=== PATIENT | male | born 1940 | race Caucasian/White ===

== ENCOUNTER → 2018-02-23 09:23 | Outpatient (CLI) | payer MEDICARE, SELFPAY ==
[2018-01-19 11:18] VITALS: BMI 25.8
--- NOTE | 2018-02-23 09:33 | STE_ITS ---
Reason For Study: ATRIAL FIBRILLATION Stress Results Protocol: Dobutamine Stress Echo Maximum Predicted HR: 142 bpm Target HR: 121 bpm % Maximum Predicted HR: 89 % DurationHeart Rate Stage (mm:ss) (bpm) BP Dose Comment BASELINE 76 144/74 ATRIAL FIBRILLATION DSE- 10 MCG 3:05 86 161/8510.00 DSE- 20 MCG 3:28 126 171/[id number] VENTRICULAR COUPLETS RECOVERY 82 139/81 DENIES COMPLAINT Stress Duration: 6:33 mm:ss Maximum Stress HR: 126 bpm Baseline Echocardiogram Findings The estimated ejection fraction is 65 %. Stress Echo Wall motion Data Resting WM Intermediate WM Stress WM Resting Wall Motion Wall Motion Stress No regional wall motion Posterior-Basal: Mildly abnormalities noted. hypokinetic. Mid-Posterior: Mildly hypokinetic. EKG Data Atrial fibrillation with controlled ventricular response. The patient was titrated from 10 mcg to a maximum of 20 mcg of dobutamine during the stress. The maximum heart rate attained was 126 beats per minute. This was 88% of maximum predicted heart rate. The stress ECG displays diffuse abnormal ST segments. No clinical angina was noted. Doppler Measurements & Calculations TR max mariaa: 381.7 cm/sec TR max P.3 mmHg Interpretation Summary The estimated ejection fraction is 65 %. Posterior-Basal: Mildly hypokinetic Mid-Posterior: Mildly hypokinetic Abnormal, adequate, dobutamine echocardiogram. Positive for ischemia by EKG and echocardiographic criteria. Patient appeared to develop subtle inferior and posterior wall hypokinesis at peak infusion. Patient frequent PVCs and ventricular couplets during infusion. Patient appeared to develop diffuse inferior and lateral ST segment depression. No anginal symptoms noted. Appropriate blood pressure response to dobutamine. Final LVEF of 60%. Ordering Physician: Javed Arvizu Referring Physician: Javed Arvizu Performed By: Missy Garcia, MYKEL, RVT
== END ==
PROVIDERS: Family Provider Family Medicine; PCP Family Medicine; Referring Provider Internal Medicine Cardiovascular Disease; Visit Provider Internal Medicine Cardiovascular Disease
DX: I48.91 Unspecified atrial fibrillation (principal); F03.90 Unspecified dementia, unspecified severity, without behavioral disturbance, psychotic disturbance, mood disturbance, and anxiety; R93.1 Abnormal findings on diagnostic imaging of heart and coronary circulation; I49.3 Ventricular premature depolarization; I48.92 Unspecified atrial flutter; I99.8 Other disorder of circulatory system; R00.8 Other abnormalities of heart beat; R94.31 Abnormal electrocardiogram [ECG] [EKG]
CPT/HCPCS: 93017; 93350; J7040; A4216

== ENCOUNTER → 2018-03-02 10:33 | Outpatient (CLI) | payer MEDICARE, SELFPAY ==
[2018-03-02 09:29] VITALS: BMI 25.8
[2018-03-02 11:43] LABS: Hemoglobin 15.5 g/dl (13.0-16.5); Mean Corpuscular Hgb 29.4 pg (27.0-32.0); Mean Corpuscular Volume 89.2 fL (80-94); Mean Platelet Vol. 11.9 fl (6.2-12.0); Platelet Count 215 K/mm3 (150-450); RBC Distribution Width CV 14.9 % (11.6-14.6); Red Blood Count 5.27 M/mm3 (4.6-6.2); Scan Indicated on CBC? Y/N NO; White Blood Count 11.1 K/mm3 (4.4-11.0)
[2018-03-02 12:05] LABS: AST(SGOT) 19 U/L (15-37); Alanine Aminotransfer ALT/SGPT 22 U/L (16-61); Albumin, Serum 3.8 g/dL (3.2-5.0); Alkaline Phosphatase 55 U/L (45-117); Anion Gap 8 (5-15); BUN 12 mg/dL (7-18); BUN/Creat Ratio 11.7 RATIO (10-20); Chloride 105 mmol/L (98-107); Cholesterol 120 mg/dL (200); Creatinine, Serum 1.03 mg/dL (0.70-1.30); EST Glomerular Filtration Rate 74 mL/min (>60); Est Glom Filt Rate - Afr Amer 90 mL/min (>60); Globulin 3.6 g/dL (2.2-4.2); Glucose 110 mg/dL (74-106); High Density Lipoprotein 38 mg/dL; Potassium 4.2 mmol/L (3.5-5.1); Protein, Total 7.4 g/dL (6.4-8.2); Sodium Level 141 mmol/L (136-145); Triglycerides 64 mg/dL; Very Low Density Lipoprotein 13 mg/dL (5-40)
[2018-03-02 12:16] LABS: International Normalized Ratio 1.6; Prothrombin Time (Protime)PT. 19.3 SECONDS (11.7-14.9)
== END ==
PROVIDERS: Family Provider Family Medicine; PCP Family Medicine; Referring Provider Internal Medicine Cardiovascular Disease; Visit Provider Internal Medicine Cardiovascular Disease
DX: E78.5 Hyperlipidemia, unspecified (principal); R94.39 Abnormal result of other cardiovascular function study; R06.09 Other forms of dyspnea; I48.91 Unspecified atrial fibrillation; I35.1 Nonrheumatic aortic (valve) insufficiency; I36.1 Nonrheumatic tricuspid (valve) insufficiency; I34.0 Nonrheumatic mitral (valve) insufficiency; Z86.73 Personal history of transient ischemic attack (TIA), and cerebral infarction without residual deficits
CPT/HCPCS: 36415; 80048; 80061; 80076; 85027; 85610; 85730

== ENCOUNTER 2018-03-10 08:08 | Day surgery (SDC) | payer MEDICARE, SELFPAY ==
[2018-01-19 11:18] VITALS: BMI 25.8
[2018-03-02 09:29] VITALS: BMI 25.8
--- NOTE | 2018-03-02 10:06 | RAD_ITS ---
STUDY: X-RAY CHEST REASON FOR EXAM: Male, 77 years old. Preoperative assessment TECHNIQUE: PA and lateral COMPARISON: None. FINDINGS: The lungs are clear and expanded. There is no demonstrated pleural abnormality. Normal size heart. Normal mediastinum and paco. Normal visualized pulmonary arteries. Normal visualized aortic arch and descending thoracic aorta. Normal visualized thoracic spine. Normal visualized ribs, clavicles, and shoulders. There is no demonstrated abnormality of the visualized soft tissue structures of the upper abdomen. RAD/Chest PA and Lateral IMPRESSION: Normal x-ray examination of the chest. Electronically Signed: García Sheehan MD at 3:41 EST , Service support ,
[2018-03-09 09:00] VITALS: BMI 25.2
[2018-03-10 08:21] LABS: Prothrombin Time Fingerstick 14.2 SEC (11.9-14.4)
[2018-03-10 10:01] LABS: Blood Gas Specimen Type VEN; VBG BASE EXCESS -1 mmol/L (-1.0-3.5); VBG Bicarbonate 25 mmol/L (22-26); VBG Oxygen Content 26 mmol/L (23-33); VBG PO2 34 mmHg (25-40); VBG SO2 63 % (50-70); VBG pCO2 43.4 mmHg (41-51); VBG pH 7.36 (7.32-7.42)
[2018-03-10 10:01] LABS: Blood Gas Specimen Type VEN; VBG BASE EXCESS 0 mmol/L (-1.0-3.5); VBG Bicarbonate 25 mmol/L (22-26); VBG Oxygen Content 26 mmol/L (23-33); VBG PO2 35 mmHg (25-40); VBG SO2 65 % (50-70); VBG pCO2 43.2 mmHg (41-51); VBG pH 7.37 (7.32-7.42)
[2018-03-10 10:01] LABS: Base Excess -4 mmol/L (-2 to +2); Bicarbonate 21.1 mmol/L (22-26); Blood Gas Specimen Type ART; PO2 93 mmHG (75-100); SO2 97 % (95-99); Total Carbon Dioxide 22 mmol/L; pCO2 34.9 mmHg (35-45); pH 7.39 (7.35-7.45)
--- NOTE | 2018-03-10 10:07 | CL.D_ITS ---
Patient Name: ISIDRO COOPER Study Date: 03/10/2018 Performing: Javed Arvizu MD Ht: 70.07 inches 178 cm : 1940 Wt: 176.37 lbs 80 kg Age: 77 Gender: male BSA: 1.98 PROCEDURE(S) PERFORMED NY22-NTC/LHC/COR/LV DC11-AO ROOT ANGIO WITH HEART CATH CLINICAL PROFILE AND INDICATIONS Indications: Suspected CAD, Valvular Disease, Cardiac Arrythmia Heart Failure: NYHA Class: 1, Newly Diagnosed: No, Heart Failure Type: Diastolic Stress/Imaging Stress Echocardiogram: Yes Result: Positive Low RiskStress Echocardiogram: Positiv e Low Risk Angina Classification Anginal Classification w/in 2 Weeks: No symptoms CAD Presentations: Other: Dyspnea on exertion. Comorbidities/Risk Factors: Hypertension Dyslipidemia CONCLUSIONS Normal LV size, wall motion,and systolic function LVEF: by LV gram 55-60 % Non obstructive coronary arteries Aortic Valve Stenosis- Mild The patient has pulmonary hypertension which is mild. Right heart pressures - mildly elevated RECOMMENDATIONS D/c plavix, start hyzaar 50/12.5, start amio 200mg daily, DCCV in 4 weeks. DESCRIPTION OF PROCEDURE The patient arrived to the procedure lab. The risks and benefits of the procedure as well as a full d escription of our services here and current unavailability of surgical backup were fully explained to the patient and/or their significant other prior to the catheterization. The Timeout was completed, verifying the correct patient and procedure. The patient's procedural site was prepped and draped in the usual fashion. Local anesthetic was given subcutaneously to right groin region with Lidocaine 2%. Using a modified Seldinger technique, arterial access was obtained via the right femoral artery, a 4 Fr sheath was inserted Venous access was obtained via the right femoral vein, a 7Fr sheath was insert ed. A 7Fr thermal dilution catheter was inserted and right heart pressures were recorded, it was then advanced to PA position for cardiac outputs. O2 saturations were then obtained. Thermal dilution car diac outputs were then recorded. The Thermal dilution catheter was then removed. Left Ventriculography was performed in LOPEZ projection using a 4 Fr. Pigtail catheter. LV to AO pullback pr essures were then recorded. Left Coronary Artery selective angiography was performed in multiple view s using a 4 Fr. JL5 catheter. Right Coronary Artery selective angiography was then performed in multi ple views using a 4 Fr. 3DRC catheter.The arterial sheath was pulled and manual compression applied u ntil hemostasis is achieved. CORONARY ANGIOGRAPHY DOMINANCE: Right Dominant LEFT HEART ASSESSMENT Left Ventricular Ejection Fraction: by LV Gram 55-60 % Normal LV wall motion Normal Left Ventricular systolic function RIGHT HEART ASSESSMENT Thermal CO: 3.19 Thermal CI: 1.61 PW: /31 22 PA: 47/20 32 RV: 42/-1 5 RA: /6 4 PVR: 251 SVR: 2884 Right Heart pressures - elevated Pulmonary Hypertension Mild LEFT MAIN: Moderate calcification LEFT ANTERIOR DECENDING ARTERY: Moderate calcification, Mild luminal irregularities less than 30% CIRCUMFLEX ARTERY: Moderate calcification, Mild luminal irregularities less than 30% RIGHT CORONARY ARTERY: Moderate calcification MID RCA: Moderate luminal irregularities up to 50% RT PDA: Proximal - Mild luminal irregularities less than 30% VALVE FINDINGS: Aortic Valve Stenosis - mild AORTIC ROOT: mild aortic insufficiency COMPLICATIONS No Complications PROCEDURE MEDICATIONS SUMMARY OF HEMODYNAMIC DATA Time AIR REST ECG 08:35:50 RA /6 (4) SV 09:37:33 RV 42/-1, 5 09:37:59 PA 47/20 (32) PA 09:38:56 PW /31 (22) PV 09:40:24 LV 172/-6, 11 09:45:26 LV 181/-4, 16 09:45:32 LV 182/-2, 10 09:45:56 PW /43 (30) 09:45:56 LV 176/-2, 10 09:46:02 PW /37 (26) 09:46:02 LV 181/-1, 12 09:46:14 RV 45/16, 22 09:46:14 LV 185/0, 13 09:46:20 RV 47/2, 6 09:46:20 LV 177/-3, 6 09:46:29 RV 46/0, 5 09:46:29 LV 183/-5, 14 09:48:25 LVp 182/-3, 10 09:48:28 AOp 184/75 (119) 09:48:33 AO 152/88 (119) SA 09:49:05 Type SV CO (l/m) CI (l/m/ HR Time AIR REST Thermal 31.60 3.19 1.61 101 08:35:50 Label % O2 Pres/Loc Time AIR REST AO 97 PV 09:53:10 Signed By Javed Arvizu MD On 03/10/2018 10:06:58 AM Javed Arvizu MD
--- OUTSIDE RECORDS SUMMARY | 2018-05-12 02:50 | XMS RPT_ITS ---
:1940 Author Organization OHIP Care Team Providers Name Role Phone Javed Mills Attending Unavailable Javed Mills Referring Unavailable SLICK, JOHANNY Primary Care Unavailable Javed Mills Attending Unavailable Javed Mills Referring Unavailable SHEETS, JOHANNY Primary Care Unavailable Javed Mills Attending Unavailable Javed Mills Referring Unavailable SLICK, JOHANNY Primary Care Unavailable Dahlia Haines Attending Unavailable SHEETS, JOHANNY Referring Unavailable Javed Mills Attending Unavailable Javed Mills Referring Unavailable SHEETS, JOHANNY Primary Care Unavailable Javed Mills Attending Unavailable Javed Mills Referring Unavailable Javed Mills Attending Unavailable SHEETS, JOHANNY Referring Unavailable AMY PUENTE MD Attending Unavailable SHEETS, JOHANNY Ragland Primary Care Unavailable JOSEPH HSIEH Admitting Unavailable RYAN LOERA Attending Unavailable BROOKS RAYA Consulting Unavailable SHEETS, JOHANNY C Attending Unavailable SHEETS, JOHANNY C Referring Unavailable JAVED MILLS J Referring Unavailable JAVED MILLS J Referring Unavailable PROBLEMS PROBLEMS DATE TYPE CONDITION / CODE ATTENDING STATUS SOURCE 03/02/2018 Unknown E78.5 - MillsJaved Active [place] Hyperlipidemia, Community unspecified / Hospital E78.5(ICD-10) Repository 03/02/2018 Unknown R94.39 - Abnormal Javed Mills Active [place] result of other [facility] cardiovascular Hospital function study / Repository R94.39(ICD-10) 03/02/2018 Unknown R06.09 - Other forms Javed Mills Active [place] of dyspnea / Community R06.09(ICD-10) Hospital Repository 03/02/2018 Unknown I48.91 - Unspecified [place]ol[place]to Javed Active [place] atrial fibrillation Community / I48.91(ICD-10) Hospital Repository 03/02/2018 Unknown I35.1 - Nonrheumatic MillsJaved Active [place] aortic (valve) Community insufficiency / Hospital I35.1(ICD-10) Repository 03/02/2018 Unknown I36.1 - Nonrheumatic Nolberto Javed Active [place] tricuspid (valve) Community insufficiency / Hospital I36.1(ICD-10) Repository 03/02/2018 Unknown I34.0 - Nonrheumatic Javed Mills Active [place] mitral (valve) Community insufficiency / Hospital I34.0(ICD-10) Repository 03/02/2018 Unknown Z86.73 - Personal Javed Mills Active [place] history of transient Community ischemic attack Hospital (TIA), and cerebral Repository infarction without residual deficits / Z86.73(ICD-10) 02/25/2018 Active Nonrheumatic aortic NA Active [place] (valve) [facility] Other insufficiency / [place] I35.1(ICD-10) Repository 02/24/2018 Active Localized edema / NA Active [place] R60.0(ICD-10) Clinic Other [place] Repository 02/10/2018 Unknown R60.0 - Localized Javed Mills Active [place] edema / Community R60.0(ICD-10) Hospital Repository 01/08/2018 Active Other fatigue / NA Active [place] R53.83(ICD-10) [facility] Other [place] Repository 08/29/2017 Active Unknown / RYAN LOERA Active [facility] UNK(Unknown) [facility] Other [place] Repository PROCEDURES PROCEDURES No Procedure Records FoundRESULTS RESULTS BLOOD GASES BY CPS Collected: 03/10/2018 Status: F Source: [place] 9:52 AM [facility] REPOSITORY TYPE CODE TESTS RESULT OUT OF RANGE REFERENCE UNITS LAB L9000.9990 Normal BLD GAS ART TYPE LAB L9001.1110 7.35-7.45 Normal pH - 7.39 I-STAT LAB L9001.1210 35-45 mmHg Low pCO2 - 34.9 ISTAT LAB L9001.1310 75-100 mmHG Normal PO2 93 I-STAT LAB L9001.2300 22-26 mmol/L Low HCO3 21.1 ISTAT LAB L9001.2400 -2 to +2 mmol/L Low BE ISTAT -4 LAB L9001.2415 mmol/L Normal TOTAL CO2 22 ISTAT LAB L9001.2425 95-99 % Normal SO2 ISTAT 97 Performed By: #### L9000.0800 #### [facility] Point of Care [address] [place] [address] VENOUS BLOOD GAS Collected: 03/10/2018 Status: F Source: ALIYAH 9:47 AM [facility] REPOSITORY TYPE CODE TESTS RESULT OUT OF RANGE REFERENCE UNITS LAB L9000.9990 Normal BLD GAS OMI TYPE LAB L9002.1110 7.32-7.42 Normal VBGpH - 7.37 I-STAT LAB L9002.1212 41-51 mmHg Normal VBG pCO2 43.2 - ISTA LAB L9002.1310 25-40 mmHg Normal VBG PO2 35 I-STAT LAB L9002.2300 22-26 mmol/L Normal VBG HCO3 25 ISTAT LAB L9002.2400 -1.0-3.5 mmol/L Normal VBG BE 0 ISTAT LAB L9002.2410 50-70 % Normal VBG SO2 65 ISTAT LAB L9002.2415 23-33 mmol/L Normal VBG O2 CT 26 ISTAT Performed By: #### L9000.0810 #### [facility] Point of Care [address] [place] [address] VENOUS BLOOD GAS Collected: 03/10/2018 Status: F Source: ALIYAH 9:44 AM [facility] REPOSITORY TYPE CODE TESTS RESULT OUT OF RANGE REFERENCE UNITS LAB L9000.9990 Normal BLD GAS OMI TYPE LAB L9002.1110 7.32-7.42 Normal VBGpH - 7.36 I-STAT LAB L9002.1212 41-51 mmHg Normal VBG pCO2 43.4 - ISTA LAB L9002.1310 25-40 mmHg Normal VBG PO2 34 I-STAT LAB L9002.2300 22-26 mmol/L Normal VBG HCO3 25 ISTAT LAB L9002.2400 -1.0-3.5 mmol/L Normal VBG BE -1 ISTAT LAB L9002.2410 50-70 % Normal VBG SO2 63 ISTAT LAB L9002.2415 23-33 mmol/L Normal VBG O2 CT 26 ISTAT Performed By: #### L9000.0810 #### [facility] Point of Care [address] [place] [address] PROTIME W/INR Collected: 03/10/2018 Status: F Source: [place]IY[place] FINGER[place]ICK 8:17 AM [facility] REPOSITORY TYPE CODE TESTS RESULT OUT OF RANGE REFERENCE UNITS LAB L9200.1001 11.9-14.4 SEC Normal PROTIME ISTAT 14.2 Result Comment: Reference Range 11.9 - 14.4 LAB L9200.2000 Normal INR ISTAT 1.20 Result Comment: Critical Value > 3.5 Performed By: #### L9200.0000 #### [facility] Point of Care [address] [place], [place] [address] CBC-COMPLETE BLOOD CNT Collected: 03/02/2018 Status: F Source: [place] NO DIFF 10:40 AM [facility] REPOSITORY TYPE CODE TESTS RESULT OUT OF RANGE REFERENCE UNITS LAB L100.1000 4.4-11.0 K/mm3 High WBC 11.1 LAB L100.1200 4.6-6.2 M/mm3 Normal RBC 5.27 LAB L100.1300 13.0-16.5 g/dl Normal HGB 15.5 LAB L100.1400 40-54 % Normal HCT 47.0 LAB L100.1500 80-94 fL Normal MCV 89.2 LAB L100.1600 27.0-32.0 pg Normal MCH 29.4 LAB L100.1700 32-36 g/gl Normal MCHC 33.0 LAB L100.1810 11.6-14.6 % High RDW CV 14.9 LAB L100.1820 35.1-43.9 fl High RDW SD 49.0 LAB L100.1900 150-450 K/mm3 Normal PLT 215 LAB L100.2000 6.2-12.0 fl Normal MPV 11.9 Performed By: #### L100.0500 #### [facility] [address] [place], [place], [address] BASIC METABOLIC Collected: 03/02/2018 Status: F Source: [place] PROFILE (BMP) 10:40 AM [facility] REPOSITORY TYPE CODE TESTS RESULT OUT OF RANGE REFERENCE UNITS LAB L501.0100 74-106 mg/dL High GLU 110 Result Comment: Fasting Glucose result from 100 to 125 mg/dL suggests IMPAIRED HOMEOSTASIS per A.D.A. criteria. Please note revised GLUCOSE reference range effective 2017. LAB L501.1000 7-18 mg/dL Normal BUN 12 LAB L501.1100 0.70-1.30 mg/dL Normal CREAT,SERUM 1.03 Result Comment: The validity of the calculated GFR AND GFRAA in patients over 70 years has not been determined. Clinical correlation is essential. LAB L501.1110 >60 mL/min Normal EST GFR 74 Result Comment: Non- GFR Calc LAB L501.1115 >60 mL/min Normal EST GFR - AA 90 Result Comment: GFR Calc LAB L501.1300 10-20 RATIO Normal BUN/CRE 11.7 LAB L501.2200 8.5-10.1 mg/dL CA Normal 9.0 LAB L501.5300 136-145 mmol/L NA Normal 141 LAB L501.5600 3.5-5.1 mmol/L K Normal 4.2 LAB L501.5900 98-107 mmol/L CL Normal 105 LAB L501.6100 21.0-32.0 mmol/L Normal CO2 28.0 LAB L501.6200 5-15 Normal GAP 8 Performed By: #### L500.2500, L500.3400, L500.4100 #### [facility] [address] [place], [place], [id number] LIVER PROFILE Collected: 03/02/2018 Status: F Source: [place] 10:40 AM [facility] REPOSITORY TYPE CODE TESTS RESULT OUT OF RANGE REFERENCE UNITS LAB L501.1500 6.4-8.2 g/dL Normal T PROT 7.4 LAB L501.1800 3.2-5.0 g/dL Normal ALB 3.8 LAB L501.1950 2.2-4.2 g/dL Normal GLOB 3.6 LAB L501.4100 15-37 U/L Normal AST 19 LAB L501.4305 45-117 U/L Normal ALK P 55 LAB L501.4405 16-61 U/L Normal ALT 22 LAB L501.4600 0.20-1.00 mg/dL Normal T BILI 0.80 LAB L501.4700 0.00-0.30 mg/dL Normal D BILI 0.30 Performed By: #### L500.2500, L500.3400, L500.4100 #### [facility] [address] [place], [place], [id number] LIPID PROFILE Collected: 03/02/2018 Status: F Source: [place] 10:40 AM [facility] REPOSITORY TYPE CODE TESTS RESULT OUT OF RANGE REFERENCE UNITS LAB L501.4900 200 mg/dL Normal CHOL 120 Result Comment: <200 mg/dL Desirable 200-240 mg/dL Borderline >240 mg/dL High Risk LAB L501.5000 mg/dL Normal TRIG 64 Result Comment: The drugs N-Acetylcysteine and Metamizole may falsely depress this assay. Serum Triglycerides Reference Interval Normal <150 mg/dL Borderline high 150 - 199 mg/dL High 200 - 499 mg/dL Very High > or = 500 mg/dL LAB L501.6400 mg/dL Low HDL 38 Result Comment: The drugs N-Acetylcysteine and Metamizole may falsely depress this assay. Reference Range HDL <40 mg/dL Low HDL Cholesterol HDL >or= 60 mg/dL High HDL Cholesterol LAB L501.6500 0-130 mg/dL Normal LDL 69 LAB L501.6600 5-40 mg/dL Normal VLDL 13 Performed By: #### L500.2500, L500.3400, L500.4100 #### [facility] [address] [place], [address] PROTHROMBIN TIME W/INR Collected: 03/02/2018 Status: F Source: [place] 10:40 AM [facility] REPOSITORY TYPE CODE TESTS RESULT OUT OF RANGE REFERENCE UNITS LAB L300.4150 11.7-14.9 SECONDS High PROTIME 19.3 LAB L300.4200 Normal INR 1.6 Performed By: #### L300.3900, L300.4310 #### [facility] [address] [place], [address] PARTIAL THROMBOPLAST Collected: 03/02/2018 Status: F Source: [place] TIME 10:40 AM [facility] REPOSITORY TYPE CODE TESTS RESULT OUT OF RANGE REFERENCE UNITS LAB L300.4310 24.1-36.2 Seconds Normal PTT 32.0 Performed By: #### L300.3900, L300.4310 #### [facility] [address] [place], [address] CARDIOLOGY VISIT Observed: 03/02/2018 Status: F Source: [place] REPORT 10:09 AM [facility] REPOSITORY [facility] [address] [place] [address] OFFICE VISIT Date of Service: 03/02/18 MR#: [id number] Acct: [id number] Name: ISIDRO MURPHY Rep #: [id number] : 1940 Provider: Dahlia Haines Age/Sex: 77/M Location: [facility] [place] Status: Signed HPI [facility] Chief Complaint: Atrial fibrillation Details: ISIDRO MURPHY, is a 77 M who presents to the office today for presents here today for an updated history and physical for an upcoming heart catheterization. Patient recently established with us. He has a history of persistent atrial fibrillation, hypertension, pulmonary hypertension and hyperlipidemia. Patient underwent a stress echocardiogram which was abnormal, diagnostic heart catheterization was recommended. Pt sts that he is doing okay. However and dtr state that he is very fatigued. He does not have any chest pain/heaviness. He does not have any SOB, orthopnea. His exercise tolerance is limited and he sits most of the day. He does occasionally have positional dizziness. He does not have any near syncope/syncope. He does not have any edema. 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 Accompanied by: Is patient in pain?: No Allergies No Known Allergies Allergy (Verified 03/02/18 09:30) Medications albuterol sulfate HFA 90 mcg/actuation aerosol inhaler 2 puff INHALATION Q4H PRN g 01/18/18 [History Confirmed 03/02/18] diltiazem CD 360 mg capsule,extended release 24 hr 360 mg PO DAILY 01/18/18 [History Confirmed 03/02/18] donepezil 5 mg tablet 5 mg PO QHS tab 01/18/18 [History Confirmed 03/02/18] fenofibrate micronized 130 mg capsule 130 mg PO DAILY 01/18/18 [History Confirmed 03/02/18] nitroglycerin 0.4 mg/hr transdermal 24 hour patch 1 patch TRANSDERMAL DAILY 01/18/18 [History Confirmed 03/02/18] rivaroxaban 20 mg tablet 20 mg PO DAILY 01/18/18 [History Confirmed 03/02/18] rosuvastatin 20 mg tablet 20 mg PO DAILY 01/18/18 [History Confirmed 03/02/18] sitagliptin 50 mg-metformin 500 mg tablet 1 tab PO BID 01/18/18 [History Confirmed 03/02/18] metoprolol succinate ER 100 mg tablet,extended release 24 hr 200 mg PO DAILY tab 01/19/18 [History Confirmed 03/02/18] aspirin 81 mg tablet,delayed release 81 mg PO .COMPLEX #30 tab 02/24/18 [Rx Confirmed 03/02/18] clopidogrel 75 mg tablet 75 mg PO .COMPLEX #30 tab 02/24/18 [Rx Confirmed 03/02/18] Ejection fraction %: 55 to 59 PFSH Medical History Dyspnea on exertion (Acute) Abnormal stress echo (Acute) Secondary pulmonary hypertension (Chronic) Nonrheumatic aortic valve regurgitation (Chronic) Nonrheumatic tricuspid valve regurgitation (Chronic) Nonrheumatic mitral valve regurgitation (Chronic) History of TIA (transient ischemic attack) (Chronic) Leg edema (Chronic) Atrial fibrillation (Chronic) Fatigue (Acute) Diabetes mellitus, type II (Chronic) Hyperlipidemia (Chronic) Hypertension (Chronic) Atypical chest pain (Resolved) Family History Mother CAD (coronary artery disease) CVA (cerebral vascular accident) Congestive heart failure Father Hypertension Sister Cancer Brother Hypertension Diabetes Cancer Liver cancer CAD (coronary artery disease), Onset Age: 70 Brother Esophageal cancer Social History Smoking Status: Former smoker quit date: 09/22/89 pack-years: 30 alcohol intake: current alcohol intake frequency: a few times a week Alcohol type: beer caffeine: Yes Type: coffee Number of servings: 1 ROS Const Const: Positive for weakness, other ( states pt is very tired, sleeps all the time. Pt states he feels ok.) and fatigue; negative for body ache, fever(s), headache(s), chills, frequent falls, night sweats, daytime sleepiness, difficulty sleeping, weight gain, weight loss, increased appetite, poor appetite, anorexia or excessive sweating Eyes Eyes: Negative for blind spots, loss of peripheral vision, transient loss of vision, blurry vision, change in vision, double vision, floaters, tunnel vision or other ENT ENT: Negative for headache(s) or balance problems Cardio Chest Pain: No Palpitations: No Edema: Bilateral (mild pitting to mid shins) Muscle aches with walking: None Resp Respiratory: Negative for SOB with activity, SOB at rest, SOB orthopnea\SOB lying down, Cough, Coughing up blood/hemoptysis, chest congestion, pain on inspiration, snoring, stridor, wheezing, crackles, paroxysmal nocturnal dyspnea or other GI GI: Negative nausea, vomiting, heartburn, constipation, belching, bloating, cramping, vomiting blood/hematemesis, bright, red blood in stools, black,tarry stools, loose stools, Difficulty Swallowing or other : Negative for hematuria, frequent nighttime urination/ nocturia, erectile dysfunction or abnormal vaginal bleeding Musc Musc: Negative for balance problems, muscle aches/ myalgia, muscle weakness or joint pain Skin Skin: Negative redness, non-healing lesions, rash, unusual bruising, skin ulcer, wounds, jaundice or other Neuro Neuro: Positive for weakness; negative for headache(s), frequent falls, blurry vision or double vision Irvin Hematologic/Lymphatic: Negative for easy bleeding, easy bruising, enlarged lymph nodes or other Endo Endo: Positive for fatigue; negative for excessive sweating Psych Psych: Negative for anxiety, depression, thoughts of harming anyone, thoughts of harming yourself, visual hallucinations, panic attacks or audible hallucinations Allergy Allergy/Immunology: Negative for rash Cardiology Exam Const Appearance: cooperative, healthy appearing and no acute distress Nutritional Appearance: well nourished Orientation: alert, oriented x3 and oriented to person Head Head: normal to inspection, atraumatic and normocephalic Nose: external nose normal Face and Sinus: face symmetric Mouth: oral mucosae normal Eyes General: appearance normal, both eyes and all related structures Eyelids: eyelids normal Conjunctivae: conjunctivae normal Pupils: PERRL and normal by confrontation EOM: EOM intact bilaterally Neck Neck: normal visual inspection and full ROM Carotids: normal carotid upstroke Chest Chest inspection: normal inspection of the chest Auscultation: Bilateral: Clear to Auscultation Cardio Palpation: normal PMI Rate: regular rate Rhythm: irregularly irregular Heart sounds: S2 normal and S1 normal; negative rub or gallop Murmur: Grade 2/6, holosystolic and soft GI GI: normal to inspection, no hepatosplenomegaly and bowel sounds present Neuro General: alert, oriented x3, awake, CN's II-XI intact bilaterally and moves all extremities Skin Skin: no rashes or lesions noted Extremities Pulses: Normal: Right Femoral Pulse, Left Femoral Pulse, Right Dorsalis Pedis Pulse, Left Dorsalis Pedis Pulse, Right Posterior Tibial Pulse, Left Posterior Tibial Pulse, Right Radial Pulse, Left Radial Pulse Lower Extremity Edema: +1: Bilateral Psych Psychological: normal affect Assessment AND Plan 1. Abnormal stress echo R94.39 Plan Patient did have an abnormal stress test, he will undergo a left and right heart catheterization for further evaluation. Patient will follow up accordingly after. 2. Secondary pulmonary hypertension RVSP 51 mmhg, EF 55% per echo 07/21 2013 done @ [facility] Plan This will be rechecked with his upcoming heart catheterization. 3. Persistent atrial fibrillation I48.1 Plan Rate is controlled he will continue with current rate limiting medication in addition to his anticoagulant. 4. Essential hypertension I10 Plan Blood pressure is well controlled on current medications, we do not recommend any changes at this time. 5. Pure hypercholesterolemia E78.00; E78.0 Plan Patient will have his lipids rechecked today. For now he will continue with his current medications. Plan Detail Additional Comments Instructions for heart catheterization were given to , patient and daughter. Thank you for allowing us to participate in patient's plan of care, if you have any questions please do not hesitate to call. This note was generated using a voice recognition system and there may be incorrect words, spelling or punctuation errors that were not noted when reviewing the office note prior to saving. Follow Up 03/02/18 (keep as is) Coding Level of Care Code Off vis,est,level 3 Diagnoses Abnormal stress echo R94.39 Secondary pulmonary hypertension Persistent atrial fibrillation I48.1 Atrial fibrillation type: persistent Essential hypertension I10 Hypertension type: essential hypertension Pure hypercholesterolemia E78.00; E78.0 Hyperlipidemia type: pure hypercholesterolemia Coding Level of Care Code Off vis,est,level 3 Diagnoses Abnormal stress echo R94.39 Secondary pulmonary hypertension Persistent atrial fibrillation I48.1 Atrial fibrillation type: persistent Essential hypertension I10 Hypertension type: essential hypertension Pure hypercholesterolemia E78.00; E78.0 Hyperlipidemia type: pure hypercholesterolemia Supplemental Info Supplemental Information Dobutamine stress echocardiogram in 2019 demonstrated: The estimated ejection fraction is 65 %. Posterior-Basal: Mildly hypokinetic Mid-Posterior: Mildly hypokinetic Abnormal, adequate, dobutamine echocardiogram. Positive for ischemia by EKG and echocardiographic criteria. Patient appeared to develop subtle inferior and posterior wall hypokinesis at peak infusion. Patient frequent PVCs and ventricular couplets during infusion. Patient appeared to develop diffuse inferior and lateral ST segment depression. No anginal symptoms noted. Appropriate blood pressure response to dobutamine. Final LVEF of 60%. Diagnostics Stress Echocardiogram 02/23/18 03/02/18 1009 <Electronically signed by Dahlia ANDINO> Date [facility] Signature: Date (if applicable) CC: Johanny Sow DO CHEST PA AND LATERAL Observed: 03/02/2018 Status: F Source: [place] 10:06 AM [facility] REPOSITORY [facility] Imaging Services [address] [place] [address] [place] [address] Chest PA and Lateral MR#: [id number] Acct: [id number] Name: ISIDRO MURPHY Rep #: [id number] : 1940 M 77 From: García Sheehan PCP: Johanny Sow DO Status: PRE SDC Study: Chest PA and Lateral Date of Exam: 03/02/18 Exam# [id number] Ordering Dr: Javed Mills MD STUDY: X-RAY CHEST REASON FOR EXAM: Male, 77 years old. Preoperative assessment TECHNIQUE: PA and lateral COMPARISON: None. FINDINGS: The lungs are clear and expanded. There is no demonstrated pleural abnormality. Normal size heart. Normal mediastinum and paco. Normal visualized pulmonary arteries. Normal visualized aortic arch and descending thoracic aorta. Normal visualized thoracic spine. Normal visualized ribs, clavicles, and shoulders. There is no demonstrated abnormality of the visualized soft tissue structures of the upper abdomen. RAD/Chest PA and Lateral IMPRESSION: Normal x-ray examination of the chest. Electronically Signed: García Sheehan MD at 3:41 EST , Service support , CC: Javde Mills MD; Johanny Sow DO [employer] Combination: Signed STRESS TEST ECHO W/O Observed: 02/24/2018 Status: F Source: [place] CONTRAST 2:50 PM [facility] REPOSITORY [facility] Cardiovascular Services [address] [address] Stress Test Echo w/o Contrast MR#: [id number] Acct: [id number] Name: ISIDRO MURPHY Rep #: [id number] : 1940 77 From: Javed Mills MD Primary Care: Johanny Kruger DO Status: REG CLI Ordering Dr: Javed Mills MD Sex: M C Reason For Study: ATRIAL FIBRILLATION Stress Results Protocol: Dobutamine Stress Echo Maximum Predicted HR: 142 bpm Target HR: 121 bpm % Maximum Predicted HR: 89 % DurationHeart Rate Stage (mm:ss) (bpm) BP Dose Comment BASELINE 76 144/74 ATRIAL FIBRILLATION DSE- 10 MCG 3:05 86 161/8510.00 DSE- 20 MCG 3:28 126 171/8920.00RARE VENTRICULAR COUPLETS RECOVERY 82 139/81 DENIES COMPLAINT Stress Duration: 6:33 mm:ss Maximum Stress HR: 126 bpm Baseline Echocardiogram Findings The estimated ejection fraction is 65 %. Stress Echo Wall motion Data Resting WM Intermediate WM Stress WM Resting Wall Motion Wall Motion Stress No regional wall motion Posterior-Basal: Mildly abnormalities noted. hypokinetic. Mid-Posterior: Mildly hypokinetic. EKG Data Atrial fibrillation with controlled ventricular response. The patient was titrated from 10 mcg to a maximum of 20 mcg of dobutamine during the stress. The maximum heart rate attained was 126 beats per minute. This was 88% of maximum predicted heart rate. The stress ECG displays diffuse abnormal ST segments. No clinical angina was noted. Doppler Measurements AND Calculations TR max mariaa: 381.7 cm/sec TR max P.3 mmHg Interpretation Summary The estimated ejection fraction is 65 %. Posterior-Basal: Mildly hypokinetic Mid-Posterior: Mildly hypokinetic Abnormal, adequate, dobutamine echocardiogram. Positive for ischemia by EKG and echocardiographic criteria. Patient appeared to develop subtle inferior and posterior wall hypokinesis at peak infusion. Patient frequent PVCs and ventricular couplets during infusion. Patient appeared to develop diffuse inferior and lateral ST segment depression. No anginal symptoms noted. Appropriate blood pressure response to dobutamine. Final LVEF of 60%. Ordering Physician: Javed Mills Referring Physician: Javed Mills Performed By: Missy Garcia, ELIDACS, RVT 02/24/18 1450 Date Javed Mills MD CC: Javed Mills MD; Johanny Kruger DO Date Dictated: 02/23/18 0951 Date Transcribed: 02/24/181449 [employer] Combination: Signed OBSOLETE Observed: 02/24/2018 Status: COMPLETED Source: [place] 11:15 AM [facility] REPOSITORY Procedure ([facility]) ISIDRO MURPHY ([id number]) 1940 M Date Time Provider Department 02/24/18 11:15 AM [facility] During your visit today, we recorded the following information about you: Referring Provider: JAVED MILLS [[id number]] Allergies As of Date: 02/24/2018 (No Known Allergies) Date Reviewed: 01/08/2018 Reviewed by: Johanny Kruger - Fully Assessed Reason for Visit: Procedure [88] Visit Diagnosis:Localized edema [R60.0] Prescriptions as of 02/24/2018 Sig: NITROGLYCERIN 0.4 MG/HR TRANS* Apply 1 Patch as directed onc* FENOFIBRATE MICRONIZED 130 MG* Take 1 capsule by mouth once * ATORVASTATIN 20 MG TABLET Take 1 tablet by mouth once d* METOPROLOL SUCCINATE ER 100 M* Take 2 tablets by mouth once * BLOOD SUGAR DIAGNOSTIC STRIPS Use to check sugars once peter* DILTIAZEM ER 360 MG TABLET,EX* Take 1 tablet by mouth once d* SITAGLIPTIN 50 MG-METFORMIN 5* Take 1 tablet by mouth twice * DONEPEZIL 5 MG TABLET Take 1 tablet by mouth daily * XARELTO 20 MG TABLET TAKE 1 TABLET DAILY WITH DINN* Problem List As Of Date 02/24/2018 Noted Resolved Rhinitis [J31.0] INVALID FOR* CRVO (central retinal vein occlusion) [H34.8192]INVALID FOR* More... Type 2 diabetes mellitus without complication, *INVALID FOR* More... Mixed hyperlipidemia [E78.2] INVALID FOR* More... More... More... Chest pain at rest [R07.9] INVALID FOR*07/20/2013 More... History of TIA (transient ischemic attack) [Z86*INVALID FOR* More... Abnormal echocardiogram [R93.1] INVALID FOR* More... Pulmonary hypertension (HCC) [I27.20] INVALID FOR* Diabetic eye exam (HCC) [Z01.00, E11.9] INVALID FOR* More... Valvular heart disease [I38] INVALID FOR* More... Alcohol abuse [F10.10] INVALID FOR* Corns and callus [L84] INVALID FOR* Well adult exam [Z00.00] INVALID FOR*10/05/2017 More... Chronic atrial fibrillation (HCC) [I48.2] INVALID FOR* More... COLD (chronic obstructive lung disease) (HCC) [*INVALID FOR* Colon cancer screening [Z12.11] INVALID FOR* Essential hypertension with goal blood pressure*INVALID FOR* More... Benign prostatic hyperplasia without lower urin*INVALID FOR* Disorder of prostate [N42.9] INVALID FOR* Memory loss [R41.3] INVALID FOR* Onychomycosis [B35.1] INVALID FOR* Atypical chest pain [R07.89] INVALID FOR* More... Fatigue [R53.83] INVALID FOR* Encounter Status:Closed by JANINE MIMI on 02/24/18 CARDIOLOGY VISIT Observed: 01/19/2018 Status: F Source: ALIYAH REPORT 11:39 AM [facility] REPOSITORY [facility] [address] [place] [address] OFFICE VISIT Date of Service: 01/19/18 MR#: [id number] Acct: [id number] Name: ISIDRO MURPHY Rep #: [id number] : 1940 Provider: Javed Mills MD Age/Sex: 77/M [place] [facility] Status: Signed HPI HPI Chief Complaint: Atrial fibrillation Details: ISIDRO MURPHY, is a 77 M who presents to the office today for consultation of what appears to be permanent atrial fibrillation. Patient was diagnosed with atrial fibrillation about 10-15 years ago, and has never undergone a DC cardioversion. He also has diabetes, systemic hypertension, and unknown cholesterol. He is a former smoker who quit around 20 years ago and prior to the that was half a pack per day for about 40 years. He has never had pulmonary function test. According to his family he has had TIAs in the past, and has been on anticoagulation therapy since his initial diagnosis of atrial fibrillation many years ago. He has no known coronary disease, and his last stress was several years ago. He has never had a catheterization. This past summer while push mowing his grass, the patient had substernal chest pressure and significant hypertension and shortness of breath. He sought medical attention at [facility] and was then transferred to [facility] and seen by personnel arbitrator. I do not have those records, but apparently he was felt to have asthma related symptoms and sent home. His most recent echocardiogram was 07/22/13 at the [facility] which demonstrated normal LV size with an EF around 60%, normal RV size, moderate left atrial enlargement, mild right atrial enlargement, 2+ tricuspid regurgitation and an RVSP of approximately 51 mmHg and 1+ aortic insufficiency. Since his episode in the summer he has had no exertional chest pain but has had some dyspnea on exertion and lower extremity edema. I get the sense that the patient has some mild dementia and is currently on Aricept. In our office today's blood pressure is 124/60, pulse is 80 and irregular. He has no carotid bruits, has clear lungs bilaterally, his cardiac exam is irregularly irregular with 2/6 holosystolic murmur best heard at the lower right sternal border. He has trace edema. His EKG dated 08/29/17 shows atrial fibrillation with controlled ventricular response, no previous myocardial infarction noted. Lipids are pending. Intake Vital Signs01/19/18 Blood Pressure 150/60 H 01/19/18 Blood Pressure Location Lt brachial 01/19/18 Blood Pressure Position Standing 01/19/18 Respiratory Rate 20 H Intake Visit Reasons: A FIB, NEEDS CARD (SELF) Demolition Engineer Required: No Accompanied by: Is patient in pain?: No Allergies No Known Allergies Allergy (Verified 01/19/18 11:19) Medications albuterol sulfate HFA 90 mcg/actuation aerosol inhaler 2 puff INHALATION Q4H PRN g 01/18/18 [History Confirmed 01/19/18] diltiazem CD 360 mg capsule,extended release 24 hr 360 mg PO DAILY 01/18/18 [History Confirmed 01/19/18] donepezil 5 mg tablet 5 mg PO QHS tab 01/18/18 [History Confirmed 01/19/18] fenofibrate micronized 130 mg capsule 130 mg PO DAILY 01/18/18 [History Confirmed 01/19/18] nitroglycerin 0.4 mg/hr transdermal 24 hour patch 1 patch TRANSDERMAL DAILY 01/18/18 [History Confirmed 01/19/18] rivaroxaban 20 mg tablet 20 mg PO DAILY 01/18/18 [History Confirmed 01/19/18] rosuvastatin 20 mg tablet 20 mg PO DAILY 01/18/18 [History Confirmed 01/19/18] sitagliptin 50 mg-metformin 500 mg tablet 1 tab PO BID 01/18/18 [History Confirmed 01/19/18] metoprolol succinate ER 100 mg tablet,extended release 24 hr 200 mg PO DAILY tab 01/19/18 [History Confirmed 01/19/18] [facility] Medical History Secondary pulmonary hypertension (Chronic) Nonrheumatic aortic valve regurgitation (Chronic) Nonrheumatic tricuspid valve regurgitation (Chronic) Nonrheumatic mitral valve regurgitation (Chronic) History of TIA (transient ischemic attack) (Chronic) Leg edema (Chronic) Atrial fibrillation (Chronic) Fatigue (Acute) Diabetes mellitus, type II (Chronic) Hyperlipidemia (Chronic) Hypertension (Chronic) Atypical chest pain (Resolved) Family History Mother CAD (coronary artery disease) CVA (cerebral vascular accident) Congestive heart failure Father Hypertension Sister Cancer Brother Hypertension Diabetes Cancer Liver cancer CAD (coronary artery disease), Onset Age: 70 Brother Esophageal cancer Social History Smoking Status: Former smoker quit date: 09/22/89 pack-years: 30 ROS Const Const: Positive for weakness, other ( states pt is very tired, sleeps all the time. Pt states he feels ok.) and fatigue; negative for body ache, fever(s), headache(s), chills, frequent falls, night sweats, daytime sleepiness, difficulty sleeping, weight gain, weight loss, increased appetite, poor appetite, anorexia or excessive sweating Eyes Eyes: Negative for blind spots, loss of peripheral vision, transient loss of vision, blurry vision, change in vision, double vision, floaters, tunnel vision or other ENT ENT: Negative for dizziness, hearing loss, tinnitus, Nosebleed/epistaxis, balance problems, post nasal drip, lip swelling, tongue swelling, bleeding gums, hoarseness, neck pain, dry mouth, other or headache(s) Cardio Chest Pain: No Palpitations: No Edema: Bilateral (mild pitting to mid shins) Muscle aches with walking: None Resp Respiratory: Negative for SOB with activity, SOB at rest, SOB orthopnea\SOB lying down, Cough, Coughing up blood/hemoptysis, chest congestion, pain on inspiration, snoring, stridor, wheezing, crackles, paroxysmal nocturnal dyspnea or other GI GI: Negative nausea, vomiting, heartburn, constipation, belching, bloating, cramping, vomiting blood/hematemesis, bright, red blood in stools, black,tarry stools, loose stools, Difficulty Swallowing or other : Negative for hematuria, frequent nighttime urination/ nocturia, erectile dysfunction or abnormal vaginal bleeding Musc Musc: Negative for balance problems, muscle aches/ myalgia, muscle weakness or joint pain Skin Skin: Negative redness, non-healing lesions, rash, unusual bruising, skin ulcer, wounds, jaundice or other Neuro Neuro: Positive for weakness; negative for blurry vision, double vision, dizziness, lightheadedness, near syncope, syncope, orthostatic symptoms, confusion, memory loss, restless legs, vertigo, seizures, lack of coordination, other, headache(s) or frequent falls Irvin Hematologic/Lymphatic: Negative for easy bleeding, easy bruising, enlarged lymph nodes or other Endo Endo: Positive for fatigue; negative for excessive sweating, cold intolerance, heat intolerance, flushing, increased thirst/drinking, increased hunger, hair loss, hair growth or other Psych Psych: Negative for anxiety, depression, thoughts of harming anyone, thoughts of harming yourself, visual hallucinations, panic attacks or audible hallucinations Allergy Allergy/Immunology: Negative for lip swelling, Negative for tongue swelling, Negative for rash, Negative for throat swelling, Negative for hives Cardiology Exam Const Appearance: cooperative, healthy appearing and no acute distress Nutritional Appearance: well nourished Orientation: alert, oriented x3 and oriented to person Head Head: normal to inspection, atraumatic and normocephalic Nose: external nose normal Face and Sinus: face symmetric Mouth: oral mucosae normal Eyes General: appearance normal, both eyes and all related structures Eyelids: eyelids normal Conjunctivae: conjunctivae normal Pupils: PERRL and normal by confrontation EOM: EOM intact bilaterally Neck Neck: normal visual inspection and full ROM Carotids: normal carotid upstroke Chest Chest inspection: normal inspection of the chest Auscultation: Bilateral: Clear to Auscultation Cardio Palpation: normal PMI Rate: regular rate Rhythm: irregular rhythm Heart sounds: S2 normal Murmur: Grade 2/6 and holosystolic GI GI: normal to inspection, no hepatosplenomegaly and bowel sounds present Neuro General: alert, oriented x3, awake, CN's II-XI intact bilaterally and moves all extremities Skin Skin: no rashes or lesions noted Extremities Pulses: Normal: Right Femoral Pulse, Left Femoral Pulse, Right Dorsalis Pedis Pulse, Left Dorsalis Pedis Pulse, Right Posterior Tibial Pulse, Left Posterior Tibial Pulse, Right Radial Pulse, Left Radial Pulse Lower Extremity Edema: None: Bilateral Psych Psychological: normal affect Assessment AND Plan 1. Atrial fibrillation I48.91 Plan 1. Atrial fibrillation: The patient's heart rate is well controlled and he is been on anticoagulation for approximately 15 years. He has never undergone a DC cardioversion, and would not recommend to do so at this time. Would recommend the patient continue his diltiazem, metoprolol and Xarelto. As part of his coronary risk stratification would recommend a dobutamine echocardiogram, 2D echo with Doppler to document his LV function, and pulmonary pressures, as well as a fasting lipid profile. Believe the most important component is to continue the patient anticoagulation at this time. We may need to make some adjustments to his antihypertensives depending upon the outcome of his stress test. Orders Orders: 2. Hyperlipidemia E78.5 Plan 2. Hyperlipidemia: We will repeat his lipid profile. He is currently on gemfibrozil. His LDL should be less than 70 given his diabetes. Orders Orders: 3. Secondary pulmonary hypertension RVSP 51 mmhg, EF 55% per echo 07/21 2013 done @ [facility] Plan 3. Pulmonary hypertension: Recommend obtaining a repeat echocardiogram to document his pulmonary pressures, as well as evaluate with pulmonary function test given his long smoking history and dyspnea on exertion. 4. Return office in 6 months. This note was generated using a voice recognition system and there may be incorrect words, spelling or punctuation that were not noted when reviewing the office note prior to saving. Plan Detail Other Orders Orders: Other Medications New: Follow Up +6M (Nolberto) Coding Level of Care Code Off vis,new,level 4 Diagnoses Atrial fibrillation I48.91 Hyperlipidemia E78.5 Secondary pulmonary hypertension Coding Level of Care Code Off vis,new,level 4 Diagnoses Atrial fibrillation I48.91 Hyperlipidemia E78.5 Secondary pulmonary hypertension 01/19/18 1139 <Electronically signed by Javed Mills MD> Date Javed Mills MD Cosigner Signature: Date (if applicable) CC: Joahnny Kruger DO HEMOGRAM Collected: 01/08/2018 Status: F Source: [facility] 12:25 PM HEALTH SYSTEM REPOSITORY TYPE CODE TESTS RESULT OUT OF REFERENCE UNITS RANGE LAB LWBC(LOINC) 4.8-10.8 thou/cmm WBC 8.5 LAB LRBC(LOINC) 4.60-6.20 mil/cmm RBC 4.88 LAB LHGB(LOINC) 14.0-18.0 g/dL Hgb 14.1 LAB LHCT(LOINC) 42.0-52.0 % Hct 43.9 LAB LMCV(LOINC) 80.0-94.0 fl MCV 90.0 LAB LMCH(LOINC) 27.0-31.0 pg MCH 28.9 LAB LMCHC(LOINC 32.0-36.0 % ) MCHC 32.1 LAB LRDW(LOINC) 11.5-15.9 % RDW 14.9 LAB LPLT(LOINC) 150-400 thou/cmm Platelet 212 LAB LMPV(LOINC) 7.1-10.5 fl High MPV 10.9 Performed By: #### LCBC #### [facility] [address] [address] TSH Collected: 01/08/2018 Status: F Source: [facility] 12:25 PM HEALTH SYSTEM REPOSITORY TYPE CODE TESTS RESULT OUT OF RANGE REFERENCE UNITS LAB LTSH(LOINC) 0.34-4.82 uIU/mL TSH 2.57 Performed By: #### LTSH #### [facility] [address] [address] COMPREHENSIVE PANEL Collected: 01/08/2018 Status: F Source: [facility] 12:25 PM [facility] REPOSITORY TYPE CODE TESTS RESULT OUT OF REFERENCE UNITS RANGE LAB MEDICAL BILLING CLERK(LOINC) 136-145 mEq/L Sodium Blood 137 LAB LK(LOINC) 3.5-5.1 mEq/L Potassium Blood 4.4 LAB LCL(LOINC) 98-107 mEq/L Chloride Blood 104 LAB LCO2(LOINC 21-32 mEq/L ) CO2 Blood 30 LAB LGLU(LOINC 70-99 mg/dL ) Glucose High Blood 137 LAB LBUN(LOINC 7-25 mg/dL ) BUN Blood 13 LAB LCREA(LOIN 0.67-1.17 mg/dL C) Creatinine Blood 0.94 LAB LCA(LOINC) 8.5-10.1 mg/dL Calcium Blood 9.3 LAB LALB(LOINC 3.4-5.0 g/dL ) Albumin Blood 3.7 LAB LTP(LOINC) 6.4-8.2 g/dL Total Protein 7.4 LAB LAST(LOINC 15-37 U/L ) AST-SGOT Blood 18 LAB LALT(LOINC 14-63 U/L ) ALT-SGPT Blood 20 LAB LALKP(LOIN 46-116 U/L C) Alk Phosphatase 53 LAB LBILT(LOIN 0.2-1.0 mg/dL C) Total Bilirubin 0.6 LAB LANGP(LOIN 8-20 C) Anion Gap 8 LAB LBNCR(LOIN 10-20 C) BUN/Creatinine 14 Ratio Performed By: #### LP14 #### [facility] [address] [place], [place] [address] MDRD EGFR Collected: 01/08/2018 Status: F Source: [facility] 12:25 PM HEALTH SYSTEM REPOSITORY TYPE CODE TESTS RESULT OUT OF RANGE REFERENCE UNITS LAB LGFRF(LOINC >60mL/min/1.73m ) 2 eGFR >60 Result Comment: If the patient is , multiply the result by 1.210. Performed By: #### LGFR #### [facility] [address] [place], [place] [address] PROGRESS Observed: 01/08/2018 Status: COMPLETED Source: [place] 12:02 PM [facility] REPOSITORY HNO ID: [id number] Author: Johanny Kruger Service: (none) Author Type: Physician Type: Progress Notes Filed: 01/17/2018 7:14 PM Note Text: Subjective The history is provided by the patient and the spouse. Pt is here with his with the concern of elevated BP. He has been checking it at home, and it has been running 180s/100s, and pulse has been in the 40s. Pt takes metoprolol succinate 100 mg per day and diltiazem 370 mg per day. Has been tired, staying in bed all day. He feels better today. Pt was on crestor for hyperlipidemia. He will be transitioning to lipitor due to insurance formulary. Review of Systems Constitutional: Positive for malaise/fatigue. Negative for chills, diaphoresis, fever and weight loss. HENT: Negative for ear pain and hearing loss. Eyes: Negative for blurred vision and double vision. Respiratory: Negative for cough and shortness of breath. Cardiovascular: Negative for chest pain, palpitations and leg swelling. Gastrointestinal: Negative for constipation, diarrhea and heartburn. Genitourinary: Negative for dysuria and frequency. Musculoskeletal: Negative for back pain, falls, joint pain and myalgias. Skin: Negative for itching and rash. Neurological: Negative for dizziness, weakness and headaches. Endo/Heme/Allergies: Does not bruise/bleed easily. Psychiatric/Behavioral: Negative for depression and substance abuse. The patient does not have insomnia. Objective BP 124/52 (BP Site: Right Arm, BP Position: Sitting, BP Cuff Size: Large Adult) Temp 36.4 ?C (97.6 ?F) (Oral) Resp 18 Ht 177.8 cm (5' 10) Wt 81.1 kg (178 lb 12.8 oz) BMI 25.66 kg/m? Physical Exam Constitutional: He is oriented to person, place, and time and well-developed, well-nourished, and in no distress. HENT: Mouth/Throat: Normal dentition. Eyes: Pupils are equal, round, and reactive to light. Conjunctivae, EOM and lids are normal. Neck: Normal range of motion and phonation normal. Neck supple. Carotid bruit is not present. No edema present. No thyroid mass and no thyromegaly present. Cardiovascular: Normal rate, regular rhythm, normal heart sounds and intact distal pulses. Exam reveals no gallop and no friction rub. No murmur heard. Pulmonary/Chest: Effort normal and breath sounds normal. He has no wheezes. He has no rales. Abdominal: Soft. Normal appearance and bowel sounds are normal. He exhibits no distension and no mass. There is no tenderness. Musculoskeletal: Normal range of motion. He exhibits no edema or tenderness. Lymphadenopathy: He has no cervical adenopathy. Neurological: He is alert and oriented to person, place, and time. He has normal motor skills. No cranial nerve deficit. Gait normal. Coordination normal. Skin: Skin is warm and dry. No rash noted. No cyanosis or erythema. Nails show no clubbing. Psychiatric: Mood, affect and judgment normal. ASSESSMENT/PLAN: 1. Fatigue, unspecified type - ICD9: 780.79, ICD10: R53.83 - TSH BLD - CBC - COMP METABOLIC PANEL 2.HTN Blood pressure controlled today. Pt to bring BP monitor here to calibrate. DO MARLENY Ballard Observed: 01/08/2018 Status: COMPLETED Source: [place] 11:40 AM [facility] REPOSITORY Office Visit ([place]) ISIDRO MURPHY ([id number]) 1940 M Date Time Provider Department 01/08/18 11:40 AM JOHANNY KRUGER During your visit today, we recorded the following information about you: Temperature Pulse Respiration Blood pressure 97.6 degrees 80/minute 18/minute 124/52 Weight Height 81.1 kg 1.778 m Isabel Rowe LPN 01/08/2018 11:56 AM Signed Patient states she has been checking BP and has been elevated(with wrist cuff). Todays BP 120/52 HR 68 CHANEL Barlow DO 01/17/2018 7:14 PM Signed Subjective The history is provided by the patient and the spouse. Pt is here with his with the concern of elevated BP. He has been checking it at home, and it has been running 180s/100s, and pulse has been in the 40s. Pt takes metoprolol succinate 100 mg per day and diltiazem 370 mg per day. Has been tired, staying in bed all day. He feels better today. Pt was on crestor for hyperlipidemia. He will be transitioning to lipitor due to insurance formulary. Review of Systems Constitutional: Positive for malaise/fatigue. Negative for chills, diaphoresis, fever and weight loss. HENT: Negative for ear pain and hearing loss. Eyes: Negative for blurred vision and double vision. Respiratory: Negative for cough and shortness of breath. Cardiovascular: Negative for chest pain, palpitations and leg swelling. Gastrointestinal: Negative for constipation, diarrhea and heartburn. Genitourinary: Negative for dysuria and frequency. Musculoskeletal: Negative for back pain, falls, joint pain and myalgias. Skin: Negative for itching and rash. Neurological: Negative for dizziness, weakness and headaches. Endo/Heme/Allergies: Does not bruise/bleed easily. Psychiatric/Behavioral: Negative for depression and substance abuse. The patient does not have insomnia. Objective BP 124/52 (BP Site: Right Arm, BP Position: Sitting, BP Cuff Size: Large Adult) Temp 36.4 ?C (97.6 ?F) (Oral) Resp 18 Ht 177.8 cm (5' 10) Wt 81.1 kg (178 lb 12.8 oz) BMI 25.66 kg/m? Physical Exam Constitutional: He is oriented to person, place, and time and well-developed, well-nourished, and in no distress. HENT: Mouth/Throat: Normal dentition. Eyes: Pupils are equal, round, and reactive to light. Conjunctivae, EOM and lids are normal. Neck: Normal range of motion and phonation normal. Neck supple. Carotid bruit is not present. No edema present. No thyroid mass and no thyromegaly present. Cardiovascular: Normal rate, regular rhythm, normal heart sounds and intact distal pulses. Exam reveals no gallop and no friction rub. No murmur heard. Pulmonary/Chest: Effort normal and breath sounds normal. He has no wheezes. He has no rales. Abdominal: Soft. Normal appearance and bowel sounds are normal. He exhibits no distension and no mass. There is no tenderness. Musculoskeletal: Normal range of motion. He exhibits no edema or tenderness. Lymphadenopathy: He has no cervical adenopathy. Neurological: He is alert and oriented to person, place, and time. He has normal motor skills. No cranial nerve deficit. Gait normal. Coordination normal. Skin: Skin is warm and dry. No rash noted. No cyanosis or erythema. Nails show no clubbing. Psychiatric: Mood, affect and judgment normal. ASSESSMENT/PLAN: 1. Fatigue, unspecified type - ICD9: 780.79, ICD10: R53.83 - TSH BLD - CBC - COMP METABOLIC PANEL 2.HTN Blood pressure controlled today. Pt to bring BP monitor here to calibrate. Johanny Kruger DO Referring Provider: SELF [200] Allergies As of Date: 01/08/2018 (No Known Allergies) Date Reviewed: 01/08/2018 Reviewed by: Johanny Kruger - Fully Assessed Reason for Visit: Follow Up [171] Cmt: BP Primary Visit Diagnosis:Fatigue, unspecified type [R53.83] Other Visit Diagnosis:Essential hypertension with goal blood pressure less than 130/85 [I10] Order(s):TSH BLD [SQTS] Order #: [id number] FUTURE CBC [SQCBC] Order #: [id number] FUTURE COMP METABOLIC PANEL [SQCMP] Order #: [id number] FUTURE Prescriptions as of 01/08/2018 Sig: NITROGLYCERIN 0.4 MG/HR TRANS* Apply 1 Patch as directed onc* FENOFIBRATE MICRONIZED 130 MG* Take 1 capsule by mouth once * ATORVASTATIN 20 MG TABLET Take 1 tablet by mouth once d* METOPROLOL SUCCINATE ER 100 M* Take 2 tablets by mouth once * BLOOD SUGAR DIAGNOSTIC STRIPS Use to check sugars once peter* DILTIAZEM ER 360 MG TABLET,EX* Take 1 tablet by mouth once d* SITAGLIPTIN 50 MG-METFORMIN 5* Take 1 tablet by mouth twice * DONEPEZIL 5 MG TABLET Take 1 tablet by mouth daily * XARELTO 20 MG TABLET TAKE 1 TABLET DAILY WITH DINN* Problem List As Of Date 01/08/2018 Noted Resolved Rhinitis [J31.0] INVALID FOR* CRVO (central retinal vein occlusion) [H34.8192]INVALID FOR* More... Type 2 diabetes mellitus without complication, *INVALID FOR* More... Mixed hyperlipidemia [E78.2] INVALID FOR* More... More... More... Chest pain at rest [R07.9] INVALID FOR*07/20/2013 More... History of TIA (transient ischemic attack) [Z86*INVALID FOR* More... Abnormal echocardiogram [R93.1] INVALID FOR* More... Pulmonary hypertension (HCC) [I27.20] INVALID FOR* Diabetic eye exam (HCC) [Z01.00, E11.9] INVALID FOR* More... Valvular heart disease [I38] INVALID FOR* More... Alcohol abuse [F10.10] INVALID FOR* Corns and callus [L84] INVALID FOR* Well adult exam [Z00.00] INVALID FOR*10/05/2017 More... Chronic atrial fibrillation (HCC) [I48.2] INVALID FOR* More... COLD (chronic obstructive lung disease) (HCC) [*INVALID FOR* Colon cancer screening [Z12.11] INVALID FOR* Essential hypertension with goal blood pressure*INVALID FOR* More... Benign prostatic hyperplasia without lower urin*INVALID FOR* Disorder of prostate [N42.9] INVALID FOR* Memory loss [R41.3] INVALID FOR* Onychomycosis [B35.1] INVALID FOR* Atypical chest pain [R07.89] INVALID FOR* More... Fatigue [R53.83] INVALID FOR* Visit Notes: >> Isabel (Insecticide Expert) [place] ThuJan 08, 2018 11:53 AM Status: Signed Patient states she has been checking BP and has been elevated(with wrist cuff). Todays BP 120/52 HR 68 Isabeljanette Rowe LPN Medications Discontinued During This Encounter rosuvastatin (CRESTOR) 20 mg tablet 90 t* 1 12/30/2017 01/08/2018 Class: [facility] Route: ORAL Sig: Take 1 tablet by mouth once daily. Disc: Reason for discontinue is not on file. albuterol HFA (PROVENTIL HFA) 90 mcg* 1 In* 0 08/30/2017 01/08/2018 Route: INHALATION Sig: Inhale 2 Puffs as instructed every 4 hours as needed for Wheezing/Shortness of Breath. Patient not taking: Reported on 10/05/2017 Disc: Reason for discontinue is not on file. Disposition: Return if symptoms worsen or fail to improve. Follow-up and Disposition History Recorded Encounter Status:Closed by JOHANNY KRUGER DO on 01/17/18 OBSOLETE Observed: 01/02/2018 Status: COMPLETED Source: [place] 12:00 AM [facility] REPOSITORY Refill (AGFAMPLE) ISIDRO MURPHY ([id number]) 1940 M Date Time Provider Department 01/02/18 JOHANNY KRUGER During your visit today, we recorded the following information about you: Micah Denny CMA 01/04/2018 11:24 AM Signed Last seen 11/12/17. Pharmacy electronically requests the following refill(s) Pending Prescriptions Disp Refills NITROGLYCERIN 0.4 MG/HR TRANSDERMAL 24 HOUR PATCH 90 Patch 1 Sig: Apply 1 Patch as directed once daily. NOELLE: No FENOFIBRATE MICRONIZED 130 MG CAPSULE 90 capsule 1 Sig: Take 1 capsule by mouth once daily. NOELLE: No Micah Denny CMA Allergies As of Date: 01/02/2018 (No Known Allergies) Date Reviewed: 11/12/2017 Reviewed by: Johanny Kruger - Fully Assessed Reason for Visit: Refill Request [94] Visit Diagnosis:Mixed hyperlipidemia [E78.2] Order(s):nitroglycerin (NITRODERM, MINITRAN) 0.4 mg/hrApply 1 Patch as directed once daily.Disp: 90 PatchRfl: 1 Fenofibrate Micronized 130 mg capsuleTake 1 capsule by mouth once daily.Disp: 90 capsuleRfl: 1 Prescriptions as of 01/02/2018 Sig: NITROGLYCERIN 0.4 MG/HR TRANS* Apply 1 Patch as directed onc* FENOFIBRATE MICRONIZED 130 MG* Take 1 capsule by mouth once * ATORVASTATIN 20 MG TABLET Take 1 tablet by mouth once d* ROSUVASTATIN 20 MG TABLET Take 1 tablet by mouth once d* METOPROLOL SUCCINATE ER 100 M* Take 2 tablets by mouth once * BLOOD SUGAR DIAGNOSTIC STRIPS Use to check sugars once peter* DILTIAZEM ER 360 MG TABLET,EX* Take 1 tablet by mouth once d* SITAGLIPTIN 50 MG-METFORMIN 5* Take 1 tablet by mouth twice * DONEPEZIL 5 MG TABLET Take 1 tablet by mouth daily * ALBUTEROL SULFATE HFA 90 MCG/* Inhale 2 Puffs as instructed * Patient not taking: Reported on 10/05/2017 XARELTO 20 MG TABLET TAKE 1 TABLET DAILY WITH DINN* Problem List As Of Date 01/02/2018 Noted Resolved Rhinitis [J31.0] INVALID FOR* Priority: B CRVO (central retinal vein occlusion) [H34.8192]INVALID FOR* Priority: A More... Type 2 diabetes mellitus without complication, *INVALID FOR* Priority: B More... Mixed hyperlipidemia [E78.2] INVALID FOR* Priority: A More... More... More... Chest pain at rest [R07.9] INVALID FOR*07/20/2013 More... History of TIA (transient ischemic attack) [Z86*INVALID FOR* Priority: C More... Abnormal echocardiogram [R93.1] INVALID FOR* Priority: A More... Pulmonary hypertension (HCC) [I27.20] INVALID FOR* Priority: A Diabetic eye exam (HCC) [Z01.00, E11.9] INVALID FOR* Priority: A More... Valvular heart disease [I38] INVALID FOR* Priority: A More... Alcohol abuse [F10.10] INVALID FOR* Priority: B Corns and callus [L84] INVALID FOR* Priority: C Well adult exam [Z00.00] INVALID FOR*10/05/2017 Priority: E More... Chronic atrial fibrillation (HCC) [I48.2] INVALID FOR* Priority: B More... COLD (chronic obstructive lung disease) (HCC) [*INVALID FOR* Priority: A Colon cancer screening [Z12.11] INVALID FOR* Essential hypertension with goal blood pressure*INVALID FOR* Priority: M More... Benign prostatic hyperplasia without lower urin*INVALID FOR* Priority: C Disorder of prostate [N42.9] INVALID FOR* Memory loss [R41.3] INVALID FOR* Onychomycosis [B35.1] INVALID FOR* Atypical chest pain [R07.89] INVALID FOR* Priority: A More... Prescriptions ordered this encounter Disp Refills Start End NITROGLYCERIN 0.4 MG/HR TRANSDERMAL * 90 P* 1 01/04/2018 Route: TRANSDERM. Sig: Apply 1 Patch as directed once daily. FENOFIBRATE MICRONIZED 130 MG CAPSULE 90 c* 1 01/04/2018 Route: ORAL Sig: Take 1 capsule by mouth once daily. Medications Discontinued During This Encounter nitroglycerin (NITRODERM, MINITRAN) * 90 P* 1 04/24/2017 01/04/2018 Route: TRANSDERMAL Sig: Apply 1 Patch as directed once daily. Disc: Reason for discontinue is not on file. Fenofibrate Micronized 130 mg capsule 90 c* 1 06/01/2017 01/04/2018 Class: [facility] Route: ORAL Sig: Take 1 capsule by mouth once daily. Disc: Reason for discontinue is not on file. Encounter Status:Closed by JOHANNY KRUGER DO on 01/04/18 OBSOLETE Observed: 12/30/2017 Status: COMPLETED Source: [place] 12:00 AM [facility] REPOSITORY Refill (AGFAMPLE) ALLISONISIDRO ([id number]) 1940 M Date Time Provider Department 12/30/17 JOHANNY KRUGER During your visit today, we recorded the following information about you: Julia Clifton LPN 12/30/2017 11:46 AM Signed Patient phones requesting refills as follows: [facility] Pt. Needs Rx. Sent to Mail Order for Insurance Benefit. Thanks. Pending Prescriptions Disp Refills ROSUVASTATIN 20 MG TABLET 90 tablet 1 Sig: Take 1 tablet by mouth once daily. NOELLE: No Please review and advise. Julia Clifton LPN Allergies As of Date: 12/30/2017 (No Known Allergies) Date Reviewed: 11/12/2017 Reviewed by: Johanny Kruger - Fully Assessed Reason for Visit: Refill Request [94] Visit Diagnosis:Mixed hyperlipidemia [E78.2] Order(s):rosuvastatin (CRESTOR) 20 mg tabletTake 1 tablet by mouth once daily.Disp: 90 tabletRfl: 1 Prescriptions as of 12/30/2017 Sig: ROSUVASTATIN 20 MG TABLET Take 1 tablet by mouth once d* METOPROLOL SUCCINATE ER 100 M* Take 2 tablets by mouth once * BLOOD SUGAR DIAGNOSTIC STRIPS Use to check sugars once peter* DILTIAZEM ER 360 MG TABLET,EX* Take 1 tablet by mouth once d* SITAGLIPTIN 50 MG-METFORMIN 5* Take 1 tablet by mouth twice * DONEPEZIL 5 MG TABLET Take 1 tablet by mouth daily * ALBUTEROL SULFATE HFA 90 MCG/* Inhale 2 Puffs as instructed * Patient not taking: Reported on 10/05/2017 XARELTO 20 MG TABLET TAKE 1 TABLET DAILY WITH DINN* FENOFIBRATE MICRONIZED 130 MG* Take 1 capsule by mouth once * NITROGLYCERIN 0.4 MG/HR TRANS* Apply 1 Patch as directed onc* Problem List As Of Date 12/30/2017 Noted Resolved Rhinitis [J31.0] INVALID FOR* Priority: B CRVO (central retinal vein occlusion) [H34.8192]INVALID FOR* Priority: A More... Type 2 diabetes mellitus without complication, *INVALID FOR* Priority: B More... Mixed hyperlipidemia [E78.2] INVALID FOR* Priority: A More... More... More... Chest pain at rest [R07.9] INVALID FOR*07/20/2013 More... History of TIA (transient ischemic attack) [Z86*INVALID FOR* Priority: C More... Abnormal echocardiogram [R93.1] INVALID FOR* Priority: A More... Pulmonary hypertension (HCC) [I27.20] INVALID FOR* Priority: A Diabetic eye exam (HCC) [Z01.00, E11.9] INVALID FOR* Priority: A More... Valvular heart disease [I38] INVALID FOR* Priority: A More... Alcohol abuse [F10.10] INVALID FOR* Priority: B Corns and callus [L84] INVALID FOR* Priority: C Well adult exam [Z00.00] INVALID FOR*10/05/2017 Priority: E More... Chronic atrial fibrillation (HCC) [I48.2] INVALID FOR* Priority: B More... COLD (chronic obstructive lung disease) (HCC) [*INVALID FOR* Priority: A Colon cancer screening [Z12.11] INVALID FOR* Essential hypertension with goal blood pressure*INVALID FOR* Priority: M More... Benign prostatic hyperplasia without lower urin*INVALID FOR* Priority: C Disorder of prostate [N42.9] INVALID FOR* Memory loss [R41.3] INVALID FOR* Onychomycosis [B35.1] INVALID FOR* Atypical chest pain [R07.89] INVALID FOR* Priority: A More... Prescriptions ordered this encounter Disp Refills Start End ROSUVASTATIN 20 MG TABLET 90 t* 1 12/30/2017 Class: [facility] Route: ORAL Sig: Take 1 tablet by mouth once daily. Medications Discontinued During This Encounter rosuvastatin (CRESTOR) 20 mg tablet 90 t* 1 12/23/2017 12/30/2017 Route: ORAL Sig: Take 1 tablet by mouth once daily. Disc: Reason for discontinue is not on file. Encounter Status:Closed by NANCY BRISENO CNP on 12/30/17 OBSOLETE Observed: 12/23/2017 Status: COMPLETED Source: [place] 12:00 AM [facility] REPOSITORY Refill (AGFAMPLE) ISIDRO MURPHY ([id number]) 1940 M Date Time Provider Department 12/23/17 JOHANNY KRUGER During your visit today, we recorded the following information about you: Angela Loving CMA 12/23/2017 2:03 PM Signed Pharmacy electronically requests the following refill(s) Pending Prescriptions Disp Refills ROSUVASTATIN 20 MG TABLET 90 tablet 1 Sig: Take 1 tablet by mouth once daily. NOELLE: No Angela Loving CMA Allergies As of Date: 12/23/2017 (No Known Allergies) Date Reviewed: 11/12/2017 Reviewed by: Johanny Kruger - Fully Assessed Reason for Visit: Refill Request [94] Visit Diagnosis:Mixed hyperlipidemia [E78.2] Order(s):rosuvastatin (CRESTOR) 20 mg tabletTake 1 tablet by mouth once daily.Disp: 90 tabletRfl: 1 Prescriptions as of 12/23/2017 Sig: ROSUVASTATIN 20 MG TABLET Take 1 tablet by mouth once d* METOPROLOL SUCCINATE ER 100 M* Take 2 tablets by mouth once * BLOOD SUGAR DIAGNOSTIC STRIPS Use to check sugars once peter* DILTIAZEM ER 360 MG TABLET,EX* Take 1 tablet by mouth once d* SITAGLIPTIN 50 MG-METFORMIN 5* Take 1 tablet by mouth twice * DONEPEZIL 5 MG TABLET Take 1 tablet by mouth daily * ALBUTEROL SULFATE HFA 90 MCG/* Inhale 2 Puffs as instructed * Patient not taking: Reported on 10/05/2017 XARELTO 20 MG TABLET TAKE 1 TABLET DAILY WITH DINN* FENOFIBRATE MICRONIZED 130 MG* Take 1 capsule by mouth once * NITROGLYCERIN 0.4 MG/HR TRANS* Apply 1 Patch as directed onc* Problem List As Of Date 12/23/2017 Noted Resolved Rhinitis [J31.0] INVALID FOR* Priority: B CRVO (central retinal vein occlusion) [H34.8192]INVALID FOR* Priority: A More... Type 2 diabetes mellitus without complication, *INVALID FOR* Priority: B More... Mixed hyperlipidemia [E78.2] INVALID FOR* Priority: A More... More... More... Chest pain at rest [R07.9] INVALID FOR*07/20/2013 More... History of TIA (transient ischemic attack) [Z86*INVALID FOR* Priority: C More... Abnormal echocardiogram [R93.1] INVALID FOR* Priority: A More... Pulmonary hypertension (HCC) [I27.20] INVALID FOR* Priority: A Diabetic eye exam (HCC) [Z01.00, E11.9] INVALID FOR* Priority: A More... Valvular heart disease [I38] INVALID FOR* Priority: A More... Alcohol abuse [F10.10] INVALID FOR* Priority: B Corns and callus [L84] INVALID FOR* Priority: C Well adult exam [Z00.00] INVALID FOR*10/05/2017 Priority: E More... Chronic atrial fibrillation (HCC) [I48.2] INVALID FOR* Priority: B More... COLD (chronic obstructive lung disease) (HCC) [*INVALID FOR* Priority: A Colon cancer screening [Z12.11] INVALID FOR* Essential hypertension with goal blood pressure*INVALID FOR* Priority: M More... Benign prostatic hyperplasia without lower urin*INVALID FOR* Priority: C Disorder of prostate [N42.9] INVALID FOR* Memory loss [R41.3] INVALID FOR* Onychomycosis [B35.1] INVALID FOR* Atypical chest pain [R07.89] INVALID FOR* Priority: A More... Prescriptions ordered this encounter Disp Refills Start End ROSUVASTATIN 20 MG TABLET 90 t* 1 12/23/2017 Route: ORAL Sig: Take 1 tablet by mouth once daily. Medications Discontinued During This Encounter rosuvastatin (CRESTOR) 20 mg tablet 90 t* 0 07/31/2017 12/23/2017 Sig: TAKE 1 TABLET DAILY Disc: Reason for discontinue is not on file. Encounter Status:Closed by JOHANNY KRUGER DO on 12/23/17 OBSOLETE Observed: 11/20/2017 Status: COMPLETED Source: [place] 12:00 AM [facility] REPOSITORY Refill (AGFAMPLE) ISIDRO MURPHY ([id number]) 1940 M Date Time Provider Department 11/20/17 JOHANNY KRUGER During your visit today, we recorded the following information about you: Micah Denny CMA 11/20/2017 8:03 AM Signed Pharmacy electronically requests the following refill(s) Pending Prescriptions Disp Refills METOPROLOL SUCCINATE ER 100 MG TABLET,EXTENDED RELEASE 24 HR 180 tablet 1 Sig: Take 2 tablets by mouth once daily. NOELLE: No Micah Denny CMA Allergies As of Date: 11/20/2017 (No Known Allergies) Date Reviewed: 11/12/2017 Reviewed by: Johanny Kruger - Fully Assessed Reason for Visit: Refill Request [94] Order(s):metoprolol succinate ER (TOPROL XL) 100 mg Kg95Padt 2 tablets by mouth once daily.Disp: 180 tabletRfl: 1 Prescriptions as of 11/20/2017 Sig: METOPROLOL SUCCINATE ER 100 M* Take 2 tablets by mouth once * BLOOD SUGAR DIAGNOSTIC STRIPS Use to check sugars once peter* DILTIAZEM ER 360 MG TABLET,EX* Take 1 tablet by mouth once d* SITAGLIPTIN 50 MG-METFORMIN 5* Take 1 tablet by mouth twice * DONEPEZIL 5 MG TABLET Take 1 tablet by mouth daily * ALBUTEROL SULFATE HFA 90 MCG/* Inhale 2 Puffs as instructed * Patient not taking: Reported on 10/05/2017 XARELTO 20 MG TABLET TAKE 1 TABLET DAILY WITH DINN* ROSUVASTATIN 20 MG TABLET TAKE 1 TABLET DAILY FENOFIBRATE MICRONIZED 130 MG* Take 1 capsule by mouth once * NITROGLYCERIN 0.4 MG/HR TRANS* Apply 1 Patch as directed onc* Problem List As Of Date 11/20/2017 Noted Resolved Rhinitis [J31.0] INVALID FOR* Priority: B CRVO (central retinal vein occlusion) [H34.8192]INVALID FOR* Priority: A More... Type 2 diabetes mellitus without complication, *INVALID FOR* Priority: B More... Mixed hyperlipidemia [E78.2] INVALID FOR* Priority: A More... More... More... Chest pain at rest [R07.9] INVALID FOR*07/20/2013 More... History of TIA (transient ischemic attack) [Z86*INVALID FOR* Priority: C More... Abnormal echocardiogram [R93.1] INVALID FOR* Priority: A More... Pulmonary hypertension (HCC) [I27.20] INVALID FOR* Priority: A Diabetic eye exam (HCC) [Z01.00, E11.9] INVALID FOR* Priority: A More... Valvular heart disease [I38] INVALID FOR* Priority: A More... Alcohol abuse [F10.10] INVALID FOR* Priority: B Corns and callus [L84] INVALID FOR* Priority: C Well adult exam [Z00.00] INVALID FOR*10/05/2017 Priority: E More... Chronic atrial fibrillation (HCC) [I48.2] INVALID FOR* Priority: B More... COLD (chronic obstructive lung disease) (HCC) [*INVALID FOR* Priority: A Colon cancer screening [Z12.11] INVALID FOR* Essential hypertension with goal blood pressure*INVALID FOR* Priority: M More... Benign prostatic hyperplasia without lower urin*INVALID FOR* Priority: C Disorder of prostate [N42.9] INVALID FOR* Memory loss [R41.3] INVALID FOR* Onychomycosis [B35.1] INVALID FOR* Atypical chest pain [R07.89] INVALID FOR* Priority: A More... Prescriptions ordered this encounter Disp Refills Start End METOPROLOL SUCCINATE ER 100 MG TABLE* 180 * 1 11/20/2017 Route: ORAL Sig: Take 2 tablets by mouth once daily. Medications Discontinued During This Encounter metoprolol succinate ER (TOPROL XL) * 135 * 0 10/20/2017 11/20/2017 Class: Med Update Route: ORAL Sig: Take 2 tablets by mouth once daily. Disc: Reason for discontinue is not on file. Encounter Status:Closed by JOHANNY KRUGER DO on 11/20/17 OBSOLETE Observed: 11/18/2017 Status: COMPLETED Source: [place] 12:00 AM [facility] REPOSITORY Refill (AGFAMPLE) ISIDRO MURPHY ([id number]) 1940 M Date Time Provider Department 11/18/17 JOHANNY KRUGER AGFADENEEN During your visit today, we recorded the following information about you: Angela Loving CMA 11/18/2017 9:53 AM Signed Pt called stating he uses a true [employer] brand glucose meter and needs the strips. Set up refill. Pharmacy electronically requests the following refill(s) Pending Prescriptions Disp Refills BLOOD SUGAR DIAGNOSTIC STRIPS 25 Strip 11 Sig: Use to check sugars once daily. Dx e11.9 Angela Loving CMA Allergies As of Date: 11/18/2017 (No Known Allergies) Date Reviewed: 11/12/2017 Reviewed by: Johanny Kruger - Fully Assessed Reason for Visit: Refill Request [94] Order(s):blood sugar diagnostic (FREESTYLE TEST) test stripUse to check sugars once daily. Dx e11.9Disp: 25 StripRfl: 11 Prescriptions as of 11/18/2017 Sig: BLOOD SUGAR DIAGNOSTIC STRIPS Use to check sugars once peter* DILTIAZEM ER 360 MG TABLET,EX* Take 1 tablet by mouth once d* SITAGLIPTIN 50 MG-METFORMIN 5* Take 1 tablet by mouth twice * METOPROLOL SUCCINATE ER 100 M* Take 2 tablets by mouth once * DONEPEZIL 5 MG TABLET Take 1 tablet by mouth daily * ALBUTEROL SULFATE HFA 90 MCG/* Inhale 2 Puffs as instructed * Patient not taking: Reported on 10/05/2017 XARELTO 20 MG TABLET TAKE 1 TABLET DAILY WITH DINN* ROSUVASTATIN 20 MG TABLET TAKE 1 TABLET DAILY FENOFIBRATE MICRONIZED 130 MG* Take 1 capsule by mouth once * NITROGLYCERIN 0.4 MG/HR TRANS* Apply 1 Patch as directed onc* Problem List As Of Date 11/18/2017 Noted Resolved Rhinitis [J31.0] INVALID FOR* Priority: B CRVO (central retinal vein occlusion) [H34.8192]INVALID FOR* Priority: A More... Type 2 diabetes mellitus without complication, *INVALID FOR* Priority: B More... Mixed hyperlipidemia [E78.2] INVALID FOR* Priority: A More... More... More... Chest pain at rest [R07.9] INVALID FOR*07/20/2013 More... History of TIA (transient ischemic attack) [Z86*INVALID FOR* Priority: C More... Abnormal echocardiogram [R93.1] INVALID FOR* Priority: A More... Pulmonary hypertension (HCC) [I27.20] INVALID FOR* Priority: A Diabetic eye exam (HCC) [Z01.00, E11.9] INVALID FOR* Priority: A More... Valvular heart disease [I38] INVALID FOR* Priority: A More... Alcohol abuse [F10.10] INVALID FOR* Priority: B Corns and callus [L84] INVALID FOR* Priority: C Well adult exam [Z00.00] INVALID FOR*10/05/2017 Priority: E More... Chronic atrial fibrillation (HCC) [I48.2] INVALID FOR* Priority: B More... COLD (chronic obstructive lung disease) (HCC) [*INVALID FOR* Priority: A Colon cancer screening [Z12.11] INVALID FOR* Essential hypertension with goal blood pressure*INVALID FOR* Priority: M More... Benign prostatic hyperplasia without lower urin*INVALID FOR* Priority: C Disorder of prostate [N42.9] INVALID FOR* Memory loss [R41.3] INVALID FOR* Onychomycosis [B35.1] INVALID FOR* Atypical chest pain [R07.89] INVALID FOR* Priority: A More... Prescriptions ordered this encounter Disp Refills Start End BLOOD SUGAR DIAGNOSTIC STRIPS 25 S* 11 11/18/2017 Cmt: Fill with true metrix strips for use with his true metrix meter Sig: Use to check sugars once daily. Dx e11.9 Encounter Status:Closed by JOHANNY KRUGER DO on 11/18/17 PATIENT LETTER Observed: 11/12/2017 Status: F Source: [facility] 3:46 PM [facility] REPOSITORY November 12, 2017 ISIDRO MURPHY [address] [id number] THIS LETTER IS TO LET YOU KNOW THAT YOU MISSED AN APPOINTMENT WITH DR PUENTE ON 2017. PLEASE CALL THE OFFICE AT [phone] IF YOU WOULD LIKE TO RESCHEDULE. THANK YOU, AMY PUENTE MD PROGRESS Observed: 11/12/2017 Status: COMPLETED Source: [place] 9:[address] [facility] REPOSITORY HNO ID: [id number] Author: Johanny Kruger Service: (none) Author Type: Physician Type: Progress Notes Filed: 11/14/2017 11:11 PM Note Text: Subjective The history is provided by the patient. Pt is here to discuss BP. He was not sure he took his meds at the last visit, so was told to come back so it could be retaken. Pt was only taking janumet once a day, and his believes that is why his sugars were running high. HIs dosage was increased, but he has gone back to the original dosage. Review of Systems Constitutional: Negative for chills, diaphoresis, fever, malaise/fatigue and weight loss. HENT: Negative for ear pain and hearing loss. Eyes: Negative for blurred vision and double vision. Respiratory: Negative for cough and shortness of breath. Cardiovascular: Negative for chest pain, palpitations and leg swelling. Gastrointestinal: Negative for constipation, diarrhea and heartburn. Genitourinary: Negative for dysuria and frequency. Musculoskeletal: Negative for back pain, falls, joint pain and myalgias. Skin: Negative for itching and rash. Neurological: Negative for dizziness, weakness and headaches. Endo/Heme/Allergies: Does not bruise/bleed easily. Psychiatric/Behavioral: Negative for depression and substance abuse. The patient does not have insomnia. Objective BP 142/86 Pulse 66 Temp 36.4 ?C (97.6 ?F) (Oral) Resp 16 Ht 177.8 cm (5' 10) Wt 80.9 kg (178 lb 6.4 oz) BMI 25.60 kg/m? Second 132/60 Physical Exam Constitutional: He is oriented to person, place, and time and well-developed, well-nourished, and in no distress. HENT: Mouth/Throat: Normal dentition. Eyes: Pupils are equal, round, and reactive to light. Conjunctivae, EOM and lids are normal. Neck: Normal range of motion and phonation normal. Neck supple. Carotid bruit is not present. No edema present. No thyroid mass and no thyromegaly present. Cardiovascular: Normal rate, regular rhythm, normal heart sounds and intact distal pulses. Exam reveals no gallop and no friction rub. No murmur heard. Pulmonary/Chest: Effort normal and breath sounds normal. He has no wheezes. He has no rales. Abdominal: Soft. Normal appearance and bowel sounds are normal. He exhibits no distension and no mass. There is no tenderness. Musculoskeletal: Normal range of motion. He exhibits no edema or tenderness. Lymphadenopathy: He has no cervical adenopathy. Neurological: He is alert and oriented to person, place, and time. He has normal motor skills. No cranial nerve deficit. Gait normal. Coordination normal. Skin: Skin is warm and dry. No rash noted. No cyanosis or erythema. Nails show no clubbing. Psychiatric: Mood, affect and judgment normal. ASSESSMENT/PLAN: 1. Essential hypertension with goal blood pressure less than 130/85 - ICD9: 401.9, ICD10: I10 (primary diagnosis) Continue current meds 2. Type 2 diabetes mellitus without complication, without long-term current use of insulin (HCC) - ICD9: 250.00, ICD10: E11.9 SITAGLIPTIN 50 MG-METFORMIN 500 MG TABLET 3. Needs flu shot - ICD9: V04.81, ICD10: Z23 - INFLUENZA SEASONAL HIGH DOSE AGE 65+ - ADMINISTER INFLUENZA MEDICARE Kimberly Sheets, DO CNOV Observed: 11/12/2017 Status: COMPLETED Source: [place] 9:20 AM [facility] REPOSITORY Office Visit (AGFALE) ISIDRO MURPHY ([id number]) 1940 M Date Time Provider Department 11/12/17 9:20 AM JOHANNY KRUGER During your visit today, we recorded the following information about you: Temperature Pulse Respiration Blood pressure 97.6 degrees 66/minute 16/minute 132/60 Weight Height 80.9 kg 1.778 m Micah Denny CMA 11/12/2017 9:37 AM Addendum Patient here for f/u BP check. Patient states doing great today. Patient is taking Janumet 50/500 BID. LORE Guerrero DO 11/14/2017 11:11 PM Signed Subjective The history is provided by the patient. Pt is here to discuss BP. He was not sure he took his meds at the last visit, so was told to come back so it could be retaken. Pt was only taking janumet once a day, and his believes that is why his sugars were running high. HIs dosage was increased, but he has gone back to the original dosage. Review of Systems Constitutional: Negative for chills, diaphoresis, fever, malaise/fatigue and weight loss. HENT: Negative for ear pain and hearing loss. Eyes: Negative for blurred vision and double vision. Respiratory: Negative for cough and shortness of breath. Cardiovascular: Negative for chest pain, palpitations and leg swelling. Gastrointestinal: Negative for constipation, diarrhea and heartburn. Genitourinary: Negative for dysuria and frequency. Musculoskeletal: Negative for back pain, falls, joint pain and myalgias. Skin: Negative for itching and rash. Neurological: Negative for dizziness, weakness and headaches. Endo/Heme/Allergies: Does not bruise/bleed easily. Psychiatric/Behavioral: Negative for depression and substance abuse. The patient does not have insomnia. Objective BP 142/86 Pulse 66 Temp 36.4 ?C (97.6 ?F) (Oral) Resp 16 Ht 177.8 cm (5' 10) Wt 80.9 kg (178 lb 6.4 oz) BMI 25.60 kg/m? Second 132/60 Physical Exam Constitutional: He is oriented to person, place, and time and well-developed, well-nourished, and in no distress. HENT: Mouth/Throat: Normal dentition. Eyes: Pupils are equal, round, and reactive to light. Conjunctivae, EOM and lids are normal. Neck: Normal range of motion and phonation normal. Neck supple. Carotid bruit is not present. No edema present. No thyroid mass and no thyromegaly present. Cardiovascular: Normal rate, regular rhythm, normal heart sounds and intact distal pulses. Exam reveals no gallop and no friction rub. No murmur heard. Pulmonary/Chest: Effort normal and breath sounds normal. He has no wheezes. He has no rales. Abdominal: Soft. Normal appearance and bowel sounds are normal. He exhibits no distension and no mass. There is no tenderness. Musculoskeletal: Normal range of motion. He exhibits no edema or tenderness. Lymphadenopathy: He has no cervical adenopathy. Neurological: He is alert and oriented to person, place, and time. He has normal motor skills. No cranial nerve deficit. Gait normal. Coordination normal. Skin: Skin is warm and dry. No rash noted. No cyanosis or erythema. Nails show no clubbing. Psychiatric: Mood, affect and judgment normal. ASSESSMENT/PLAN: 1. Essential hypertension with goal blood pressure less than 130/85 - ICD9: 401.9, ICD10: I10 (primary diagnosis) Continue current meds 2. Type 2 diabetes mellitus without complication, without long-term current use of insulin (HCC) - ICD9: 250.00, ICD10: E11.9 SITAGLIPTIN 50 MG-METFORMIN 500 MG TABLET 3. Needs flu shot - ICD9: V04.81, ICD10: Z23 - INFLUENZA SEASONAL HIGH DOSE AGE 65+ - ADMINISTER INFLUENZA MEDICARE DO Micah Ballard [facility] 11/12/2017 10:48 AM Signed Influenza Vaccine Documentation: ? Patient is identified by name and date of : Yes ? Patient is older than 6 months of age: Yes ? Patient denies a severe allergy to any vaccine component or to a previous dose of influenza vaccine: Yes FOR EGG ALLERGY CONCERNS, REFER TO PROVIDER. ? Patient is ? No (ACIP recommends that women who will be during the influenza season should be vaccinated. Vaccinations can occur in any trimester) ? Denies allergy to gelatin, formaldehyde, thimerosol :Yes ? Patient is afebrile and not moderately or severely ill: Yes ? Does the patient have a history of Guillain ?[place] Syndrome (a severe paralytic illness): No ? Denies bone marrow transplant prior 6 months or solid organ transplant prior 3 months: Yes ? Denies a history of fainting after a prior injection or medical procedure? Yes If patient has fainted in the past, the CDC recommends sitting or lying down for 15 minutes after the vaccination. ? VIS sheet provided: Yes ? See Immunization Form in EpicCare for details of immunizations administered today. If patient reports dizziness, vision changes or ringing in the ears post vaccination ? please have patient sit or lie down for 15 minutes. Patient tolerated the vaccine well. LORE Guerrero CMA 11/12/2017 10:46 AM Addendum Isidro Murphy [id number] You received your seasonal flu vaccine on November 12, 2017 at Johanny Kruger DO's office. Below is the information needed for your records: Immunization History - Influenza Seasonal - High Dose - Age 65+ (Given) - Date: 11/12/2017 - Lot #: [id number] - Dose: 0.5 mL - Site: Right arm - Counter Dish Carrier: [employer] P[employer]ur - Given By: MICAH DENNY - Expiration Date: 05/17/2018 The Vaccine Information Sheet was provided to you. If you want to learn more, please visit the Center for Disease Control website at: www.cdc.gov/flu/season/current.htm Referring Provider: SELF [[id number]] Allergies As of Date: 11/12/2017 (No Known Allergies) Date Reviewed: 11/12/2017 Reviewed by: Johanny Kruger - Fully Assessed Reason for Visit: Hypertension [168] Primary Visit Diagnosis:Essential hypertension with goal blood pressure less than 130/85 [I10] Other Visit Diagnoses:Type 2 diabetes mellitus without complication, without long-term current use of insulin (HCC) [E11.9] Needs flu shot [Z23] Order(s):sitaGLIPtin-metFORMIN (JANUMET) 50-500 mg per tabletTake 1 tablet by mouth twice daily with meals.Disp: 180 tabletRfl: 1 INFLUENZA SEASONAL HIGH DOSE AGE 65+ [[id number]] Order #: [id number] ADMINISTER INFLUENZA MEDICARE [[id number]] Order #: [id number] Prescriptions as of 11/12/2017 Sig: METOPROLOL SUCCINATE ER 100 M* Take 2 tablets by mouth once * DONEPEZIL 5 MG TABLET Take 1 tablet by mouth daily * X DILTIAZEM ER 360 MG TABLET,EX* Take 1 tablet by mouth once d* XARELTO 20 MG TABLET TAKE 1 TABLET DAILY WITH DINN* ROSUVASTATIN 20 MG TABLET TAKE 1 TABLET DAILY FENOFIBRATE MICRONIZED 130 MG* Take 1 capsule by mouth once * NITROGLYCERIN 0.4 MG/HR TRANS* Apply 1 Patch as directed onc* SITAGLIPTIN 50 MG-METFORMIN 5* Take 1 tablet by mouth twice * ALBUTEROL SULFATE HFA 90 MCG/* Inhale 2 Puffs as instructed * Patient not taking: Reported on 10/05/2017 Problem List As Of Date 11/12/2017 Noted Resolved Rhinitis [J31.0] INVALID FOR* Priority: B CRVO (central retinal vein occlusion) [H34.8192]INVALID FOR* Priority: A More... Type 2 diabetes mellitus without complication, *INVALID FOR* Priority: B More... Mixed hyperlipidemia [E78.2] INVALID FOR* Priority: A More... More... More... Chest pain at rest [R07.9] INVALID FOR*07/20/2013 More... History of TIA (transient ischemic attack) [Z86*INVALID FOR* Priority: C More... Abnormal echocardiogram [R93.1] INVALID FOR* Priority: A More... Pulmonary hypertension (HCC) [I27.20] INVALID FOR* Priority: A Diabetic eye exam (HCC) [Z01.00, E11.9] INVALID FOR* Priority: A More... Valvular heart disease [I38] INVALID FOR* Priority: A More... Alcohol abuse [F10.10] INVALID FOR* Priority: B Corns and callus [L84] INVALID FOR* Priority: C Well adult exam [Z00.00] INVALID FOR*10/05/2017 Priority: E More... Chronic atrial fibrillation (HCC) [I48.2] INVALID FOR* Priority: B More... COLD (chronic obstructive lung disease) (HCC) [*INVALID FOR* Priority: A Colon cancer screening [Z12.11] INVALID FOR* Essential hypertension with goal blood pressure*INVALID FOR* Priority: M More... Benign prostatic hyperplasia without lower urin*INVALID FOR* Priority: C Disorder of prostate [N42.9] INVALID FOR* Memory loss [R41.3] INVALID FOR* Onychomycosis [B35.1] INVALID FOR* Atypical chest pain [R07.89] INVALID FOR* Priority: A More... Other instructions from your clinician: Isidro Murphy 1940 [id number] You received your seasonal flu vaccine on November 12, 2017 at Johanny Kruger DO's office. Below is the information needed for your records: Immunization History - Influenza Seasonal - High Dose - Age 65+ (Given) - Date: 11/12/2017 - Lot #: [id number] - Dose: 0.5 mL - Site: Right arm - Counter Dish Carrier: Jorge Caban - Given By: MICAH DENNY - Expiration Date: 05/17/2018 The Vaccine Information Sheet was provided to you. If you want to learn more, please visit the Center for Disease Control website at: www.cdc.gov/flu/season/current.htm Visit Notes: >> Micah Denny [facility] Nov 12, 2017 9:26 AM Status: Addendum Patient here for f/u BP check. Patient states doing great today. Patient is taking Janumet 50/500 BID. Micah Denny CMA >> Micah (Lore) Eduin [facility] Nov 12, 2017 10:43 AM Status: Signed Influenza Vaccine Documentation: ? Patient is identified by name and date of : Yes ? Patient is older than 6 months of age: Yes ? Patient denies a severe allergy to any vaccine component or to a previous dose of influenza vaccine: Yes FOR EGG ALLERGY CONCERNS, REFER TO PROVIDER. ? Patient is ? No (ACIP recommends that women who will be during the influenza season should be vaccinated. Vaccinations can occur in any trimester) ? Denies allergy to gelatin, formaldehyde, thimerosol :Yes ? Patient is afebrile and not moderately or severely ill: Yes ? Does the patient have a history of Guillain ?[place] Syndrome (a severe paralytic illness): No ? Denies bone marrow transplant prior 6 months or solid organ transplant prior 3 months: Yes ? Denies a history of fainting after a prior injection or medical procedure? Yes If patient has fainted in the past, the CDC recommends sitting or lying down for 15 minutes after the vaccination. ? VIS sheet provided: Yes ? See Immunization Form in EpicCare for details of immunizations administered today. If patient reports dizziness, vision changes or ringing in the ears post vaccination ? please have patient sit or lie down for 15 minutes. Patient tolerated the vaccine well. Micah Denny CMA Prescriptions ordered this encounter Disp Refills Start End SITAGLIPTIN 50 MG-METFORMIN 500 MG T* 180 * 1 11/12/2017 Class: Med Update Route: ORAL Sig: Take 1 tablet by mouth twice daily with meals. Medications Discontinued During This Encounter sitaGLIPtin-metFORMIN (JANUMET) 50-1* 90 t* 0 10/05/2017 11/12/2017 Class: [facility] Route: ORAL Sig: Take 1 tablet by mouth twice daily. SAMPLE VOUCHER AVAILABLE AT [facility] Disc: Reason for discontinue is not on file. Disposition: Return in about 6 months (around 05/12/2018) for Hypertension. Follow-up and Disposition History Recorded Encounter Status:Closed by JOHANNY KRUGER DO on 11/14/17 CNNURSE Observed: 10/20/2017 Status: COMPLETED Source: [place] 10:45 AM [facility] REPOSITORY Nurse Visit (OSIEL) ISIDRO MURPHY ([id number]) 1940 M Date Time Provider Department 10/20/17 10:45 AM NURSE LUZ MARINA CARTAGENA During your visit today, we recorded the following information about you: Temperature Pulse Respiration Blood pressure 97.9 degrees 72/minute 16/minute 138/70 Micah Denny CMA 10/20/2017 1:58 PM Signed Patient here for NV BP check. Last BP was 150/68 and patient was unsure if he had taken his BP medication. Patient denies chest pain/SOB/BULLARD/blurred vision. Patient is currently taking Metoprolol 100 mg 1.5 tabs daily along with Diltiazem 360 mg daily. Pt's BP today was 134/70 at first reading and 138/70 at second reading. Please advise. LORE Guerrero DO 10/20/2017 4:20 PM Signed Please have pt continue diltiazem 360 mg daily, increase metoprolol xl 100 mg to 2 po daily and return in 2 weeks for NV BP recheck thanks DO Angela Ballard CMA 10/22/2017 4:18 PM Signed Pt's daughter advised of medication changes. She will stop in the office and schedule pt OV in [address] [facility] Angela Loving [facility] Referring Provider: JOHANNY KRUGER [[id number]] Allergies As of Date: 10/20/2017 (No Known Allergies) Date Reviewed: 10/05/2017 Reviewed by: Johanny Kruger - Fully Assessed Reason for Visit: Hypertension [168] Primary Visit Diagnosis:Hypertension, essential [I10] Order(s):metoprolol succinate ER (TOPROL XL) 100 mg [id number] 2 tablets by mouth once daily.Disp: 135 tabletRfl: 0 Prescriptions as of 10/20/2017 Sig: METOPROLOL SUCCINATE ER 100 M* Take 2 tablets by mouth once * DONEPEZIL 5 MG TABLET Take 1 tablet by mouth daily * SITAGLIPTIN 50 MG-METFORMIN 1* Take 1 tablet by mouth twice * ALBUTEROL SULFATE HFA 90 MCG/* Inhale 2 Puffs as instructed * Patient not taking: Reported on 10/05/2017 DILTIAZEM ER 360 MG TABLET,EX* Take 1 tablet by mouth once d* XARELTO 20 MG TABLET TAKE 1 TABLET DAILY WITH DINN* ROSUVASTATIN 20 MG TABLET TAKE 1 TABLET DAILY FENOFIBRATE MICRONIZED 130 MG* Take 1 capsule by mouth once * NITROGLYCERIN 0.4 MG/HR TRANS* Apply 1 Patch as directed onc* Problem List As Of Date 10/20/2017 Noted Resolved Rhinitis [J31.0] INVALID FOR* Priority: B CRVO (central retinal vein occlusion) [H34.8192]INVALID FOR* Priority: A More... Type 2 diabetes mellitus without complication, *INVALID FOR* Priority: B More... Mixed hyperlipidemia [E78.2] INVALID FOR* Priority: A More... More... More... Chest pain at rest [R07.9] INVALID FOR*07/20/2013 More... History of TIA (transient ischemic attack) [Z86*INVALID FOR* Priority: C More... Abnormal echocardiogram [R93.1] INVALID FOR* Priority: A More... Pulmonary hypertension (HCC) [I27.20] INVALID FOR* Priority: A Diabetic eye exam (HCC) [Z01.00, E11.9] INVALID FOR* Priority: A More... Valvular heart disease [I38] INVALID FOR* Priority: A More... Alcohol abuse [F10.10] INVALID FOR* Priority: B Corns and callus [L84] INVALID FOR* Priority: C Well adult exam [Z00.00] INVALID FOR*10/05/2017 Priority: E More... Chronic atrial fibrillation (HCC) [I48.2] INVALID FOR* Priority: B More... COLD (chronic obstructive lung disease) (HCC) [*INVALID FOR* Priority: A Colon cancer screening [Z12.11] INVALID FOR* Essential hypertension with goal blood pressure*INVALID FOR* Priority: M More... Benign prostatic hyperplasia without lower urin*INVALID FOR* Priority: C Disorder of prostate [N42.9] INVALID FOR* Memory loss [R41.3] INVALID FOR* Onychomycosis [B35.1] INVALID FOR* Atypical chest pain [R07.89] INVALID FOR* Priority: A More... Visit Notes: >> Micah Weinstein Oct 20, 2017 1:53 PM Status: Signed Patient here for NV BP check. Last BP was 150/68 and patient was unsure if he had taken his BP medication. Patient denies chest pain/SOB/BULLARD/blurred vision. Patient is currently taking Metoprolol 100 mg 1.5 tabs daily along with Diltiazem 360 mg daily. Pt's BP today was 134/70 at first reading and 138/70 at second reading. Please advise. Micah Denny CMA >> Johanny Weinstein Oct 20, 2017 4:19 PM Status: Signed Please have pt continue diltiazem 360 mg daily, increase metoprolol xl 100 mg to 2 po daily and return in 2 weeks for NV BP recheck thanks Johanny Kruger, DO >> Angela ([employer]) Inder Diamond Oct 22, 2017 3:35 PM Status: Signed Pt's daughter advised of medication changes. She will stop in the office and schedule pt OV in [facility] [employer] Prescriptions ordered this encounter Disp Refills Start End METOPROLOL SUCCINATE ER 100 MG TABLE* 135 * 0 10/20/2017 11/19/2017 Class: Med Update Route: ORAL Sig: Take 2 tablets by mouth once daily. Medications Discontinued During This Encounter metoprolol succinate ER (TOPROL XL) * 135 * 0 08/30/2017 10/20/2017 Route: ORAL Sig: Take 1.5 tablets by mouth once daily. Disc: Reason for discontinue is not on file. Level of Service: EST PATIENT VISIT LEVEL 1 [[id number]] LOS history recorded Follow-up and Disposition History Recorded Encounter Status:Closed by ANGELA LOVING on 10/22/17 PROGRESS Observed: 10/05/2017 Status: COMPLETED Source: [place] 8:44 AM [facility] REPOSITORY [facility] ID: [id number] Author: Johanny Kruger Service: (none) Author Type: Physician Type: Progress Notes Filed: 10/10/2017 10:11 AM Note Text: Subjective The history is provided by the patient and a relative. Hypertension This is a chronic problem. The current episode started more than 1 year ago. The problem is unchanged. The problem is uncontrolled. Pertinent negatives include no blurred vision, chest pain, headaches, malaise/fatigue, palpitations or shortness of breath. There are no associated agents to hypertension. Risk factors for coronary artery disease include stress, male gender and sedentary lifestyle. The current treatment provides moderate improvement. Compliance problems include exercise. Diabetes Pertinent negatives for hypoglycemia include no dizziness or headaches. Pertinent negatives for diabetes include no blurred vision, no chest pain, no weakness and no weight loss. Pt is here with his daughter for f/u for memory loss, hypertension, and after hospitalization at [facility] for chest pain. He was seen by personnel arbitrator, Dr. Raya, and has an appt for f/u in November. He would prefer to see a personnel arbitrator that he could get into sooner to discuss his cardiac risk. Dr. Raya had recommended a stress test, but the patient does not want to get it, and is not sure he would agree to have any procedures as a result of this test. He is a former pt of Dr. Holm, personnel arbitrator, who has moved out of the area. Pt is not sure if he took his antihypertensive today, as his sets up his medications. He and his daughter have noticed an improvement in his behavior since he started aricept. He is not following a strict diabetic diet. He is not checking his blood sugars regularly. Review of Systems Constitutional: Negative for chills, diaphoresis, fever, malaise/fatigue and weight loss. HENT: Negative for ear pain and hearing loss. Eyes: Negative for blurred vision and double vision. Respiratory: Negative for cough and shortness of breath. Cardiovascular: Negative for chest pain, palpitations and leg swelling. Gastrointestinal: Negative for constipation, diarrhea and heartburn. Genitourinary: Negative for dysuria and frequency. Musculoskeletal: Negative for back pain, falls, joint pain and myalgias. Skin: Negative for itching and rash. Neurological: Negative for dizziness, weakness and headaches. Memory has improved since starting aricept Endo/Heme/Allergies: Does not bruise/bleed easily. Psychiatric/Behavioral: Negative for depression and substance abuse. The patient does not have insomnia. Objective BP 170/62 Pulse 72 Temp 36.5 ?C (97.7 ?F) (Oral) Resp 16 Ht 177.8 cm (5' 10) Wt 83.1 kg (183 lb 3.2 oz) BMI 26.29 kg/m? Second 150/68 Physical Exam Constitutional: He is oriented to person, place, and time and well-developed, well-nourished, and in no distress. HENT: Head: Normocephalic and atraumatic. Mouth/Throat: Normal dentition. Eyes: Pupils are equal, round, and reactive to light. Conjunctivae, EOM and lids are normal. Neck: Normal range of motion and phonation normal. Neck supple. Carotid bruit is not present. No edema present. No thyroid mass and no thyromegaly present. Cardiovascular: Normal rate, regular rhythm, normal heart sounds and intact distal pulses. Exam reveals no gallop and no friction rub. No murmur heard. Pulmonary/Chest: Effort normal and breath sounds normal. He has no wheezes. He has no rales. Abdominal: Soft. Normal appearance and bowel sounds are normal. He exhibits no distension and no mass. There is no tenderness. Musculoskeletal: Normal range of motion. He exhibits no edema or tenderness. Lymphadenopathy: He has no cervical adenopathy. Neurological: He is alert and oriented to person, place, and time. He has normal motor skills. No cranial nerve deficit. Gait normal. Coordination normal. Skin: Skin is warm and dry. No rash noted. No cyanosis or erythema. Nails show no clubbing. Psychiatric: Mood, affect and judgment normal. ASSESSMENT/PLAN: 1. Type 2 diabetes mellitus without complication, without long-term current use of insulin ([facility]) - ICD9: 250.00, ICD10: E11.9 (primary diagnosis) - HGBA1C 7.7 today increase dosage of janumet - SITAGLIPTIN 50 MG-METFORMIN 1,000 MG TABLET 2. Memory loss - ICD9: 780.93, ICD10: R41.3 Improved on aricept - continue - DONEPEZIL 5 MG TABLET 3. Essential hypertension with goal blood pressure less than 130/85 - ICD9: 401.9, ICD10: I10 Pt may not have taken antihypertensives today Advised to return for NV Bp recheck after taking meds daily for 2 weeks 4. Atypical chest pain - ICD9: 786.59, ICD10: R07.89 - CONSULT TO CARDIOLOGY DO MARLENY Ballard Observed: 10/05/2017 Status: COMPLETED Source: [place] 8:20 AM [facility] REPOSITORY Office Visit (OSIEL) ISIDRO MURPHY ([id number]) 1940 M Date Time Provider Department 10/05/17 8:20 AM JOHANNY KRUGER During your visit today, we recorded the following information about you: Temperature Pulse Respiration Blood pressure 97.7 degrees 72/minute 16/minute 150/68 Weight Height 83.1 kg 1.[address] [facility] 10/05/2017 8:34 AM Addendum Patient here for 6 month f/u HTN/DM. Last A1c was 6.7 on 04/02/17, micro 05/21/17, eye 11/18/16, foot 05/13/17. Patient states doing ok today. Patient had no BP medication this am. Micah Lrshabbirmigue [employer] Johanny Kruger, DO 10/10/2017 10:11 AM Signed Subjective The history is provided by the patient and a relative. Hypertension This is a chronic problem. The current episode started more than 1 year ago. The problem is unchanged. The problem is uncontrolled. Pertinent negatives include no blurred vision, chest pain, headaches, malaise/fatigue, palpitations or shortness of breath. There are no associated agents to hypertension. Risk factors for coronary artery disease include stress, male gender and sedentary lifestyle. The current treatment provides moderate improvement. Compliance problems include exercise. Diabetes Pertinent negatives for hypoglycemia include no dizziness or headaches. Pertinent negatives for diabetes include no blurred vision, no chest pain, no weakness and no weight loss. Pt is here with his daughter for f/u for memory loss, hypertension, and after hospitalization at [facility] for chest pain. He was seen by personnel arbitrator, Dr. Raya, and has an appt for f/u in November. He would prefer to see a personnel arbitrator that he could get into sooner to discuss his cardiac risk. Dr. Raya had recommended a stress test, but the patient does not want to get it, and is not sure he would agree to have any procedures as a result of this test. He is a former pt of Dr. Holm, personnel arbitrator, who has moved out of the area. Pt is not sure if he took his antihypertensive today, as his sets up his medications. He and his daughter have noticed an improvement in his behavior since he started aricept. He is not following a strict diabetic diet. He is not checking his blood sugars regularly. Review of Systems Constitutional: Negative for chills, diaphoresis, fever, malaise/fatigue and weight loss. HENT: Negative for ear pain and hearing loss. Eyes: Negative for blurred vision and double vision. Respiratory: Negative for cough and shortness of breath. Cardiovascular: Negative for chest pain, palpitations and leg swelling. Gastrointestinal: Negative for constipation, diarrhea and heartburn. Genitourinary: Negative for dysuria and frequency. Musculoskeletal: Negative for back pain, falls, joint pain and myalgias. Skin: Negative for itching and rash. Neurological: Negative for dizziness, weakness and headaches. Memory has improved since starting aricept Endo/Heme/Allergies: Does not bruise/bleed easily. Psychiatric/Behavioral: Negative for depression and substance abuse. The patient does not have insomnia. Objective BP 170/62 Pulse 72 Temp 36.5 ?C (97.7 ?F) (Oral) Resp 16 Ht 177.8 cm (5' 10) Wt 83.1 kg (183 lb 3.2 oz) BMI 26.29 kg/m? Second 150/68 Physical Exam Constitutional: He is oriented to person, place, and time and well-developed, well-nourished, and in no distress. HENT: Head: Normocephalic and atraumatic. Mouth/Throat: Normal dentition. Eyes: Pupils are equal, round, and reactive to light. Conjunctivae, EOM and lids are normal. Neck: Normal range of motion and phonation normal. Neck supple. Carotid bruit is not present. No edema present. No thyroid mass and no thyromegaly present. Cardiovascular: Normal rate, regular rhythm, normal heart sounds and intact distal pulses. Exam reveals no gallop and no friction rub. No murmur heard. Pulmonary/Chest: Effort normal and breath sounds normal. He has no wheezes. He has no rales. Abdominal: Soft. Normal appearance and bowel sounds are normal. He exhibits no distension and no mass. There is no tenderness. Musculoskeletal: Normal range of motion. He exhibits no edema or tenderness. Lymphadenopathy: He has no cervical adenopathy. Neurological: He is alert and oriented to person, place, and time. He has normal motor skills. No cranial nerve deficit. Gait normal. Coordination normal. Skin: Skin is warm and dry. No rash noted. No cyanosis or erythema. Nails show no clubbing. Psychiatric: Mood, affect and judgment normal. ASSESSMENT/PLAN: 1. Type 2 diabetes mellitus without complication, without long-term current use of insulin ([facility]) - ICD9: 250.00, ICD10: E11.9 (primary diagnosis) - HGBA1C 7.7 today increase dosage of janumet - SITAGLIPTIN 50 MG-METFORMIN 1,000 MG TABLET 2. Memory loss - ICD9: 780.93, ICD10: R41.3 Improved on aricept - continue - DONEPEZIL 5 MG TABLET 3. Essential hypertension with goal blood pressure less than 130/85 - ICD9: 401.9, ICD10: I10 Pt may not have taken antihypertensives today Advised to return for NV Bp recheck after taking meds daily for 2 weeks 4. Atypical chest pain - ICD9: 786.59, ICD10: R07.89 - CONSULT TO CARDIOLOGY Johanny Kruger DO Referring Provider: JOHANNY KRUGER [[id number]] Allergies As of Date: 10/05/2017 (No Known Allergies) Date Reviewed: 10/05/2017 Reviewed by: Johanny Kruger - Fully Assessed Reason for Visit: Diabetes [34] Primary Visit Diagnosis:Type 2 diabetes mellitus without complication, without long-term current use of insulin (HCC) [E11.9] Other Visit Diagnoses:Memory loss [R41.3] Essential hypertension with goal blood pressure less than 130/85 [I10] Atypical chest pain [R07.89] Order(s):HGBA1C B/O [[id number]] Order #: [id number] donepezil (ARICEPT) 5 mg tabletTake 1 tablet by mouth daily at bedtime.Disp: 90 tabletRfl: 1 CONSULT TO CARDIOLOGY [9004] Order #: [id number]: 1 sitaGLIPtin-metFORMIN (JANUMET) 50-1,000 mg per tabletTake 1 tablet by mouth twice daily. [facility]: 90 tabletRfl: 0 Prescriptions as of 10/05/2017 Sig: DONEPEZIL 5 MG TABLET Take 1 tablet by mouth daily * METOPROLOL SUCCINATE ER 100 M* Take 1.5 tablets by mouth onc* DILTIAZEM ER 360 MG TABLET,EX* Take 1 tablet by mouth once d* XARELTO 20 MG TABLET TAKE 1 TABLET DAILY WITH DINN* ROSUVASTATIN 20 MG TABLET TAKE 1 TABLET DAILY FENOFIBRATE MICRONIZED 130 MG* Take 1 capsule by mouth once * NITROGLYCERIN 0.4 MG/HR TRANS* Apply 1 Patch as directed onc* SITAGLIPTIN 50 MG-METFORMIN 1* Take 1 tablet by mouth twice * ALBUTEROL SULFATE HFA 90 MCG/* Inhale 2 Puffs as instructed * Patient not taking: Reported on 10/05/2017 Problem List As Of Date 10/05/2017 Noted Resolved Rhinitis [J31.0] INVALID FOR* Priority: B CRVO (central retinal vein occlusion) [H34.8192]INVALID FOR* Priority: A More... Type 2 diabetes mellitus without complication, *INVALID FOR* Priority: B More... Mixed hyperlipidemia [E78.2] INVALID FOR* Priority: A More... More... More... Chest pain at rest [R07.9] INVALID FOR*07/20/2013 More... History of TIA (transient ischemic attack) [Z86*INVALID FOR* Priority: C More... Abnormal echocardiogram [R93.1] INVALID FOR* Priority: A More... Pulmonary hypertension (HCC) [I27.20] INVALID FOR* Priority: A Diabetic eye exam (HCC) [Z01.00, E11.9] INVALID FOR* Priority: A More... Valvular heart disease [I38] INVALID FOR* Priority: A More... Alcohol abuse [F10.10] INVALID FOR* Priority: B Corns and callus [L84] INVALID FOR* Priority: C Well adult exam [Z00.00] INVALID FOR*10/05/2017 Priority: E More... Chronic atrial fibrillation (HCC) [I48.2] INVALID FOR* Priority: B More... COLD (chronic obstructive lung disease) (HCC) [*INVALID FOR* Priority: A Colon cancer screening [Z12.11] INVALID FOR* Essential hypertension with goal blood pressure*INVALID FOR* Priority: M More... Benign prostatic hyperplasia without lower urin*INVALID FOR* Priority: C Disorder of prostate [N42.9] INVALID FOR* Memory loss [R41.3] INVALID FOR* Onychomycosis [B35.1] INVALID FOR* Atypical chest pain [R07.89] INVALID FOR* Priority: A More... Visit Notes: >> Micah Montoya Oct 05, 2017 8:22 AM Status: Addendum Patient here for 6 month f/u HTN/DM. Last A1c was 6.7 on 04/02/17, micro 05/21/17, eye 11/18/16, foot 05/13/17. Patient states doing ok today. Patient had no BP medication this am. Micah Denny CMA Prescriptions ordered this encounter Disp Refills Start End DONEPEZIL 5 MG TABLET 90 t* 1 10/05/2017 Class: [facility] Route: ORAL Sig: Take 1 tablet by mouth daily at bedtime. SITAGLIPTIN 50 MG-METFORMIN 1,000 MG* 90 t* 0 10/05/2017 Class: [facility] Route: ORAL Sig: Take 1 tablet by mouth twice daily. S[facility]AIL[facility] AT [facility] Medications Discontinued During This Encounter sitaGLIPtin-metFORMIN (JANUMET) 50-5* 180 * 1 04/24/2017 10/05/2017 Route: ORAL Sig: Take 1 tablet by mouth twice daily with meals. Disc: Reason for discontinue is not on file. donepezil (ARICEPT) 5 mg tablet 30 t* 3 07/02/2017 10/05/2017 Route: ORAL Sig: Take 1 tablet by mouth daily at bedtime. Disc: Reason for discontinue is not on file. Disposition: Return in about 2 weeks (around 10/19/2017) for [place] BP recheck. Follow-up and Disposition History Recorded Encounter Status:Closed by JOHANNY KRUGER DO on 10/10/17 CNCO Observed: 10/05/2017 Status: COMPLETED Source: [place] 12:[address] [facility] REPOSITORY Letter Text [address] [address] Dept Dept Johanny Kruger DO [facility] -[address] [place] [id number] - - October 05, 2017 Isidro Murphy [address] [place] [id number] Dear Mr. Murphy, You have been referred to Dr Puente to be evaluated and treated for chest pain. Please call [phone] to schedule your appointment. [facility] affiliated providers will have access to your records. We ask that if you are not seeing a [facility] affiliated provider that you notify our office and provide the name of the provider and your appointment date. We will then verify if your insurance requires a prior authorization and will forward your records in a timely manner. Sincerely, Johanny Kruger D.O. (Signed electronically to expedite mailing) PROGRESS Observed: 09/07/2017 Status: COMPLETED Source: [place] 1:[address] [facility] [place] REPOSITORY HNO ID: [id number] Author: Edith BurgosCommercial Accountant-Renee Simon Service: (none) Author Type: Nurse Practitioner Type: Progress Notes Filed: 09/07/2017 2:06 PM Note Text: Transitional Care Management Progress Note The patients TCM visit was performed within the 7 days of discharge. Patient's Date of discharge: 08/30/17 Date of initial coordinator contact after discharge: 08/31/17 Discharge diagnosis: chest pain Medication review completed Yes Angela Loving CMA Provider Documentation: In follow-up of hospitalization, Isidro Murphy is a 76 year old male with the chief complaint of chest pain. I have reviewed the patient?s last hospital course including diagnostic testing performed during this hospitalization, their discharge medications, and my assessment and plan with the patient and any family members present at today?s visit. HPI: Isidro Murphy is a 76 year old male with a PMH of HTN, HPL, DM 2, A-fib. and daughter are present today. Was recently seen in [place] [facility] for intermittent chest pain on 08/29/17. Was admitted to [facility] for observation for a heart score of 4. EKG showed atrial fibrillation (rate controlled) with nonspecific ST changes, troponins were negative, remaining labs were unremarkable. Chest xray was WNL. Cardiology was consulted while in [place]- Dr. Raya. Dr. Shell (attending from [place]) felt the chest pain was related to a bronchospasm from and allergic sinusitis. Cardiology cleared him for an outpatient stress test, which they wanted to have done in [place]. Order was not placed at that time. Discharged on 08/30/17 with scripts for a MDI, prednisone, and Mucinex. He never finished the course of the steroid because it made him crazy per his . Hasn't used the MDI or Mucinex. Feeling good overall. Denies any chest pain now. Reports some swelling in his bilateral lower extremities at the end of the day for the past month or so. Reports that they were told by a nurse at [place] that he would be given a script for HCTZ (which he was on in the past) but no order was ever placed. No discussion of HCTZ in his discharge summary. reports he was push mowing the day before on a hot day and he wasn't drinking much water. Prior personnel arbitrator Dr. Pan. ?Echo 2014 - chronic A. fib with aortic sclerosis and tricuspid regurgitation and mitral valve calcification with mild MR. ?Chest x-ray unchanged from 2013. Component Value Range AND Units Status Performing Lab Cholesterol, Total 115 <200 mg/dL Final [facility] Comment: <200 mg/dL, Desirable ?200-239 mg/dL, Borderline high >239 mg/dL, High Triglyceride 61 <150 mg/dL Final [facility] Comment: <150 mg/dL, Normal ?150-199 mg/dL, Borderline high ?200-499 mg/dL, High >499 mg/dL, Very high HDL Cholesterol 40 >39 mg/dL Final [facility] Comment: ?40-59 mg/dL, Acceptable >59 mg/dL, High: Negative risk factor for coronary heart disease <40 mg/dL, Low: Positive risk factor for coronary heart disease LDL Cholesterol 63 <100 mg/dL Final [facility] Comment: <100 mg/dL, Optimal ?100-129 mg/dL, Near optimal/above optimal ?130-159 mg/dL, Borderline high ?160-189 mg/dL, High >189 mg/dL, Very high Secondary prevention optimal LDL Cholesterol levels are recommended to be < 70 ?mg/dL Non HDL Cholesterol 75 <130 mg/dL Final [facility] Comment: <130 mg/dL, Optimal ?130-159 mg/dL, Near optimal/above optimal ?160-189 mg/dL, Borderline high ?190-219 mg/dL, High >219 mg/dL, Very high Secondary prevention optimal non HDL Cholesterol levels are recommended to be < 100 mg/dL Fasting Time Unknown hrs Final [facility] VLDL Cholesterol 12 <30 mg/dL Final [facility] TC:HDL Ratio 2.88 <5.10 Final [facility] LDL:HDL Ratio 1.58 <2.54 Final [facility] Component Value Range AND Units Status Performing Lab Troponin T <0.010 0.000 - 0.029 ng/mL Final [facility] Component Value Range AND Units Status Performing Lab Sodium 136 136 - 145 mEq/L Final [facility] Potassium 3.9 3.5 - 5.1 mEq/L Final [facility] Chloride 104 98 - 107 mEq/L Final [facility] CO2 25 21 - 32 mEq/L Final [facility] Glucose 136 (H) 70 - 99 mg/dL Final [facility] BUN 10 7 - 25 mg/dL Final [facility] Creatinine 0.93 0.67 - 1.17 mg/dL Final [facility] Calcium 9.0 8.5 - 10.1 mg/dL Final [facility] Albumin 3.9 3.4 - 5.0 g/dL Final [facility] Protein, Total 7.9 6.4 - 8.2 g/dL Final [facility] AST 17 15 - 37 U/L Final [facility] ALT 17 14 - 63 U/L Final [facility] Alkaline Phosphatase 50 46 - 116 U/L Final [facility] Bilirubin, Total 0.7 0.2 - 1.0 mg/dL Final [facility] Anion Gap 11 8 - 20 Final [facility] BUN/CREATININE RATIO 11 10 - 20 Final [facility] Component Value Range AND Units Status Performing Lab WBC 10.3 4.8 - 10.8 thou/cmm Final [facility] RBC 4.93 4.60 - 6.20 mil/cmm Final [facility] HGB 14.3 14.0 - 18.0 g/dL Final [facility] Hematocrit 43.9 42.0 - 52.0 % Final [facility] MCV 89.0 80.0 - 94.0 fl Final [facility] MCH 29.0 27.0 - 31.0 pg Final [facility] MCHC 32.6 32.0 - 36.0 % Final [facility] RDW 15.0 11.5 - 15.9 % Final [facility] Platelet Count 201 150 - 400 thou/cmm Final [facility] MPV 10.9 (H) 7.1 - 10.5 fl Final [facility] Seg Neutrophil 69.8 % Final [facility] Lymphocyte 17.6 % Final [facility] Monocyte 10.9 % Final [facility] Eosinophil 1.5 % Final [facility] Basophil 0.2 % Final [facility] Abs. Neut(Anc) 7.20 (H) 3.00 - 5.67 thou/cmm Final [facility] Abs. Lymph 1.81 1.50 - 3.65 thou/cmm Final [facility] Abs. Waldo 1.12 (H) 0.20 - 1.00 thou/cmm Final [facility] Abs. Eosin 0.15 0.00 - 0.41 thou/cmm Final [facility] Abs. Baso 0.02 0.00 - 0.08 thou/cmm Final [facility] EXAMINATION: ?CHEST RADIOGRAPH (SINGLE VIEW AP OR PA) ? Clinical History: ?Chest pain or SOB, pleurisy or effusion suspected. M: ?XC1_4 Comparison: ?January 12, 2013 ? ? RESULT: ? Lines, tubes, and devices: ?None. ? Lungs and pleura: ?No consolidation. No lung mass. No pleural effusion. ? Cardiomediastinal silhouette: ?Normal cardiomediastinal silhouette. ? Other: ?No other abnormality is identified. ? ? IMPRESSION: ? No acute radiographic abnormality. ? Stable appearance to the chest as compared to January 12, 2013. 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 Disp: 135 tablet Rfl: 0 albuterol HFA (PROVENTIL HFA) 90 mcg/actuation inhaler Inhale 2 Puffs as instructed every 4 hours as needed for Wheezing/Shortness of Breath. Disp: 1 Inhaler Rfl: 0 guaiFENesin (MUCINEX) 600 mg 12 hr tablet Take 1 tablet by mouth twice daily. Disp: 60 tablet Rfl: 0 predniSONE (DELTASONE) 20 mg tablet Take 2 tablets by mouth once daily for 10 days. Disp: 20 tablet Rfl: 0 Diltiazem HCl 360 mg 24 hr tablet Take 1 tablet by mouth once daily. Disp: 90 tablet Rfl: 0 XARELTO 20 mg tablet TAKE 1 TABLET DAILY WITH DINNER Disp: 90 tablet Rfl: 0 rosuvastatin (CRESTOR) 20 mg tablet TAKE 1 TABLET DAILY Disp: 90 tablet Rfl: 0 donepezil (ARICEPT) 5 mg tablet Take 1 tablet by mouth daily at bedtime. Disp: 30 tablet Rfl: 3 Fenofibrate Micronized 130 mg capsule Take 1 capsule by mouth once daily. Disp: 90 capsule Rfl: 1 nitroglycerin (NITRODERM, MINITRAN) 0.4 mg/hr Apply 1 Patch as directed once daily. Disp: 90 Patch Rfl: 1 sitaGLIPtin-metFORMIN (JANUMET) 50-500 mg per tablet Take 1 tablet by mouth twice daily with meals. Disp: 180 tablet Rfl: 1 No current facility-administered medications for this visit. Social History Marital status: Spouse name: Years of education: Number of children: Social History Main Topics Smoking status: Former Smoker Packs/day: 1.00 Years: 30.00 Types: Cigarettes Quit date: 09/22/1989 Smokeless tobacco: Never Used Alcohol use: Yes 18.0 oz/week Cans of Beer (12oz): 12 per week Drug use: No FAMILY HISTORY Problem Relation Age of Onset - Stroke Mother - Cataract Mother - Heart Mother CHF - Hypertension Father - Developmental problem Father 70 - Cancer Sister - Hypertension Brother - Diabetes Brother - Cancer Brother liver - Coronary Artery Disease Brother 70 - Cancer Brother esophageal Review of Systems Constitutional: Negative for chills, diaphoresis, fever, malaise/fatigue and weight loss. HENT: Negative. Eyes: Negative. Respiratory: Positive for wheezing (Occassionally). Negative for cough, hemoptysis, sputum production and shortness of breath. Cardiovascular: Positive for leg swelling (at the end of the day, will subside once he puts his legs up). Negative for chest pain, palpitations, orthopnea, claudication and PND. Gastrointestinal: Negative for abdominal pain, blood in stool, constipation, diarrhea, nausea and vomiting. Genitourinary: Negative. Musculoskeletal: Positive for joint pain (Left shoulder, chronic). Negative for back pain, falls, myalgias and neck pain. Skin: Negative. Neurological: Negative. Negative for dizziness, seizures, weakness and headaches. Endo/Heme/Allergies: Negative. Psychiatric/Behavioral: Negative. Disease/illness education: yes Home health/community services discussion/referrals:no Establishment of referral orders for community resources: no Discussion with other health care providers: no Assessment and support of treatment regimen adherence: yes Appointments coordinated with: no Education for self-management and activities of daily living: yes There were no vitals taken for this visit. Physical Exam Constitutional: He is oriented to person, place, and time and well-developed, well-nourished, and in no distress. Vital signs are normal. He does not have a sickly appearance. HENT: Head: Normocephalic and atraumatic. Right Ear: Tympanic membrane, external ear and ear canal normal. Left Ear: Tympanic membrane, external ear and ear canal normal. Nose: Nose normal. Mouth/Throat: Uvula is midline, oropharynx is clear and moist and mucous membranes are normal. Bilateral canals with brown cerumen. Eyes: Conjunctivae, EOM and lids are normal. Pupils are equal, round, and reactive to light. Right eye exhibits no discharge. Left eye exhibits no discharge. Neck: Trachea normal, normal range of motion and full passive range of motion without pain. Neck supple. Carotid bruit is not present. No thyroid mass and no thyromegaly present. Cardiovascular: Normal rate, normal heart sounds and intact distal pulses. An irregular rhythm present. Exam reveals no gallop. No murmur heard. Pulses: Dorsalis pedis pulses are 2+ on the right side, and 2+ on the left side. Posterior tibial pulses are 2+ on the right side, and 2+ on the left side. Pulmonary/Chest: Effort normal and breath sounds normal. No accessory muscle usage. No respiratory distress. He has no decreased breath sounds. He has no wheezes. He has no rhonchi. Abdominal: Soft. Normal appearance and bowel sounds are normal. There is no tenderness. Musculoskeletal: Normal range of motion. Lymphadenopathy: He has no cervical adenopathy. Neurological: He is alert and oriented to person, place, and time. Gait normal. GCS score is 15. Skin: Skin is warm, dry and intact. No rash noted. Psychiatric: Mood, memory, affect and judgment normal. Nursing note and vitals reviewed. 1. I have reviewed the patient record including associated test results during the last hospitalization Yes 2. I have reviewed Lab test Yes 3. I have reviewed Radiology test Yes 4. I reviewed assessment/plan with the patient/family member Yes ASSESSMENT/PLAN: 1. Chest pain, unspecified type - ICD9: 786.50, ICD10: R07.9 Atypical chest pain, symptoms are not consistent with cardiac ischemia due to nonexertional nature of symptom possible etiology include Costochondritis/chest wall pain, musculoskeletal, Pneumonia and Bronchitis- ruled out. - Resolved - Stress testing- see orders - Follow up 1 months- has an appointment with Dr. Kruger on 09/21/17. - Referral to Cardiology - CONSULT TO CARDIOLOGY- Dr. Raya - EXERCISE STRESS WO IMAGING - ECHO Edith Simon APRN.CNP CNOV Observed: 09/07/2017 Status: COMPLETED Source: [place] 1:00 PM [facility] REPOSITORY Office Visit (AGFAMPLE) KATHLEENISIDRO RIVERA ([id number]) 1940 M Date Time Provider Department 09/07/17 1:00 PM EDITH SIMON (COLON AND RECTAL SURGEON-C) OSIEL During your visit today, we recorded the following information about you: Temperature Pulse Blood pressure Weight 97.4 degrees 67/minute 138/70 80.4 kg Height 1.778 m Edith Simon APRN.CNP 09/07/2017 2:06 PM Signed Transitional Care Management Progress Note The patients TCM visit was performed within the 7 days of discharge. Patient's Date of discharge: 08/30/17 Date of initial coordinator contact after discharge: 08/31/17 Discharge diagnosis: chest pain Medication review completed Yes Angela Loving CMA Provider Documentation: In follow-up of hospitalization, Isidro Murphy is a 76 year old male with the chief complaint of chest pain. I have reviewed the patient?s last hospital course including diagnostic testing performed during this hospitalization, their discharge medications, and my assessment and plan with the patient and any family members present at today?s visit. HPI: Isidro Murphy is a 76 year old male with a PMH of HTN, HPL, DM 2, A-fib. and daughter are present today. Was recently seen in [place] [facility] for intermittent chest pain on 08/29/17. Was admitted to [facility] for observation for a heart score of 4. EKG showed atrial fibrillation (rate controlled) with nonspecific ST changes, troponins were negative, remaining labs were unremarkable. Chest xray was WNL. Cardiology was consulted while in [place]- Dr. Raya. Dr. Shell (attending from [place]) felt the chest pain was related to a bronchospasm from and allergic sinusitis. Cardiology cleared him for an outpatient stress test, which they wanted to have done in [place]. Order was not placed at that time. Discharged on 08/30/17 with scripts for a MDI, prednisone, and Mucinex. He never finished the course of the steroid because it made him crazy per his . Hasn't used the MDI or Mucinex. Feeling good overall. Denies any chest pain now. Reports some swelling in his bilateral lower extremities at the end of the day for the past month or so. Reports that they were told by a nurse at [place] that he would be given a script for HCTZ (which he was on in the past) but no order was ever placed. No discussion of HCTZ in his discharge summary. reports he was push mowing the day before on a hot day and he wasn't drinking much water. Prior personnel arbitrator Dr. Pan. ?Echo 2014 - chronic A. fib with aortic sclerosis and tricuspid regurgitation and mitral valve calcification with mild MR. ?Chest x-ray unchanged from 2013. Component Value Range AND Units Status Performing Lab Cholesterol, Total 115 <200 mg/dL Final [facility] Comment: <200 mg/dL, Desirable ?200-239 mg/dL, Borderline high >239 mg/dL, High Triglyceride 61 <150 mg/dL Final [facility] Comment: <150 mg/dL, Normal ?150-199 mg/dL, Borderline high ?200-499 mg/dL, High >499 mg/dL, Very high HDL Cholesterol 40 >39 mg/dL Final [facility] Comment: ?40-59 mg/dL, Acceptable >59 mg/dL, High: Negative risk factor for coronary heart disease <40 mg/dL, Low: Positive risk factor for coronary heart disease LDL Cholesterol 63 <100 mg/dL Final [facility] Comment: <100 mg/dL, Optimal ?100-129 mg/dL, Near optimal/above optimal ?130-159 mg/dL, Borderline high ?160-189 mg/dL, High >189 mg/dL, Very high Secondary prevention optimal LDL Cholesterol levels are recommended to be < 70 ?mg/dL Non HDL Cholesterol 75 <130 mg/dL Final [facility] Comment: <130 mg/dL, Optimal ?130-159 mg/dL, Near optimal/above optimal ?160-189 mg/dL, Borderline high ?190-219 mg/dL, High >219 mg/dL, Very high Secondary prevention optimal non HDL Cholesterol levels are recommended to be < 100 mg/dL Fasting Time Unknown hrs Final [facility] VLDL Cholesterol 12 <30 mg/dL Final [facility] TC:HDL Ratio 2.88 <5.10 Final [facility] LDL:HDL Ratio 1.58 <2.54 Final [facility] Component Value Range AND Units Status Performing Lab Troponin T <0.010 0.000 - 0.029 ng/mL Final [facility] Component Value Range AND Units Status Performing Lab Sodium 136 136 - 145 mEq/L Final [facility] Potassium 3.9 3.5 - 5.1 mEq/L Final [facility] Chloride 104 98 - 107 mEq/L Final [facility] CO2 25 21 - 32 mEq/L Final [facility] Glucose 136 (H) 70 - 99 mg/dL Final [facility] BUN 10 7 - 25 mg/dL Final [facility] Creatinine 0.93 0.67 - 1.17 mg/dL Final [facility] Calcium 9.0 8.5 - 10.1 mg/dL Final [facility] Albumin 3.9 3.4 - 5.0 g/dL Final [facility] Protein, Total 7.9 6.4 - 8.2 g/dL Final [facility] AST 17 15 - 37 U/L Final [facility] ALT 17 14 - 63 U/L Final [facility] Alkaline Phosphatase 50 46 - 116 U/L Final [facility] Bilirubin, Total 0.7 0.2 - 1.0 mg/dL Final [facility] Anion Gap 11 8 - 20 Final [facility] BUN/CREATININE RATIO 11 10 - 20 Final [facility] Component Value Range AND Units Status Performing Lab WBC 10.3 4.8 - 10.8 thou/cmm Final [facility] RBC 4.93 4.60 - 6.20 mil/cmm Final [facility] HGB 14.3 14.0 - 18.0 g/dL Final [facility] Hematocrit 43.9 42.0 - 52.0 % Final [facility] MCV 89.0 80.0 - 94.0 fl Final [facility] MCH 29.0 27.0 - 31.0 pg Final [facility] MCHC 32.6 32.0 - 36.0 % Final [facility] RDW 15.0 11.5 - 15.9 % Final [facility] Platelet Count 201 150 - 400 thou/cmm Final [facility] MPV 10.9 (H) 7.1 - 10.5 fl Final [facility] Seg Neutrophil 69.8 % Final [facility] Lymphocyte 17.6 % Final [facility] Monocyte 10.9 % Final [facility] Eosinophil 1.5 % Final [facility] Basophil 0.2 % Final [facility] Abs. Neut(Anc) 7.20 (H) 3.00 - 5.67 thou/cmm Final [facility] Abs. Lymph 1.81 1.50 - 3.65 thou/cmm Final [facility] Abs. Waldo 1.12 (H) 0.20 - 1.00 thou/cmm Final [facility] Abs. Eosin 0.15 0.00 - 0.41 thou/cmm Final [facility] Abs. Baso 0.02 0.00 - 0.08 thou/cmm Final [facility] EXAMINATION: ?CHEST RADIOGRAPH (SINGLE VIEW AP OR PA) ? Clinical History: ?Chest pain or SOB, pleurisy or effusion suspected. M: ?XC1_4 Comparison: ?January 12, 2013 ? ? RESULT: ? Lines, tubes, and devices: ?None. ? Lungs and pleura: ?No consolidation. No lung mass. No pleural effusion. ? Cardiomediastinal silhouette: ?Normal cardiomediastinal silhouette. ? Other: ?No other abnormality is identified. ? ? IMPRESSION: ? No acute radiographic abnormality. ? Stable appearance to the chest as compared to January 12, 2013. 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 Disp: 135 tablet Rfl: 0 albuterol HFA (PROVENTIL HFA) 90 mcg/actuation inhaler Inhale 2 Puffs as instructed every 4 hours as needed for Wheezing/Shortness of Breath. Disp: 1 Inhaler Rfl: 0 guaiFENesin (MUCINEX) 600 mg 12 hr tablet Take 1 tablet by mouth twice daily. Disp: 60 tablet Rfl: 0 predniSONE (DELTASONE) 20 mg tablet Take 2 tablets by mouth once daily for 10 days. Disp: 20 tablet Rfl: 0 Diltiazem HCl 360 mg 24 hr tablet Take 1 tablet by mouth once daily. Disp: 90 tablet Rfl: 0 XARELTO 20 mg tablet TAKE 1 TABLET DAILY WITH DINNER Disp: 90 tablet Rfl: 0 rosuvastatin (CRESTOR) 20 mg tablet TAKE 1 TABLET DAILY Disp: 90 tablet Rfl: 0 donepezil (ARICEPT) 5 mg tablet Take 1 tablet by mouth daily at bedtime. Disp: 30 tablet Rfl: 3 Fenofibrate Micronized 130 mg capsule Take 1 capsule by mouth once daily. Disp: 90 capsule Rfl: 1 nitroglycerin (NITRODERM, MINITRAN) 0.4 mg/hr Apply 1 Patch as directed once daily. Disp: 90 Patch Rfl: 1 sitaGLIPtin-metFORMIN (JANUMET) 50-500 mg per tablet Take 1 tablet by mouth twice daily with meals. Disp: 180 tablet Rfl: 1 No current facility-administered medications for this visit. Social History Marital status: Spouse name: Years of education: Number of children: Social History Main Topics Smoking status: Former Smoker Packs/day: 1.00 Years: 30.00 Types: Cigarettes Quit date: 09/22/1989 Smokeless tobacco: Never Used Alcohol use: Yes 18.0 oz/week Cans of Beer (12oz): 12 per week Drug use: No FAMILY HISTORY Problem Relation Age of Onset - Stroke Mother - Cataract Mother - Heart Mother CHF - Hypertension Father - Developmental problem Father 70 - Cancer Sister - Hypertension Brother - Diabetes Brother - Cancer Brother liver - Coronary Artery Disease Brother 70 - Cancer Brother esophageal Review of Systems Constitutional: Negative for chills, diaphoresis, fever, malaise/fatigue and weight loss. HENT: Negative. Eyes: Negative. Respiratory: Positive for wheezing (Occassionally). Negative for cough, hemoptysis, sputum production and shortness of breath. Cardiovascular: Positive for leg swelling (at the end of the day, will subside once he puts his legs up). Negative for chest pain, palpitations, orthopnea, claudication and PND. Gastrointestinal: Negative for abdominal pain, blood in stool, constipation, diarrhea, nausea and vomiting. Genitourinary: Negative. Musculoskeletal: Positive for joint pain (Left shoulder, chronic). Negative for back pain, falls, myalgias and neck pain. Skin: Negative. Neurological: Negative. Negative for dizziness, seizures, weakness and headaches. Endo/Heme/Allergies: Negative. Psychiatric/Behavioral: Negative. Disease/illness education: yes Home health/community services discussion/referrals:no Establishment of referral orders for community resources: no Discussion with other health care providers: no Assessment and support of treatment regimen adherence: yes Appointments coordinated with: no Education for self-management and activities of daily living: yes There were no vitals taken for this visit. Physical Exam Constitutional: He is oriented to person, place, and time and well-developed, well-nourished, and in no distress. Vital signs are normal. He does not have a sickly appearance. HENT: Head: Normocephalic and atraumatic. Right Ear: Tympanic membrane, external ear and ear canal normal. Left Ear: Tympanic membrane, external ear and ear canal normal. Nose: Nose normal. Mouth/Throat: Uvula is midline, oropharynx is clear and moist and mucous membranes are normal. Bilateral canals with brown cerumen. Eyes: Conjunctivae, EOM and lids are normal. Pupils are equal, round, and reactive to light. Right eye exhibits no discharge. Left eye exhibits no discharge. Neck: Trachea normal, normal range of motion and full passive range of motion without pain. Neck supple. Carotid bruit is not present. No thyroid mass and no thyromegaly present. Cardiovascular: Normal rate, normal heart sounds and intact distal pulses. An irregular rhythm present. Exam reveals no gallop. No murmur heard. Pulses: Dorsalis pedis pulses are 2+ on the right side, and 2+ on the left side. Posterior tibial pulses are 2+ on the right side, and 2+ on the left side. Pulmonary/Chest: Effort normal and breath sounds normal. No accessory muscle usage. No respiratory distress. He has no decreased breath sounds. He has no wheezes. He has no rhonchi. Abdominal: Soft. Normal appearance and bowel sounds are normal. There is no tenderness. Musculoskeletal: Normal range of motion. Lymphadenopathy: He has no cervical adenopathy. Neurological: He is alert and oriented to person, place, and time. Gait normal. GCS score is 15. Skin: Skin is warm, dry and intact. No rash noted. Psychiatric: Mood, memory, affect and judgment normal. Nursing note and vitals reviewed. 1. I have reviewed the patient record including associated test results during the last hospitalization Yes 2. I have reviewed Lab test Yes 3. I have reviewed Radiology test Yes 4. I reviewed assessment/plan with the patient/family member Yes ASSESSMENT/PLAN: 1. Chest pain, unspecified type - ICD9: 786.50, ICD10: R07.9 Atypical chest pain, symptoms are not consistent with cardiac ischemia due to nonexertional nature of symptom possible etiology include Costochondritis/chest wall pain, musculoskeletal, Pneumonia and Bronchitis- ruled out. - Resolved - Stress testing- see orders - Follow up 1 months- has an appointment with Dr. Kruger on 09/21/17. - Referral to Cardiology - CONSULT TO CARDIOLOGY- Dr. Raya - EXERCISE STRESS WO IMAGING - ECHO CORBIN Estevez APRN.CNP 09/07/2017 1:[address] Brooks Raya Internal medicine - cardiovascular disease [address] [place] [address] [phone] NONSPECIFIC CHEST PAIN: Our exam has not identified a specific cause for your chest pain. This type of pain, however, is not usually due to serious heart or lung problems. Most often chest pain of this nature is caused by minor injuries, muscle strains, inflammation of the chest wall tissues, or indigestion. Drugs, alcohol, hyperventilation, and emotional upsets can make this kind of pain worse. Most of the time this type of chest pain will be much improved within 2-3 days. Get plenty of rest for the next few days and avoid any activity that brings on the pain. Please do not smoke or drink alcohol until all your symptoms are completely better. Please call your doctor for routine follow- up as advised. You must see your doctor or go to the emergency room right away, however, if you have: - Increased pain, or pain that radiates to the arm, neck, or abdomen. - Shortness of breath, increasing cough, or coughing up blood. - Severe weakness, fainting, fever, or chills. - Severe back or abdominal pain, nausea, or vomiting. Edith Simon APRN.ASSISTANT PROFESSOR [employer]CHNOLOGY 09/08/2017 8:31 AM Signed Addended by: EDITH COOPER on: 09/08/2017 08:31 AM Modules accepted: Orders Referring Provider: SELF [200] Allergies As of Date: 09/07/2017 (No Known Allergies) Date Reviewed: 09/07/2017 Reviewed by: Edith Cerda (Tahmina) Alfred - Fully Assessed Reason for Visit: Transition Of Care [4074] Primary Visit Diagnosis:Chest pain, unspecified type [R07.9] Order(s):CONSULT TO CARDIOLOGY [9004] Order #: [id number]: 1 ECHO [460340] Order #: [id number]: 1 FUTURE PHARMACOLOGIC STRESS W/NUC IMAGING [[id number]] Order #: [id number]: 1 FUTURE Prescriptions as of 09/07/2017 Sig: METOPROLOL SUCCINATE ER 100 M* Take 1.5 tablets by mouth onc* ALBUTEROL SULFATE HFA 90 MCG/* Inhale 2 Puffs as instructed * DILTIAZEM ER 360 MG TABLET,EX* Take 1 tablet by mouth once d* XARELTO 20 MG TABLET TAKE 1 TABLET DAILY WITH DINN* ROSUVASTATIN 20 MG TABLET TAKE 1 TABLET DAILY DONEPEZIL 5 MG TABLET Take 1 tablet by mouth daily * FENOFIBRATE MICRONIZED 130 MG* Take 1 capsule by mouth once * NITROGLYCERIN 0.4 MG/HR TRANS* Apply 1 Patch as directed onc* SITAGLIPTIN 50 MG-METFORMIN 5* Take 1 tablet by mouth twice * Medication notes this encounter GUAIFENESIN ER 600 MG TABLET, EXTENDED RELEASE 12 HR >> Angela Loving CMA 09/07/2017 1:10 PM >> ANGLEA LOVING ThuSep 07, 2017 1:10 PM Not taking PREDNISONE 20 MG TABLET >> Angela Loving CMA 09/07/2017 1:10 PM >> ANGELA LOVING ThuSep 07, 2017 1:10 PM Not taking Problem List As Of Date 09/07/2017 Noted Resolved Rhinitis [J31.0] INVALID FOR* Priority: B CRVO (central retinal vein occlusion) [H34.8192]INVALID FOR* Priority: A More... Type 2 diabetes mellitus without complication, *INVALID FOR* Priority: B More... Mixed hyperlipidemia [E78.2] INVALID FOR* Priority: A More... More... More... Chest pain at rest [R07.9] INVALID FOR*07/20/2013 More... History of TIA (transient ischemic attack) [Z86*INVALID FOR* Priority: C More... Abnormal echocardiogram [R93.1] INVALID FOR* Priority: A More... Pulmonary hypertension (HCC) [I27.20] INVALID FOR* Priority: A Diabetic eye exam (HCC) [Z01.00, E11.9] INVALID FOR* Priority: A More... Valvular heart disease [I38] INVALID FOR* Priority: A More... Alcohol abuse [F10.10] INVALID FOR* Priority: B Corns and callus [L84] INVALID FOR* Priority: C Well adult exam [Z00.00] INVALID FOR* Priority: E More... Chronic atrial fibrillation (HCC) [I48.2] INVALID FOR* Priority: B More... COLD (chronic obstructive lung disease) (HCC) [*INVALID FOR* Priority: A Colon cancer screening [Z12.11] INVALID FOR* Essential hypertension with goal blood pressure*INVALID FOR* Priority: M More... Benign prostatic hyperplasia without lower urin*INVALID FOR* Priority: C Disorder of prostate [N42.9] INVALID FOR* Memory loss [R41.3] INVALID FOR* Onychomycosis [B35.1] INVALID FOR* Atypical chest pain [R07.89] INVALID FOR* Priority: A More... Other instructions from your clinician: Dr. Brooks Raya Internal medicine - cardiovascular disease [address] [place] [address] , [place] [address] [phone] NONSPECIFIC CHEST PAIN: Our exam has not identified a specific cause for your chest pain. This type of pain, however, is not usually due to serious heart or lung problems. Most often chest pain of this nature is caused by minor injuries, muscle strains, inflammation of the chest wall tissues, or indigestion. Drugs, alcohol, hyperventilation, and emotional upsets can make this kind of pain worse. Most of the time this type of chest pain will be much improved within 2-3 days. Get plenty of rest for the next few days and avoid any activity that brings on the pain. Please do not smoke or drink alcohol until all your symptoms are completely better. Please call your doctor for routine follow-up as advised. You must see your doctor or go to the emergency room right away, however, if you have: - Increased pain, or pain that radiates to the arm, neck, or abdomen. - Shortness of breath, increasing cough, or coughing up blood. - Severe weakness, fainting, fever, or chills. - Severe back or abdominal pain, nausea, or vomiting. Medications Discontinued During This Encounter guaiFENesin (MUCINEX) 600 mg 12 hr t* 60 t* 0 08/30/2017 09/07/2017 Route: ORAL Sig: Take 1 tablet by mouth twice daily. Disc: Discontinued by Patient predniSONE (DELTASONE) 20 mg tablet 20 t* 0 08/30/2017 09/07/2017 Route: ORAL Sig: Take 2 tablets by mouth once daily for 10 days. Disc: Discontinued by Patient Disposition: Return Has an appointment with Dr. Kruger in September. Follow-up and Disposition History Recorded Encounter Status:Closed by EDITH COOPER on 09/07/17 CNCO Observed: 09/07/2017 Status: COMPLETED Source: [place] 12:[address] [facility] REPOSITORY Letter Text [address] [address] Dept Dept Edith Simon APRN.[facility] -[address] [place] [phone] - - September 07, 2017 Isidro Murphy [address] [place] [id number] Dear Mr. Murphy, You have been referred to Dr Raya to be evaluated and treated for chest pain. Please call [phone] to schedule your appointment. [facility] affiliated providers will have access to your records. We ask that if you are not seeing a [facility] affiliated provider that you notify our office and provide the name of the provider and your appointment date. We will then verify if your insurance requires a prior authorization and will forward your records in a timely manner. Sincerely, Edith Simon CNP (Signed electronically to expedite mailing) PROGRESS Observed: 08/31/2017 Status: COMPLETED Source: [place] 1:[address] [facility] REPOSITORY HNO ID: [id number] Author: Julia Prescott) Etienne Service: (none) Author Type: LICENSED NURSE Type: Progress Notes Filed: 08/31/2017 5:11 PM Note Text: TRANSITION CARE MANAGEMENT (TCM) INITIAL CONTACT Provider Action/FYI: TCM Initial Call to [facility] Discharge 08/30/17 Initial contact with patient post discharge, spoke to Skylar Beverly-Daughter. Patient identified by name and . SUMMARY: -Pt discharged from [facility] on 08/30/17. -Follow up appointment on- Will call to schedule. -Medication review done Yes. -Admitted for: Chest Pain CONCERNS: Doing well, no further chest pain, would like to go to [facility] for the Stress Test. Advised to make a follow up appointment here first, will be able to do the referral then. All medications are available to the Pt., he is taking them without complaint. NEW MEDICATIONS: albuterol HFA (PROVENTIL HFA) 90 mcg/actuation inhaler Inhale 2 Puffs as instructed every 4 hours as needed for Wheezing/Shortness of Breath. Normal, Disp-1 Inhaler, R-0, Long-term ? guaiFENesin (MUCINEX) 600 mg 12 hr tablet Take 1 tablet by mouth twice daily. Normal, Disp-60 tablet, R-0 ? predniSONE (DELTASONE) 20 mg tablet Take 2 tablets by mouth once daily for 10 days. Normal, Disp-20 tablet, R-0 MEDS HELD/DISCONTINUED: Medication Dose Change: metoprolol succinate ER (TOPROL XL) 100 mg Tb24 Take 1.5 tablets by mouth once daily. Normal, Disp-135 tablet, R-0, Long-term BRIEF HOSPITAL COURSE: Chest pain with risk factors for sudden Laboratory studies were unremarkable. Examination looks like the chest pain is coming from bronchospasm from an allergic sinusitis. Major Gifts Officer is cleared you for outpatient stress test. Julia Clifton LPN ? CNPTOUTREACH Observed: 08/31/2017 Status: COMPLETED Source: [place] 12:00 AM [facility] REPOSITORY Patient Outreach (AGINTMLW) ISIDRO MURPHY ([id number]) 1940 M Date Time Provider Department 08/31/17 JOHANNY KRUGERINTMLW During your visit today, we recorded the following information about you: Julia Clifton LPN 08/31/2017 5:11 PM Signed TRANSITION CARE MANAGEMENT (TCM) INITIAL CONTACT Provider Action/FYI: TCM Initial Call to [facility] Discharge 08/30/17 Initial contact with patient post discharge, spoke to Skylar Beverly-Daughter. Patient identified by name and . SUMMARY: -Pt discharged from [facility] on 08/30/17. -Follow up appointment on- Will call to schedule. -Medication review done Yes. -Admitted for: Chest Pain CONCERNS: Doing well, no further chest pain, would like to go to [facility] for the Stress Test. Advised to make a follow up appointment here first, will be able to do the referral then. All medications are available to the Pt., he is taking them without complaint. NEW MEDICATIONS: albuterol HFA (PROVENTIL HFA) 90 mcg/actuation inhaler Inhale 2 Puffs as instructed every 4 hours as needed for Wheezing/Shortness of Breath. Normal, Disp-1 Inhaler, R-0, Long-term ? guaiFENesin (MUCINEX) 600 mg 12 hr tablet Take 1 tablet by mouth twice daily. Normal, Disp-60 tablet, R-0 ? predniSONE (DELTASONE) 20 mg tablet Take 2 tablets by mouth once daily for 10 days. Normal, Disp-20 tablet, R-0 MEDS HELD/DISCONTINUED: Medication Dose Change: metoprolol succinate ER (TOPROL XL) 100 mg Tb24 Take 1.5 tablets by mouth once daily. Normal, Disp-135 tablet, R-0, Long-term BRIEF HOSPITAL COURSE: Chest pain with risk factors for sudden Laboratory studies were unremarkable. Examination looks like the chest pain is coming from bronchospasm from an allergic sinusitis. Major Gifts Officer is cleared you for outpatient stress test. Julia Clifton LPN ? Allergies As of Date: 08/31/2017 (No Known Allergies) Date Reviewed: 08/30/2017 Reviewed by: Piter (Rn) EMILIE Sheriff - Fully Assessed Reason for Visit: Transition Of Care [4074] Cmt: TCM Initial Call to [facility] Discharge 08/30/17 -Chest Pain Prescriptions as of 08/31/2017 Sig: METOPROLOL SUCCINATE ER 100 M* Take 1.5 tablets by mouth onc* ALBUTEROL SULFATE HFA 90 MCG/* Inhale 2 Puffs as instructed * GUAIFENESIN ER 600 MG TABLET,* Take 1 tablet by mouth twice * PREDNISONE 20 MG TABLET Take 2 tablets by mouth once * DILTIAZEM ER 360 MG TABLET,EX* Take 1 tablet by mouth once d* XARELTO 20 MG TABLET TAKE 1 TABLET DAILY WITH DINN* ROSUVASTATIN 20 MG TABLET TAKE 1 TABLET DAILY DONEPEZIL 5 MG TABLET Take 1 tablet by mouth daily * FENOFIBRATE MICRONIZED 130 MG* Take 1 capsule by mouth once * NITROGLYCERIN 0.4 MG/HR TRANS* Apply 1 Patch as directed onc* SITAGLIPTIN 50 MG-METFORMIN 5* Take 1 tablet by mouth twice * Problem List As Of Date 08/31/2017 Noted Resolved Rhinitis [J31.0] INVALID FOR* Priority: B CRVO (central retinal vein occlusion) [H34.8192]INVALID FOR* Priority: A More... Type 2 diabetes mellitus without complication, *INVALID FOR* Priority: B More... Mixed hyperlipidemia [E78.2] INVALID FOR* Priority: A More... More... More... Chest pain at rest [R07.9] INVALID FOR*07/20/2013 More... History of TIA (transient ischemic attack) [Z86*INVALID FOR* Priority: C More... Abnormal echocardiogram [R93.1] INVALID FOR* Priority: A More... Pulmonary hypertension (HCC) [I27.20] INVALID FOR* Priority: A Diabetic eye exam (HCC) [Z01.00, E11.9] INVALID FOR* Priority: A More... Valvular heart disease [I38] INVALID FOR* Priority: A More... Alcohol abuse [F10.10] INVALID FOR* Priority: B Corns and callus [L84] INVALID FOR* Priority: C Well adult exam [Z00.00] INVALID FOR* Priority: E More... Chronic atrial fibrillation (HCC) [I48.2] INVALID FOR* Priority: B More... COLD (chronic obstructive lung disease) (HCC) [*INVALID FOR* Priority: A Colon cancer screening [Z12.11] INVALID FOR* Essential hypertension with goal blood pressure*INVALID FOR* Priority: M More... Benign prostatic hyperplasia without lower urin*INVALID FOR* Priority: C Disorder of prostate [N42.9] INVALID FOR* Memory loss [R41.3] INVALID FOR* Onychomycosis [B35.1] INVALID FOR* Atypical chest pain [R07.89] INVALID FOR* Priority: A More... Encounter Status:Closed by JULIA CLIFTON on 08/31/17 CASE MGT INIT Observed: 08/30/2017 Status: COMPLETED Source: [facility] 1:30 PM CLINIC OTHER CAMPUS REPOSITORY HNO ID: [id number] Author: April (Rn) EMILIE Fung Service: Care Management Author Type: Registered Nurse Type: Care Mgt Initial Assessment Filed: 08/30/2017 2:32 PM Note Text: CARE MANAGEMENT: ASSESSMENT AND DISCHARGE PLAN SERVICE DATE: 08/30/2017 SERVICE TIME: 2:27 PM PRIMARY CARE PHYSICIAN: DO cassandra Ballard ADMISSION STATUS: Observation Needs Prior to Discharge: Ready for Discharge;Discharge Prescriptions;Discharge Transportation MEDICAL: Patient/Ship Mate Stated Goals: To have reduction in symptoms To return home to life as it was Health Insurance: [employer] MEDICARE PPO [employer] Medicare Health Issues Impacting Discharge Plan: None Last Admission Date: none Is this Within the Past 30 days? No Advance Directive: Health Literacy: 1. How often do you need to have someone help you when you read instructions, pamphlets, or other written material from your doctor or pharmacy? Always - 5 2. How confident are you filling out medical forms by yourself? Not at all - 5 If Patient scores > 3 on either question, the following interventions were put into place: Skylar stevens fills out the forms FUNCTIONAL AND COGNITIVE/BEHAVIORAL PRIOR TO ADMISSION: Baseline Mental Status: Alert AND Oriented, Person, Place , Time and Situation Functional Status: Independent Does Patient Currently Receive Any Community Services or Home Care? None Equipment Prior to Admission: None Has the Patient Been in a Fdc Facility in the Past 30 days? No SOCIAL: Living Arrangement: Home Lives With: Spouse Financial Resources: Retired Primary Contact: Extended Emergency Contact Information Primary Emergency Contact: OnelSkylar Skinner [address] [address] [place] [phone] Relation: Daughter Supportive: Yes Other Important Patient Contacts: None Caregiver Assessment: Caregiver is ready, willing and able to meet the patient's needs as recommended by the inter-professional team? No Caregiver Needed Patient's transition needs and plan for meeting these needs: no new needs Does the patient have an acute stroke diagnosis, or has the patient had a stroke during this admission? No Medication Adherence: I am convinced of the importance of my prescription medication: Agree completely - 0 I worry that my prescription medication will do more harm than good to me Disagree completely - 0 I feel financially burdened by my [id number] expenses for my prescription medication: Disagree completely - 0 Patient is categorized as low risk < 2 Are you interested in bedside delivery of your medications? No Food Concerns: In the Last Month, Have You had Trouble Getting Food? No trouble getting food During the Last Month, Have You Worried Whether Your Food Would Run Out Before You Had Enough Money to Buy More? No Is the Patient Psychosocially Complex? No ASSESSMENT AND PLAN: Medical Needs: None Psychosocial Needs: None FREEDOM OF CHOICE EXPLAINED: N/A POTENTIAL TRANSITION PLANS Home 76 yr male admitted with chest Pain, Skylar stevens answered most of questions while pt. anxiously got in W/E for D/C. Pt. plans to return home to at D/C. SIGNATURE: April Fung RN,BSN, ACM PATIENT NAME: Isidro Murphy DATE: August 30, 2017 TIME: 2:27 PM PAGER/CONTACT #: [phone] CNDS Observed: 08/30/2017 Status: COMPLETED Source: [place] 12:44 PM CLINIC OTHER CAMPUS REPOSITORY HNO ID: [id number] Author: Ryan Loera MD Service: Hospital Medicine Author Type: Physician Type: Discharge Summaries Filed: 08/30/2017 3:34 PM Note Text: DISCHARGE SUMMARY PATIENT NAME: Isidro Murphy Admission Information Admission Information ADMIT DATE: 08/29/2017 DISCHARGE DATE: 08/30/2017 MY DOCTORS AND MEDICAL TEAM: My Main Hospital Doctor: Ryan Loera MD Primary Care Provider: Johanny Kruger DO My Medical Team Members: Treatment Team: Attending Provider: Ryan Loera MD Consulting: Brooks Raya MY CONDITION AT DISCHARGE: Stable REASON I WAS IN THE HOSPITAL: Chest pain with risk factors for sudden SUMMARY OF WHAT HAPPENED WHILE I WAS IN THE HOSPITAL: Laboratory studies were unremarkable. Examination looks like the chest pain is coming from bronchospasm from an allergic sinusitis. Major Gifts Officer is cleared you for outpatient stress test. OTHER PROBLEMS/DIAGNOSIS: Active Problems: Atypical chest pain Type 2 diabetes mellitus without complication, without long- term current use of insulin (HCC) Chronic atrial fibrillation (HCC) History of TIA (transient ischemic attack) Essential hypertension with goal blood pressure less than 130/85 Resolved Problems: * No resolved hospital problems. * OPERATIONS PERFORMED WHILE IN THE HOSPITAL: None IMPORTANT TEST/PROCEDURES: No procedures performed TEST RESULTS NOT AVAILABLE AT THIS TIME: No pending results Discharge Disposition Discharge Disposition: Home With Self Care Activity When You Leave the Hospital Resume pre-hospital activity Diet Instructions Resume your pre-hospital diet For Pain When You Leave the Hospital Use acetaminophen (Tylenol) as recommended on the bottle Follow Up Appointments Follow-Up Appointment When: In 1 week Patient/Parents to call for appointment?: Yes Johanny Kruger [phone] [address] [facility] [address] PCP Requested Referral Follow-Up Appointment When: In 1 week Brooks Raya [phone] [id number] [facility] [address] PCP Requested Referral Additional Provider to Provider Information: Reason for Admission/Observation: Chest pain ? HOSPITAL DAY ZERO: 08/29/2017 ? Presentation: Patient presents with intermittent episodes of chest pain over the past few days, he has had some episodes of sharp stabbing shooting pain in his mid chest region as well as slightly different type of pain in his left mid axillary line region. ?No cough. ?No fever or chills. ?No shortness of breath. ?He is asymptomatic currently. ?No pleuritic component to this pain. ? ? Disposition: Home ?Hospital course: Patient was admitted because a heart score of 4. He could not get dynamic testing while in the hospital on Thursday. Cardiology consult was obtained with Dr. Raya. Given the patient has symptoms that sound like inspiratory catch with some nasal crusting and the turbinates and uvular edema prolonged expiratory phase wheezing some at home and only EKG changes that are primarily in V1 which would go with bronchospasm the patient's treated with 5 days of prednisone along with Mucinex and MDI. He elected to follow-up as an outpatient for stress testing with Dr. Raya. Family is aware of the 16% risk of adverse cardiac event with heart score 4 and willing to take the risk. His pain is sharp and stabbing last a few seconds has not come on in the hospital and has no associated symptoms other than wheezing at night for the last few days. ? Prior personnel arbitrator Dr. Pan. Echo 2014 - chronic A. fib with aortic sclerosis and tricuspid regurgitation and mitral valve calcification with mild MR. Chest x-ray unchanged from 2013 EXAM: BP 138/75 Pulse 64 Temp 36.2 ?C (97.2 ?F) (Oral) Resp 18 Ht 177.8 cm (5' 10) Wt 82.3 kg (181 lb 8 oz) SpO2 98% BMI 26.04 kg/m? GENERAL: Alert, no distress, cooperative HEENT: He has nasal crusting with uvular edema NECK: No Jugulovenous distention LUNGS: Clear - prolonged expiratory phase and faint wheeze with forced expiration (patient says he's been wheezing at night over the last few days) respiratory distress -No CARDIAC: RRR without murmur, rub, or gallop ABDOMEN: Abdomen soft, non-tender, BS normal, No masses or organomegaly EXTREMITIES:no edema No cords NEURO: Grossly normal cognition, motor function, and cranial nerves. ? Active Hospital Problems as of 08/30/2017 Noted - Resolved A Atypical chest pain 08/29/2017 - Present Overview Sharp pain lasting several seconds not correlated with exertion on the left side of his chest. Started after mowing the lawn the day before. He has sig risk factors for cardiac disease but his described symptoms are atypical and are likely MSK. Troponin nl, EKG unchanged at ED. - cycle trop and EKG - tele overnight - if no changes, discharge tomorrow with outpatient f/u with pcp for outpatient stress test Current Assessment AND Plan Assessment: The sharp fleeting nature of the pain in the parasternal area is consistent with spasm in the bucket handles of the ribs. Being very short duration goes against this being cardiac as does his negative enzymes and EKG change only in V1 which appears to be bronchospasm PLAN: 5 days of prednisone with MDI and Mucinex Outpatient stress test by Dr. Raya. Risk and benefits were discussed both by myself and Dr. Raya. There is a 16% chance of adverse coronary outcome with this course of action B Chronic atrial fibrillation (HCC) 10/10/2014 - Present Overview On Xarelto 2006: usually good coumadin levels, continues to be in afib Current Assessment AND Plan Assessment: Rate control and anticoagulation PLAN: Continue home medications Type 2 diabetes mellitus without complication, without long- term current use of insulin ([facility]) 10/27/2012 - Present Overview On glipizide, metformin Hemoglobin A1C (%) Date Value 06/03/2016 6.3 HGBA1C (%) Date Value 04/02/2017 6.7 Current Assessment AND Plan Hemoglobin A1C (%) Date Value 06/03/2016 6.3 01/16/2016 6.3 06/09/2014 6.9 12/14/2013 6.3 07/20/2013 6.6 HGBA1C (%) Date Value 04/02/2017 6.7 Assessment: Problem is stable with current regimen. PLAN: Continue current regimen C History of TIA (transient ischemic attack) 07/20/2013 - Present Overview Has had multiple ones on the brain imaging. He never had symptoms. Current Assessment AND Plan Assessment: Problem is stable with current regimen. PLAN: Continue current regimen M Essential hypertension with goal blood pressure less than 130/85 08/01/2015 - Present Current Assessment AND Plan Assessment: Problem is stable with current regimen. PLAN: Continue current regimen Resolved Hospital Problems as of 08/30/2017 None FOLLOW-UP APPOINTMENTS ALREADY SCHEDULED WITH A [facility] PROVIDER: Future Appointments Date Time Provider Department Center 10/01/2017 1:00 PM Johanny Kruger [facility] [address] DISCHARGE MEDICATION: Discharge Medication List as of 08/30/2017 12:57 PM START taking these medications albuterol HFA (PROVENTIL HFA) 90 mcg/actuation inhaler Inhale 2 Puffs as instructed every 4 hours as needed for Wheezing/Shortness of Breath. Normal, Disp-1 Inhaler, R-0, Long-term guaiFENesin (MUCINEX) 600 mg 12 hr tablet Take 1 tablet by mouth twice daily. Normal, Disp-60 tablet, R-0 predniSONE (DELTASONE) 20 mg tablet Take 2 tablets by mouth once daily for 10 days. Normal, Disp-20 tablet, R-0 CONTINUE these medications which have CHANGED metoprolol succinate ER (TOPROL XL) 100 mg Tb24 Take 1.5 tablets by mouth once daily. Normal, Disp-135 tablet, R-0, Long-term CONTINUE these medications which have NOT CHANGED Diltiazem HCl 360 mg 24 hr tablet Take 1 tablet by mouth once daily. Normal, Disp-90 tablet, R-0, Long-term XARELTO 20 mg tablet TAKE 1 TABLET DAILY WITH DINNER Normal, Disp-90 tablet, R-0 rosuvastatin (CRESTOR) 20 mg tablet TAKE 1 TABLET DAILY Normal, Disp-90 tablet, R-0, Long-term Dx: 1. Mixed hyperlipidemia donepezil (ARICEPT) 5 mg tablet Take 1 tablet by mouth daily at bedtime. Normal, Disp-30 tablet, R-3, Long-term Dx: 1. Memory loss Fenofibrate Micronized 130 mg capsule Take 1 capsule by mouth once daily. [employer], Disp-90 capsule, R-1, Long-term Dx: 1. Mixed hyperlipidemia nitroglycerin (NITRODERM, MINITRAN) 0.4 mg/hr Apply 1 Patch as directed once daily. Normal, Disp-90 Patch, R-1, Long-term sitaGLIPtin-metFORMIN (JANUMET) 50-500 mg per tablet Take 1 tablet by mouth twice daily with meals. Normal, Disp-180 tablet, R-1, Long-term TIME OF CARE: Discharge Management: I personally spent greater than 30 minutes involved in the discharge management of this patient. SIGNATURE: Ryan Loera MD PAGER/CONTACT #: DATE: August 30, 2017 TIME: 12:44 PM CONSULT Observed: 08/30/2017 Status: COMPLETED Source: [place] 12:15 PM CLINIC OTHER CAMPUS REPOSITORY O ID: [id number] Author: Brooks Raya Service: Cardiovascular Medicine Author Type: Physician Type: Consults Filed: 08/30/2017 12:44 PM Note Text: CONSULT: CARDIOLOGY SERVICE SERVICE DATE: 08/30/2017 SERVICE TIME: 12:15 PM CONSULTING PHYSICIAN: Brooks Raya MD PCP: Johanny Kruger DO ATTENDING: Ryan Loera MD REASON FOR CONSULT: chest pain HISTORY OF PRESENT ILLNESS: Mr. Murphy is a 76 year old male presents with intermittent episodes of chest pain over the past few days, he has had some episodes of sharp stabbing shooting pain in his left upper chest / ribcage chest region He had no cough. No fever or chills. No shortness of breath. He is asymptomatic currently. No pleuritic component to this pain. He had no palpitations or dizziness. No leg pain or swelling reported by him/ PAST MEDICAL HISTORY Diagnosis Date - Atrial fibrillation (HCC) - Bloody nose - Branch retinal vein occlusion of right eye no sight in right eye-vein blocked - Cerumen impaction 09/22/2012 - Diabetes type 2, controlled (HCC) - Epistaxis 09/22/2012 - Headache(784.0) - High cholesterol - Hypertension PAST SURGICAL HISTORY Procedure Laterality Date - 2D ECHO COMPLETE INP 07/2013 EF=55%, dilated LA and RA, 2+ TR, 1+ MR, PI, and AI, mod Pulm HTN, Mild aortic sclerosis. - NONE - REPAIR,DETACH RETINA,CRYO/DIATHERMY 1990 CRYO therapy RIGHT EYE FAMILY HISTORY Problem Relation Age of Onset - Stroke Mother - Cataract Mother - Heart Mother CHF - Hypertension Father - Developmental problem Father 70 - Cancer Sister - Hypertension Brother - Diabetes Brother - Cancer Brother liver - Coronary Artery Disease Brother 70 - Cancer Brother esophageal Social History Substance Use Topics - Smoking status: Former Smoker Packs/day: 1.00 Years: 30.00 Types: Cigarettes Quit date: 09/22/1989 - Smokeless tobacco: Never Used - Alcohol use 18.0 oz/week 12 Cans of Beer (12oz) per week Prior to Admission Medications Prescriptions Last Dose Informant Patient Reported? Taking? Diltiazem HCl 360 mg 24 hr tablet 08/29/2017 at 0900 No Yes Sig: Take 1 tablet by mouth once daily. Fenofibrate Micronized 130 mg capsule 08/29/2017 at 0900 No Yes Sig: Take 1 capsule by mouth once daily. XARELTO 20 mg tablet 08/28/2017 at 1700 No Yes Sig: TAKE 1 TABLET DAILY WITH DINNER donepezil (ARICEPT) 5 mg tablet 08/28/2017 at 2100 No Yes Sig: Take 1 tablet by mouth daily at bedtime. metoprolol succinate ER (TOPROL XL) 100 mg Tb24 08/28/2017 at 0900 No Yes Sig: Take 1.5 tablets by mouth once daily. nitroglycerin (NITRODERM, MINITRAN) 0.4 mg/hr 08/29/2017 at 0900 No Yes Sig: Apply 1 Patch as directed once daily. rosuvastatin (CRESTOR) 20 mg tablet 08/28/2017 at 2100 No Yes Sig: TAKE 1 TABLET DAILY sitaGLIPtin-metFORMIN (JANUMET) 50-500 mg per tablet 08/29/2017 at 0900 No Yes Sig: Take 1 tablet by mouth twice daily with meals. Facility-Administered Medications: None Current hospital medications: sitaGLIPtin-metFORMIN 50-500 mg tab 1 tablet 1 tablet ORAL BID w MEALS rosuvastatin 20 mg tab(s) (CRESTOR) 20 mg ORAL DAILY donepezil 5 mg tab(s) (ARICEPT) 5 mg ORAL AT BEDTIME rivaroxaban 20 mg tab(s) (XARELTO) 20 mg ORAL DAILY wDINNER Fenofibrate Micronized 130 mg cap(s) 130 mg ORAL DAILY nitroglycerin 0.4 mg/hr 1 Patch (NITRODERM, MINITRAN) 1 Patch TRANSDERMAL DAILY nitroglycerin -- REMOVE patch OTHER AT BEDTIME nitroglycerin - verify patch OTHER q 8 H metoprolol succinate ER (TOPROL XL) tab(s) 150 mg 150 mg ORAL DAILY Diltiazem HCl Tb24 360 mg 360 mg ORAL DAILY ALLERGIES No Known Allergies REVIEW OF SYSTEMS: SYSTEMIC: No fever, chills, or change in weight or appetite HEENT: No recent change in vision or hearing. Respiratory: No hemoptysis, cough. Mild exertional SOB is present CARDIOVASCULAR: See HPI. GI: No recent nausea, vomiting or diarrhea. : No recent hematuria or dysuria. SKIN: No recent itching or eruption. PSYCH: No recent active anxiety or depression. HEMATOLOGY/ONCOLOGY: No recent diagnosis of bleeding or cancer. ENDOCRINE: No recent polyuria or heat intolerance. NEURO: No recent TIA, stroke or seizures. 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 REST OF THE REVIEW OF SYSTEMS IS UNREMARKABLE Objective PHYSICAL EXAM: Patient Vitals for the past 24 hrs: BP Temp Temp src Pulse Resp SpO2 Height Weight 08/30/17 1150 138/75 36.2 ?C (97.2 ?F) Oral 64 18 98 % - - 08/30/17 0808 172/72 36.3 ?C (97.3 ?F) Oral 76 18 97 % - - 08/30/17 0600 - - - - - - - 82.3 kg (181 lb 8 oz) 08/30/17 0427 157/67 36.4 ?C (97.6 ?F) Oral 72 18 97 % - - 08/29/17 2332 151/65 36.7 ?C (98.1 ?F) Oral 68 18 97 % - - 08/29/17 1953 152/60 36.4 ?C (97.5 ?F) Oral 75 18 96 % - - 08/29/17 1548 156/65 36.3 ?C (97.3 ?F) Oral 72 18 94 % - - 08/29/17 1543 - - - - - - 177.8 cm (5' 10) 82.3 kg (181 lb 7 oz) Body mass index is 26.04 kg/m?. Intake/Output Summary (Last 24 hours) at 08/30/17 1215 Last data filed at 08/30/17 0808 Gross per 24 hour Intake 360 ml Output 0 ml Net 360 ml He does not recall his correct age. General: Pt is able to communicate. Patient is not in acute respiratory distress. SKIN: No rash or lumps. Eyes. 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 HEENT: Normocephalic, face symmetrical. Normal pinna. Throat is without congestion. NECK: Supple, no JVD, no carotid bruit, no thyromegaly. LUNGS: Clear to auscultation bilaterally. CARDIAC: Irregular rhythm is noted with variable instensity of the S1 and S2, 2/6 LSB systolic murmur. ABDOMEN: Soft, nontender, bowel sounds present. EXTREMITIES: No cyanosis, clubbing, edema. PULSES: Peripheral pulses are decreased but palpable in Dorsalis pedis and Posterior tibial arteries bilaterally. NEURO: Non-focal. Awake, alert and oriented times two. Moves all extremities. MUSCULOSKELETAL: No fracture or dislocation of the bones or joints. Recent Labs 08/30/17 0514 08/29/17 1103 TROPT <0.010 < > -- TROPI -- -- <0.03 WBC -- -- 10.3 RBC -- -- 4.93 HB -- -- 14.3 HCT -- -- 43.9 MCV -- -- 89.0 MCH -- -- 29.0 MCHC -- -- 32.6 PLT -- -- 201 GLUC -- -- 136* BUN -- -- 10 CREAT -- -- 0.93 NA -- -- 136 K -- -- 3.9 CHLOR -- -- 104 CO2 -- -- 25 TPROT -- -- 7.9 ALB -- -- 3.9 CA -- -- 9.0 ALKPHOS -- -- 50 TBILI -- -- 0.7 AST -- -- 17 ALT -- -- 17 < > = values in this interval not displayed. Last Lab Drawn: TSH 2.12 07/20/2013 Triglyceride 61 08/30/2017 HDL Cholesterol 40 08/30/2017 LDL 63 08/30/2017 Cholesterol, Total 115 08/30/2017 Diagnostic tests reviewed Most recent imaging results reviewed. EKG / Telemetry reviewed. Atrial Fibrillation rate is controlled with no ST T changes of significance Exam indication: Chest Pain - The left ventricle is normal in size. There is mild left ventricular hypertrophy. Left ventricular systolic function is normal. EF = 55 ? 5% (visual est.) Baseline left ventricular diastolic function was not evaluated due to AF. - The right ventricle is normal in size. Right ventricular systolic function is normal. - The left atrial cavity is moderately dilated. - The right atrial cavity is mildly dilated. - There is moderate (2+) tricuspid valve regurgitation. - Estimated right ventricular systolic pressure is 51 mmHg consistent with moderate pulmonary hypertension. Estimated right atrial pressure is 5 mmHg. - Moderately thickened anterior mitral valve leaflet with mild MAC. 1+ MR. - Mild aortic sclerosis with 1+ AI. - Trivial-1+ PI.? . Impression/Recommendations Patient Active Hospital Problem List: Atypical chest pain (08/29/2017) Type 2 diabetes mellitus without complication, without long- term current use of insulin (HCC) (10/27/2012) Chronic atrial fibrillation (HCC) (10/10/2014) History of TIA (transient ischemic attack) (07/20/2013) Essential hypertension with goal blood pressure less than 130/85 (08/01/2015) Pt has atypical CP. He has well controlled AF rate with Cardizem and anticoagulation for the prevention of thromboembolic disease. Pt can f/up with me for outpatient evaluation and Lexiscan Nuclear SPECT may be needed along with 2 D Echo D/W Dr Lawrence and pt's daughter. SIGNATURE: Brooks Raya MD [facility] PATIENT NAME: Isidro Murphy DATE: August 30, 2017 TIME: 12:15 PM Cell phone #: [phone] NURSING PROG Observed: 08/30/2017 Status: COMPLETED Source: [place] 9:23 AM CLINIC OTHER CAMPUS REPOSITORY O ID: [id number] Author: Piter (Rn) EMILIE Sheriff Service: Nursing Author Type: Registered Nurse Type: Nursing Progress Note Filed: 08/30/2017 1:08 PM Note Text: Nursing Progress Note Patient Name: Isidro Murphy Patient Location: [id number] Daily Note: 0740-Daughter at bedside, pt is pleasantly confused, a/ox2 Place and person), denies sob, or cp at this time. Call light in reach. 0920-pt ambulating in garza with daughter, steady gait. Pt states NO pain, wants to go home, informed him the doctor will be rounding soon. 1130-pt getting antzy, wants to be discharged. Text sent to Dr. Loera, whom will see pt next. 1230-Dr. Raya into see pt. Dr. Loera aware pt ran out of metoprolol 150mg. WILL need script till he see Dr/Cardio. 1300-discharge instructions in EPIC. Sholae into take iv heplock out. This note was completed by: Piter Sheriff RN TROPONIN T Collected: 08/30/2017 Status: F Source: [place] 5:14 AM CLINIC OTHER CAMPUS REPOSITORY TYPE CODE TESTS RESULT OUT OF REFERENCE UNITS RANGE LAB TROPT 0.000-0.029 ng/mL Troponin T <0.010 Performed By: #### TRACE #### [facility] [address] [facility] [phone] LIPID PANEL, BASIC Collected: 08/30/2017 Status: F Source: [place] 5:14 AM CLINIC OTHER CAMPUS REPOSITORY TYPE CODE TESTS RESULT OUT OF REFERENCE UNITS RANGE LAB CHOL <200 mg/dL Cholesterol 115 Result Comment: <200 mg/dL, Desirable 200-239 mg/dL, Borderline high >239 mg/dL, High LAB TRIGLY <150 mg/dL Triglyceride 61 Result Comment: <150 mg/dL, Normal 150-199 mg/dL, Borderline high 200-499 mg/dL, High >499 mg/dL, Very high LAB HDL >39 mg/dL HDL-Cholesterol 40 Result Comment: 40-59 mg/dL, Acceptable >59 mg/dL, High: Negative risk factor for coronary heart disease <40 mg/dL, Low: Positive risk factor for coronary heart disease LAB LDL <100 mg/dL LDL-Cholesterol 63 Result Comment: <100 mg/dL, Optimal 100-129 mg/dL, Near optimal/above optimal 130-159 mg/dL, Borderline high 160-189 mg/dL, High >189 mg/dL, Very high Secondary prevention optimal LDL Cholesterol levels are recommended to be < 70 mg/dL LAB NONHDL <130 mg/dL Non HDL Cholesterol 75 Result Comment: <130 mg/dL, Optimal 130-159 mg/dL, Near optimal/above optimal 160-189 mg/dL, Borderline high 190-219 mg/dL, High >219 mg/dL, Very high Secondary prevention optimal non HDL Cholesterol levels are recommended to be < 100 mg/dL LAB FT hrs Fasting Time Unknown LAB VLDL <30 mg/dL VLDL Cholesterol 12 LAB TCHDL <5.10 TC:HDL Ratio 2.88 LAB LDLHDL <2.54 LDL:HDL Ratio 1.58 Result Comment: Reference: 1. National Cholesterol Education Program ATP III Guideline At-A-Glance Quick Desk Reference: National Heart, Lung, and Blood [place]. National Institutes of Health. 2001: NIH Publication No. 01-3305. 2. An International Atherosclerosis Society position paper: global recommendations for the management of dyslipidemia: executive summary, Atherosclerosis. 2014: 232(2):410-413. Performed By: #### LIPB #### [facility] [address] [place], [place] [address] CNCO Observed: 08/30/2017 Status: COMPLETED Source: [place] 12:00 AM CLINIC OTHER CAMPUS REPOSITORY Letter Text August 30, 2017 Isidro Murphy [address] [facility] [address] Dear Mr. Murphy, The nurses and staff of [facility] hope this letter finds you feeling well and progressing in your recovery. Our staff would like to thank you for trusting and choosing us for your health care needs. It was an honor for us to provide your nursing care. We know that placing our Patients First and maintaining a culture of continuous improvement each and every day, are essential to the success of our organization. I hope your stay with us has been positive. We want to hear from you. If you have any comments, questions or concerns about your hospital stay, please feel free to contact me, Tierney Newby RN ([phone]) or email me at, [email or web address] Additionally, you will receive a survey in the mail asking you to rate the care you received while in the hospital. Please take the time to complete and send back the survey, as it is essential to our continued success. I personally review all the results and would appreciate your feedback. Thank you in advance for your participation and thank you for choosing the [facility] for your health needs. Sincerely, Nurse Production Assembly Operator: Tierney Newby RN ([phone]) [facility] Unit: [address] [place] NURSING PROG Observed: 08/29/2017 Status: COMPLETED Source: [place] 11:03 PM CLINIC OTHER CAMPUS REPOSITORY HNO ID: [id number] Author: Saritha BurgosRn) EMILIE Lopez Service: Nursing Author Type: Registered Nurse Type: Nursing Progress Note Filed: 08/30/2017 7:43 AM Note Text: Nursing Progress Note Patient Name: Isidro TORRESN: [id number] Patient Location: [id number] Daily Note: 1930 Report received from Piter PHAN. Patient in bed, awake. Family at bedside. Patient A+Ox1-2, per family patient's baseline. A fib on tele, 70s. Bed alarm on. 2014 Patient assessed. Home medications given. Remains A fib on tele. 2200 Patient resting in bed, family at bedside. A fib on tele. Denies CP or SOB. 0000 Patient resting in bed, eyes closed. Family at bedside, a fib on tele. 0200 Patient resting in bed, eyes closed. Family at bedside. Safety maintained. 0400 Patient resting in bed, eyes closed. No changes. Remains A fib on tele. 70s. 0600 Patient resting in bed. A fib on tele. Safety maintained. This note was completed by: Saritha Lopez RN TROPONIN T Collected: 08/29/2017 Status: F Source: [place] 11:03 PM [facility] REPOSITORY TYPE CODE TESTS RESULT OUT OF REFERENCE UNITS RANGE LAB TROPT 0.000-0.029 ng/mL Troponin T <0.010 Performed By: #### TRACE #### [facility] [address] [place] [address] TROPONIN T Collected: 08/29/2017 Status: F Source: [place] 8:[address] [facility] OTHER [place] REPOSITORY TYPE CODE TESTS RESULT OUT OF REFERENCE UNITS RANGE LAB TROPT 0.000-0.029 ng/mL Troponin T <0.010 Performed By: #### TRACE #### [facility] [address] [place] [address] HISTORY PHYSICAL Observed: 08/29/2017 Status: COMPLETED Source: [place] 5:49 PM [facility] REPOSITORY HNO ID: [id number] Author: Nigel Barnes Service: General Internal Medicine Author Type: Physician Type: HANDP Filed: 08/29/2017 6:06 PM Note Text: DEPARTMENT OF HOSPITAL MEDICINE HISTORY AND PHYSICAL EXAM PATIENT NAME: Isidro Murphy SERVICE DATE: 08/29/2017 SERVICE TIME: 5:49 PM Primary Care Physician: Johanny Kruger, DO NIGHT AND WEEKEND COVERAGE: Nights: Please contact pager [phone]. ASSESSMENT AND PLAN Active Hospital Problems Diagnosis - Atypical chest pain Sharp pain lasting several seconds not correlated with exertion on the left side of his chest. Started after mowing the lawn the day before. He has sig risk factors for cardiac disease but his described symptoms are atypical and are likely MSK. Troponin nl, EKG unchanged at ED. - cycle trop and EKG - tele overnight - if no changes, discharge tomorrow with outpatient f/u with pcp for outpatient stress test - Chronic atrial fibrillation (HCC) On Xarelto 2006: usually good coumadin levels, continues to be in afib - Type 2 diabetes mellitus without complication, without long- term current use of insulin (HCC) On glipizide, metformin Hemoglobin A1C (%) Date Value 06/03/2016 6.3 HGBA1C (%) Date Value 04/02/2017 6.7 - History of TIA (transient ischemic attack) Has had multiple ones on the brain imaging. He never had symptoms. - Essential hypertension with goal blood pressure less than 130/85 SUBJECTIVE CHIEF COMPLAINT: Chest pain HPI: This is a 76 year old male w/ hx of chronic afib, HTN, HLD, T2DM, TIA, CRAO, who presents with intermittent sharp shooting chest pain for several days. Started day after he mowed the lawn outside. He noticed sharp left sided chest pain last several seconds that would re-occur. The pain was more severe today and occurred twice so he came to the ED for evaluation. Denies shortness of breath. No chest pain now. Prior smoker 35 py hx, quit over 10 years ago. PAST MEDICAL HISTORY: PAST MEDICAL HISTORY Diagnosis Date - Atrial fibrillation (HCC) - Bloody nose - Branch retinal vein occlusion of right eye no sight in right eye-vein blocked - Cerumen impaction 09/22/2012 - Diabetes type 2, controlled (HCC) - Epistaxis 09/22/2012 - Headache(784.0) - High cholesterol - Hypertension PAST SURGICAL HISTORY: PAST SURGICAL HISTORY Procedure Laterality Date - 2D ECHO COMPLETE INP 07/2013 EF=55%, dilated LA and RA, 2+ TR, 1+ MR, PI, and AI, mod Pulm HTN, Mild aortic sclerosis. - NONE - REPAIR,DETACH RETINA,CRYO/DIATHERMY 1990 CRYO therapy RIGHT EYE FAMILY HISTORY: FAMILY HISTORY Problem Relation Age of Onset - Stroke Mother - Cataract Mother - Heart Mother CHF - Hypertension Father - Developmental problem Father 70 - Cancer Sister - Hypertension Brother - Diabetes Brother - Cancer Brother liver - Coronary Artery Disease Brother 70 - Cancer Brother esophageal SOCIAL HISTORY: Social History Substance Use Topics - Smoking status: Former Smoker Packs/day: 1.00 Years: 30.00 Types: Cigarettes Quit date: 09/22/1989 - Smokeless tobacco: Never Used - Alcohol use 18.0 oz/week 12 Cans of Beer (12oz) per week MEDICATIONS: Reviewed ALLERGIES: ALLERGIES No Known Allergies REVIEW OF SYSTEM: PAIN ASSESSMENT: Negative for pain, history of chronic pain, or current treatment for a chronic pain condition. GENERAL: No weight loss, malaise or fevers HEENT: Negative for frequent or significant headaches, No changes in hearing or vision, no nose bleeds or other nasal problems NECK: Negative for lumps, goiter, pain and significant neck swelling RESPIRATORY: Negative for cough, hemoptysis, wheezing or shortness of breath CARDIOVASCULAR: Negative palpitations. GI: No nausea, vomiting, or diarrhea : No history of dysuria, frequency or incontinence MUSCULOSKELETAL: Negative for joint pain or swelling, back pain or muscle pain SKIN: Negative for lesions, rash, and itching PSYCH: Negative for sleep disturbance, mood disorder and recent psychosocial stressors HEMATOLOGY/LYMPHOLOGY: Negative for prolonged bleeding, bruising easily or swollen nodes ENDOCRINE: Negative for cold or heat intolerance, polyuria, polydipsia and goiter NEURO: No history of headaches, syncope, paralysis, seizures or tremors OBJECTIVE PHYSICAL EXAM: BP 156/65 Pulse 72 Temp (Src) 97.3 (Oral) Resp 18 Ht 5' 10 (1.78m) Wt 181 lb 7 oz (82.3kg) SpO2 94% BMI 26.03 kg/(m2). GENERAL: Alert, no distress, cooperative SKIN: Skin color, texture, turgor normal. No rashes or lesions. HEAD/SINUSES: No significant findings EYES: PERRLA, EOMI EARS: External ears normal NOSE: Nares normal. Septum midline. OROPHARYNX: Oropharynx normal. NECK: No jugulovenous distention, No carotid bruits, BACK: Back symmetric, Normal curvature, ROM normal, No CVAT. LUNGS: Lungs clear to auscultation, Good diaphragmatic excursion CARDIAC: soft S1 and S2; Irregularly irregular rhythm. no rubs, murmurs, or gallops ABDOMEN: Abdomen soft, non-tender, BS normal, No masses or organomegaly EXTREMITIES: Extremities normal, No deformities, edema, clubbing or skin discoloration. Good capillary refill., No ulcers NEURO: Gait normal. Strength and sensation grossly intact, PULSES: 2+ radial, 2+ carotid DATA: Diagnostic tests reviewed for today's visit: Most recent labs and imaging results available in [facility]. VTE Prophylaxis: Patient is already anti-coagulated. Disposition: Home Plan of care discussed with: Patient and Family/Other: , daughter SIGNATURE: Nigel Barnes MD PATIENT NAME: Isidro Murphy DATE: August 29, 2017 TIME: 5:49 PM Pager: [phone] TROPONIN T Collected: 08/29/2017 Status: F Source: [place] 5:19 PM [facility] REPOSITORY TYPE CODE TESTS RESULT OUT OF REFERENCE UNITS RANGE LAB TROPT 0.000-0.029 ng/mL Troponin T <0.010 Performed By: #### TRACE #### [facility] [address] [place] [address] NURSING PROG Observed: 08/29/2017 Status: COMPLETED Source: [place] 4:14 PM [facility] REPOSITORY HNO ID: [id number] Author: Piter (Rn) EMILIE Sheriff Service: Nursing Author Type: Registered Nurse Type: Nursing Progress Note Filed: 08/29/2017 6:56 PM Note Text: Nursing Progress Note Patient Name: Isidro Murphy Patient Location: [facility]-0260/[id number] Daily Note: Pt arrived to in room 260. He is alert to self only, lungs cta, on RA, +bsx4 abd is firm non tender. 1620-Text page to Dr. Hsieh, who was on 2N, she informed me that Dr. Barnes be admitting. 163-Dr. Barnes paged and on 2N, orders to follow. 1720-informed Dr. Barnes, Ratna does not do stress tests on weekends, he will revisit his POC. 1814-home meds taken down to pharmacy cardizem, aricept, fenofirate, crestor, janumet, xarelto and Then metoprolol =(1 bottle- the metoprolol was EMPTY- pt ran out of his medication today) This note was completed by: Piter Sheriff RN ED NOTE Observed: 08/29/2017 Status: COMPLETED Source: [place] 3:[address] [facility] REPOSITORY HNO ID: [id number] Author: Charly BurgosRn) EMILIE Byrd Service: Emergency Medicine Author Type: Registered Nurse Type: ED Notes Filed: 09/09/2017 1:55 AM Note Text: 09/10/17 0153: Chart Audit. ED NOTE Observed: 08/29/2017 Status: COMPLETED Source: [place] 2:[address] [facility] REPOSITORY HNO ID: [id number] Author: Ryan BurgosRn) EMILIE Dotson Service: Emergency Medicine Author Type: Registered Nurse Type: ED Notes Filed: 08/29/2017 2:17 PM Note Text: [facility] ambulance contacted for transport. Requested information given. Responded with ETA of '45 min.' ED NOTE Observed: 08/29/2017 Status: COMPLETED Source: [place] 1:24 PM [facility] REPOSITORY HNO ID: [id number] Author: Ryan BurgosRn) Mauri, EMILIE Service: Emergency Medicine Author Type: Registered Nurse Type: ED Notes Filed: 08/29/2017 2:20 PM Note Text: Aaron from [facility] transfer line called back with bed number assigned at [place]: 260-1. ED NOTE Observed: 08/29/2017 Status: COMPLETED Source: [place] 1:[address] [facility] REPOSITORY HNO ID: [id number] Author: Ryan BurgosRn) Mauri, RN Service: Emergency Medicine Author Type: Registered Nurse Type: ED Notes Filed: 08/29/2017 2:19 PM Note Text: Aaron from [facility] transfer line called back with Dr. Hsieh on the line for Dr. Fox. Dr. Hsieh accepted. ED NOTE Observed: 08/29/2017 Status: COMPLETED Source: [place] 11:51 AM [facility] REPOSITORY HNO ID: [id number] Author: Ryan BurgosRn) Mauri RN Service: Emergency Medicine Author Type: Registered Nurse Type: ED Notes Filed: 08/29/2017 2:21 PM Note Text: Aaron from [facility] transfer line called back and took complete information for patient. Stated that he would now page Hospitalist for [facility]. ED NOTE Observed: 08/29/2017 Status: COMPLETED Source: [place] 11:41 AM [facility] REPOSITORY HNO ID: [id number] Author: Ryan BurgosRn) Mauri RN Service: Emergency Medicine Author Type: Registered Nurse Type: ED Notes Filed: 08/29/2017 2:21 PM Note Text: Initial call to [facility] transfer line. Aaron took basic information and requested he be allowed to call back. CHEST 1 VIEW Observed: 08/29/2017 Status: F Source: [place] 11:15 AM [facility] REPOSITORY Performed at [facility] APPROVED BY: Ronald Alvarez MD EXAMINATION: CHEST RADIOGRAPH (SINGLE VIEW AP OR PA) Clinical History: Chest pain or SOB, pleurisy or effusion suspected. M: [id number]_4 Comparison: January 12, 2013 RESULT: Lines, tubes, and devices: None. Lungs and pleura: No consolidation. No lung mass. No pleural effusion. Cardiomediastinal silhouette: Normal cardiomediastinal silhouette. Other: No other abnormality is identified. IMPRESSION: No acute radiographic abnormality. Stable appearance to the chest as compared to January 12, 2013. ED NOTE Observed: 08/29/2017 Status: COMPLETED Source: [place] 11:04 AM [facility] REPOSITORY HNO ID: [id number] Author: Leslie Shook RN Service: Emergency Medicine Author Type: Registered Nurse Type: ED Notes Filed: 08/29/2017 11:05 AM Note Text: Patient states chest pain for a couple days today was worse then previously pains felt like shooting pains in his chest. Patient states currently no pain. Patient alert and oriented brought in by family - ambulates to room 3 without difficulties. HEMOGRAM/DIFF Collected: 08/29/2017 Status: F Source: [place] [facility] 11:03 AM [facility] REPOSITORY TYPE CODE TESTS RESULT OUT OF REFERENCE UNITS RANGE LAB LWBC(LOINC 4.8-10.8 thou/cmm ) WBC 10.3 LAB LRBC(LOINC 4.60-6.20 mil/cmm ) RBC 4.93 LAB LHGB(LOINC 14.0-18.0 g/dL ) Hgb 14.3 LAB LHCT(LOINC 42.0-52.0 % ) Hct 43.9 LAB LMCV(LOINC 80.0-94.0 fl ) MCV 89.0 LAB LMCH(LOINC 27.0-31.0 pg ) MCH 29.0 LAB LMCHC(LOIN 32.0-36.0 % C) MCHC 32.6 LAB LRDW(LOINC 11.5-15.9 % ) RDW 15.0 LAB LPLT(LOINC 150-400 thou/cmm ) Platelet 201 LAB LMPV(LOINC 7.1-10.5 fl ) MPV High 10.9 LAB LSEGT(LOIN % C) Seg Neutrophil 69.8 LAB LLYMP(LOIN % C) Lymphocyte 17.6 LAB LMNO(LOINC % ) Monocyte 10.9 LAB MICKIE(LOINC % ) Eosinophil 1.5 LAB LBASO(LOIN % C) Basophil 0.2 LAB LSEGN(LOIN 3.00-5.67 thou/cmm C) Abs. High Neut (ANC) 7.20 LAB LLYMN(LOIN 1.50-3.65 thou/cmm C) Abs. Lymph 1.81 LAB LMONN(LOIN 0.20-1.00 thou/cmm C) Abs. High [place] 1.12 LAB LEOSN(LOIN 0.00-0.41 thou/cmm C) Abs. Eosin 0.15 LAB LBASN(LOIN 0.00-0.08 thou/cmm C) Abs. Baso 0.02 Performed By: #### LCBCD #### [place] [id number] TROPONIN I Collected: 08/29/2017 Status: F Source: [facility] 11:03 HEALTH SYSTEM REPOSITORY TYPE CODE TESTS RESULT OUT OF REFERENCE UNITS RANGE LAB LTRP(LOINC) <=0.07 ng/mL Troponin I <0.03 Performed By: #### LTRP #### [facility] [address] [place] [address] COMPREHENSIVE PANEL Collected: 08/29/2017 Status: F Source: [facility] 11:03 AM HEALTH SYSTEM REPOSITORY TYPE CODE TESTS RESULT OUT OF REFERENCE UNITS RANGE LAB MEDICAL BILLING CLERK(LOINC) 136-145 mEq/L Sodium Blood 136 LAB LK(LOINC) 3.5-5.1 mEq/L Potassium Blood 3.9 LAB LCL(LOINC) 98-107 mEq/L Chloride Blood 104 LAB LCO2(LOINC 21-32 mEq/L ) CO2 Blood 25 LAB LGLU(LOINC 70-99 mg/dL ) Glucose High Blood 136 LAB LBUN(LOINC 7-25 mg/dL ) BUN Blood 10 LAB LCREA(LOIN 0.67-1.17 mg/dL C) Creatinine Blood 0.93 LAB LCA(LOINC) 8.5-10.1 mg/dL Calcium Blood 9.0 LAB LALB(LOINC 3.4-5.0 g/dL ) Albumin Blood 3.9 LAB LTP(LOINC) 6.4-8.2 g/dL Total Protein 7.9 LAB LAST(LOINC 15-37 U/L ) AST-SGOT Blood 17 LAB LALT(LOINC 14-63 U/L ) ALT-SGPT Blood 17 LAB LALKP(LOIN 46-116 U/L C) Alk Phosphatase 50 LAB LBILT(LOIN 0.2-1.0 mg/dL C) Total Bilirubin 0.7 LAB LANGP(LOIN 8-20 C) Anion Gap 11 LAB LBNCR(LOIN 10-20 C) BUN/Creatinine 11 Ratio Performed By: #### LP14 #### [facility] [address] [place] [address] MDRD EGFR Collected: 08/29/2017 Status: F Source: [facility] 11:03 HEALTH SYSTEM REPOSITORY TYPE CODE TESTS RESULT OUT OF RANGE REFERENCE UNITS LAB LGFRF(LOINC >60mL/min/1.73m ) 2 eGFR >60 Result Comment: If the patient is , multiply the result by 1.210. Performed By: #### LGFR #### [facility] [address] [place] [address] ED NOTE Observed: 08/29/2017 Status: COMPLETED Source: [place] 11:03 AM [facility] REPOSITORY HNO ID: [id number] Author: Leslie (Rn) EMILIE Shook Service: Emergency Medicine Author Type: Registered Nurse Type: ED Notes Filed: 08/29/2017 11:06 AM Note Text: Dr. Fox at bedside. ED PROV NOTE Observed: 08/29/2017 Status: COMPLETED Source: [place] 11:00 AM [facility] REPOSITORY HNO ID: [id number] Author: Benedict Fox MD Service: Emergency Medicine Author Type: Physician Type: ED Provider Notes Filed: 08/29/2017 11:41 AM Note Text: ED Provider Note Patient Name: Isidro Murphy SERVICE DATE: 08/29/17 History Patient presents with: Chest Pain HPI Patient presents with intermittent episodes of chest pain over the past few days, he has had some episodes of sharp stabbing shooting pain in his mid chest region as well as slightly different type of pain in his left mid axillary line region. No cough. No fever or chills. No shortness of breath. He is asymptomatic currently. No pleuritic component to this pain. 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 - NONE - REPAIR,DETACH RETINA,CRYO/DIATHERMY 1990 CRYO therapy RIGHT EYE FAMILY HISTORY Problem Relation Age of Onset - Stroke Mother - Cataract Mother - Heart Mother CHF - Hypertension Father - Developmental problem Father 70 - Cancer Sister - Hypertension Brother - Diabetes Brother - Cancer Brother liver - Coronary Artery Disease Brother 70 - Cancer Brother esophageal Social History Social History Main Topics - Smoking status: Former Smoker Packs/day: 1.00 Years: 30.00 Types: Cigarettes Quit date: 09/22/1989 - Smokeless tobacco: Never Used - Alcohol use 18.0 oz/week 12 Cans of Beer (12oz) per week - Drug use: No - Sexual activity: Not on file ALLERGIES No Known Allergies Review of Systems Constitutional: Negative for fever. HENT: Negative for congestion and voice change. Eyes: Negative for visual disturbance. Respiratory: Negative for cough, chest tightness and shortness of breath. Cardiovascular: Positive for chest pain. Negative for palpitations and leg swelling. Gastrointestinal: Negative for abdominal pain. Endocrine: Negative for polyuria. Genitourinary: Negative for dysuria and flank pain. Musculoskeletal: Negative for back pain. Skin: Negative for pallor and rash. Neurological: Negative for speech difficulty and light-headedness. Psychiatric/Behavioral: Positive for confusion. Negative for behavioral problems. All other systems reviewed and are negative. Physical Exam There were no vitals taken for this visit. Physical Exam Constitutional: He is oriented to person, place, and time. He appears well-developed and well-nourished. No distress. HENT: Head: Normocephalic and atraumatic. Mouth/Throat: Oropharynx is clear and moist. Eyes: Conjunctivae are normal. Pupils are equal, round, and reactive to light. Neck: No tracheal deviation present. Cardiovascular: Normal rate, regular rhythm and normal heart sounds. Pulmonary/Chest: Effort normal and breath sounds normal. No respiratory distress. Abdominal: Soft. He exhibits no distension. There is no tenderness. Musculoskeletal: Normal range of motion. He exhibits no edema or tenderness. Neurological: He is alert and oriented to person, place, and time. No cranial nerve deficit. Skin: Skin is warm. Capillary refill takes less than 2 seconds. No rash noted. Psychiatric: He has a normal mood and affect. His behavior is normal. Diagnostic Testing ED Labs Ordered and Reviewed - No data to display Procedures ED Course / Clinical Impression Clinical Impressions as of Aug 29 114 Chest pain, unspecified type MDM / Disposition / Plan MDM Patient has an atypical chest pain pattern, however his heart score is 4. He will need inpatient evaluation. His initial evaluation showed a negative troponin and unremarkable first EKG. We will transfer him for further cardiac workup SIGNATURE: Benedict Fox MD EKG Interpretation: Atrial fibrillation, rate 67, nonspecific ST changes. No ST elevation or depression. Benedict Fox MD 08/29/17 1141 OBSOLETE Observed: 07/02/2017 Status: COMPLETED Source: [place] 12:00 AM [facility] REPOSITORY Refill (AGFAMPLE) ISIDRO MURPHY ([id number]) 1940 Date Time Provider Department 07/02/17 JOHANNY KRUGER During your visit today, we recorded the following information about you: Micah Denny CMA 07/02/2017 5:53 PM Signed Patient phones requesting refills as follows: Pending Prescriptions Disp Refills DONEPEZIL 5 MG TABLET 30 tablet 3 Sig: Take 1 tablet by mouth daily at bedtime. NOELLE: No Please review and advise. Micah Denny CMA Allergies As of Date: 07/02/2017 (No Known Allergies) Date Reviewed: 04/02/2017 Reviewed by: Johanny Kruger - Fully Assessed Reason for Visit: Refill Request [94] Visit Diagnosis:Memory loss [R41.3] Order(s):donepezil (ARICEPT) 5 mg tabletTake 1 tablet by mouth daily at bedtime.Disp: 30 tabletRfl: 3 Prescriptions as of 07/02/2017 Sig: DONEPEZIL 5 MG TABLET Take 1 tablet by mouth daily * FENOFIBRATE MICRONIZED 130 MG* Take 1 capsule by mouth once * METOPROLOL SUCCINATE ER 100 M* Take 1.5 tablets by mouth onc* DILTIAZEM ER 360 MG TABLET,EX* TAKE 1 TABLET DAILY ROSUVASTATIN 20 MG TABLET TAKE 1 TABLET DAILY NITROGLYCERIN 0.4 MG/HR TRANS* Apply 1 Patch as directed onc* SITAGLIPTIN 50 MG-METFORMIN 5* Take 1 tablet by mouth twice * RIVAROXABAN 20 MG TABLET Take 1 tablet by mouth daily * HYDROCHLOROTHIAZIDE 25 MG TAB* Take 1 tablet by mouth once d* Problem List As Of Date 07/02/2017 Noted Resolved Rhinitis [J31.0] INVALID FOR* Priority: B CRVO (central retinal vein occlusion) [H34.8192]INVALID FOR* Priority: A More... Type 2 diabetes mellitus without complication, *INVALID FOR* Priority: A More... Mixed hyperlipidemia [E78.2] INVALID FOR* Priority: A More... More... More... Chest pain at rest [R07.9] INVALID FOR*07/20/2013 More... History of TIA (transient ischemic attack) [Z86*INVALID FOR* Priority: A More... Abnormal echocardiogram [R93.1] INVALID FOR* Priority: A More... Pulmonary hypertension (HCC) [I27.20] INVALID FOR* Priority: A Diabetic eye exam (HCC) [Z01.00, E11.9] INVALID FOR* Priority: A More... Valvular heart disease [I38] INVALID FOR* Priority: A More... Alcohol abuse [F10.10] INVALID FOR* Priority: B Corns and callus [L84] INVALID FOR* Priority: C Well adult exam [Z00.00] INVALID FOR* Priority: E More... Chronic atrial fibrillation (HCC) [I48.2] INVALID FOR* Priority: A More... COLD (chronic obstructive lung disease) (HCC) [*INVALID FOR* Priority: A Colon cancer screening [Z12.11] INVALID FOR* Essential hypertension with goal blood pressure*INVALID FOR* Priority: A Benign prostatic hyperplasia without lower urin*INVALID FOR* Priority: C Disorder of prostate [N42.9] INVALID FOR* Memory loss [R41.3] INVALID FOR* Onychomycosis [B35.1] INVALID FOR* Prescriptions ordered this encounter Disp Refills Start End DONEPEZIL 5 MG TABLET 30 t* 3 07/02/2017 Route: ORAL Sig: Take 1 tablet by mouth daily at bedtime. Medications Discontinued During This Encounter donepezil (ARICEPT) 5 mg tablet 30 t* 1 04/02/2017 07/02/2017 Route: ORAL Sig: Take 1 tablet by mouth daily at bedtime. Disc: Reason for discontinue is not on file. Encounter Status:Closed by JOHANNY KRUGER DO on 07/02/17 OBSOLETE Observed: 06/01/2017 Status: COMPLETED Source: [place] 12:00 AM [facility] REPOSITORY Refill (AGFAMPLE) ALLISONISIDRO ([id number]) 1940 M Date Time Provider Department 06/01/17 JOHANNY KRUGER During your visit today, we recorded the following information about you: Micah Denny CMA 06/01/2017 5:38 PM Signed Last seen 04/02/17. Patient phones requesting refills as follows: Pending Prescriptions Disp Refills FENOFIBRATE MICRONIZED 130 MG CAPSULE 90 capsule 1 Sig: Take 1 capsule by mouth once daily. NOELLE: No Please review and advise. Micah Denny CMA Allergies As of Date: 06/01/2017 (No Known Allergies) Date Reviewed: 04/02/2017 Reviewed by: Johanny Kruger - Fully Assessed Reason for Visit: Refill Request [94] Visit Diagnosis:Mixed hyperlipidemia [E78.2] Order(s):Fenofibrate Micronized 130 mg capsuleTake 1 capsule by mouth once daily.Disp: 90 capsuleRfl: 1 Prescriptions as of 06/01/2017 Sig: FENOFIBRATE MICRONIZED 130 MG* Take 1 capsule by mouth once * METOPROLOL SUCCINATE ER 100 M* Take 1.5 tablets by mouth onc* DILTIAZEM ER 360 MG TABLET,EX* TAKE 1 TABLET DAILY ROSUVASTATIN 20 MG TABLET TAKE 1 TABLET DAILY NITROGLYCERIN 0.4 MG/HR TRANS* Apply 1 Patch as directed onc* SITAGLIPTIN 50 MG-METFORMIN 5* Take 1 tablet by mouth twice * DONEPEZIL 5 MG TABLET Take 1 tablet by mouth daily * RIVAROXABAN 20 MG TABLET Take 1 tablet by mouth daily * HYDROCHLOROTHIAZIDE 25 MG TAB* Take 1 tablet by mouth once d* Problem List As Of Date 06/01/2017 Noted Resolved Rhinitis [J31.0] INVALID FOR* Priority: B CRVO (central retinal vein occlusion) [H34.8192]INVALID FOR* Priority: A More... Type 2 diabetes mellitus without complication, *INVALID FOR* Priority: A More... Mixed hyperlipidemia [E78.2] INVALID FOR* Priority: A More... More... More... Chest pain at rest [R07.9] INVALID FOR*07/20/2013 More... History of TIA (transient ischemic attack) [Z86*INVALID FOR* Priority: A More... Abnormal echocardiogram [R93.1] INVALID FOR* Priority: A More... Pulmonary hypertension (HCC) [I27.20] INVALID FOR* Priority: A Diabetic eye exam (HCC) [Z01.00, E11.9] INVALID FOR* Priority: A More... Valvular heart disease [I38] INVALID FOR* Priority: A More... Alcohol abuse [F10.10] INVALID FOR* Priority: B Corns and callus [L84] INVALID FOR* Priority: C Well adult exam [Z00.00] INVALID FOR* Priority: E More... Chronic atrial fibrillation (HCC) [I48.2] INVALID FOR* Priority: A More... COLD (chronic obstructive lung disease) (HCC) [*INVALID FOR* Priority: A Colon cancer screening [Z12.11] INVALID FOR* Essential hypertension with goal blood pressure*INVALID FOR* Priority: A Benign prostatic hyperplasia without lower urin*INVALID FOR* Priority: C Disorder of prostate [N42.9] INVALID FOR* Memory loss [R41.3] INVALID FOR* Onychomycosis [B35.1] INVALID FOR* Prescriptions ordered this encounter Disp Refills Start End FENOFIBRATE MICRONIZED 130 MG CAPSULE 90 c* 1 06/01/2017 Class: [facility] Route: ORAL Sig: Take 1 capsule by mouth once daily. Medications Discontinued During This Encounter Fenofibrate Micronized 130 mg capsule 90 c* 0 04/27/2017 06/01/2017 Sig: TAKE 1 CAPSULE DAILY Disc: Reason for discontinue is not on file. Encounter Status:Closed by JOHANNY KRUGER DO on 06/01/17 OBSOLETE Observed: 05/27/2017 Status: COMPLETED Source: [place] 12:00 AM [facility] REPOSITORY Refill (AGFAMPLE) KATHLEENISIDRO RIVERA ([id number]) 1940 M Date Time Provider Department 05/27/17 JOHANNY KRUGER During your visit today, we recorded the following information about you: Angela Loving CMA 05/27/2017 2:05 PM Signed Has OV 09/21/17 Patient phones requesting refills as follows: Pending Prescriptions Disp Refills METOPROLOL SUCCINATE ER 100 MG TABLET,EXTENDED RELEASE 24 HR 135 tablet 0 NOELLE: No Please review and advise. Angela Loving CMA Allergies As of Date: 05/27/2017 (No Known Allergies) Date Reviewed: 04/02/2017 Reviewed by: Johanny Kruger - Fully Assessed Reason for Visit: Refill Request [94] Order(s):metoprolol succinate ER (TOPROL XL) 100 mg [id number] 1.5 tablets by mouth once daily.Disp: 135 tabletRfl: 0 Prescriptions as of 05/27/2017 Sig: METOPROLOL SUCCINATE ER 100 M* Take 1.5 tablets by mouth onc* DILTIAZEM ER 360 MG TABLET,EX* TAKE 1 TABLET DAILY ROSUVASTATIN 20 MG TABLET TAKE 1 TABLET DAILY FENOFIBRATE MICRONIZED 130 MG* TAKE 1 CAPSULE DAILY NITROGLYCERIN 0.4 MG/HR TRANS* Apply 1 Patch as directed onc* SITAGLIPTIN 50 MG-METFORMIN 5* Take 1 tablet by mouth twice * DONEPEZIL 5 MG TABLET Take 1 tablet by mouth daily * RIVAROXABAN 20 MG TABLET Take 1 tablet by mouth daily * HYDROCHLOROTHIAZIDE 25 MG TAB* Take 1 tablet by mouth once d* Problem List As Of Date 05/27/2017 Noted Resolved Rhinitis [J31.0] INVALID FOR* Priority: B CRVO (central retinal vein occlusion) [H34.8192]INVALID FOR* Priority: A More... Type 2 diabetes mellitus without complication, *INVALID FOR* Priority: A More... Mixed hyperlipidemia [E78.2] INVALID FOR* Priority: A More... More... More... Chest pain at rest [R07.9] INVALID FOR*07/20/2013 More... History of TIA (transient ischemic attack) [Z86*INVALID FOR* Priority: A More... Abnormal echocardiogram [R93.1] INVALID FOR* Priority: A More... Pulmonary hypertension (HCC) [I27.20] INVALID FOR* Priority: A Diabetic eye exam (HCC) [Z01.00, E11.9] INVALID FOR* Priority: A More... Valvular heart disease [I38] INVALID FOR* Priority: A More... Alcohol abuse [F10.10] INVALID FOR* Priority: B Corns and callus [L84] INVALID FOR* Priority: C Well adult exam [Z00.00] INVALID FOR* Priority: E More... Chronic atrial fibrillation (HCC) [I48.2] INVALID FOR* Priority: A More... COLD (chronic obstructive lung disease) (HCC) [*INVALID FOR* Priority: A Colon cancer screening [Z12.11] INVALID FOR* Essential hypertension with goal blood pressure*INVALID FOR* Priority: A Benign prostatic hyperplasia without lower urin*INVALID FOR* Priority: C Disorder of prostate [N42.9] INVALID FOR* Memory loss [R41.3] INVALID FOR* Onychomycosis [B35.1] INVALID FOR* Prescriptions ordered this encounter Disp Refills Start End METOPROLOL SUCCINATE ER 100 MG TABLE* 135 * 0 05/27/2017 Route: ORAL Sig: Take 1.5 tablets by mouth once daily. Medications Discontinued During This Encounter metoprolol succinate ER (TOPROL XL) * 135 * 0 02/02/2017 05/27/2017 Sig: Take 1AND1/2 tablets BY MOUTH ONCE DAILY Disc: Reason for discontinue is not on file. Encounter Status:Closed by JOHANNY KRUGER DO on 05/27/17 MICROALBUMIN,RANDOM Collected: Status: F Source: [place] 05/21/2017 9:36 AM [facility] REPOSITORY TYPE CODE TESTS RESULT OUT OF RANGE REFERENCE UNITS LAB CREAU(LOINC mg/dL ) 290.0 Creatinine,U rine LAB MAR(LOINC) 0.20-2.50 mg/dL 2.00 Microalbumin ,Random LAB MACRE(LOINC 0.10-30.00 mg/g ) MA/Creat 6.90 Ratio Performed By: #### MALBR #### [facility] [address] [place] [id number] HEMOGRAM Collected: 05/21/2017 Status: F Source: [facility] 9:30 AM [facility] TYPE CODE TESTS RESULT OUT OF REFERENCE UNITS RANGE LAB LWBC(LOINC) 4.8-10.8 thou/cmm WBC 10.5 LAB LRBC(LOINC) 4.60-6.20 mil/cmm RBC 5.39 LAB LHGB(LOINC) 14.0-18.0 g/dL Hgb 16.1 LAB LHCT(LOINC) 42.0-52.0 % Hct 48.2 LAB LMCV(LOINC) 80.0-94.0 fl MCV 89.4 LAB LMCH(LOINC) 27.0-31.0 pg MCH 29.9 LAB LMCHC(LOINC 32.0-36.0 % ) MCHC 33.4 LAB LRDW(LOINC) 11.5-15.9 % RDW 15.1 LAB LPLT(LOINC) 150-400 thou/cmm Platelet 204 LAB LMPV(LOINC) 7.1-10.5 fl High MPV 11.3 Performed By: #### LCBC #### [place] [address] COMPREHENSIVE PANEL Collected: 05/21/2017 Status: F Source: [facility] 9:30 AM [facility] REPOSITORY TYPE CODE TESTS RESULT OUT OF REFERENCE UNITS RANGE LAB MEDICAL BILLING CLERK(LOINC) 136-145 mEq/L Sodium Blood 139 LAB LK(LOINC) 3.5-5.1 mEq/L Potassium Blood 4.0 LAB LCL(LOINC) 98-107 mEq/L Chloride Blood 105 LAB LCO2(LOINC 21-32 mEq/L ) CO2 Blood 29 LAB LGLU(LOINC 70-99 mg/dL ) Glucose High Blood 131 LAB LBUN(LOINC 7-25 mg/dL ) BUN Blood 12 LAB LCREA(LOIN 0.67-1.17 mg/dL C) Creatinine Blood 1.08 LAB LCA(LOINC) 8.5-10.1 mg/dL Calcium Blood 8.8 LAB LALB(LOINC 3.4-5.0 g/dL ) Albumin Blood 3.9 LAB LTP(LOINC) 6.4-8.2 g/dL Total Protein 7.1 LAB LAST(LOINC 15-37 U/L ) AST-SGOT Blood 23 LAB LALT(LOINC 14-63 U/L ) ALT-SGPT Blood 24 LAB LALKP(LOIN 46-116 U/L C) Alk Phosphatase 54 LAB LBILT(LOIN 0.2-1.0 mg/dL C) Total Bilirubin 0.7 LAB LANGP(LOIN 8-20 C) Anion Gap 9 LAB LBNCR(LOIN 10-20 C) BUN/Creatinine 11 Ratio Performed By: #### LP14 #### [place] [address] LIPID PROFILE Collected: 05/21/2017 Status: F Source: [facility] 9:30 AM [facility]ALTH SYSTEM REPOSITORY TYPE CODE TESTS RESULT OUT OF REFERENCE UNITS RANGE LAB LCHOL(LOIN 0-199 mg/dL C) Cholesterol Blood 133 LAB LTRIG(LOIN 0-149 mg/dL C) Triglyceride Blood 54 LAB LHDL2(LOIN >40 mg/dL C) HDL Cholesterol 43 LAB LLDL(LOINC 0-150 mg/dL ) LDL 79 LAB LCHHD(LOIN 2.1-7.3 C) CHOL/HDL 3.1 LAB LRISK(LOIN C) Risk Factor 3.1 Result Comment: Cardiac Risk Factor The CHD risk factor is based on the total Chol/HDL ratio. Other factors affect CHD risk such as hypertension, smoking, diabetes, severe obesity and premature CHD. Cardiac Risk Total Chol/HDL ratio Men Women 1/2 avg risk 3.4-4.9 3.3-6.3 Avg risk 5.0-9.5 6.4-7.0 2x avg risk 9.6-23.3 7.1-10.9 3x avg risk >23.4 >11.0 Performed By: #### LLIPD #### [facility] [address] [place] [id number] MDRD EGFR Collected: 05/21/2017 Status: F Source: [facility] 9:30 AM [facility]ALTH SYSTEM REPOSITORY TYPE CODE TESTS RESULT OUT OF RANGE REFERENCE UNITS LAB LGFRF(LOINC >60mL/min/1.73m ) 2 eGFR >60 Result Comment: If the patient is , multiply the result by 1.210. Performed By: #### LGFR #### [facility] [address] [place] [id number] OBSOLETE Observed: 04/24/2017 Status: COMPLETED Source: [place] 12:00 AM [facility] REPOSITORY Refill (AGFAMPLE) ISIDRO MURPHY ([id number]) 1940 M Date Time Provider Department 04/24/17 JOHANNY KRUGER During your visit today, we recorded the following information about you: Micah Denny CMA 04/24/2017 8:25 AM Signed Last seen 04/02/17. Patient phones requesting refills as follows: Pending Prescriptions Disp Refills NITROGLYCERIN 0.4 MG/HR TRANSDERMAL 24 HOUR PATCH 90 Patch 1 Sig: Apply 1 Patch as directed once daily. NOELLE: No SITAGLIPTIN 50 MG-METFORMIN 500 MG TABLET 180 tablet 1 Sig: Take 1 tablet by mouth twice daily with meals. NOELLE: No Please review and advise. Micah Denny CMA Allergies As of Date: 04/24/2017 (No Known Allergies) Date Reviewed: 04/02/2017 Reviewed by: Johanny Kruger - Fully Assessed Reason for Visit: Refill Request [94] Order(s):nitroglycerin (NITRODERM, MINITRAN) 0.4 mg/hrApply 1 Patch as directed once daily.Disp: 90 PatchRfl: 1 sitaGLIPtin-metFORMIN (JANUMET) 50-500 mg per tabletTake 1 tablet by mouth twice daily with meals.Disp: 180 tabletRfl: 1 Prescriptions as of 04/24/2017 Sig: NITROGLYCERIN 0.4 MG/HR TRANS* Apply 1 Patch as directed onc* SITAGLIPTIN 50 MG-METFORMIN 5* Take 1 tablet by mouth twice * DONEPEZIL 5 MG TABLET Take 1 tablet by mouth daily * METOPROLOL SUCCINATE ER 100 M* Take 1AND1/2 tablets BY MOUTH O* ROSUVASTATIN 20 MG TABLET TAKE 1 TABLET DAILY FENOFIBRATE MICRONIZED 130 MG* TAKE 1 CAPSULE DAILY RIVAROXABAN 20 MG TABLET Take 1 tablet by mouth daily * DILTIAZEM ER 360 MG TABLET,EX* TAKE 1 TABLET DAILY HYDROCHLOROTHIAZIDE 25 MG TAB* Take 1 tablet by mouth once d* Problem List As Of Date 04/24/2017 Noted Resolved Rhinitis [J31.0] INVALID FOR* Priority: B CRVO (central retinal vein occlusion) [H34.8192]INVALID FOR* Priority: A More... Type 2 diabetes mellitus without complication, *INVALID FOR* Priority: A More... Mixed hyperlipidemia [E78.2] INVALID FOR* Priority: A More... More... More... Chest pain at rest [R07.9] INVALID FOR*07/20/2013 More... History of TIA (transient ischemic attack) [Z86*INVALID FOR* Priority: A More... Abnormal echocardiogram [R93.1] INVALID FOR* Priority: A More... Pulmonary hypertension (HCC) [I27.20] INVALID FOR* Priority: A Diabetic eye exam (HCC) [E11.9, Z01.00] INVALID FOR* Priority: A More... Valvular heart disease [I38] INVALID FOR* Priority: A More... Alcohol abuse [F10.10] INVALID FOR* Priority: B Corns and callus [L84] INVALID FOR* Priority: C Well adult exam [Z00.00] INVALID FOR* Priority: E More... Chronic atrial fibrillation (HCC) [I48.2] INVALID FOR* Priority: A More... COLD (chronic obstructive lung disease) (HCC) [*INVALID FOR* Priority: A Colon cancer screening [Z12.11] INVALID FOR* Essential hypertension with goal blood pressure*INVALID FOR* Priority: A Benign prostatic hyperplasia without lower urin*INVALID FOR* Priority: C Disorder of prostate [N42.9] INVALID FOR* Memory loss [R41.3] INVALID FOR* Onychomycosis [B35.1] INVALID FOR* Prescriptions ordered this encounter Disp Refills Start End NITROGLYCERIN 0.4 MG/HR TRANSDERMAL * 90 P* 1 04/24/2017 Route: TRANSDERM. Sig: Apply 1 Patch as directed once daily. SITAGLIPTIN 50 MG-METFORMIN 500 MG T* 180 * 1 04/24/2017 Route: ORAL Sig: Take 1 tablet by mouth twice daily with meals. Medications Discontinued During This Encounter nitroglycerin (NITRODERM, MINITRAN) * 90 P* 3 07/18/2016 04/24/2017 Route: TRANSDERMAL Sig: Apply 1 Patch as directed once daily. Disc: Reason for discontinue is not on file. sitaGLIPtin-metFORMIN (JANUMET) 50-5* 180 * 0 01/01/2017 04/24/2017 Route: ORAL Sig: Take 1 tablet by mouth twice daily with meals. Disc: Reason for discontinue is not on file. Encounter Status:Closed by JOHANNY KRUGER DO on 04/24/17 PROGRESS Observed: 04/02/2017 Status: COMPLETED Source: [place] 1:[address] [facility] [place] REPOSITORY HNO ID: [id number] Author: Johanny Kruger Service: (none) Author Type: Physician Type: Progress Notes Filed: 04/15/2017 8:14 PM Note Text: Patient is a 76 year old male presenting with hypertension. The history is provided by the patient. Hypertension This is a chronic problem. The current episode started more than 1 year ago. The problem is unchanged. The problem is controlled. Pertinent negatives include no blurred vision, chest pain, headaches, malaise/fatigue, palpitations or shortness of breath. There are no associated agents to hypertension. Risk factors for coronary artery disease include male gender. The current treatment provides significant improvement. There are no compliance problems. Pt is here with and daughter. Pt's family is concerned about memory loss. This has been going on for about one year, but it is getting more pronounced. He sleeps a lot and has had some issues with anger and accuses his of things that are imaginary. He has had 3 mini-strokes, and has a-fib. Review of Systems Constitutional: Negative for chills, diaphoresis, fever, malaise/fatigue and weight loss. HENT: Negative for ear pain and hearing loss. Eyes: Negative for blurred vision and double vision. Respiratory: Negative for cough and shortness of breath. Cardiovascular: Negative for chest pain, palpitations and leg swelling. Gastrointestinal: Negative for constipation, diarrhea and heartburn. Genitourinary: Negative for dysuria and frequency. Musculoskeletal: Negative for back pain, falls, joint pain and myalgias. Skin: Negative for itching and rash. Neurological: Negative for dizziness, weakness and headaches. Endo/Heme/Allergies: Does not bruise/bleed easily. Psychiatric/Behavioral: Positive for memory loss. Negative for depression and substance abuse. The patient does not have insomnia. BP 134/80 Pulse 72 Temp 36.6 ?C (97.8 ?F) (Oral) Resp 16 Ht 172.1 cm (5' 7.75) Wt 81.6 kg (179 lb 12.8 oz) BMI 27.54 kg/m2 Physical Exam Constitutional: He is oriented to person, place, and time and well-developed, well-nourished, and in no distress. HENT: Mouth/Throat: Normal dentition. Eyes: Conjunctivae, EOM and lids are normal. Pupils are equal, round, and reactive to light. Neck: Normal range of motion and phonation normal. Neck supple. Carotid bruit is not present. No edema present. No thyroid mass and no thyromegaly present. Cardiovascular: Normal rate, regular rhythm, normal heart sounds and intact distal pulses. Exam reveals no gallop and no friction rub. No murmur heard. Pulmonary/Chest: Effort normal and breath sounds normal. He has no wheezes. He has no rales. Abdominal: Soft. Normal appearance and bowel sounds are normal. He exhibits no distension and no mass. There is no tenderness. Musculoskeletal: Normal range of motion. He exhibits no edema or tenderness. Lymphadenopathy: He has no cervical adenopathy. Neurological: He is alert and oriented to person, place, and time. He has normal motor skills. No cranial nerve deficit. Gait normal. Coordination normal. Skin: Skin is warm and dry. No rash noted. No cyanosis or erythema. Nails show no clubbing. Psychiatric: Mood, affect and judgment normal. Feet:Shoes and socks removed, normal distal pulses, sensitive to 10 gm monofilament, vibratory perception normal and nails notable for Crumbly, Deformed, Hypertrophic or Yellowish - yellow thickened nails of all the toes ASSESSMENT/PLAN: 1. Memory loss - ICD9: 780.93, ICD10: R41.3 (primary diagnosis) Trial of DONEPEZIL 5 MG TABLET 2. Type 2 diabetes mellitus without complication, without long-term current use of insulin (HCC) - ICD9: 250.00, ICD10: E11.9 - CONSULT TO PODIATRY - ALBUMIN RANDOM URINE - HGBA1C B/O 3. Mixed hyperlipidemia - ICD9: 272.2, ICD10: E78.2 - LIPID PANEL BASIC 4. Essential hypertension with goal blood pressure less than 130/85 - ICD9: 401.9, ICD10: I10 - CBC - COMP METABOLIC PANEL 5. Screening for osteoporosis - ICD9: V82.81, ICD10: Z13.820 - DXA-AXIAL SKELETON 6. Needs flu shot - ICD9: V04.81, ICD10: Z23 - INFLUENZA SEASONAL HIGH DOSE AGE 65+ - ADMINISTER INFLUENZA MEDICARE 7. onychomycosis Johanny Kruger DO CNOV Observed: 04/02/2017 Status: COMPLETED Source: [place] 1:00 PM [facility] REPOSITORY Office Visit (OSIEL) ISIDRO MURPHY ([id number]) 1940 M Date Time Provider Department 04/02/17 1:00 PM JOHANNY KRUGER During your visit today, we recorded the following information about you: Temperature Pulse Respiration Blood pressure 97.8 degrees 72/minute 16/minute 134/80 Weight Height 81.6 kg 1.721 m Micah Denny CMA 04/02/2017 1:30 PM Signed Former JAB patient here to establish. Last A1c was 6.3 on 06/03/16, micro 01/16/16, eye exam 11/18/16, foot 01/17/16. LORE Guerrero DO 04/15/2017 8:14 PM Signed Patient is a 76 year old male presenting with hypertension. The history is provided by the patient. Hypertension This is a chronic problem. The current episode started more than 1 year ago. The problem is unchanged. The problem is controlled. Pertinent negatives include no blurred vision, chest pain, headaches, malaise/fatigue, palpitations or shortness of breath. There are no associated agents to hypertension. Risk factors for coronary artery disease include male gender. The current treatment provides significant improvement. There are no compliance problems. Pt is here with and daughter. Pt's family is concerned about memory loss. This has been going on for about one year, but it is getting more pronounced. He sleeps a lot and has had some issues with anger and accuses his of things that are imaginary. He has had 3 mini-strokes, and has a-fib. Review of Systems Constitutional: Negative for chills, diaphoresis, fever, malaise/fatigue and weight loss. HENT: Negative for ear pain and hearing loss. Eyes: Negative for blurred vision and double vision. Respiratory: Negative for cough and shortness of breath. Cardiovascular: Negative for chest pain, palpitations and leg swelling. Gastrointestinal: Negative for constipation, diarrhea and heartburn. Genitourinary: Negative for dysuria and frequency. Musculoskeletal: Negative for back pain, falls, joint pain and myalgias. Skin: Negative for itching and rash. Neurological: Negative for dizziness, weakness and headaches. Endo/Heme/Allergies: Does not bruise/bleed easily. Psychiatric/Behavioral: Positive for memory loss. Negative for depression and substance abuse. The patient does not have insomnia. BP 134/80 Pulse 72 Temp 36.6 ?C (97.8 ?F) (Oral) Resp 16 Ht 172.1 cm (5' 7.75ANDquot;) Wt 81.6 kg (179 lb 12.8 oz) BMI 27.54 kg/m2 Physical Exam Constitutional: He is oriented to person, place, and time and well-developed, well-nourished, and in no distress. HENT: Mouth/Throat: Normal dentition. Eyes: Conjunctivae, EOM and lids are normal. Pupils are equal, round, and reactive to light. Neck: Normal range of motion and phonation normal. Neck supple. Carotid bruit is not present. No edema present. No thyroid mass and no thyromegaly present. Cardiovascular: Normal rate, regular rhythm, normal heart sounds and intact distal pulses. Exam reveals no gallop and no friction rub. No murmur heard. Pulmonary/Chest: Effort normal and breath sounds normal. He has no wheezes. He has no rales. Abdominal: Soft. Normal appearance and bowel sounds are normal. He exhibits no distension and no mass. There is no tenderness. Musculoskeletal: Normal range of motion. He exhibits no edema or tenderness. Lymphadenopathy: He has no cervical adenopathy. Neurological: He is alert and oriented to person, place, and time. He has normal motor skills. No cranial nerve deficit. Gait normal. Coordination normal. Skin: Skin is warm and dry. No rash noted. No cyanosis or erythema. Nails show no clubbing. Psychiatric: Mood, affect and judgment normal. Feet:Shoes and socks removed, normal distal pulses, sensitive to 10 gm monofilament, vibratory perception normal and nails notable for Crumbly, Deformed, Hypertrophic or Yellowish - yellow thickened nails of all the toes ASSESSMENT/PLAN: 1. Memory loss - ICD9: 780.93, ICD10: R41.3 (primary diagnosis) Trial of DONEPEZIL 5 MG TABLET 2. Type 2 diabetes mellitus without complication, without long-term current use of insulin (HCC) - ICD9: 250.00, ICD10: E11.9 - CONSULT TO PODIATRY - ALBUMIN RANDOM URINE - HGBA1C B/O 3. Mixed hyperlipidemia - ICD9: 272.2, ICD10: E78.2 - LIPID PANEL BASIC 4. Essential hypertension with goal blood pressure less than 130/85 - ICD9: 401.9, ICD10: I10 - CBC - COMP METABOLIC PANEL 5. Screening for osteoporosis - ICD9: V82.81, ICD10: Z13.820 - DXA-AXIAL SKELETON 6. Needs flu shot - ICD9: V04.81, ICD10: Z23 - INFLUENZA SEASONAL HIGH DOSE AGE 65+ - ADMINISTER INFLUENZA MEDICARE 7. onychomycosis DO Micah Ballard CMA 04/02/2017 3:44 PM Signed Isidro Murphy 1940 [id number] You received your seasonal flu vaccine on April 02, 2017 at Johanny Kruger DO's office. Below is the information needed for your records: There is no immunization entered for this patient. The Vaccine Information Sheet was provided to you. If you want to learn more, please visit the Center for Disease Control website at: www.cdc.gov/flu/season/current.htm Referring Provider: SELF [200] Allergies As of Date: 04/02/2017 (No Known Allergies) Date Reviewed: 04/02/2017 Reviewed by: Johanny Kruger - Fully Assessed Reason for Visit: Establish Care [42] Primary Visit Diagnosis:Memory loss [R41.3] Other Visit Diagnoses:Type 2 diabetes mellitus without complication, without long-term current use of insulin (HCC) [E11.9] Mixed hyperlipidemia [E78.2] Essential hypertension with goal blood pressure less than 130/85 [I10] Screening for osteoporosis [Z13.820] Needs flu shot [Z23] Onychomycosis [B35.1] Order(s):donepezil (ARICEPT) 5 mg tabletTake 1 tablet by mouth daily at bedtime.Disp: 30 tabletRfl: 1 CONSULT TO PODIATRY [9034] Order #: [id number]: 1 ALBUMIN RANDOM URINE [SQUALBR] Order #: [id number] FUTURE CBC [SQCBC] Order #: [id number] FUTURE COMP METABOLIC PANEL [SQCMP] Order #: [id number] FUTURE LIPID PANEL BASIC [SQLIPB] Order #: [id number] FUTURE DXA-AXIAL SKELETON [3015079] Order #: [id number] FUTURE HGBA1C B/O [87872HTZ] Order #: [id number] INFLUENZA SEASONAL HIGH DOSE AGE 65+ [[id number]] Order #: [id number] ADMINISTER INFLUENZA MEDICARE [[id number]] Order #: [id number] Prescriptions as of 04/02/2017 Sig: METOPROLOL SUCCINATE ER 100 M* Take 1AND1/2 tablets BY MOUTH O* ROSUVASTATIN 20 MG TABLET TAKE 1 TABLET DAILY FENOFIBRATE MICRONIZED 130 MG* TAKE 1 CAPSULE DAILY SITAGLIPTIN 50 MG-METFORMIN 5* Take 1 tablet by mouth twice * RIVAROXABAN 20 MG TABLET Take 1 tablet by mouth daily * NITROGLYCERIN 0.4 MG/HR TRANS* Apply 1 Patch as directed onc* DILTIAZEM ER 360 MG TABLET,EX* TAKE 1 TABLET DAILY HYDROCHLOROTHIAZIDE 25 MG TAB* Take 1 tablet by mouth once d* DONEPEZIL 5 MG TABLET Take 1 tablet by mouth daily * Problem List As Of Date 04/02/2017 Noted Resolved Rhinitis [J31.0] INVALID FOR* Priority: B CRVO (central retinal vein occlusion) [H34.8192]INVALID FOR* Priority: A More... Type 2 diabetes mellitus without complication, *INVALID FOR* Priority: A More... Mixed hyperlipidemia [E78.2] INVALID FOR* Priority: A More... More... More... Chest pain at rest [R07.9] INVALID FOR*07/20/2013 More... History of TIA (transient ischemic attack) [Z86*INVALID FOR* Priority: A More... Abnormal echocardiogram [R93.1] INVALID FOR* Priority: A More... Pulmonary hypertension (HCC) [I27.20] INVALID FOR* Priority: A Diabetic eye exam (HCC) [E11.9, Z01.00] INVALID FOR* Priority: A More... Valvular heart disease [I38] INVALID FOR* Priority: A More... Alcohol abuse [F10.10] INVALID FOR* Priority: B Corns and callus [L84] INVALID FOR* Priority: C Well adult exam [Z00.00] INVALID FOR* Priority: E More... Chronic atrial fibrillation (HCC) [I48.2] INVALID FOR* Priority: A More... COLD (chronic obstructive lung disease) (HCC) [*INVALID FOR* Priority: A Colon cancer screening [Z12.11] INVALID FOR* Essential hypertension with goal blood pressure*INVALID FOR* Priority: A Benign prostatic hyperplasia without lower urin*INVALID FOR* Priority: C Disorder of prostate [N42.9] INVALID FOR* Memory loss [R41.3] INVALID FOR* Other instructions from your clinician: Isidro Murphy 1940 [id number] You received your seasonal flu vaccine on April 02, 2017 at Johanny Kruger DO's office. Below is the information needed for your records: There is no immunization entered for this patient. The Vaccine Information Sheet was provided to you. If you want to learn more, please visit the Center for Disease Control website at: www.cdc.gov/flu/season/current.htm Visit Notes: >> Micah Fields Apr 02, 2017 1:09 PM Status: Signed Former JAB patient here to establish. Last A1c was 6.3 on 06/03/16, micro 01/16/16, eye exam 11/18/16, foot 01/17/16. Micah Denny CMA Prescriptions ordered this encounter Disp Refills Start End DONEPEZIL 5 MG TABLET 30 t* 1 04/02/2017 Route: ORAL Sig: Take 1 tablet by mouth daily at bedtime. Level of Service: NEW PATIENT VISIT LEVEL 3 [90759] Disposition: Return in about 6 months (around 09/30/2017) for DMII, dementia. Follow-up and Disposition History Recorded Encounter Status:Closed by JOHANNY KRUGER DO on 04/15/17 CNCO Observed: 04/02/2017 Status: COMPLETED Source: [place] 12:[address] [facility] REPOSITORY Letter Text [facility], [address] Dept phone: [phone] Dept Johanny Kruger DO April 02, 2017 Isidro Murphy [address] [place] [id number] 1940 Dear Mr. Murphy, You have been referred to: Dr. Garrison to be evaluated and treated for: Type 2 diabetes mellitus without complication, without bad credit collector current use of insulin. This physician can be reached at: [phone]. It is your responsibility to make your own appointment. We then request that you notify our office of the date of your appointment so that we can verify if a referral is required by your insurance carrier and is processed in the appropriate time. If you do not notify us of the date of your appointment, we will not be able to do the referral or be able to have a letter and copy of test results to the physician in time for your visit. We appreciate your assistance. Sincerely, Johanny Kruger D.O. (Signed electronically to expedite mailing) ALLERGIES ALLERGIES DATE TYPE / CODE NAME / CODE REACTION SEVERITY SOURCE 03/02/2018 Drug No Known Unknown [place] [facility] Allergy/416 Allergies/B40508 [facility] 696243(SNOM 0388(RXNORM) Repository ED CT) Drug NO KNOWN [facility] Class/07673 ALLERGIES Other [place] 1003(SNOMED Repository CT) ENCOUNTERS ENCOUNTERS ADMIT/DISCHARGE ACCOUNT NUMBER ADMITTING ENCOUNTER LOCATION SOURCE CLASS 03/10/2018/03/10/19 [id number] Ambulatory [address] ding:CLSP Repository 03/02/2018 [id number] Ambulatory [facility] ding:LAB Repository 03/02/2018/03/02/19 [id number] Ambulatory BMSBuilding: [place] [facility] B[facility] Repository 02/25/2018 [id number] Ambulatory [facility] Other [place] Repository 02/24/2018/02/24/19 [id number] Ambulatory [address] Other [place] Repository 02/23/2018 [id number] Ambulatory [facility] ding:[facility] Repository 02/23/2018 [id number] Ambulatory BMSBuilding: [place] [facility] Repository 02/01/2018 [id number] Ambulatory [facility] ding:[facility] Repository 01/19/2018/01/20/20 [id number] Ambulatory BMSBuilding: [place] [facility] BMS[facility] Repository 01/08/2018 [id number] Ambulatory [facility] Other [place] Repository 01/08/2018/01/09/20 [id number] Ambulatory [address] Other [place] Repository 12/12/2017/12/13/19 [id number] Ambulatory [place] [address] ing:[facility] Repository 08/29/2017/08/31/19 [id number] [place], Ambulatory [address] [facility] Other [place] Repository PAYERS PAYERS ENCOUNTER GUARANTOR PAYER SUBSCRIBER SOURCE 03/10/2018 ISIDRO Ragland Primary Insurance:AETNA ISIDRO Ly [id number] MCRPolicy Number: WUTHRICHDOB: [facility], MEBNZDMHEffective [id number] [address]Bwh: Date:[id number] BOX Repository [id number] ([place]) [phone]: 03/10/2018 Secondary NOT GIVENUNK [place] Insurance:SELF PAY Community INSURANCEPolicy Number: Hospital Effective Repository Date:2018-02-24 03/02/2018 ISIDRO Ragland Primary Insurance:AETNA ISIDRO Ragland [place] [id number] MCRPolicy Number: WUTHRICHDOB: Community KADY CTBURBANK, MEBNZDMHEffective [id number] [id number]: Date:2454-68-21EZ BOX Repository [id number] () [address]UZ: 03/02/2018 Secondary NOT GIVENUNK [place] Insurance:SELF PAY Community INSURANCEPolicy Number: Hospital Effective Repository Date:2018-03-02 03/02/2018 ISIDRO Ragland Primary Insurance:AETNA ISIDRO Ragland Aliyah [id number] MCRPolicy Number: WUTHRICHDOB: Community KADY CTBURBANK, MEBNZDMHEffective [id number] [id number]: Date:9916-70-52GO BOX Repository [id number] () [id number]: 03/02/2018 Secondary NOT GIVENUNK [place] Insurance:SELF PAY Community INSURANCEPolicy Number: Hospital Effective Repository Date:2018-03-02 02/23/2018 ISIDRO Ragland Primary Insurance:AETNA ISIDRO Ragland Aliyah [id number] MCRPolicy Number: WUTHRICHDOB: Community KADY CTBURBANK, MEBNZDMHEffective [id number] [address]Jcm: Date:0085-34-18EC BOX Repository [id number] () [address]CZ: 02/23/2018 Secondary NOT GIVENUNK [place] Insurance:SELF PAY Community INSURANCEPolicy Number: Hospital Effective Repository Date:2018-01-19 02/23/2018 ISIDRO Ragland Primary Insurance:AETNA ISIDRO Ragland Aliyah [id number] MCRPolicy Number: WUTHRICHDOB: Community KADY [employer], MEBNZDMHEffective [id number] [id number]: Date:3193-34-59MI BOX Repository [id number] () [address]PM: 02/23/2018 Secondary NOT GIVENUNK [place] Insurance:SELF PAY Community INSURANCEPolicy Number: Hospital Effective Repository Date:2018-02-23 02/01/2018 ISIDRO Ragland Primary Insurance:AETNA ISIDRO Ragland [place] [id number] MCRPolicy Number: WUTHRICHDOB: Community KADY BRYANURBSOLOMON, BNZDMHEffective [id number] [place] [id number]: Date:2364-54-40TM BOX Repository [id number] () [address]RQ: 02/01/2018 Secondary NOT GIVENUNK [place] Insurance:SELF PAY Community INSURANCEPolicy Number: Hospital Effective Repository Date:2018-01-19 01/19/2018 ISIDRO Ragland Primary Insurance:AETNA ISIDRO Ragland [place] [id number] MCRPolicy Number: WUTHRICHDOB: Community KADY CTBADARSH, JOANZDMHEffective [id number] [place]ille [id number]: Date:7442-64-40VV BOX Repository [id number] () [address]LY: 01/19/2018 Secondary NOT GIVENUNK [place] Insurance:SELF PAY Community INSURANCEPolicy Number: Hospital Effective Repository Date:2018-01-19
== END 2018-03-10 14:30 | disposition home or self-care (01) ==
LOC: CLSP 08:09
PROVIDERS: Family Provider Family Medicine; PCP Family Medicine; Referring Provider Internal Medicine Cardiovascular Disease; Visit Provider Internal Medicine Cardiovascular Disease
DX: I27.20 Pulmonary hypertension, unspecified (principal); I35.0 Nonrheumatic aortic (valve) stenosis; R94.39 Abnormal result of other cardiovascular function study; I48.1 Persistent atrial fibrillation; I10 Essential (primary) hypertension; E78.00 Pure hypercholesterolemia, unspecified; I35.1 Nonrheumatic aortic (valve) insufficiency; I36.1 Nonrheumatic tricuspid (valve) insufficiency; I34.0 Nonrheumatic mitral (valve) insufficiency; E11.9 Type 2 diabetes mellitus without complications; Z86.73 Personal history of transient ischemic attack (TIA), and cerebral infarction without residual deficits; Z79.82 Long term (current) use of aspirin; Z79.84 Long term (current) use of oral hypoglycemic drugs; Z79.899 Other long term (current) drug therapy; Z87.891 Personal history of nicotine dependence
CPT/HCPCS: 36416; 71046; 82803; 85610; 93460; 93567; J7040; Q9967; C1751; C1769; C1894

== ENCOUNTER → 2018-04-01 14:44 | Outpatient (CLI) | payer MEDICARE, SELFPAY ==
[2018-04-01 14:14] VITALS: BMI 25.7
[2018-04-01 15:19] LABS: Anion Gap 7 (5-15); BUN 14 mg/dL (7-18); BUN/Creat Ratio 12.2 RATIO (10-20); Calcium,Total 8.8 mg/dL (8.5-10.1); Chloride 102 mmol/L (98-107); Creatinine, Serum 1.15 mg/dL (0.70-1.30); EST Glomerular Filtration Rate 65 mL/min (>60); Est Glom Filt Rate - Afr Amer 79 mL/min (>60); Glucose 206 mg/dL (74-106); Potassium 3.4 mmol/L (3.5-5.1); Sodium Level 138 mmol/L (136-145)
== END ==
PROVIDERS: Family Provider Family Medicine; PCP Family Medicine; Referring Provider Internal Medicine Cardiovascular Disease; Visit Provider Internal Medicine Cardiovascular Disease
DX: I48.91 Unspecified atrial fibrillation (principal)
CPT/HCPCS: 36415; 80048

== ENCOUNTER → 2018-05-03 14:58 | Outpatient (CLI) | payer MEDICARE, SELFPAY ==
[2018-05-03 14:06] VITALS: BMI 25.5
[2018-05-03 16:04] LABS: Anion Gap 3 (5-15); BUN 20 mg/dL (7-18); BUN/Creat Ratio 17.5 RATIO (10-20); Chloride 101 mmol/L (98-107); Creatinine, Serum 1.14 mg/dL (0.70-1.30); EST Glomerular Filtration Rate 66 mL/min (>60); Est Glom Filt Rate - Afr Amer 80 mL/min (>60); Glucose 154 mg/dL (74-106); Potassium 3.8 mmol/L (3.5-5.1); Sodium Level 137 mmol/L (136-145)
== END ==
PROVIDERS: Family Provider Family Medicine; PCP Family Medicine; Referring Provider Internal Medicine Cardiovascular Disease; Visit Provider Internal Medicine Cardiovascular Disease
DX: I48.91 Unspecified atrial fibrillation (principal)
CPT/HCPCS: 36415; 80048

== ENCOUNTER 2018-05-19 11:27 | Day surgery (SDC) | payer MEDICARE, SELFPAY ==
[2018-03-10 10:54] VITALS: BMI 25.8
[2018-05-03 14:06] VITALS: BMI 25.5
[2018-05-18 09:07] VITALS: BMI 25.5
[2018-05-19 11:54] LABS: Anion Gap 4 (5-15); BUN 14 mg/dL (7-18); Calcium,Total 8.8 mg/dL (8.5-10.1); Chloride 105 mmol/L (98-107); Creatinine, Serum 1.17 mg/dL (0.70-1.30); EST Glomerular Filtration Rate 64 mL/min (>60); Est Glom Filt Rate - Afr Amer 77 mL/min (>60); Estimated Creatinine Clearance 53.73 ml/min; Glucose 100 mg/dL (74-106); Potassium 3.9 mmol/L (3.5-5.1); Sodium Level 138 mmol/L (136-145)
--- NOTE | 2018-05-19 13:44 | PCM.OP.PRO ---
Problem List (1) Atrial fibrillation Status: Chronic Qualifiers: (2) Diabetes mellitus, type II Status: Chronic (3) History of TIA (transient ischemic attack) Status: Chronic (4) History of right and left heart catheterization Status: Chronic Comment: Nonobstructive coronary arteries, mild pulmonary hypertension, mild aortic stenosis, mildly elevated right heart pressures, EF 55-60% per Dr. Arvizu @ [facility] (5) Hyperlipidemia Status: Chronic Qualifiers: (6) Hypertension Status: Chronic Qualifiers: (7) Nonrheumatic aortic valve regurgitation Status: Chronic Comment: Mild (1+) per echo 07/21/2013 done @ [facility] (8) Nonrheumatic mitral valve regurgitation Status: Chronic Comment: mild (1+) per echo 07/21/2013 done @ [facility] (9) Nonrheumatic tricuspid valve regurgitation Status: Chronic Comment: Moderate (2+) per echo 07/21/2013 done @ [facility] (10) Secondary pulmonary hypertension Status: Chronic Comment: RVSP 51 mmhg, EF 55% per echo 07/21 2013 done @ [facility] Procedure Report Date of Procedure: 05/19/18 - Conscious sedation CONSCIOUS SEDATION REPORT BRIEF HISTORY OF PRESENT ILLNESS: The patient is a 77-year-old male who presented to [facility] for an elective outpatient cardioversion due to underlying atrial fibrillation. The patient reports no PO intake since midnight. The patient does not have a history of obstructive sleep apnea, but does report snoring. The patient reports a history of smoking, but denies COPD. The patient denies any recent constitutional symptoms such as fevers, chills, nausea or vomiting. The patient denies previous anesthetic complications. Last known ejection fraction was 50-60%. Patient is on Eliquis at baseline. PHYSICAL EXAMINATION: VITAL SIGNS: Reviewed and were acceptable. GENERAL: The patient is a male, in no apparent distress, speaking in full sentences. HEENT: Normocephalic, atraumatic. Mucous membranes are moist and pink. Good mouth opening noted. Trachea is midline. Good neck mobility. MP II CHEST: S1, S2 irregularly irregular. No murmurs, rubs or gallops were noted. LUNGS: Clear to auscultation bilaterally without appreciable wheezes, rales or rhonchi. ABDOMEN: Soft, nontender, nondistended. Positive bowel sounds. EXTREMITIES: There is no clubbing, cyanosis or edema. ASA Class: II DESCRIPTION OF PROCEDURE: After confirmation of informed consent, the patient's anesthesia plan was reviewed in detail. Propofol was chosen. Risks and benefits were reviewed and the patient agreed to proceed. At 12:08 PM, the patient was given 40 mg of propofol. The patient achieved an appropriate level of sedation and received 1 attempt synchronized cardioversion, at [address] Arvizu at the bedside. This was successful in achieving normal sinus rhythm. The patient was monitored until 12:17 PM, at which time the patient reached their baseline mental status and function. The patient tolerated the procedure well. COMPLICATIONS: None ESTIMATED BLOOD LOSS: None RECOMMENDATIONS: Okay to recover in usual fashion. Code Visit 9xxxx: Other Procedure See Report - 84038 -9 minutes conscious sedation
--- NOTE | 2018-05-19 13:47 | PRO.PCM_ITS ---
Problem List (1) Atrial fibrillation Status: Chronic Qualifiers: (2) Diabetes mellitus, type II Status: Chronic (3) History of TIA (transient ischemic attack) Status: Chronic (4) History of right and left heart catheterization Status: Chronic Comment: Nonobstructive coronary arteries, mild pulmonary hypertension, mild aortic stenosis, mildly elevated right heart pressures, EF 55-60% per Dr. Arvizu @ [facility] (5) Hyperlipidemia Status: Chronic Qualifiers: (6) Hypertension Status: Chronic Qualifiers: (7) Nonrheumatic aortic valve regurgitation Status: Chronic Comment: Mild (1+) per echo 07/21/2013 done @ [facility] (8) Nonrheumatic mitral valve regurgitation Status: Chronic Comment: mild (1+) per echo 07/21/2013 done @ [facility] (9) Nonrheumatic tricuspid valve regurgitation Status: Chronic Comment: Moderate (2+) per echo 07/21/2013 done @ [facility] (10) Secondary pulmonary hypertension Status: Chronic Comment: RVSP 51 mmhg, EF 55% per echo 07/21 2013 done @ [facility] Procedure Report Date of Procedure: 05/19/18 - Conscious sedation CONSCIOUS SEDATION REPORT BRIEF HISTORY OF PRESENT ILLNESS: The patient is a 77-year-old male who presented to [facility] for an elective outpatient cardioversion due to underlying atrial fibrillation. The patient reports no PO intake since midnight. The patient does not have a history of obstructive sleep apnea, but does report snoring. The patient reports a history of smoking, but denies COPD. The patient denies any recent constitutional symptoms such as fevers, chills, nausea or vomiting. The patient denies previous anesthetic complications. Last known ejection fraction was 50- 60%. Patient is on Eliquis at baseline. PHYSICAL EXAMINATION: VITAL SIGNS: Reviewed and were acceptable. GENERAL: The patient is a male, in no apparent distress, speaking in full sentences. HEENT: Normocephalic, atraumatic. Mucous membranes are moist and pink. Good mouth opening noted. Trachea is midline. Good neck mobility. MP II CHEST: S1, S2 irregularly irregular. No murmurs, rubs or gallops were noted. LUNGS: Clear to auscultation bilaterally without appreciable wheezes, rales or rhonchi. ABDOMEN: Soft, nontender, nondistended. Positive bowel sounds. EXTREMITIES: There is no clubbing, cyanosis or edema. ASA Class: II DESCRIPTION OF PROCEDURE: After confirmation of informed consent, the patient's anesthesia plan was reviewed in detail. Propofol was chosen. Risks and benefits were reviewed and the patient agreed to proceed. At 12:08 PM, the patient was given 40 mg of propofol. The patient achieved an appropriate level of sedation and received 1 attempt synchronized cardioversion, at [address] Arvizu at the bedside. This was successful in achieving normal sinus rhythm. The patient was monitored until 12:17 PM, at which time the patient reached their baseline mental status and function. The patient tolerated the procedure well. COMPLICATIONS: None ESTIMATED BLOOD LOSS: None RECOMMENDATIONS: Okay to recover in usual fashion. Code Visit 9xxxx: Other Procedure See Report - 79562 -9 minutes conscious sedation
--- NOTE | 2018-05-19 14:20 | PCM.OP.PRO ---
Problem List (1) Abnormal stress echo Status: Acute (2) Dyspnea on exertion Status: Acute (3) Atrial fibrillation Status: Chronic Qualifiers: (4) Hyperlipidemia Status: Chronic Qualifiers: (5) Hypertension Status: Chronic Qualifiers: (6) Secondary pulmonary hypertension Status: Chronic Comment: RVSP 51 mmhg, EF 55% per echo 07/21 2013 done @ [facility] Procedure Report Date of Procedure: 05/19/18 Patient was brought to the [facility] holding area in the fasting state. The risks/benefits of the cardioversion procedure were thoroughly explained to the patient and informed consent was obtained. The defibrillator pads were placed in the AP position. Patient was found to be in atrial fibrillation with controlled ventricular response. He had been treated with beta-blockers, amiodarone and Cardizem for several weeks without successful chemical cardioversion. With the assistance of Dr. Aj Peterson, the patient was given IV propofol for proximally 40 mg. Once adequate sedation was obtained the patient received a single biphasic synchronized shock of 200 J which converted him from atrial fibrillation to sinus bradycardia. The patient spontaneously awoke, moves all 4 extremities and tolerated procedure well. His sinus rhythm remained durable, and is deferred later pads removed. Conclusions: Successful amiodarone, beta-ty, calcium channel ty and Eliquis assisted DC cardioversion with a single 200 J biphasic synchronized shock. Patient tolerated procedure well and continue on current medical therapy. He will follow-up in 1 week's time for an EKG and blood pressure check. Hopefully with sinus rhythm his dyspnea on exertion and shortness of breath will improve with resynchronization. No complications. Code Visit Inpatient E&M: 97954 Subs Hosp L2
--- NOTE | 2018-05-19 14:23 | PRO.PCM_ITS ---
Problem List (1) Abnormal stress echo Status: Acute (2) Dyspnea on exertion Status: Acute (3) Atrial fibrillation Status: Chronic Qualifiers: (4) Hyperlipidemia Status: Chronic Qualifiers: (5) Hypertension Status: Chronic Qualifiers: (6) Secondary pulmonary hypertension Status: Chronic Comment: RVSP 51 mmhg, EF 55% per echo 07/21 2013 done @ [facility] Procedure Report Date of Procedure: 05/19/18 Patient was brought to the [facility] holding area in the fasting state. The risks/benefits of the cardioversion procedure were thoroughly explained to the patient and informed consent was obtained. The defibrillator pads were placed in the AP position. Patient was found to be in atrial fibrillation with controlled ventricular response. He had been treated with beta-blockers, amiodarone and Cardizem for several weeks without successful chemical cardioversion. With the assistance of Dr. Aj Peterson, the patient was given IV propofol for proximally 40 mg. Once adequate sedation was obtained the patient received a single biphasic synchronized shock of 200 J which converted him from atrial fibrillation to sinus bradycardia. The patient spontaneously awoke, moves all 4 extremities and tolerated procedure well. His sinus rhythm remained durable, and is deferred later pads removed. Conclusions: Successful amiodarone, beta-ty, calcium channel ty and Eliquis assisted DC cardioversion with a single 200 J biphasic synchronized shock. Patient tolerated procedure well and continue on current medical therapy. He will follow-up in 1 week's time for an EKG and blood pressure check. Hopefully with sinus rhythm his dyspnea on exertion and shortness of breath will improve with resynchronization. No complications. Code Visit Inpatient E&M: 44017 Subs Hosp L2
== END 2018-05-19 13:25 | disposition home or self-care (01) ==
PROVIDERS: Family Provider Family Medicine; PCP Family Medicine; Referring Provider Internal Medicine Cardiovascular Disease; Visit Provider Internal Medicine Cardiovascular Disease
DX: I48.2 Chronic atrial fibrillation (principal); I48.1 Persistent atrial fibrillation; E11.9 Type 2 diabetes mellitus without complications; I35.1 Nonrheumatic aortic (valve) insufficiency; I34.0 Nonrheumatic mitral (valve) insufficiency; I36.1 Nonrheumatic tricuspid (valve) insufficiency; I35.0 Nonrheumatic aortic (valve) stenosis; I27.20 Pulmonary hypertension, unspecified; I10 Essential (primary) hypertension; E78.5 Hyperlipidemia, unspecified; Z86.73 Personal history of transient ischemic attack (TIA), and cerebral infarction without residual deficits; Z87.891 Personal history of nicotine dependence; Z79.01 Long term (current) use of anticoagulants; Z79.82 Long term (current) use of aspirin; Z79.899 Other long term (current) drug therapy
CPT/HCPCS: 36415; 80048; 92960; 93005; J7040

== ENCOUNTER 2018-05-21 23:06 | Inpatient (IN) | payer MEDICARE, SELFPAY ==
[2018-05-18 09:07] VITALS: BMI 25.5
[2018-05-21 23:07] VITALS: BP 140/61; PULSE 59; RESP 26; TEMP 37.4; O2SAT 92; BMI 25.8
--- NOTE | 2018-05-21 23:20 | EKG12_ITS ---
Test Reason : Blood Pressure : / mmHG Vent. Rate : 061 BPM Atrial Rate : 061 BPM P-R Int : 170 ms QRS Dur : 082 ms QT Int : 470 ms P-R-T Axes : 055 067 066 degrees QTc Int : 473 ms Poor data quality, interpretation may be adversely affected Normal sinus rhythm Nonspecific ST abnormality Abnormal ECG Confirmed by RINA VILLASEÑOR, DARWIN ([id number]), video editor ARA GONZALEZ ([id number]) on 05/24/2018 11:00:00 AM Referred By: BB Confirmed By:DARWIN FLYNN MD
--- NOTE | 2018-05-21 23:23 | ED.DCSUM_ITS ---
History of Present Illness Chief Complaint: Shortness of Breath Informant: Patient Onset: Yesterday Context: Gradual Onset Timing: Intermittent Quality: sob Location: chest Current Severity: Mild Maximum Severity: Moderate Worsened by: exertion Relieved by: rest Associated Symptoms: malaise/gen weak Narrative: Patient has history of chronic A. fib, he had a cardioversion 3 days ago. Yesterday, he felt weak and dizzy with exertion that started after he was out in the yard picking up some trash and debris. He denies any chest discomfort, syncope, lightheadedness. No leg swelling worse than usual. No palpitations or other sensations in his chest except for shortness of breath. Unknown if he has COPD or not, he is an ex-smoker. No history of congestive heart failure. Was told he had an HI in the past, no history of a stent or cardiac surgery. - Past Medical History (1) Atrial fibrillation Status: Chronic (2) Diabetes mellitus, type II Status: Chronic (3) History of TIA (transient ischemic attack) Status: Chronic (4) History of cardioversion Status: Chronic (5) Hyperlipidemia Status: Chronic (6) Hypertension Status: Chronic (7) Leg edema Status: Chronic (8) Nonrheumatic aortic valve regurgitation Status: Chronic Comment: Mild (1+) per echo 07/21/2013 done @ [facility] (9) Nonrheumatic mitral valve regurgitation Status: Chronic Comment: mild (1+) per echo 07/21/2013 done @ [facility] (10) Nonrheumatic tricuspid valve regurgitation Status: Chronic Comment: Moderate (2+) per echo 07/21/2013 done @ [facility] (11) Secondary pulmonary hypertension Status: Chronic Comment: RVSP 51 mmhg, EF 55% per echo 07/21 2013 done @ [facility] Past Medical History - Allergies and Home Meds Allergies/Adverse Reactions: Allergies No Known Allergies Allergy (Verified 05/21/18 23:11) Primary Care Physician: Johanny Sow DO [Primary Care Provider] - Lives: Spouse/ Significant Other Smoking Status: Former smoker Review of Systems General: Reports: Malaise Eyes: Denies: Visual changes - bilaterally, Diplopia ENT: Denies: Rhinorrhea, Sore throat Cardiovascular: Denies: Chest pain, Palpitations Respiratory: Reports: Dyspnea, Dyspnea on exertion. Denies: Cough, Orthopnea, Paroxysmal nocturnal dyspnea Gastrointestinal: Denies: Abdominal pain, Nausea, Vomiting, Diarrhea, Melena, Hematochezia Genitourinary: Denies: Dysuria, Hematuria, Frequency Musculoskeletal: Reports: Swelling - chronic no worse. Denies: Back pain, Extremity Pain Skin: Denies: Rash, Wounds Neurological: Denies: Headache, Weakness, Numbness Physical Exam Vital Signs/Narrative: Vital Signs Temp Pulse Resp BP Pulse Ox 05/21/18 23:07 99.3 F H 59 L 26 H 140/61 H 92 Inital Vital Signs reviewed: Yes General: Well nourished, Well developed, No Acute Distress Head: Normocephalic, Atraumatic Eyes: Perrl, EOMI ENT: Moist mucous membranes, No rhinorrhea Neck: Supple, Nontender Cardiovascular: Regular rate, Regular rhythm, No murmurs. Negative for: Tachycardia Respiratory: No distress, CTA bilaterally, Chest nontender Abdomen: Soft, Nontender, Nondistended, Normal bowel sounds Back: Nontender, Normal Inspection Extremities: Nontender, Edema - trace BLE, symmetric. Negative for: Calf Tenderness Skin: Normal color, No rash, No Trauma Neurological: Alert, Oriented x3, Cranial nerves II-XII grossly intact, Normal Strength, Normal Sensation Psychological: Normal affect, Normal Mood Diagnostic/Tx/Re-eval Chest X-Ray - ED: 2 View, Read by ED Physician, Right Infiltrate - Rhythm Strip Rhythm Strip: Sinus Rhythm Rate: 60 Ectopy: None - EKG Initial EKG Interpretation: Sinus Rhythm, No Acute Injury Pattern - normal EKG - Medical Decision Making Workup showed acute kidney injury, CBC then returned showing a leukocytosis, then his oxygen levels dropped to 80% on room air he was placed on a 2 L nasal cannula, keeping him at 95-96%, then urine returned showing no acute infection. Chest x-ray still had not been taken. When it was taken, I reviewed the images immediately, showing a new right middle lobe and/or right lower lobe infiltrate, which is probably causing all of these other abnormalities. Therefore, lactic acid was drawn, blood cultures, and Levaquin 750 mg IV was started. He states that he is breathing well and does not need any other treatment as long as he is resting. Gentle IV fluids were given, and he will be admitted for further treatment. Of note, I do not know if this is related to his recent cardioversion; I think it is not related to the procedure, it could be related to being in the hospital recently, but he was not admitted so this is equivalent to community-acquired pneumonia. ED Disposition - Plan for ED Patient: Disposition: Acute Care Hospital [facility] Diagnosis: JESUS (acute kidney injury), CAP (community acquired pneumonia), Sepsis, Hypoxemia Referrals: Johanny Sow DO [Primary Care Provider] -
[2018-05-21 23:56] LABS: Absolute Lymphocyte Count 1.32 X10^3/ul (0.83-4.51); Absolute Neutrophil Count 14.2 X10^3/uL (2.0-7.7); Basophil# 0.03 X10^3/uL; Basophil% 0.2 % (0-1); Eosinophil# 0.04 X10^3/uL; Eosinophils% 0.2 % (0-5); Hematocrit 42.7 % (40-54); Hemoglobin 14.3 g/dl (13.0-16.5); Lymphocyte # 1.32 X10^3/ul (4.0); Lymphocyte % 7.3 % (19-41); Mean Corp Hgb Conc 33.5 g/gl (32-36); Mean Corpuscular Hgb 29.8 pg (27.0-32.0); Mean Platelet Vol. 11.8 fl (6.2-12.0); Monocyte# 2.32 X10^3/uL; Monocyte% 12.9 % (0-10); Neutrophil # 14.15 X10^3/uL (2.7-7.7); Neutrophil % 78.8 % (47-70); Platelet Count 199 K/mm3 (150-450); RBC Distribution Width CV 16.2 % (11.6-14.6); RBC Distribution Width SD 52.4 fl (35.1-43.9)
[2018-05-21 23:59] LABS: Anion Gap 8 (5-15); BUN 52 mg/dL (7-18); BUN/Creat Ratio 21.1 RATIO (10-20); Calcium,Total 8.8 mg/dL (8.5-10.1); Chloride 104 mmol/L (98-107); Creatinine, Serum 2.47 mg/dL (0.70-1.30); EST Glomerular Filtration Rate 27 mL/min (>60); Est Glom Filt Rate - Afr Amer 33 mL/min (>60); Estimated Creatinine Clearance 25.45 ml/min; Glucose 198 mg/dL (74-106); Potassium 4.6 mmol/L (3.5-5.1); Sodium Level 138 mmol/L (136-145)
[2018-05-22] VITALS (24 sets, daily range): BP systolic 101–138; BP diastolic 41–77; PULSE 51–77; RESP 20–30; TEMP 36.6–37.6; O2SAT 86–97; BMI 26.0; BMI 26.1
[2018-05-22 00:09] LABS: Differential Indicated SCAN CRITERIA MET; POSITIVE COUNT NO; POSITIVE DIFFERENTIAL YES; POSITIVE MORPHOLOGY NO
--- NOTE | 2018-05-22 00:20 | RAD_ITS ---
HISTORY: sob rt side chest pain for 1 wkno heart lung disease EXAM: XR Chest 2 Views COMPARISON: 03/02/18 CXR FINDINGS: LINES/DEVICES: None. LUNGS: Patchy airspace disease in the infrahilar lungs bilaterally. No pneumothorax. MEDIASTINUM AND CARDIOVASCULAR STRUCTURES: Cardiac silhouette not enlarged. Central airways and mediastinal contour are unremarkable. BONES AND SOFT TISSUES: Unremarkable. RAD/Chest PA and Lateral IMPRESSION: Patchy infrahilar airspace disease bilaterally suspicious for pneumonia. Edema or other etiology also possible. at 0137 Reported and signed by: Andrew Richey MD Electronically Signed: Andrew Richey, at 1:35 EDT Tel , Service support ,
[2018-05-22] MEDS: 0.9% Normal Saline 1,000 ML 150 ML IV (00:49)
[2018-05-22 00:51] LABS: Bacteria 0 SEEN /hpf (None Seen); Color, Urine Yellow (Yellow); Glucose, Dipstick 250 mg/dl (Normal); Ketone-Dipstick Negative (Negative); Leukocyte Esterase-Dipstick Negative /ul (Negative); Mucous, Urine 0 SEEN /hpf (<or=2+); Nitrite-Dipstick Negative (Negative); Occult Blood-Urine 25 /ul (Negative); Protein-Dipstick 30 mg/dl (Negative); Red Blood Cells-Urine 0 SEEN /hpf (0-5); Specific Gravity, Urine 1.025 (1.002-1.030); Squamous Epithelial Cells - UA 0 SEEN /hpf (0-5); Urine Bilirubin Dipstick Negative (Negative); Urine Clarity Sl. Cloudy (Clear); Urine Urobilinogen Normal (Normal); White Blood Cells 0 SEEN /hpf (0-5)
[2018-05-22 01:00] LABS: Differential Comment SCANNED; Platelet Estimate ADEQUATE (ADEQ)
[2018-05-22 01:29] LABS: BNP,B-Type NATRIURETIC PEPTIDE 346.2 pg/mL (0-100)
[2018-05-22] MEDS: levoFLOXacin IV 750 MG/150 ML BAG 100 MG IV (01:44)
[2018-05-22 01:54] LABS: Lactic Acid 1.6 mmol/L (0.4-2.0)
--- NOTE | 2018-05-22 02:39 | HP.PCM_ITS ---
Problem List (1) Sepsis Status: Acute (2) CAP (community acquired pneumonia) Status: Acute History of Present Illness Date of Admission: 05/22/18 Chief Complaint: malaise The patient is a 77 year old M with a significant history of Afib s/p cardioversion 2 days prior to cardioversion; diabetes mellitus; TIA who presented to the emergency department because of 1 day history of malaise. Associated with his symptoms is chills; generalized weakness and shortness of breath with mild exertion. At emergency department patient was found to be hypoxic with oxygen saturation of 88% while on room air. Patient was noted to have tachypnea with respiratory rate of 28. His laboratory work was remarkable for a white count of 18; creatinine of 2.47 and BUN of 52. His chest x-ray was remarkable for pulmonary infiltrate. Blood cultures were obtained at emergency department. His lactic acid was unremarkable. Patient was diagnosed with sepsis secondary to community-acquired pneumonia and was started on Levaquin. Past Medical History Past Medical History (Chronic Problems): Chronic Problems (Last Reviewed 05/22/18 @ 03:10 by Prem Tavares MD) History of cardioversion (Chronic 05/19/18) History of right and left heart catheterization (Chronic 03/10/18) Nonobstructive coronary arteries, mild pulmonary hypertension, mild aortic stenosis, mildly elevated right heart pressures, EF 55-60% per Dr. Arvizu @ [facility] Secondary pulmonary hypertension (Chronic) RVSP 51 mmhg, EF 55% per echo 07/21 2013 done @ [facility] Nonrheumatic aortic valve regurgitation (Chronic) Mild (1+) per echo 07/21/2013 done @ [facility] Nonrheumatic tricuspid valve regurgitation (Chronic) Moderate (2+) per echo 07/21/2013 done @ [facility] Nonrheumatic mitral valve regurgitation (Chronic) mild (1+) per echo 07/21/2013 done @ [facility] History of TIA (transient ischemic attack) (Chronic) Leg edema (Chronic) Atrial fibrillation (Chronic) Diabetes mellitus, type II (Chronic) Hyperlipidemia (Chronic) Hypertension (Chronic) Medical History: Medical History (Last Reviewed 05/22/18 @ 03:10 by Prem Tavares MD) Dyspnea on exertion (Acute) R06.09 Abnormal stress echo (Acute) R94.39 Secondary pulmonary hypertension (Chronic) RVSP 51 mmhg, EF 55% per echo 07/21 2013 done @ [facility] Nonrheumatic aortic valve regurgitation (Chronic) I35.1 Mild (1+) per echo 07/21/2013 done @ [facility] Nonrheumatic tricuspid valve regurgitation (Chronic) I36.1 Moderate (2+) per echo 07/21/2013 done @ [facility] Nonrheumatic mitral valve regurgitation (Chronic) I34.0 mild (1+) per echo 07/21/2013 done @ [facility] History of TIA (transient ischemic attack) (Chronic) Z86.73 Leg edema (Chronic) R60.0 Atrial fibrillation (Chronic) I48.91 Fatigue (Acute) R53.83 Diabetes mellitus, type II (Chronic) E11.9 Hyperlipidemia (Chronic) E78.5 Hypertension (Chronic) I10 Atypical chest pain (Resolved) R07.89 Dz August 2017, felt to be from bronchospasm, sharp in nature in ribs. Allergies No Known Allergies Allergy (Verified 05/21/18 23:11) Home Medications: Ambulatory Orders Medication Instructions Recorded albuterol sulfate HFA 90 2 puff INHALATION Q4H PRN g 01/18/18 mcg/actuation aerosol inhaler diltiazem CD 360 mg 360 mg PO DAILY 01/18/18 capsule,extended release 24 hr donepezil 5 mg tablet 5 mg PO QHS tab 01/18/18 fenofibrate micronized 130 mg 130 mg PO DAILY 01/18/18 capsule nitroglycerin 0.4 mg/hr 1 patch TRANSDERMAL DAILY 01/18/18 transdermal 24 hour patch rosuvastatin 20 mg tablet 20 mg PO DAILY 01/18/18 sitagliptin 50 mg-metformin 500 mg 1 tab PO BID 01/18/18 tablet metoprolol succinate ER 100 mg 200 mg PO DAILY tab 01/19/18 tablet,extended release 24 hr Aspirin [Low Dose Aspirin EC] 81 mg PO DAILY 03/10/18 amiodarone 200 mg tablet 200 mg PO DAILY #30 tab 03/12/18 losartan 50 mg-hydrochlorothiazide 1 tab PO DAILY #30 tab 03/12/18 12.5 mg tablet potassium chloride ER 20 mEq 20 meq PO DAILY #30 tab 04/05/18 tablet,extended release apixaban 5 mg tablet 5 mg PO BID #60 tab 04/12/18 Surgical History: Surgical History (Last Reviewed 05/22/18 @ 03:10 by Prem Tavares MD) History of cardioversion (Chronic) Onset Date: 05/19/18 Z98.890 History of right and left heart catheterization (Chronic) Onset Date: 03/10/18 Z98.890 Nonobstructive coronary arteries, mild pulmonary hypertension, mild aortic stenosis, mildly elevated right heart pressures, EF 55-60% per Dr. Arvizu @ [facility] Lives: With Family Smoking Status: Former smoker Alcohol: Occasional - *Family History Maternal Family History: Family History (Last Reviewed 05/22/18 @ 03:10 by Prem Tavares MD) Mother CAD (coronary artery disease) CVA (cerebral vascular accident) Congestive heart failure Father Hypertension Sister Cancer Brother Hypertension Diabetes Cancer CAD (coronary artery disease), Onset Age: 70 Brother Esophageal cancer Review of Systems Constitutional: Reports: Chills, Malaise, Weakness. Denies: Weight Change HEENT: Denies: Head Aches, Sinus Congestion, Sinus Drainage Cardiovascular: Denies: Chest Pain, Palpitations Respiratory: Reports: Shortness of breath upon exertion. Denies: Cough, Shortness of breath at rest, Sputum production Gastrointestinal: Denies: Abdominal Pain, Nausea, Vomiting Genitourinary: Denies: Dysuria Musculoskeletal: Denies: Joint Pain, Joint Tenderness Skin: Denies: Rash, Wounds Neurological: Denies: Numbness, Tingling, Focal weakness Psychiatric: Denies: Anxiety, Depression, Homicidal Ideations, Suicidal Ideations Hematologic/ Lymphatic: Denies: Easy Bruising, Easy Bleeding VTE Information - Inpt Only VTE Present on Admission: No VTE Mechan Device Prophylaxis: None VTE Pharm Prophylaxis ordered?: No Reason prophylaxis not ordered:: Treatment Not Indicated - On Eliquis for A. fib, Eliquis continued. Patient Problems: Active and Suspected Problems (Last Reviewed 05/22/18 @ 03:10 by Prem Tavares MD) JESUS (acute kidney injury) (Acute) CAP (community acquired pneumonia) (Acute) Sepsis (Acute) Hypoxemia (Acute) Sepsis (Acute) - Physical Exam General: Alert, Oriented x3, Cooperative HEENT: Atraumatic, PERRLA, EOMI, Normocephalic Neck: Supple, No JVD, Negative Carotid Bruits Lungs: Rales - Right lower lung field, Tachypneic Cardiovascular: Regular rate, No murmurs Abdomen: Bowel Sounds Present, Soft, Non Tender Extremities: No edema, Capillary Refill Less than 3 Seconds Skin: No rashes, No breakdown Musculoskeletal: No Tenderness to Palpation of Joints or Extremities Neurological: Neuro grossly intact Psych/Mental Status: Normal Affect, Appropriate Vital Signs Temp Pulse Resp BP Pulse Ox 99.3 F H 66 28 H 138/63 H 96 05/21/18 23:07 05/22/18 01:50 05/22/18 01:50 05/22/18 01:50 05/22/18 01:50 Oxygen Flow Rate (L/min) 2 Oxygen Delivery Method Nasal Cannula Weight: 81.647 kg Body Mass Index (BMI) 25.8 Laboratory Tests Past 24 Hrs 05/21/18 05/21/18 05/21/18 23:34 23:34 23:34 WBC 18.0 H RBC 4.80 Hgb 14.3 Hct 42.7 MCV 89.0 MCH 29.8 MCHC 33.5 RDW 16.2 H RDW Differential 52.4 H Plt Count 199 MPV 11.8 Immature Gran % (Auto) 0.600 Neut % (Auto) 78.8 H Lymph % (Auto) 7.3 L [place] % (Auto) 12.9 H Eos % (Auto) 0.2 Baso % (Auto) 0.2 Absolute Neuts (auto) 14.2 H Absolute Lymphs (auto) 1.32 Total Counted Not Reportable Differential Comment SCANNED Diff Path Review May foll Platelet Estimate ADEQUATE Sodium 138 Potassium 4.6 Chloride 104 Carbon Dioxide 26.0 Anion Gap 8 BUN 52 H Creatinine 2.47 H Estim Creat Clear Calc 25.45 Est GFR (MDRD) Af Amer 33 L Est GFR (MDRD) Non-Af 27 L BUN/Creatinine Ratio 21.1 H Glucose 198 H Lactic Acid Calcium 8.8 Troponin I 0.017 B-Natriuretic Peptide 346.2 H Urine Color Urine Clarity Urine pH Ur Specific [place] Urine Protein Urine Glucose (UA) Urine Ketones Urine Occult Blood Urine Nitrite Urine Bilirubin Urine Urobilinogen Ur Leukocyte Esterase Urine RBC Urine WBC Ur Squamous Epith Cells Urine Bacteria Urine Mucus 05/22/18 05/22/18 00:40 01:20 WBC RBC Hgb Hct MCV MCH MCHC RDW RDW Differential Plt Count MPV Immature Gran % (Auto) Neut % (Auto) Lymph % (Auto) [place] % (Auto) Eos % (Auto) Baso % (Auto) Absolute Neuts (auto) Absolute Lymphs (auto) Total Counted Differential Comment Diff Path Review Platelet Estimate Sodium Potassium Chloride Carbon Dioxide Anion Gap BUN Creatinine Estim Creat Clear Calc Est GFR (MDRD) Af Amer Est GFR (MDRD) Non-Af BUN/Creatinine Ratio Glucose Lactic Acid 1.6 Calcium Troponin I B-Natriuretic Peptide Urine Color Yellow Urine Clarity Sl. Cloudy Urine pH 5.0 Ur Specific [place] 1.025 Urine Protein 30 H Urine Glucose (UA) 250 H Urine Ketones Negative Urine Occult Blood 25 H Urine Nitrite Negative Urine Bilirubin Negative Urine Urobilinogen Normal Ur Leukocyte Esterase Negative Urine RBC 0 SEEN Urine WBC 0 SEEN Ur Squamous Epith Cells 0 SEEN Urine Bacteria 0 SEEN Urine Mucus 0 SEEN Assessment/Plan All Active Problems (Last Reviewed 05/22/18 @ 03:10 by Prem Tavares MD) JESUS (acute kidney injury) (Acute) CAP (community acquired pneumonia) (Acute) Sepsis (Acute) Hypoxemia (Acute) Sepsis (Acute) Dyspnea on exertion (Acute) Abnormal stress echo (Acute) Fatigue (Acute) Atypical chest pain (Resolved) The patient is a 77 year old M with a significant history of Afib s/p cardioversion 2 days prior to presentation; diabetes mellitus; TIA who presented to the emergency department because of 1 day history of malaise; chills; generalized weakness and shortness of breath with mild exertion and found to be hypoxic ; tachypnea; leukocytosis; elevated BUN and creatinine and with chest x- ray finding of pulmonary infiltrate consistent with sepsis secondary to community-acquired pneumonia. Sepsis second to committee acquired pneumonia Lactic acid: 1.6 RR : 28 Oxygen saturation: Reportedly 88% on room air Blood culture ?2 is pending Chest x-ray: Patchy infrahilar airspace disease bilaterally suspicious for pneumonia. Edema or other etiology also possible. Chest x-ray was independently reviewed. X-ray appeared to me as right lower lung infiltrate. Review of old records show that chest x-ray in February 2018 was unremarkable. Patient denies coughing. Respiratory Gram stain and culture not ordered. Antibiotics: Received Levaquin at the emergency department. Ceftriaxone and azithromycin ordered. IV hydration: Received normal saline at emergency department. Normal saline continued. DuoNeb scheduled. Albuterol as needed Legionella antigen screen and Strep antigen ordered JESUS Presentation her creatinine was 2.47. Review of old records shows baseline creatinine of 1.15. His BUN was 52. Review of old records shows baseline BUN of around 40. His BUN over creatinine is more than 20. Likely prerenal from hypovolemia. Cannot rule out intrinsic renal from toxic effects of sepsis. Gentle IV hydration as above. Hold nephrotoxic's. Losartan and hydrochlorothiazide held. Trend BMP. History of A. fib Sinus rhythm on presentation Patient was recently cardioverted. Amiodarone and Eliquis continued. Cardizem p.o. continued Placed on MedSurg telemetry. Hyperlipidemia Simvastatin continued Diabetes mellitus: On presentation her blood glucose was not within goal Since it is too early in her admission sitagliptin and metformin held. Will place on basal insulin. Accu-Chek QACHS and correction scale insulin ordered. Hypertension On presentation his blood pressure in regard to his age was stable Metoprolol continued Cardizem p.o. continued Losartan and hydrochlorthiazide hold because of AK I As needed labetalol ordered. Trend blood pressure and adjust blood pressure medication Dementia Aricept continued. DVT prophylaxis Not indicated since patient is on Eliquis for A. fib. Eliquis continued. Code Visit Inpatient E&M: 81390 Init Hosp L3
--- NOTE | 2018-05-22 02:42 | NURSING ---
Talked to Dr. Tavares to see if he wanted this pt on MS3 since he had a cardioversion just 3 days ago. He confirmed that he does want him on MS3.
[2018-05-22] MEDS: Ceftriaxone 1 GM/50 ML BAG IV ×2 (04:02→21:40)
[2018-05-22] MEDS: 0.9% Normal Saline 1,000 ML 100 ML IV (04:02)
[2018-05-22] MEDS: Ipratropium/Albuterol Sulfate 3 ML AMPUL.NEB INHALATION ×3 (07:01→19:47)
[2018-05-22 07:06] LABS: Bedside Glucose 171 mg/dL (70-110)
[2018-05-22] MEDS: Insulin Lispro 100 UNIT/ML INSULN.PEN SQ ×4 (07:16→21:42)
[2018-05-22 07:31] LABS: Absolute Lymphocyte Count 1.08 X10^3/ul (0.83-4.51); Absolute Neutrophil Count 12.3 X10^3/uL (2.0-7.7); Anion Gap 8 (5-15); BUN 42 mg/dL (7-18); BUN/Creat Ratio 21.9 RATIO (10-20); Basophil# 0.02 X10^3/uL; Basophil% 0.1 % (0-1); Calcium,Total 8.4 mg/dL (8.5-10.1); Chloride 103 mmol/L (98-107); Creatinine, Serum 1.92 mg/dL (0.70-1.30); EST Glomerular Filtration Rate 36 mL/min (>60); Eosinophil# 0.01 X10^3/uL; Eosinophils% 0.1 % (0-5); Est Glom Filt Rate - Afr Amer 44 mL/min (>60); Estimated Creatinine Clearance 32.74 ml/min; Glucose 204 mg/dL (74-106); Hematocrit 39.7 % (40-54); Hemoglobin 13.2 g/dl (13.0-16.5); Lymphocyte # 1.08 X10^3/ul (4.0); Mean Corp Hgb Conc 33.2 g/gl (32-36); Mean Corpuscular Hgb 29.9 pg (27.0-32.0); Mean Corpuscular Volume 89.8 fL (80-94); Mean Platelet Vol. 11.7 fl (6.2-12.0); Monocyte% 12.3 % (0-10); Neutrophil # 12.34 X10^3/uL (2.7-7.7); Platelet Count 176 K/mm3 (150-450); Potassium 4.4 mmol/L (3.5-5.1); RBC Distribution Width CV 16.1 % (11.6-14.6); RBC Distribution Width SD 52.2 fl (35.1-43.9); Red Blood Count 4.42 M/mm3 (4.6-6.2); Sodium Level 138 mmol/L (136-145); White Blood Count 15.4 K/mm3 (4.4-11.0)
[2018-05-22 07:32] LABS: Differential Indicated SCAN CRITERIA MET; POSITIVE COUNT NO; POSITIVE DIFFERENTIAL YES; POSITIVE MORPHOLOGY NO
[2018-05-22] MEDS: Aspirin E.C. 81 MG Tablet PO (08:04)
[2018-05-22] MEDS: Metoprolol(XL)Succ 200 MG Tablet PO (08:04)
[2018-05-22] MEDS: dilTIAZem CD 180 MG Capsule 360 MG PO (08:05)
[2018-05-22] MEDS: Amiodarone 200 MG Tablet PO (08:06)
[2018-05-22] MEDS: APIXABAN 5 MG TABLET PO ×2 (08:07→21:42)
--- NOTE | 2018-05-22 08:28 | US_ITS ---
STUDY: RENAL ULTRASOUND - COMPLETE REASON FOR EXAM: Male, 77 years old. Acute intracranial failure. TECHNIQUE: Ultrasound evaluation of the kidneys was performed with real-time and static hooper-scale imaging. COMPARISON: None. FINDINGS: RIGHT KIDNEY: Normal location of the right kidney, which is normal in size. The right kidney measures 12.1 x 4.9 x 6.1 cm. There is increased echogenicity of the right kidney. The renal cortex measures 1.3 cm. There is no right renal mass or cyst. There are no right renal calculi. There is no right hydronephrosis. DISTAL RIGHT URETER: There is non-visualization of the distal right ureter. There is no demonstrated right ureterovesical junction calculus. There is a visualized right ureteral jet. LEFT KIDNEY: Normal location of the left kidney, which is normal in size. The left kidney measures 12.6 x 6.2 x 5.7 cm. There is increased echogenicity of the left kidney. The renal cortex measures 1.7 cm. There is no left renal mass or cyst. There are no left renal calculi. There is no left hydronephrosis. DISTAL LEFT URETER: There is non-visualization of the distal left ureter. There is no demonstrated left ureterovesical junction calculus. There is a visualized left ureteral jet. BLADDER: The distended urinary bladder has a volume of 190 ml. There is a normal wall thickness of the distended urinary bladder. There is no demonstrated mass within the urinary bladder. There are no demonstrated bladder calculi. Incidentally noted is right pleural effusion. US/Kidney and Bladder IMPRESSION: 1. Echogenic kidneys consistent with chronic renal medical disease. 2. No evidence of hydronephrosis. 3. Right pleural effusion. Electronically Signed: Josue Peck MD at 15:56 EDT Tel , Service support ,
--- NOTE | 2018-05-22 08:49 | RAD_ITS ---
STUDY: X-RAY CHEST REASON FOR EXAM: Male, 77 years old. Cough TECHNIQUE: Single AP portable view of the chest. COMPARISON: Chest x-ray 05/22/2018, 12:50 AM FINDINGS: There is increased central right upper lobe and right lower lobe hazy airspace opacities. There are pulmonary infiltrates at the left mid and lower lung field as well. Small right pleural effusion. Normal size heart. Normal mediastinum and paco. Normal visualized pulmonary arteries. Normal visualized aortic arch and descending thoracic aorta. Normal visualized thoracic spine. Normal visualized ribs, clavicles, and shoulders. There is no demonstrated abnormality of the visualized soft tissue structures of the upper abdomen. RAD/Chest 1 View (Portable) IMPRESSION: Increased central right upper and right lower lobe hazy airspace opacities and pulmonary infiltrates at the left mid to lower lung field. This may represent aspiration pneumonia in the proper clinical setting and/or worsening pulmonary edema. Small right pleural effusion. Electronically Signed: Tamiko Minaya, at 11:46 EDT Tel , Service support ,
--- NOTE | 2018-05-22 11:13 | PCM.PN.HOSP ---
Patient Problems: Active and Suspected Problems (Last Reviewed 05/22/18 @ 03:10 by Prem Tavares MD) JESUS (acute kidney injury) (Acute) CAP (community acquired pneumonia) (Acute) Sepsis (Acute) Hypoxemia (Acute) Sepsis (Acute) Subjective: Patient was seen and examined. Family at the bedside. Reports history of dementia but progressive weakness and shortness of breath since his cardioversion 3 days ago prior to admission. He denied any chest pain or fever or cough. Currently on 5 L of oxygen. No other acute events overnight. Vitals/I&O's: Vital Signs Temp Pulse Resp BP Pulse Ox 98.3 F 65 24 H 136/53 H 96 05/22/18 09:44 05/22/18 10:28 05/22/18 09:44 05/22/18 09:44 05/22/18 10:28 Oxygen Flow Rate (L/min) 2 Oxygen Delivery Method Nasal Cannula Weight: 82.4 kg Body Mass Index (BMI) 26.0 Intake and Output for Last 24 Hours 05/20/18 05/21/18 05/22/18 23:59 23:59 23:59 Intake Total 569 / 569 Balance 569 / 569 General: Alert, Oriented x3, Cooperative, No apparent distress, - - on 5L oxygen HEENT: Atraumatic, PERRLA, EOMI, Normocephalic Oral: Moist Mucosa Neck: Supple Lungs: Normal air movement, Diminished - especially in right lower lung base Cardiovascular: Regular rate, Regular Rhythm, Normal S1, Normal S2, No murmurs Abdomen: Bowel Sounds Present, Soft, Non Tender, Non-Distended, No Hepato-splenomegaly Extremities: No edema Skin: No rashes, No breakdown Musculoskeletal: No Tenderness to Palpation of Joints or Extremities Lymphatic: No Cervical, Supraclavicular, or Inguinal Adenopathy Neurological: Cranial nerves II-XII grossly intact, Neuro grossly intact Psych/Mental Status: Normal Affect, Appropriate Microbiology Past 72 Hours 05/22/18 00:40 Urine, Random Legionella Antigen - Final 05/22/18 00:40 Urine, Random Streptococcus pneumoniae Antigen (M - Final Laboratory Results 05/21/18 23:34: WBC 18.0 H, RBC 4.80, Hgb 14.3, Hct 42.7, MCV 89.0, MCH 29.8, MCHC 33.5, RDW 16.2 H, RDW Differential 52.4 H, Plt Count 199, MPV 11.8, Immature Gran % (Auto) 0.600, Neut % (Auto) 78.8 H, Lymph % (Auto) 7.3 L, [place] % (Auto) 12.9 H, Eos % (Auto) 0.2, Baso % (Auto) 0.2, Absolute Neuts (auto) 14.2 H, Absolute Lymphs (auto) 1.32, Total Counted Not Reportable, Differential Comment SCANNED, Diff Path Review June foll, Platelet Estimate ADEQUATE 05/21/18 23:34: Sodium 138, Potassium 4.6, Chloride 104, Carbon Dioxide 26.0, Anion Gap 8, BUN 52 H, Creatinine 2.47 H, Estim Creat Clear Calc 25.45, Est GFR (MDRD) Af Amer 33 L, Est GFR (MDRD) Non-Af 27 L, BUN/Creatinine Ratio 21.1 H, Glucose 198 H, Calcium 8.8, Troponin I 0.017 05/21/18 23:34: B-Natriuretic Peptide 346.2 H 05/22/18 00:40: Urine Color Yellow, Urine Clarity Sl. Cloudy, Urine pH 5.0, Ur Specific [place] 1.025, Urine Protein 30 H, Urine Glucose (UA) 250 H, Urine Ketones Negative, Urine Occult Blood 25 H, Urine Nitrite Negative, Urine Bilirubin Negative, Urine Urobilinogen Normal, Ur Leukocyte Esterase Negative, Urine RBC 0 SEEN, Urine WBC 0 SEEN, Ur Squamous Epith Cells 0 SEEN, Urine Bacteria 0 SEEN, Urine Mucus 0 SEEN 05/22/18 01:20: Lactic Acid 1.6 05/22/18 06:08: WBC 15.4 H, RBC 4.42 L, Hgb 13.2, Hct 39.7 L, MCV 89.8, MCH 29.9, MCHC 33.2, RDW 16.1 H, RDW Differential 52.2 H, Plt Count 176, MPV 11.7, Immature Gran % (Auto) 0.500, Neut % (Auto) 80.0 H, Lymph % (Auto) 7.0 L, [place] % (Auto) 12.3 H, Eos % (Auto) 0.1, Baso % (Auto) 0.1, Absolute Neuts (auto) 12.3 H, Absolute Lymphs (auto) 1.08, Total Counted Not Reportable, Differential Comment @, Diff Path Review June foll 05/22/18 06:08: Sodium 138, Potassium 4.4, Chloride 103, Carbon Dioxide 27.0, Anion Gap 8, BUN 42 H, Creatinine 1.92 H, Estim Creat Clear Calc 32.74, Est GFR (MDRD) Af Amer 44 L, Est GFR (MDRD) Non-Af 36 L, BUN/Creatinine Ratio 21.9 H, Glucose 204 H, Calcium 8.4 L 05/22/18 07:00: POC Glucose 171 H Current Medications Acetaminophen (Tylenol) 650 mg PO Q6H PRN PRN PRN Reason: Mild Pain (1-3)/Temp > 100.7 F Albuterol Sulfate (Ventolin Aerosols) 2.5 mg INHALATION Q2H PRN PRN PRN Reason: SHORTNESS OF BREATH Albuterol/Ipratropium (Duoneb) 3 ml INHALATION Q6H.[facility] Last Admin: 05/22/18 07:01 Dose: 3 ml Amiodarone HCl (Cordarone) 200 [facility] Last Admin: 05/22/18 08:06 Dose: 200 mg Apixaban (Eliquis) 5 mg PO BID [facility] Last Admin: 05/22/18 08:07 Dose: 5 mg Aspirin (Ecotrin) 81 mg [facility] Last Admin: 05/22/18 08:04 Dose: 81 mg Atorvastatin Calcium (Lipitor) 40 mg PO DAILY@2200 [facility] Dextrose (D50w Syringe) 0 gm IV X1 PRN; Protocol PRN Reason: Hypoglycemia Diltiazem HCl (Cardizem Cd) 360 mg PO DAILY [facility] Last Admin: 05/22/18 08:05 Dose: 360 mg Donepezil HCl (Aricept) 5 mg PO QHS [facility] Fenofibrate (Tricor) 145 mg PO DAILY [facility] Last Admin: 05/22/18 10:32 Dose: Not Given Glucagon () 1 mg IM .X1 PRN PRN Reason: Hypoglycemia Sodium Chloride () 1,000 mls @ 100 mls/hr IV .Q10H [facility] Stop: 05/22/18 13:22 Last Admin: 05/22/18 04:02 Dose: 100 mls/hr Azithromycin 500 mg/ Dextrose 255 mls @ 250 mls/hr IV Q24@2200 [facility] Stop: 05/23/18 23:02 Last Admin: 05/22/18 04:45 Dose: 250 mls/hr Ceftriaxone Sodium (Rocephin) 1 gm in 50 mls @ 100 mls/hr IV Q24@2200 [facility] Last Admin: 05/22/18 04:02 Dose: 100 mls/hr Insulin Glargine (Lantus (Bkc)) 8 units SC [facility] Last Admin: 05/22/18 08:05 Dose: 8 units Insulin Human Lispro (Humalog Kwikpen (Bkc)) 0 unit SQ ACHS [facility]; Protocol Last Admin: 05/22/18 07:16 Dose: 2 u Labetalol HCl (Trandate) 10 mg IV Q4H PRN PRN PRN Reason: SBP > 160 Metoprolol Succinate (Toprol Xl (Beta Jose)) 200 mg PO DAILY [facility] Last Admin: 05/22/18 08:04 Dose: 200 mg Nitroglycerin (Nitro-Dur) 0.4 mg TRANSDERM. DAILY [facility] Last Admin: 05/22/18 08:06 Dose: 0.4 mg Sodium Chloride () 5 - 15 ml IV UD PRN PRN Reason: SALINE FLUSH Zolpidem Tartrate (Ambien (Generic)) 5 mg PO QHS PRN PRN PRN Reason: INSOMNIA Medical Necessity - Tobacco Use Smoking Status: Former smoker Tobacco Use: Cigarettes Assessment/Plan All Active Problems (Last Reviewed 05/22/18 @ 03:10 by Prem Tavares MD) JESUS (acute kidney injury) (Acute) CAP (community acquired pneumonia) (Acute) Sepsis (Acute) Hypoxemia (Acute) Sepsis (Acute) Dyspnea on exertion (Acute) Abnormal stress echo (Acute) Fatigue (Acute) Atypical chest pain (Resolved) 77-year-old male with past medical history of atrial fibrillation status post cardioversion 2 days prior to admission who comes in with progressive shortness of breath and weakness. He was found to be saturating 88% on room air. 1. Acute hypoxic respiratory failure secondary to community-acquired pneumonia, patient is currently on 5 L of oxygen, Ren repeat CXR, check BNPep Will continue to wean off oxygen for SPO2 more than 94%, continue on breathing treatment 2. Sepsis secondary to community-acquired pneumonia, on IV ceftriaxone and azithromycin Leukocytosis appears to be improving, will continue to follow 3. JESUS on CKD stage III, likely secondary dehydration, patient with a baseline creatinine of 1.17, admitted with creatinine of 2.47 On IV fluids, will monitor strict I's and O's, will get kidney and bladder ultrasound 4. Chronic atrial fibrillation, in NSR, status post recent cardioversion, on amiodarone, apixaban, Cardizem, metoprolol 5. Hypertension, controlled, on Cardizem and metoprolol, continue to monitor vitals 6. Hyperlipidemia, on statin, fenofibrate 7. Type 2 DM, on Lantus, insulin sliding scale, continue Accu-Cheks with correction 8. DVT PPx - on Apixaban Code Visit Inpatient E&M: 32725 Subs Hosp L2
--- NOTE | 2018-05-22 11:17 | PN_ITS ---
Patient Problems: Active and Suspected Problems (Last Reviewed 05/22/18 @ 03:10 by Prem Tavares MD) JESUS (acute kidney injury) (Acute) CAP (community acquired pneumonia) (Acute) Sepsis (Acute) Hypoxemia (Acute) Sepsis (Acute) Subjective: Patient was seen and examined. Family at the bedside. Reports history of dementia but progressive weakness and shortness of breath since his cardioversion 3 days ago prior to admission. He denied any chest pain or fever or cough. Currently on 5 L of oxygen. No other acute events overnight. Vitals/I&O's: Vital Signs Temp Pulse Resp BP Pulse Ox 98.3 F 65 24 H 136/53 H 96 05/22/18 09:44 05/22/18 10:28 05/22/18 09:44 05/22/18 09:44 05/22/18 10:28 Oxygen Flow Rate (L/min) 2 Oxygen Delivery Method Nasal Cannula Weight: 82.4 kg Body Mass Index (BMI) 26.0 Intake and Output for Last 24 Hours 05/20/18 05/21/18 05/22/18 23:59 23:59 23:59 Intake Total 569 / 569 Balance 569 / 569 General: Alert, Oriented x3, Cooperative, No apparent distress, - - on 5L oxygen HEENT: Atraumatic, PERRLA, EOMI, Normocephalic Oral: Moist Mucosa Neck: Supple Lungs: Normal air movement, Diminished - especially in right lower lung base Cardiovascular: Regular rate, Regular Rhythm, Normal S1, Normal S2, No murmurs Abdomen: Bowel Sounds Present, Soft, Non Tender, Non-Distended, No Hepato- splenomegaly Extremities: No edema Skin: No rashes, No breakdown Musculoskeletal: No Tenderness to Palpation of Joints or Extremities Lymphatic: No Cervical, Supraclavicular, or Inguinal Adenopathy Neurological: Cranial nerves II-XII grossly intact, Neuro grossly intact Psych/Mental Status: Normal Affect, Appropriate Microbiology Past 72 Hours 05/22/18 00:40 Urine, Random Legionella Antigen - Final 05/22/18 00:40 Urine, Random Streptococcus pneumoniae Antigen (M - Final Laboratory Results 05/21/18 23:34: WBC 18.0 H, RBC 4.80, Hgb 14.3, Hct 42.7, MCV 89.0, MCH 29.8, MCHC 33.5, RDW 16.2 H, RDW Differential 52.4 H, Plt Count 199, MPV 11.8, Immature Gran % (Auto) 0.600, Neut % (Auto) 78.8 H, Lymph % (Auto) 7.3 L, [place] % (Auto) 12.9 H, Eos % (Auto) 0.2, Baso % (Auto) 0.2, Absolute Neuts (auto) 14.2 H , Absolute Lymphs (auto) 1.32, Total Counted Not Reportable, Differential Comment SCANNED, Diff Path Review June foll, Platelet Estimate ADEQUATE 05/21/18 23:34: Sodium 138, Potassium 4.6, Chloride 104, Carbon Dioxide 26.0, Anion Gap 8, BUN 52 H, Creatinine 2.47 H, Estim Creat Clear Calc 25.45, Est GFR (MDRD) Af Amer 33 L, Est GFR (MDRD) Non-Af 27 L, BUN/Creatinine Ratio 21.1 H, Glucose 198 H, Calcium 8.8, Troponin I 0.017 05/21/18 23:34: B-Natriuretic Peptide 346.2 H 05/22/18 00:40: Urine Color Yellow, Urine Clarity Sl. Cloudy, Urine pH 5.0, Ur Specific [place] 1.025, Urine Protein 30 H, Urine Glucose (UA) 250 H, Urine Ketones Negative, Urine Occult Blood 25 H, Urine Nitrite Negative, Urine Bilirubin Negative, Urine Urobilinogen Normal, Ur Leukocyte Esterase Negative, Urine RBC 0 SEEN, Urine WBC 0 SEEN, Ur Squamous Epith Cells 0 SEEN, Urine Bacteria 0 SEEN, Urine Mucus 0 SEEN 05/22/18 01:20: Lactic Acid 1.6 05/22/18 06:08: WBC 15.4 H, RBC 4.42 L, Hgb 13.2, Hct 39.7 L, MCV 89.8, MCH 29.9, MCHC 33.2, RDW 16.1 H, RDW Differential 52.2 H, Plt Count 176, MPV 11.7, Immature Gran % (Auto) 0.500, Neut % (Auto) 80.0 H, Lymph % (Auto) 7.0 L, [place] % (Auto) 12.3 H, Eos % (Auto) 0.1, Baso % (Auto) 0.1, Absolute Neuts (auto) 12.3 H , Absolute Lymphs (auto) 1.08, Total Counted Not Reportable, Differential Comment @, Diff Path Review June foll 05/22/18 06:08: Sodium 138, Potassium 4.4, Chloride 103, Carbon Dioxide 27.0, Anion Gap 8, BUN 42 H, Creatinine 1.92 H, Estim Creat Clear Calc 32.74, Est GFR (MDRD) Af Amer 44 L, Est GFR (MDRD) Non-Af 36 L, BUN/Creatinine Ratio 21.9 H, Glucose 204 H, Calcium 8.4 L 05/22/18 07:00: POC Glucose 171 H Current Medications Acetaminophen (Tylenol) 650 mg PO Q6H PRN PRN PRN Reason: Mild Pain (1-3)/Temp > 100.7 F Albuterol Sulfate (Ventolin Aerosols) 2.5 mg INHALATION Q2H PRN PRN PRN Reason: SHORTNESS OF BREATH Albuterol/Ipratropium (Duoneb) 3 ml INHALATION Q6H.RT [facility] Last Admin: 05/22/18 07:01 Dose: 3 ml [facility] Admin: 05/22/18 08:06 Dose: 200 mg Apixaban (Eliquis) 5 mg PO BID [facility] Last Admin: 05/22/18 08:07 Dose: 5 mg Aspirin (Ecotrin) [facility] Last Admin: 05/22/18 08:04 Dose: 81 mg Atorvastatin Calcium (Lipitor) 40 mg PO DAILY@2200 [facility] Dextrose (D50w Syringe) 0 gm IV X1 PRN; Protocol PRN Reason: Hypoglycemia Diltiazem HCl (Cardizem Cd) 360 mg PO DAILY [facility] Last Admin: 05/22/18 08:05 Dose: 360 mg Donepezil HCl (Aricept) 5 mg PO QHS [facility] Fenofibrate (Tricor) 145 mg PO DAILY [facility] Last Admin: 05/22/18 10:32 Dose: Not Given Glucagon () 1 mg IM .X1 PRN PRN Reason: Hypoglycemia Sodium Chloride () 1,000 mls @ 100 mls/hr IV .Q10H [facility] Stop: 05/22/18 13:22 Last Admin: 05/22/18 04:02 Dose: 100 mls/hr Azithromycin 500 mg/ Dextrose 255 mls @ 250 mls/hr IV Q24@2200 [facility] Stop: 05/23/18 23:02 Last Admin: 05/22/18 04:45 Dose: 250 mls/hr Ceftriaxone Sodium (Rocephin) 1 gm in 50 mls @ 100 mls/hr IV Q24@2200 [facility] Last Admin: 05/22/18 04:02 Dose: 100 mls/hr Insulin Glargine (Lantus (Bkc)) 8 units SC BREAKFAST [facility] Last Admin: 05/22/18 08:05 Dose: 8 units Insulin Human Lispro (Humalog Kwikpen (Bkc)) 0 unit SQ ACHS [facility]; Protocol Last Admin: 05/22/18 07:16 Dose: 2 u Labetalol HCl (Trandate) 10 mg IV Q4H PRN PRN PRN Reason: SBP > 160 Metoprolol Succinate (Toprol Xl (Beta Jose)) 200 mg PO DAILY [facility] Last Admin: 05/22/18 08:04 Dose: 200 mg Nitroglycerin (Nitro-Dur) 0.4 mg TRANSDERM. DAILY [facility] Last Admin: 05/22/18 08:06 Dose: 0.4 mg Sodium Chloride () 5 - 15 ml IV UD PRN PRN Reason: SALINE FLUSH Zolpidem Tartrate (Ambien (Generic)) 5 mg PO QHS PRN PRN PRN Reason: INSOMNIA Medical Necessity - Tobacco Use Smoking Status: Former smoker Tobacco Use: Cigarettes Assessment/Plan All Active Problems (Last Reviewed 05/22/18 @ 03:10 by Prem Tavares MD) JESUS (acute kidney injury) (Acute) CAP (community acquired pneumonia) (Acute) Sepsis (Acute) Hypoxemia (Acute) Sepsis (Acute) Dyspnea on exertion (Acute) Abnormal stress echo (Acute) Fatigue (Acute) Atypical chest pain (Resolved) 77-year-old male with past medical history of atrial fibrillation status post cardioversion 2 days prior to admission who comes in with progressive shortness of breath and weakness. He was found to be saturating 88% on room air. 1. Acute hypoxic respiratory failure secondary to community-acquired pneumonia, patient is currently on 5 L of oxygen, Ren repeat CXR, check BNPep Will continue to wean off oxygen for SPO2 more than 94%, continue on breathing treatment 2. Sepsis secondary to community-acquired pneumonia, on IV ceftriaxone and azithromycin Leukocytosis appears to be improving, will continue to follow 3. JESUS on CKD stage III, likely secondary dehydration, patient with a baseline creatinine of 1.17, admitted with creatinine of 2.47 On IV fluids, will monitor strict I's and O's, will get kidney and bladder ultrasound 4. Chronic atrial fibrillation, in NSR, status post recent cardioversion, on amiodarone, apixaban, Cardizem, metoprolol 5. Hypertension, controlled, on Cardizem and metoprolol, continue to monitor vitals 6. Hyperlipidemia, on statin, fenofibrate 7. Type 2 DM, on Lantus, insulin sliding scale, continue Accu-Cheks with correction 8. DVT PPx - on Apixaban Code Visit Inpatient E&M: 14031 Subs Hosp L2
[2018-05-22 11:55] LABS: Bedside Glucose 195 mg/dL (70-110)
[2018-05-22 12:12] LABS: BNP,B-Type NATRIURETIC PEPTIDE 439.1 pg/mL (0-100)
[2018-05-22] MEDS: Furosemide 20 MG/2 ML VIAL IV (13:16)
--- NOTE | 2018-05-22 13:46 | CASEMGMT ---
RN CM Assessment Presentation: Sepsis, pneumonia Intro role of CM and purpose of RN CM assessment to patient in room. Pt is awake, alert but hard of hearing. Questions needed to be repeated and CM not sure of reliability of answers. No family in room. Attempted to call to verify answers, no answer. PCP: Dr. Sow Preferred Pharmacy: [facility] Insurance: [facility] Prescription Benefit: yes LNOK: Mel Living Arrangements: Lives with , pt states my helps me with things. Transportation: pt states his drives. DME: undetermined HHC: undetermined DC PLAN: undetermined. PT/OT recommending more therapy @ skilled level of care. ANGELA Byrnes updated. If SNF is needed, will need set up on Thursday and precertification required. Attempted to call to discuss assessment questions-no answer. Consuelo CHESTERN RN ACM
[2018-05-22] MEDS: Glucerna Shake 120 ML LIQUID PO ×2 (16:40→21:41)
[2018-05-22 16:55] LABS: Bedside Glucose 162 mg/dL (70-110)
[2018-05-22] MEDS: 0.9% NaCl Peripheral Flush Adult/Peds IV (21:41)
[2018-05-22] MEDS: Atorvastatin Calcium 40 MG Tablet PO (21:42)
[2018-05-22] MEDS: Donepezil HCl 5 MG Tablet PO (21:42)
[2018-05-22 22:26] LABS: Bedside Glucose 176 mg/dL (70-110)
[2018-05-23] VITALS (14 sets, daily range): BP systolic 106–142; BP diastolic 60–89; PULSE 60–88; RESP 16–22; TEMP 36.8–37.2; O2SAT 92–97
[2018-05-23] MEDS: Ipratropium/Albuterol Sulfate 3 ML AMPUL.NEB INHALATION ×4 (00:59→19:53)
[2018-05-23 06:11] LABS: Anion Gap 7 (5-15); BUN 29 mg/dL (7-18); BUN/Creat Ratio 21.8 RATIO (10-20); Calcium,Total 8.5 mg/dL (8.5-10.1); Chloride 103 mmol/L (98-107); Creatinine, Serum 1.33 mg/dL (0.70-1.30); EST Glomerular Filtration Rate 55 mL/min (>60); Est Glom Filt Rate - Afr Amer 67 mL/min (>60); Estimated Creatinine Clearance 47.26 ml/min; Glucose 105 mg/dL (74-106); Potassium 3.6 mmol/L (3.5-5.1); Sodium Level 138 mmol/L (136-145)
[2018-05-23 06:46] LABS: Bedside Glucose 110 mg/dL (70-110)
[2018-05-23 06:51] LABS: Absolute Lymphocyte Count 1.21 X10^3/ul (0.83-4.51); Absolute Neutrophil Count 13.2 X10^3/uL (2.0-7.7); Basophil# 0.02 X10^3/uL; Basophil% 0.1 % (0-1); Eosinophil# 0.01 X10^3/uL; Eosinophils% 0.1 % (0-5); Hematocrit 37.9 % (40-54); Hemoglobin 12.7 g/dl (13.0-16.5); Lymphocyte # 1.21 X10^3/ul (4.0); Lymphocyte % 7.4 % (19-41); Mean Corp Hgb Conc 33.5 g/gl (32-36); Mean Corpuscular Hgb 29.5 pg (27.0-32.0); Mean Corpuscular Volume 88.1 fL (80-94); Mean Platelet Vol. 11.9 fl (6.2-12.0); Monocyte# 1.86 X10^3/uL; Monocyte% 11.3 % (0-10); Neutrophil # 13.21 X10^3/uL (2.7-7.7); Neutrophil % 80.6 % (47-70); Platelet Count 167 K/mm3 (150-450); RBC Distribution Width CV 15.9 % (11.6-14.6); RBC Distribution Width SD 50.4 fl (35.1-43.9); White Blood Count 16.4 K/mm3 (4.4-11.0)
[2018-05-23 06:54] LABS: Differential Indicated SCAN CRITERIA MET; POSITIVE COUNT NO; POSITIVE DIFFERENTIAL YES; POSITIVE MORPHOLOGY NO
--- NOTE | 2018-05-23 07:33 | PN_ITS ---
Patient Problems: Active and Suspected Problems (Last Reviewed 05/22/18 @ 03:10 by Prem Tavares MD) JESUS (acute kidney injury) (Acute) CAP (community acquired pneumonia) (Acute) Sepsis (Acute) Hypoxemia (Acute) Sepsis (Acute) Subjective: Patient was seen and examined. Appears improved. Denies any fever or chills. No events overnight Objective: Physical exam: General: Alert, Oriented x3, Cooperative, No apparent distress, - - on 3L oxygen HEENT: Atraumatic, PERRLA, EOMI, Normocephalic Oral: Moist Mucosa Neck: Supple Lungs: Normal air movement, Diminished - especially in right lower lung base Cardiovascular: irregular Rhythm, Normal S1, Normal S2, 2/6 holosystolic left sternal border murmur Abdomen: Bowel Sounds Present, Soft, Non Tender, Non-Distended, No Hepato- splenomegaly Extremities: No edema Skin: No rashes, No breakdown Musculoskeletal: No Tenderness to Palpation of Joints or Extremities Lymphatic: No Cervical, Supraclavicular, or Inguinal Adenopathy Neurological: Cranial nerves II-XII grossly intact, Neuro grossly intact Psych/Mental Status: Normal Affect, Appropriate Vitals/I&O's: Vital Signs Temp Pulse Resp BP Pulse Ox 98.9 F 64 16 121/60 H 96 05/23/18 01:57 05/23/18 07:12 05/23/18 07:12 05/23/18 01:57 05/23/18 07:12 Oxygen Flow Rate (L/min) 3 Oxygen Delivery Method Nasal Cannula Weight: 82.4 kg Body Mass Index (BMI) 26.0 Intake and Output for Last 24 Hours 05/21/18 05/22/18 05/23/18 23:59 23:59 23:59 Intake Total 1615 / 1615 Output Total 1425 / 1425 400 / 400 Balance 190 / 190 -400 / -400 Microbiology Past 72 Hours 05/22/18 00:40 Urine, Random Legionella Antigen - Final 05/22/18 00:40 Urine, Random Streptococcus pneumoniae Antigen (M - Final Laboratory Results 05/22/18 06:08: Total Counted Not Reportable, Differential Comment @, Diff Path Review June05/22/18 06:08: B-Natriuretic Peptide 439.1 H 05/22/18 11:46: POC Glucose 195 H 05/22/18 16:41: POC Glucose 162 H 05/22/18 21:40: POC Glucose 176 H 05/23/18 04:40: WBC 16.4 H, RBC 4.30 L, Hgb 12.7 L, Hct 37.9 L, MCV 88.1, MCH 29.5, MCHC 33.5, RDW 15.9 H, RDW Differential 50.4 H, Plt Count 167, MPV 11.9, Immature Gran % (Auto) 0.500, Neut % (Auto) 80.6 H, Lymph % (Auto) 7.4 L, [place] % (Auto) 11.3 H, Eos % (Auto) 0.1, Baso % (Auto) 0.1, Absolute Neuts (auto) 13.2 H , Absolute Lymphs (auto) 1.21, Total Counted Not Reportable, Differential Comment , Diff Path Review June05/23/18 04:40: Sodium 138, Potassium 3.6, Chloride 103, Carbon Dioxide 28.0, Anion Gap 7, BUN 29 H, Creatinine 1.33 H, Estim Creat Clear Calc 47.26, Est GFR (MDRD) Af Amer 67, Est GFR (MDRD) Non-Af 55 L, BUN/Creatinine Ratio 21.8 H, Glucose 105, Calcium 8.5 05/23/18 06:40: POC Glucose 110 Current Medications Acetaminophen (Tylenol) 650 mg PO Q6H PRN PRN PRN Reason: Mild Pain (1-3)/Temp > 100.7 F Albuterol Sulfate (Ventolin Aerosols) 2.5 mg INHALATION Q2H PRN PRN PRN Reason: SHORTNESS OF BREATH Albuterol/Ipratropium (Duoneb) 3 ml INHALATION Q6H.RT [facility] Last Admin: 05/23/18 07:11 Dose: 3 ml [facility]iod[facility] ([facility]) [facility] Last Admin: 05/22/18 08:06 Dose: 200 mg Apixaban (Eliquis) 5 mg PO BID [facility] Last Admin: 05/22/18 21:42 Dose: 5 mg Aspirin (Ecotrin) 81 mg PO DAILYCM [facility] Last Admin: 05/22/18 08:04 Dose: 81 mg Atorvastatin Calcium (Lipitor) 40 mg PO DAILY@2200 [facility] Last Admin: 05/22/18 21:42 Dose: 40 mg Dextrose (D50w Syringe) 0 gm IV X1 PRN; Protocol PRN Reason: Hypoglycemia Diltiazem HCl (Cardizem Cd) 360 mg PO DAILY [facility] Last Admin: 05/22/18 08:05 Dose: 360 mg Donepezil HCl (Aricept) 5 mg PO QHS [facility] Last Admin: 05/22/18 21:42 Dose: 5 mg Fenofibrate (Tricor) 145 mg PO DAILY [facility] Last Admin: 05/22/18 10:32 Dose: Not Given Glucagon () 1 mg IM .X1 PRN PRN Reason: Hypoglycemia Azithromycin 500 mg/ Dextrose 255 mls @ 250 mls/hr IV Q24@2200 [facility] Stop: 05/23/18 23:02 Last Admin: 05/22/18 22:29 Dose: 250 mls/hr Ceftriaxone Sodium (Rocephin) 1 gm in 50 mls @ 100 mls/hr IV Q24@2200 [facility] Last Admin: 05/22/18 21:40 Dose: 100 mls/hr Insulin Glargine (Lantus (Bkc)) 8 units SC BREAKFAST [facility] Last Admin: 05/22/18 08:05 Dose: 8 units Insulin Human Lispro (Humalog Kwikpen (Bkc)) 0 unit SQ ACHS [facility]; Protocol Last Admin: 05/23/18 06:42 Dose: Not Given Labetalol HCl (Trandate) 10 mg IV Q4H PRN PRN PRN Reason: SBP > 160 Metoprolol Succinate (Toprol Xl (Beta Jose)) 200 mg PO DAILY [facility] Last Admin: 05/22/18 08:04 Dose: 200 mg Nitroglycerin (Nitro-Dur) 0.4 mg TRANSDERM. DAILY [facility] Last Admin: 05/22/18 08:06 Dose: 0.4 mg Nutritional Formula (Lactose Free) (Glucerna Shake) 120 ml PO 4X/DAY [facility] Last Admin: 05/22/18 21:41 Dose: 120 ml Sodium Chloride () 5 - 15 ml IV UD PRN PRN Reason: SALINE FLUSH Last Admin: 05/22/18 21:41 Dose: 15 ml Zolpidem Tartrate (Ambien (Generic)) 5 mg PO QHS PRN PRN PRN Reason: INSOMNIA Medical Necessity - Tobacco Use Smoking Status: Former smoker Tobacco Use: Cigarettes Assessment/Plan All Active Problems (Last Reviewed 05/22/18 @ 03:10 by Prem Tavares MD) JESUS (acute kidney injury) (Acute) CAP (community acquired pneumonia) (Acute) Sepsis (Acute) Hypoxemia (Acute) Sepsis (Acute) Dyspnea on exertion (Acute) Abnormal stress echo (Acute) Fatigue (Acute) Atypical chest pain (Resolved) 77-year-old male with past medical history of atrial fibrillation status post cardioversion 2 days prior to admission who comes in with progressive shortness of breath and weakness. He was found to be saturating 88% on room air. 1. Acute hypoxic respiratory failure secondary to community-acquired pneumonia, possible acute diastolic CHF, POA, improving Currently on 3 L of oxygen, admitting chest x-ray showed patchy pneumonia BN pep on admission and subsequently was elevated, patient appears improved after receiving IV Lasix x1 We will continue with Lasix 20 mg p.o. daily, continue to wean off oxygen for SPO2 more than 94%, continue on breathing treatments 2. Sepsis secondary to community-acquired pneumonia, on IV ceftriaxone and azithromycin(day3) 3. JESUS on CKD stage III, likely secondary dehydration, improving, creatinine now 1.33, patient with a baseline creatinine of 1.17, admitted with creatinine of 2.47 Kidney ultrasound shows medical renal disease, continue to trend BMP 4. Chronic atrial fibrillation, in NSR, status post recent cardioversion, on amiodarone, apixaban, Cardizem, metoprolol 5. Hypertension, controlled, on Cardizem and metoprolol, continue to monitor vitals 6. Hyperlipidemia, on statin, fenofibrate 7. Type 2 DM, on Lantus, insulin sliding scale, continue Accu-Cheks with correction 8. DVT PPx - on Apixaban Code Visit Inpatient E&M: 73522 Subs Hosp L2
[2018-05-23] MEDS: Glucerna Shake 120 ML LIQUID PO ×3 (08:26→21:21)
[2018-05-23] MEDS: dilTIAZem CD 180 MG Capsule 360 MG PO (08:26)
[2018-05-23] MEDS: Aspirin E.C. 81 MG Tablet PO (08:26)
[2018-05-23] MEDS: APIXABAN 5 MG TABLET PO ×2 (08:26→21:22)
[2018-05-23] MEDS: Amiodarone 200 MG Tablet PO (08:27)
[2018-05-23] MEDS: Metoprolol(XL)Succ 200 MG Tablet PO (08:27)
[2018-05-23] MEDS: Fenofibrate 145 MG Tablet PO (08:30)
[2018-05-23] MEDS: Insulin Lispro 100 UNIT/ML INSULN.PEN SQ ×3 (11:22→21:22)
[2018-05-23 11:26] LABS: Bedside Glucose 211 mg/dL (70-110)
[2018-05-23] MEDS: Furosemide 20 MG Tablet PO (14:13)
--- NOTE | 2018-05-23 14:41 | NURSING ---
spo2 86% on RA while asleep, discussed w/ primary RN, 1lnc reapplied, cspo2 maintained.
[2018-05-23 17:00] LABS: Bedside Glucose 184 mg/dL (70-110)
--- NOTE | 2018-05-23 19:59 | EKG12_ITS ---
Test Reason : AFIB Blood Pressure : / mmHG Vent. Rate : 076 BPM Atrial Rate : 375 BPM P-R Int : 000 ms QRS Dur : 092 ms QT Int : 440 ms P-R-T Axes : 000 072 059 degrees QTc Int : 495 ms Atrial fibrillation Prolonged QT Abnormal ECG No previous ECGs available Confirmed by RINA VILLASEÑOR, DARWIN ([id number]), slot editor ARA GONZALEZ ([id number]) on 05/24/2018 1:30:56 PM Referred By: Javed Arvizu Confirmed By:DARWIN FLYNN MD
[2018-05-23] MEDS: Atorvastatin Calcium 40 MG Tablet PO (21:22)
[2018-05-23] MEDS: Donepezil HCl 5 MG Tablet PO (21:22)
[2018-05-23] MEDS: 0.9% NaCl Peripheral Flush Adult/Peds IV (21:23)
[2018-05-23] MEDS: Ceftriaxone 1 GM/50 ML BAG IV (21:23)
[2018-05-23 23:00] LABS: Bedside Glucose 164 mg/dL (70-110)
[2018-05-24] VITALS (9 sets, daily range): BP systolic 126–137; BP diastolic 71–78; PULSE 77–102; RESP 16–22; TEMP 36.8–36.9; O2SAT 86–96
[2018-05-24] MEDS: Ipratropium/Albuterol Sulfate 3 ML AMPUL.NEB INHALATION ×2 (00:48→07:15)
[2018-05-24 06:06] LABS: Absolute Lymphocyte Count 1.28 X10^3/ul (0.83-4.51); Absolute Neutrophil Count 8.4 X10^3/uL (2.0-7.7); Basophil# 0.03 X10^3/uL; Basophil% 0.3 % (0-1); Eosinophil# 0.07 X10^3/uL; Eosinophils% 0.6 % (0-5); Hematocrit 39.4 % (40-54); Hemoglobin 13.1 g/dl (13.0-16.5); Lymphocyte # 1.28 X10^3/ul (4.0); Lymphocyte % 11.6 % (19-41); Mean Corp Hgb Conc 33.2 g/gl (32-36); Mean Corpuscular Hgb 29.5 pg (27.0-32.0); Mean Corpuscular Volume 88.7 fL (80-94); Mean Platelet Vol. 11.4 fl (6.2-12.0); Monocyte# 1.24 X10^3/uL; Monocyte% 11.3 % (0-10); Neutrophil # 8.36 X10^3/uL (2.7-7.7); Neutrophil % 75.9 % (47-70); Platelet Count 189 K/mm3 (150-450); RBC Distribution Width CV 15.7 % (11.6-14.6); Red Blood Count 4.44 M/mm3 (4.6-6.2)
[2018-05-24 06:11] LABS: POSITIVE COUNT NO; POSITIVE DIFFERENTIAL NO; POSITIVE MORPHOLOGY NO
[2018-05-24 06:15] LABS: Anion Gap 8 (5-15); BUN 19 mg/dL (7-18); BUN/Creat Ratio 18.6 RATIO (10-20); Calcium,Total 8.5 mg/dL (8.5-10.1); Chloride 105 mmol/L (98-107); Creatinine, Serum 1.02 mg/dL (0.70-1.30); EST Glomerular Filtration Rate 75 mL/min (>60); Est Glom Filt Rate - Afr Amer 91 mL/min (>60); Estimated Creatinine Clearance 61.63 ml/min; Glucose 106 mg/dL (74-106); Potassium 3.2 mmol/L (3.5-5.1); Sodium Level 140 mmol/L (136-145)
[2018-05-24 06:45] LABS: Bedside Glucose 103 mg/dL (70-110)
--- NOTE | 2018-05-24 08:30 | DS.PCM_ITS ---
Discharge Date and Diagnosis - Problem List Patient Problems: Active and Suspected Problems (Last Reviewed 05/22/18 @ 03:10 by Prem Tavares MD) JESUS (acute kidney injury) (Acute) CAP (community acquired pneumonia) (Acute) Sepsis (Acute) Hypoxemia (Acute) Sepsis (Acute) Date of Admission: 05/22/18 Date of Discharge: 05/24/18 - Primary Discharge Diagnosis Active and Suspected Problems (Last Reviewed 05/22/18 @ 03:10 by Prem Tavares MD) JESUS (acute kidney injury) (Acute) CAP (community acquired pneumonia) (Acute) Sepsis (Acute) Hypoxemia (Acute) Sepsis (Acute) - Secondary Discharge Diagnosis Chronic Problems (Last Reviewed 05/22/18 @ 03:10 by Prem Tavares MD) History of cardioversion (Chronic 05/19/18) History of right and left heart catheterization (Chronic 03/10/18) Nonobstructive coronary arteries, mild pulmonary hypertension, mild aortic stenosis, mildly elevated right heart pressures, EF 55-60% per Dr. Arvizu @ [facility] Secondary pulmonary hypertension (Chronic) RVSP 51 mmhg, EF 55% per echo 07/21 2013 done @ [facility] Nonrheumatic aortic valve regurgitation (Chronic) Mild (1+) per echo 07/21/2013 done @ [facility] Nonrheumatic tricuspid valve regurgitation (Chronic) Moderate (2+) per echo 07/21/2013 done @ [facility] Nonrheumatic mitral valve regurgitation (Chronic) mild (1+) per echo 07/21/2013 done @ [facility] History of TIA (transient ischemic attack) (Chronic) Leg edema (Chronic) Atrial fibrillation (Chronic) Diabetes mellitus, type II (Chronic) Hyperlipidemia (Chronic) Hypertension (Chronic) Hospital Course and Treatment Summary of Care Provided: The patient is a 77 year old M who presented to the emergency department with progressive shortness of breath 1. Acute hypoxic respiratory failure secondary to community-acquired pneumonia. Patient was placed on a monitored bed managed with Rocephin and Zithromax as well as supplemental oxygen titrated to keep oxygen saturation greater than 90. Patient condition did improve discharged home on cefdinir for 7 more days. Patient was assessed for home oxygen prior to his discharge; patient did qualify for home oxygen. Patient would need portability since he is mobile both at home as well as in the community 2. Sepsis secondary to community-acquired pneumonia management as discussed above 3. Acute kidney injury attributed to dehydration as well as possible ATN from sepsis patient admitted with creatinine of 2.47 had improved at the time of discharge patient was on losartan and HCTZ discontinued 4. Chronic diastolic congestive heart failure stable 5. Chronic A. fib status post cardioversion 2 days prior to this admission patient went back into A. fib during his hospital stay 6. Hypertension-blood pressure controlled, home medications continued with dose adjustment as needed 7. Diabetes mellitus type II: Controlled/uncontrolled, patient's oral hypoglycemics held. Placed on long acting insulin, Accu-Cheks a.c. and at bedtime and covered with sliding scale insulin 8. Dyslipidemia patient was on both statin therapy as well as fenofibrate fenofibrate was discontinued in view of his impaired kidney function 9. DVT prophylaxis on Eliquis Patient Problems: Active and Suspected Problems (Last Reviewed 05/22/18 @ 03:10 by Prem Tavares MD) JESUS (acute kidney injury) (Acute) CAP (community acquired pneumonia) (Acute) Sepsis (Acute) Hypoxemia (Acute) Sepsis (Acute) Objective: GENERAL: cooperative HEENT: Atraumatic; moist oral mucosa EYES; Anicteric, Normal Conjunctiva NECK; supple, normal thyroid, no distended JVD. RESPIRATORY: Diminished to auscultation bilaterally, GI: soft, non-tender, normoactive bowel sounds, : No Renal angle tenderness; PSYCH; Normal affect - Physical Exam Vital Signs Temp Pulse Resp BP Pulse Ox 98.3 F 94 16 137/78 H 93 05/24/18 02:15 05/24/18 07:15 05/24/18 07:15 05/24/18 02:15 05/24/18 07:15 Oxygen Flow Rate (L/min) 1 Oxygen Delivery Method Nasal Cannula Weight: 82.4 kg Body Mass Index (BMI) 26.0 Intake and Output for Last 24 Hours 05/22/18 05/23/18 05/24/18 23:59 23:59 23:59 Intake Total 1615 / 1615 960 / 960 Output Total 1425 / 1425 1100 / 1100 400 / 400 Balance 190 / 190 -140 / -140 -400 / -400 Microbiology Past 72 Hours 05/22/18 00:40 Legionella Antigen - Final Urine, Random 05/22/18 00:40 Streptococcus pneumoniae Antigen (M - Final Urine, Random Laboratory Tests Past 24 Hrs 05/24/18 05/24/18 05:25 05:25 WBC 11.0 RBC 4.44 L Hgb 13.1 Hct 39.4 L MCV 88.7 MCH 29.5 MCHC 33.2 RDW 15.7 H RDW Differential 51.0 H Plt Count 189 MPV 11.4 Immature Gran % (Auto) 0.300 Neut % (Auto) 75.9 H Lymph % (Auto) 11.6 L [place] % (Auto) 11.3 H Eos % (Auto) 0.6 Baso % (Auto) 0.3 Absolute Neuts (auto) 8.4 H Absolute Lymphs (auto) 1.28 Total Counted Not Reportable Sodium 140 Potassium 3.2 L Chloride 105 Carbon Dioxide 27.0 Anion Gap 8 BUN 19 H Creatinine 1.02 Estim Creat Clear Calc 61.63 Est GFR (MDRD) Af Amer 91 Est GFR (MDRD) Non-Af 75 BUN/Creatinine Ratio 18.6 Glucose 106 Calcium 8.5 POC Glucose 05/24/18 05/23/18 05/23/18 06:41 21:19 16:48 POC Glucose 103 164 H 184 H 05/23/18 11:19 POC Glucose 211 H Discharge Diet: 1800 Calorie Control Diet Discharge Activity: Return to Normal Activity Home Medications: Medications to take at Discharge albuterol sulfate HFA 90 mcg/actuation aerosol inhaler 2 puff INHALATION Q4H PRN g 01/18/18 diltiazem CD 360 mg capsule,extended release 24 hr 360 mg PO DAILY 01/18/18 donepezil 5 mg tablet 5 mg PO QHS tab 01/18/18 nitroglycerin 0.4 mg/hr transdermal 24 hour patch 1 patch TRANSDERMAL DAILY 01/18/18 rosuvastatin 20 mg tablet 20 mg PO DAILY 01/18/18 sitagliptin 50 mg-metformin 500 mg tablet 1 tab PO BID 01/18/18 metoprolol succinate ER 100 mg tablet,extended release 24 hr 200 mg PO DAILY tab 01/19/18 Aspirin [Low Dose Aspirin EC] 81 mg PO DAILY 03/10/18 amiodarone 200 mg tablet 200 mg PO DAILY #30 tab 03/12/18 apixaban 5 mg tablet 5 mg PO BID #60 tab 04/12/18 Cefdinir [Omnicef [equiv]] 300 mg PO Q12H #14 capsule 05/24/18 Following Prescrptions Were Given to Patient: Cefdinir [Omnicef [equiv]] 300 mg PO Q12H #14 capsule Primary Care Physician: Johanny Sow DO [Primary Care Provider] - Please follow up with your Primary Care Physician in: in 5-7 days Disposition: Home Minutes spent on discharge:: 35 Patient Condition:: Stable Medical Necessity - Tobacco Use Smoking Status: Former smoker Tobacco Use: Cigarettes Meaningful Use Info Meaningful Use Diagnoses (Choose all that apply): None applicable Code Visit Inpatient E&M: 91358 Disch Hosp
--- NOTE | 2018-05-24 08:31 | DCINST_ITS ---
- Discharge Diagnoses Current Active Problems: Current Active and Chronic Problems (Last Reviewed 05/22/18 @ 03:10 by Prem Tavares MD) JESUS (acute kidney injury) (Acute) CAP (community acquired pneumonia) (Acute) Sepsis (Acute) Hypoxemia (Acute) Sepsis (Acute) You will use the following diet at home:: Calorie/Carbohydrate Controlled (specify 1200, 1400, etc) - 1800 Discharge Activity: Return to Normal Activity Allergies/Adverse Reactions: Allergies No Known Allergies Allergy (Verified 05/21/18 23:11) Medications to take at Discharge albuterol sulfate HFA 90 mcg/actuation aerosol inhaler 2 puff INHALATION Q4H PRN g 01/18/18 diltiazem CD 360 mg capsule,extended release 24 hr 360 mg PO DAILY 01/18/18 donepezil 5 mg tablet 5 mg PO QHS tab 01/18/18 fenofibrate micronized 130 mg capsule 130 mg PO DAILY 01/18/18 nitroglycerin 0.4 mg/hr transdermal 24 hour patch 1 patch TRANSDERMAL DAILY 01/18/18 rosuvastatin 20 mg tablet 20 mg PO DAILY 01/18/18 sitagliptin 50 mg-metformin 500 mg tablet 1 tab PO BID 01/18/18 metoprolol succinate ER 100 mg tablet,extended release 24 hr 200 mg PO DAILY tab 01/19/18 Aspirin [Low Dose Aspirin EC] 81 mg PO DAILY 03/10/18 amiodarone 200 mg tablet 200 mg PO DAILY #30 tab 03/12/18 losartan 50 mg-hydrochlorothiazide 12.5 mg tablet 1 tab PO DAILY #30 tab 03/12/18 potassium chloride ER 20 mEq tablet,extended release 20 meq PO DAILY #30 tab 04/05/18 apixaban 5 mg tablet 5 mg PO BID #60 tab 04/12/18 Cefdinir [Omnicef [equiv]] 300 mg PO Q12H #14 capsule 05/24/18 The following prescriptions were given: Cefdinir [Omnicef [equiv]] 300 mg PO Q12H #14 capsule Primary Care Physician: Johanny Sow DO [Primary Care Provider] - Please follow up with your Primary Care Physician in: in 5-7 days Test Results: Test results from this visit will be discussed in further detail at your follow- up appointment, if applicable. Proposed Discharge Date: 05/24/18
--- NOTE | 2018-05-24 08:34 | DCINST_ITS ---
- Discharge Diagnoses Current Active Problems: Current Active and Chronic Problems (Last Reviewed 05/22/18 @ 03:10 by Prem Tavares MD) JESUS (acute kidney injury) (Acute) CAP (community acquired pneumonia) (Acute) Sepsis (Acute) Hypoxemia (Acute) Sepsis (Acute) Discharge Activity: Return to Normal Activity Allergies/Adverse Reactions: Allergies No Known Allergies Allergy (Verified 05/21/18 23:11) Medications to take at Discharge albuterol sulfate HFA 90 mcg/actuation aerosol inhaler 2 puff INHALATION Q4H PRN g 01/18/18 diltiazem CD 360 mg capsule,extended release 24 hr 360 mg PO DAILY 01/18/18 donepezil 5 mg tablet 5 mg PO QHS tab 01/18/18 nitroglycerin 0.4 mg/hr transdermal 24 hour patch 1 patch TRANSDERMAL DAILY 01/18/18 rosuvastatin 20 mg tablet 20 mg PO DAILY 01/18/18 sitagliptin 50 mg-metformin 500 mg tablet 1 tab PO BID 01/18/18 metoprolol succinate ER 100 mg tablet,extended release 24 hr 200 mg PO DAILY tab 01/19/18 Aspirin [Low Dose Aspirin EC] 81 mg PO DAILY 03/10/18 amiodarone 200 mg tablet 200 mg PO DAILY #30 tab 03/12/18 apixaban 5 mg tablet 5 mg PO BID #60 tab 04/12/18 Cefdinir [Omnicef [equiv]] 300 mg PO Q12H #14 capsule 05/24/18 The following prescriptions were given: Cefdinir [Omnicef [equiv]] 300 mg PO Q12H #14 capsule Primary Care Physician: Johanny Sow DO [Primary Care Provider] - Please follow up with your Primary Care Physician in: in 5-7 days Test Results: Test results from this visit will be discussed in further detail at your follow- up appointment, if applicable. Proposed Discharge Date: 05/24/18
[2018-05-24] MEDS: Aspirin E.C. 81 MG Tablet PO (10:22)
[2018-05-24] MEDS: dilTIAZem CD 180 MG Capsule 360 MG PO (10:22)
[2018-05-24] MEDS: Fenofibrate 145 MG Tablet PO (10:22)
[2018-05-24] MEDS: Amiodarone 200 MG Tablet PO (10:23)
[2018-05-24] MEDS: Furosemide 20 MG Tablet PO (10:25)
[2018-05-24] MEDS: APIXABAN 5 MG TABLET PO (10:28)
[2018-05-24] MEDS: Glucerna Shake 120 ML LIQUID PO (10:29)
[2018-05-24] MEDS: Metoprolol(XL)Succ 200 MG Tablet PO (11:08)
[2018-05-24] MEDS: Insulin Lispro 100 UNIT/ML INSULN.PEN SQ (11:23)
[2018-05-24 11:30] LABS: Bedside Glucose 254 mg/dL (70-110)
--- NOTE | 2018-05-24 11:30 | CASEMGMT ---
EMILIE LAURENT updated that patient qualifies for home oxygen. EMILIE LAURENT in to speak with patient and family regarding oxygen setup. Patient agreeable to [employer]. EMILIE LAURENT [place] [facility] [place] EMILIE LAURNET arranged for oxyen to be delivered to patient's room prior to discharge.
--- NOTE | 2018-05-24 11:45 | CASEMGMT ---
Patient and family denied need for HHC at discharge.
--- NOTE | 2018-05-25 09:10 | CASEMGMT ---
EMILIE LAURENT Discharge Follow-up Phone Call: DARIANAAlice: William Strata: 3 Call Date: 05/25/18 Discharge Date: 05/24/18 Time of Call: 0910 Duration: 5 min Admitting Diagnosis: Sepsis secondary to CAP RN CM received phone call from Sulema [place] [facility] [place] never called them to setup home concentrator. Sulema called and spoke with daughter who stated that they bought a pulse oximeter and that patient has been doing fine without oxygen and CM stated that if he was above 90 he didn't need it. This RN CM told Sulema at [facility] that this RN CM informed patient and daughter that after a few weeks, if patient was doing better that they could purchase a pulse oximeter and follow up with PCP to see if it was okay to discontinue the home oxygen. RN CM informed Sulema that she would call the family. RN CM called patient's home number and answered. stated that the patient was doing better and felt he didn't need oxygen since his SPO2 was above 90%. RN CM encourage to have [facility] deliver the home oxygen should the patient become SOB and need oxygen and also to prevent the patient needed to return to hospital. agreed to updating [facility] to [place] oxygen. denied further questions or concerns at this time. was aware of follow-up appt with PCP on 05/31/18. RN CM called Sulema at [facility] the was available at home phone number and agreed to delivery of home oxygen. Sulema said she would follow-up with and patient.
[2018-05-25 12:14] LABS: Pathologist Review Reviewed
[2018-05-25 12:21] LABS: Pathologist Review Reviewed
[2018-05-25 12:23] LABS: Pathologist Review Reviewed
== END 2018-05-24 13:25 | disposition home or self-care (01) | DRG 871 ==
LOC: ED 05-22 01:14 → MS3 05-22 02:27
PROVIDERS: Internal Medicine; Admitting Provider Hospitalist; Emergency Provider Emergency Medicine; Family Provider Family Medicine; PCP Family Medicine; Visit Provider Internal Medicine
DX: A41.9 Sepsis, unspecified organism (principal); J18.9 Pneumonia, unspecified organism; J96.01 Acute respiratory failure with hypoxia; N17.9 Acute kidney failure, unspecified; I50.32 Chronic diastolic (congestive) heart failure; I48.1 Persistent atrial fibrillation; E78.5 Hyperlipidemia, unspecified; F03.90 Unspecified dementia, unspecified severity, without behavioral disturbance, psychotic disturbance, mood disturbance, and anxiety; I48.2 Chronic atrial fibrillation; I27.20 Pulmonary hypertension, unspecified; I11.0 Hypertensive heart disease with heart failure; Z87.891 Personal history of nicotine dependence; E11.9 Type 2 diabetes mellitus without complications; Z79.01 Long term (current) use of anticoagulants; Z79.84 Long term (current) use of oral hypoglycemic drugs; E86.0 Dehydration; I08.3 Combined rheumatic disorders of mitral, aortic and tricuspid valves; Z86.73 Personal history of transient ischemic attack (TIA), and cerebral infarction without residual deficits; Z79.899 Other long term (current) drug therapy; Z79.82 Long term (current) use of aspirin
CPT/HCPCS: 36415; 71045; 71046; 76770; 80048; 81001; 82962; 83605; 83880; 84484; 85025; 87040; 87449; 92960; 93005; 94640; 94667; 94668; 94762; 97110; 97162; 97166; 97530; 99284; J7030; J7040; A4216; J1940

== ENCOUNTER 2018-07-16 03:02 | Inpatient (IN) | payer MEDICARE, SELFPAY ==
[2018-05-22 03:25] VITALS: BMI 26.0
[2018-07-16] VITALS (22 sets, daily range): BP systolic 136–177; BP diastolic 47–73; PULSE 48–88; RESP 18–31; TEMP 36.1–36.8; O2SAT 85–97; BMI 27.7; BMI 26.8
--- NOTE | 2018-07-16 03:11 | EKG12_ITS ---
Test Reason : Blood Pressure : / mmHG Vent. Rate : 050 BPM Atrial Rate : 050 BPM P-R Int : 168 ms QRS Dur : 090 ms QT Int : 508 ms P-R-T Axes : 064 079 070 degrees QTc Int : 463 ms Sinus bradycardia Nonspecific ST abnormality Abnormal ECG Confirmed by ERICA VILLASEÑOR, NEFTALI ([id number]), greeting card editor LINDA CURTIS ([id number]) on 07/19/2018 1:31:25 PM Referred By: Confirmed By:NEFTALI MALDONADO MD
--- NOTE | 2018-07-16 03:15 | RAD_ITS ---
STUDY: X-RAY CHEST REASON FOR EXAM: Male, 77 years old. Dyspnea TECHNIQUE: Single AP portable view of the chest. COMPARISON: None. FINDINGS: Increased perihilar interstitial markings are noted may represent mild pulmonary edema. There is no demonstrated pleural abnormality. Normal size heart. Normal mediastinum and paco. Normal visualized pulmonary arteries. Normal visualized aortic arch and descending thoracic aorta. There are diffuse degenerative changes of the visualized thoracic spine. There is degenerative osteoarthritis of the bilateral shoulders. There is no demonstrated abnormality of the visualized soft tissue structures of the upper abdomen. RAD/Chest 1 View (Portable) IMPRESSION: Possible mild pulmonary edema. Electronically Signed: Magda Vallejo, at 4:11 EDT Tel , Service support ,
[2018-07-16 03:28] LABS: Absolute Lymphocyte Count 2.15 X10^3/ul (0.83-4.51); Absolute Neutrophil Count 20.1 X10^3/uL (2.0-7.7); Basophil# 0.05 X10^3/uL; Basophil% 0.2 % (0-1); Eosinophil# 0.15 X10^3/uL; Eosinophils% 0.6 % (0-5); Hematocrit 41.4 % (40-54); Hemoglobin 13.2 g/dl (13.0-16.5); Lymphocyte # 2.15 X10^3/ul (4.0); Lymphocyte % 8.7 % (19-41); Mean Corp Hgb Conc 31.9 g/gl (32-36); Mean Corpuscular Hgb 27.9 pg (27.0-32.0); Mean Corpuscular Volume 87.5 fL (80-94); Mean Platelet Vol. 11.5 fl (6.2-12.0); Monocyte% 8.5 % (0-10); Neutrophil % 81.6 % (47-70); Platelet Count 293 K/mm3 (150-450); RBC Distribution Width SD 50.9 fl (35.1-43.9); Red Blood Count 4.73 M/mm3 (4.6-6.2); White Blood Count 24.7 K/mm3 (4.4-11.0)
[2018-07-16 03:29] LABS: Differential Indicated SCAN CRITERIA MET; POSITIVE COUNT NO; POSITIVE DIFFERENTIAL YES; POSITIVE MORPHOLOGY NO
--- NOTE | 2018-07-16 03:31 | ED.DCSUM_ITS ---
- ER Visit Summary Date of Service: 07/16/18 Chief Complaint: Shortness of breath History of Present Illness: The patient is a 77 M presenting with shortness of breath. He states this started yesterday and progressively worsened. Around midnight he became extremely short of breath. He has had weakness and fatigue throughout the day. He has had intermittent chest pain. Currently denies chest pain. His pulse ox at home was 88% on room air. He does not wear home O2. He had an admission in May for community acquired pneumonia. Physical Examination: Vitals are stable. Patient is afebrile. Alert no acute distress. Pulse ox 91% on Ventimask HEENT exam is unremarkable. Neck is supple. Lungs are diminished and wheezing bilaterally. Heart is regular and bradycardic Abdomen is soft nontender nondistended. Extremities are unremarkable. Skin is warm and dry. No focal neurologic deficit. Remainder of exam is unremarkable. Emergency Department Course and Treatment: Patient was given albuterol, Atrovent aerosols. EKG is sinus bradycardia rate of 50. CBC shows white count 24.7. Chemistries show glucose 196, BUN 33, creatinine 1.41. Troponin negative. Lactic acid 2.1. Urinalysis pending. Blood cultures were sent. Chest xray shows possible mild pulmonary edema. He was given albuterol Atrovent aerosols. He was given Zosyn, Vancomycin IV. Discussed with the hospitalist for admission. Disposition: Admission Impression: Health care acquired pneumonia, severe sepsis This note was generated with 66. com dictation software. It may contain incorrect words, spelling, and punctuation that were not noted in review of the chart prior to signing ED Disposition - Plan for ED Patient: Referrals: Johanny Sow DO [Primary Care Provider] -
[2018-07-16 03:34] LABS: Anion Gap 10 (5-15); BUN 33 mg/dL (7-18); BUN/Creat Ratio 23.4 RATIO (10-20); Chloride 108 mmol/L (98-107); Creatinine, Serum 1.41 mg/dL (0.70-1.30); EST Glomerular Filtration Rate 52 mL/min (>60); Est Glom Filt Rate - Afr Amer 62 mL/min (>60); Estimated Creatinine Clearance 44.58 ml/min; Glucose 196 mg/dL (74-106); Potassium 4.9 mmol/L (3.5-5.1); Sodium Level 140 mmol/L (136-145)
[2018-07-16] MEDS: Ipratropium/Albuterol Sulfate 3 ML AMPUL.NEB INHALATION ×4 (03:41→18:58)
[2018-07-16] MEDS: Albuterol 2.5 MG/3 ML VIAL.NEB. INHALATION ×2 (03:41)
[2018-07-16 03:57] LABS: Differential Comment SCANNED
[2018-07-16 04:00] LABS: Lactic Acid 2.1 mmol/L (0.4-2.0)
--- NOTE | 2018-07-16 04:03 | ED.RN ---
LACTIC ACID 2.[address] WILLIAM
--- NOTE | 2018-07-16 05:34 | PCM.HP.STD ---
Problem List (1) Wheezing Status: Acute (2) Generalized weakness Status: Acute History of Present Illness Date of Admission: 07/16/18 Chief Complaint: Wheezing, and generalized weakness, low pulse ox The patient is a 77 year old M was seen in the emergency room at [facility] after being brought in by squad with complaints of generalized weakness and shortness of breath along with audible wheezing. Patient has a history of dementia and review of systems was unobtainable from the patient, patient's daughter is here during the time of my examination. Patient's daughter denies the patient has had any chills or fever at home, she states that the patient has had a runny nose. Initial evaluation in the emergency room revealed the patient's pulse ox to be 85% on room air, patient's temperature was 97.9. Patient's respiratory rate was 30. Evaluation in the emergency room included a chest x-ray which was read out as showing possible mild pulmonary edema but no acute infiltrate. Patient's lab was obtained and it showed an elevated white blood cell count 24.7, creatinine was elevated at 1.41, BUN was 33, lactic acid was elevated at 2.1. Troponin was normal. Patient's UA was pending at the time of this dictation. Even though the patient's chest x-ray did not show a demonstrable infiltrate, I felt this most likely reason for the patient's elevated white blood cell count was healthcare acquired pneumonia-patient had been hospitalized at [facility] and May 2018 and was felt to have community-acquired pneumonia at that time. Blood cultures obtained at that time were negative and patient was negative for strep and Legionella antigen. Patient was given IV Zosyn in the emergency room along with 1 loading dose of vancomycin, he was given aerosol treatments and placed on supplemental oxygen, he will be admitted to PCU for severe sepsis from healthcare acquired pneumonia. Respiratory panel will be obtained as well as urinalysis. Past Medical History Past Medical History (Chronic Problems): Chronic Problems (Last Reviewed 05/22/18 @ 03:10 by Prem Tavares MD) History of cardioversion (Chronic 05/19/18) History of right and left heart catheterization (Chronic 03/10/18) Nonobstructive coronary arteries, mild pulmonary hypertension, mild aortic stenosis, mildly elevated right heart pressures, EF 55-60% per Dr. Arvizu @ [facility] Secondary pulmonary hypertension (Chronic) RVSP 51 mmhg, EF 55% per echo 07/21 2013 done @ [facility] Nonrheumatic aortic valve regurgitation (Chronic) Mild (1+) per echo 07/21/2013 done @ [facility] Nonrheumatic tricuspid valve regurgitation (Chronic) Moderate (2+) per echo 07/21/2013 done @ [facility] Nonrheumatic mitral valve regurgitation (Chronic) mild (1+) per echo 07/21/2013 done @ [facility] History of TIA (transient ischemic attack) (Chronic) Leg edema (Chronic) Atrial fibrillation (Chronic) Diabetes mellitus, type II (Chronic) Hyperlipidemia (Chronic) Hypertension (Chronic) Medical History: Medical History (Last Reviewed 05/22/18 @ 03:10 by Prem Tavares MD) Dyspnea on exertion (Inactive) R06.09 Abnormal stress echo (Inactive) R94.39 Secondary pulmonary hypertension (Chronic) RVSP 51 mmhg, EF 55% per echo 07/21 2013 done @ [facility] Nonrheumatic aortic valve regurgitation (Chronic) I35.1 Mild (1+) per echo 07/21/2013 done @ [facility] Nonrheumatic tricuspid valve regurgitation (Chronic) I36.1 Moderate (2+) per echo 07/21/2013 done @ [facility] Nonrheumatic mitral valve regurgitation (Chronic) I34.0 mild (1+) per echo 07/21/2013 done @ [facility] History of TIA (transient ischemic attack) (Chronic) Z86.73 Leg edema (Chronic) R60.0 Atrial fibrillation (Chronic) I48.91 Fatigue (Resolved) R53.83 Diabetes mellitus, type II (Chronic) E11.9 Hyperlipidemia (Chronic) E78.5 Hypertension (Chronic) I10 Atypical chest pain (Resolved) R07.89 Dz August 2017, felt to be from bronchospasm, sharp in nature in ribs. Allergies No Known Allergies Allergy (Verified 07/16/18 03:03) Home Medications: Ambulatory Orders Medication Instructions Recorded albuterol sulfate HFA 90 2 puff INHALATION Q4H PRN g 01/18/18 mcg/actuation aerosol inhaler diltiazem CD 360 mg 360 mg PO DAILY 01/18/18 capsule,extended release 24 hr donepezil 5 mg tablet 5 mg PO QHS tab 01/18/18 nitroglycerin 0.4 mg/hr 1 patch TRANSDERMAL DAILY 01/18/18 transdermal 24 hour patch rosuvastatin 20 mg tablet 20 mg PO DAILY 01/18/18 sitagliptin 50 mg-metformin 500 mg 1 tab PO BID 01/18/18 tablet metoprolol succinate ER 100 mg 200 mg PO DAILY tab 01/19/18 tablet,extended release 24 hr amiodarone 200 mg tablet 200 mg PO DAILY #30 tab 03/12/18 apixaban 5 mg tablet 5 mg PO BID #60 tab 04/12/18 Surgical History: Surgical History (Last Reviewed 05/22/18 @ 03:10 by Prem Tavares MD) History of cardioversion (Chronic) Onset Date: 05/19/18 Z98.890 History of right and left heart catheterization (Chronic) Onset Date: 03/10/18 Z98.890 Nonobstructive coronary arteries, mild pulmonary hypertension, mild aortic stenosis, mildly elevated right heart pressures, EF 55-60% per Dr. Arvizu @ [facility] Surgical History: noncontributory Psychiatric History: - - Alzheimer's dementia Lives: With Family Smoking Status: Former smoker Tobacco Use: Non-smoker Alcohol: None Drugs: None - *Family History Maternal Family History: Family History (Last Reviewed 05/22/18 @ 03:10 by Prem Tavares MD) Mother CAD (coronary artery disease) CVA (cerebral vascular accident) Congestive heart failure Father Hypertension Sister Cancer Brother Hypertension Diabetes Cancer CAD (coronary artery disease), Onset Age: 70 Brother Esophageal cancer History Items: No pertinent history Paternal Family History: Family History (Last Reviewed 05/22/18 @ 03:10 by Prem Tavares MD) Mother CAD (coronary artery disease) CVA (cerebral vascular accident) Congestive heart failure Father Hypertension Sister Cancer Brother Hypertension Diabetes Cancer CAD (coronary artery disease), Onset Age: 70 Brother Esophageal cancer History Items: No pertinent history Review of Systems Comment: View of systems could not be obtained from the patient due to dementia, information was obtained from the patient's daughter who was present at the time of my examination VTE Information - Inpt Only VTE Present on Admission: No VTE Mechan Device Prophylaxis: None VTE Pharm Prophylaxis ordered?: No Reason prophylaxis not ordered:: Treatment Not Indicated - Patient on Eliquis Patient Problems: Active and Suspected Problems (Last Updated 07/16/18 @ 05:43 by Horacio Tereletsky, DO) Wheezing (Acute) Generalized weakness (Acute) - Physical Exam General: Alert, Cooperative, Well developed, Well nourished, - - Appeared to be in moderate distress due to wheezing HEENT: Atraumatic, PERRLA, EOMI, Normocephalic Oral: Moist Mucosa Neck: Supple, No JVD, Negative Carotid Bruits, No Nuchal Rigidity, Trachea Midline, Thyroid Normal Size and Texture Lungs: No rhonchi, No rales, Diminished, Wheezes - Scattered wheezes were noted over all lung marie Cardiovascular: Regular rate, Regular Rhythm, Normal S1, Normal S2, No murmurs, No Ectopic Activity, PMI Normal, No rub noted, No Gallop Abdomen: Bowel Sounds Present, Soft, Non Tender, Non-Distended, No hernias noted Extremities: No clubbing, No cyanosis, No edema, Capillary Refill Less than 3 Seconds Skin: No rashes, No breakdown Musculoskeletal: No Tenderness to Palpation of Joints or Extremities Neurological: Cranial nerves II-XII grossly intact, Neuro grossly intact, Sensory exam intact to light touch and pain Psych/Mental Status: - - Patient is alert but he is confused Vital Signs Temp Pulse Resp BP Pulse Ox 97 F L 49 L 24 H 156/47 H 93 07/16/18 04:21 07/16/18 04:21 07/16/18 04:21 07/16/18 04:21 07/16/18 04:21 Oxygen Flow Rate (L/min) 12 Oxygen Delivery Method Venturi Mask Weight: 87.7 kg Body Mass Index (BMI) 27.7 Laboratory Tests Past 24 Hrs 07/16/18 07/16/18 07/16/18 03:10 03:10 03:30 WBC 24.7 H RBC 4.73 Hgb 13.2 Hct 41.4 MCV 87.5 MCH 27.9 MCHC 31.9 L RDW 16.0 H RDW Differential 50.9 H Plt Count 293 MPV 11.5 Immature Gran % (Auto) 0.400 Neut % (Auto) 81.6 H Lymph % (Auto) 8.7 L [place] % (Auto) 8.5 Eos % (Auto) 0.6 Baso % (Auto) 0.2 Absolute Neuts (auto) 20.1 H Absolute Lymphs (auto) 2.15 Total Counted Not Reportable Differential Comment SCANNED Diff Path Review May foll Sodium 140 Potassium 4.9 Chloride 108 H Carbon Dioxide 22.0 Anion Gap 10 BUN 33 H Creatinine 1.41 H Estim Creat Clear Calc 44.58 Est GFR (MDRD) Af Amer 62 Est GFR (MDRD) Non-Af 52 L BUN/Creatinine Ratio 23.4 H Glucose 196 H Lactic Acid 2.1 H Calcium 9.0 Troponin I < 0.015 Assessment/Plan All Active Problems (Last Updated 07/16/18 @ 05:43 by Horacio Jerez DO) JESUS (acute kidney injury) (Resolved) CAP (community acquired pneumonia) (Resolved) Sepsis (Resolved) Hypoxemia (Acute) Sepsis (Resolved) Wheezing (Acute) Generalized weakness (Acute) Fatigue (Resolved) Atypical chest pain (Resolved) #1 severe sepsis-secondary to suspected healthcare acquired pneumonia-patient will be admitted to PCU, IV Zosyn will be continued, patient got a dose of IV vancomycin in the emergency room but I am not planning on continuing the vancomycin only the Zosyn. I feel this is acceptable. Follow-up labs will be obtained, chest x-ray will be repeated tomorrow. I do not feel the patient has congestive heart failure at this time, beta natruretic peptide will be obtained #2 acute hypoxic respiratory failure-patient is stable at this time on a Ventimask, pulse ox will be monitored oxygen will be weaned if possible #3 bronchospasm-unclear what is causing this, I have elected to give the patient 1 dose of IV Lasix, patient will have a respiratory panel obtained to rule out viral pathogens. I will place the patient on Pulmicort aerosols rather than use IV corticosteroids #4 dehydration #5 nonobstructive coronary artery disease by history #6 type 2 diabetes #7 essential hypertension #8 hyperlipidemia #9 paroxysmal atrial fibrillation #10 pulmonary hypertension-moderate #11 Alzheimer's dementia Code Visit Inpatient E&M: 55595 Init Hosp L3
--- NOTE | 2018-07-16 05:39 | HP.PCM_ITS ---
Problem List (1) Wheezing Status: Acute (2) Generalized weakness Status: Acute History of Present Illness Date of Admission: 07/16/18 Chief Complaint: Wheezing, and generalized weakness, low pulse ox The patient is a 77 year old M was seen in the emergency room at [facility] after being brought in by squad with complaints of generalized weakness and shortness of breath along with audible wheezing. Patient has a history of dementia and review of systems was unobtainable from the patient, patient's daughter is here during the time of my examination. Patient's daughter denies the patient has had any chills or fever at home, she states that the patient has had a runny nose. Initial evaluation in the emergency room revealed the patient's pulse ox to be 85% on room air, patient's temperature was 97.9. Patient's respiratory rate was 30. Evaluation in the emergency room included a chest x-ray which was read out as showing possible mild pulmonary edema but no acute infiltrate. Patient's lab was obtained and it showed an elevated white blood cell count 24.7, creatinine was elevated at 1.41, BUN was 33, lactic acid was elevated at 2.1. Troponin was normal. Patient's UA was pending at the time of this dictation. Even though the patient's chest x-ray did not show a demonstrable infiltrate, I felt this most likely reason for the patient's elevated white blood cell count was healthcare acquired pneumonia-patient had been hospitalized at [facility] and May 2018 and was felt to have community-acquired pneumonia at that time. Blood cultures obtained at that time were negative and patient was negative for strep and Legionella antigen. Patient was given IV Zosyn in the emergency room along with 1 loading dose of vancomycin, he was given aerosol treatments and placed on supplemental oxygen, he will be admitted to PCU for severe sepsis from healthcare acquired pneumonia. Respiratory panel will be obtained as well as urinalysis. Past Medical History Past Medical History (Chronic Problems): Chronic Problems (Last Reviewed 05/22/18 @ 03:10 by Prem Tavares MD) History of cardioversion (Chronic 05/19/18) History of right and left heart catheterization (Chronic 03/10/18) Nonobstructive coronary arteries, mild pulmonary hypertension, mild aortic stenosis, mildly elevated right heart pressures, EF 55-60% per Dr. Arvizu @ [facility] Secondary pulmonary hypertension (Chronic) RVSP 51 mmhg, EF 55% per echo 07/21 2013 done @ [facility] Nonrheumatic aortic valve regurgitation (Chronic) Mild (1+) per echo 07/21/2013 done @ [facility] Nonrheumatic tricuspid valve regurgitation (Chronic) Moderate (2+) per echo 07/21/2013 done @ [facility] Nonrheumatic mitral valve regurgitation (Chronic) mild (1+) per echo 07/21/2013 done @ [facility] History of TIA (transient ischemic attack) (Chronic) Leg edema (Chronic) Atrial fibrillation (Chronic) Diabetes mellitus, type II (Chronic) Hyperlipidemia (Chronic) Hypertension (Chronic) Medical History: Medical History (Last Reviewed 05/22/18 @ 03:10 by Prem Tavares MD) Dyspnea on exertion (Inactive) R06.09 Abnormal stress echo (Inactive) R94.39 Secondary pulmonary hypertension (Chronic) RVSP 51 mmhg, EF 55% per echo 07/21 2013 done @ [facility] Nonrheumatic aortic valve regurgitation (Chronic) I35.1 Mild (1+) per echo 07/21/2013 done @ [facility] Nonrheumatic tricuspid valve regurgitation (Chronic) I36.1 Moderate (2+) per echo 07/21/2013 done @ [facility] Nonrheumatic mitral valve regurgitation (Chronic) I34.0 mild (1+) per echo 07/21/2013 done @ [facility] History of TIA (transient ischemic attack) (Chronic) Z86.73 Leg edema (Chronic) R60.0 Atrial fibrillation (Chronic) I48.91 Fatigue (Resolved) R53.83 Diabetes mellitus, type II (Chronic) E11.9 Hyperlipidemia (Chronic) E78.5 Hypertension (Chronic) I10 Atypical chest pain (Resolved) R07.89 Dz August 2017, felt to be from bronchospasm, sharp in nature in ribs. Allergies No Known Allergies Allergy (Verified 07/16/18 03:03) Home Medications: Ambulatory Orders Medication Instructions Recorded albuterol sulfate HFA 90 2 puff INHALATION Q4H PRN g 01/18/18 mcg/actuation aerosol inhaler diltiazem CD 360 mg 360 mg PO DAILY 01/18/18 capsule,extended release 24 hr donepezil 5 mg tablet 5 mg PO QHS tab 01/18/18 nitroglycerin 0.4 mg/hr 1 patch TRANSDERMAL DAILY 01/18/18 transdermal 24 hour patch rosuvastatin 20 mg tablet 20 mg PO DAILY 01/18/18 sitagliptin 50 mg-metformin 500 mg 1 tab PO BID 01/18/18 tablet metoprolol succinate ER 100 mg 200 mg PO DAILY tab 01/19/18 tablet,extended release 24 hr amiodarone 200 mg tablet 200 mg PO DAILY #30 tab 03/12/18 apixaban 5 mg tablet 5 mg PO BID #60 tab 04/12/18 Surgical History: Surgical History (Last Reviewed 05/22/18 @ 03:10 by Prem Tavares MD) History of cardioversion (Chronic) Onset Date: 05/19/18 Z98.890 History of right and left heart catheterization (Chronic) Onset Date: 03/10/18 Z98.890 Nonobstructive coronary arteries, mild pulmonary hypertension, mild aortic stenosis, mildly elevated right heart pressures, EF 55-60% per Dr. Arvizu @ [facility] Surgical History: noncontributory Psychiatric History: - - Alzheimer's dementia Lives: With Family Smoking Status: Former smoker Tobacco Use: Non-smoker Alcohol: None Drugs: None - *Family History Maternal Family History: Family History (Last Reviewed 05/22/18 @ 03:10 by Prem Tavares MD) Mother CAD (coronary artery disease) CVA (cerebral vascular accident) Congestive heart failure Father Hypertension Sister Cancer Brother Hypertension Diabetes Cancer CAD (coronary artery disease), Onset Age: 70 Brother Esophageal cancer History Items: No pertinent history Paternal Family History: Family History (Last Reviewed 05/22/18 @ 03:10 by Prem Tavares MD) Mother CAD (coronary artery disease) CVA (cerebral vascular accident) Congestive heart failure Father Hypertension Sister Cancer Brother Hypertension Diabetes Cancer CAD (coronary artery disease), Onset Age: 70 Brother Esophageal cancer History Items: No pertinent history Review of Systems Comment: View of systems could not be obtained from the patient due to dementia, information was obtained from the patient's daughter who was present at the time of my examination VTE Information - Inpt Only VTE Present on Admission: No VTE Mechan Device Prophylaxis: None VTE Pharm Prophylaxis ordered?: No Reason prophylaxis not ordered:: Treatment Not Indicated - Patient on Eliquis Patient Problems: Active and Suspected Problems (Last Updated 07/16/18 @ 05:43 by Horacio Tereletsky, DO) Wheezing (Acute) Generalized weakness (Acute) - Physical Exam General: Alert, Cooperative, Well developed, Well nourished, - - Appeared to be in moderate distress due to wheezing HEENT: Atraumatic, PERRLA, EOMI, Normocephalic Oral: Moist Mucosa Neck: Supple, No JVD, Negative Carotid Bruits, No Nuchal Rigidity, Trachea Midline, Thyroid Normal Size and Texture Lungs: No rhonchi, No rales, Diminished, Wheezes - Scattered wheezes were noted over all lung marie Cardiovascular: Regular rate, Regular Rhythm, Normal S1, Normal S2, No murmurs, No Ectopic Activity, PMI Normal, No rub noted, No Gallop Abdomen: Bowel Sounds Present, Soft, Non Tender, Non-Distended, No hernias noted Extremities: No clubbing, No cyanosis, No edema, Capillary Refill Less than 3 Seconds Skin: No rashes, No breakdown Musculoskeletal: No Tenderness to Palpation of Joints or Extremities Neurological: Cranial nerves II-XII grossly intact, Neuro grossly intact, Sensory exam intact to light touch and pain Psych/Mental Status: - - Patient is alert but he is confused Vital Signs Temp Pulse Resp BP Pulse Ox 97 F L 49 L 24 H 156/47 H 93 07/16/18 04:21 07/16/18 04:21 07/16/18 04:21 07/16/18 04:21 07/16/18 04:21 Oxygen Flow Rate (L/min) 12 Oxygen Delivery Method Venturi Mask Weight: 87.7 kg Body Mass Index (BMI) 27.7 Laboratory Tests Past 24 Hrs 07/16/18 07/16/18 07/16/18 03:10 03:10 03:30 WBC 24.7 H RBC 4.73 Hgb 13.2 Hct 41.4 MCV 87.5 MCH 27.9 MCHC 31.9 L RDW 16.0 H RDW Differential 50.9 H Plt Count 293 MPV 11.5 Immature Gran % (Auto) 0.400 Neut % (Auto) 81.6 H Lymph % (Auto) 8.7 L [place] % (Auto) 8.5 Eos % (Auto) 0.6 Baso % (Auto) 0.2 Absolute Neuts (auto) 20.1 H Absolute Lymphs (auto) 2.15 Total Counted Not Reportable Differential Comment SCANNED Diff Path Review May foll Sodium 140 Potassium 4.9 Chloride 108 H Carbon Dioxide 22.0 Anion Gap 10 BUN 33 H Creatinine 1.41 H Estim Creat Clear Calc 44.58 Est GFR (MDRD) Af Amer 62 Est GFR (MDRD) Non-Af 52 L BUN/Creatinine Ratio 23.4 H Glucose 196 H Lactic Acid 2.1 H Calcium 9.0 Troponin I < 0.015 Assessment/Plan All Active Problems (Last Updated 07/16/18 @ 05:43 by Horacio Jerez DO) JESUS (acute kidney injury) (Resolved) CAP (community acquired pneumonia) (Resolved) Sepsis (Resolved) Hypoxemia (Acute) Sepsis (Resolved) Wheezing (Acute) Generalized weakness (Acute) Fatigue (Resolved) Atypical chest pain (Resolved) #1 severe sepsis-secondary to suspected healthcare acquired pneumonia-patient will be admitted to PCU, IV Zosyn will be continued, patient got a dose of IV vancomycin in the emergency room but I am not planning on continuing the vancomycin only the Zosyn. I feel this is acceptable. Follow-up labs will be obtained, chest x-ray will be repeated tomorrow. I do not feel the patient has congestive heart failure at this time, beta natruretic peptide will be obtained #2 acute hypoxic respiratory failure-patient is stable at this time on a Ventimask, pulse ox will be monitored oxygen will be weaned if possible #3 bronchospasm-unclear what is causing this, I have elected to give the patient 1 dose of IV Lasix, patient will have a respiratory panel obtained to rule out viral pathogens. I will place the patient on Pulmicort aerosols rather than use IV corticosteroids #4 dehydration #5 nonobstructive coronary artery disease by history #6 type 2 diabetes #7 essential hypertension #8 hyperlipidemia #9 paroxysmal atrial fibrillation #10 pulmonary hypertension-moderate #11 Alzheimer's dementia Code Visit Inpatient E&M: 85360 Init Hosp L3
--- NOTE | 2018-07-16 05:44 | NURSING ---
Pt to bring in list of home medications this AM.
[2018-07-16] MEDS: 0.9% NaCl Peripheral Flush Adult/Peds IV ×4 (06:18→21:48)
[2018-07-16] MEDS: Furosemide 40 MG/4 ML Vial IV ×3 (06:18→17:00)
[2018-07-16] MEDS: Insulin Lispro 100 UNIT/ML INSULN.PEN SC ×3 (07:03→21:48)
[2018-07-16] MEDS: Budesonide Respules 0.5 MG/2 ML AMPUL.NEB. INHALATION ×2 (07:21→18:59)
[2018-07-16 07:33] LABS: Reflex Lactate? Y
[2018-07-16] MEDS: dilTIAZem CD 180 MG Capsule 360 MG PO (07:57)
[2018-07-16] MEDS: APIXABAN 5 MG TABLET PO (07:57)
[2018-07-16] MEDS: Metoprolol(XL)Succ 200 MG Tablet PO (07:57)
[2018-07-16] MEDS: metFORMIN HCl 500 MG Tablet PO (08:01)
[2018-07-16] MEDS: Amiodarone 200 MG Tablet PO (08:01)
[2018-07-16] MEDS: LINAGLIPTIN 5 MG TABLET PO (08:01)
[2018-07-16 08:31] LABS: Bedside Glucose 158 mg/dL (70-110)
[2018-07-16 09:12] LABS: Lactic Acid 2.4 mmol/L (0.4-2.0)
--- NOTE | 2018-07-16 10:22 | CASEMGMT ---
EMILIE LAURENT assessment: Face to Face with patient for initial transition planning/care coordination assessment. EMILIE LAURENT introduced self and role at [facility], pt voices understanding and consents to assessment at this time. Pt is lying in bed in no distress at this time. Pt is A/O x4 at this time and answers most questions appropriately at this time. Pt's is at bedside and assists with answering questions at times. Care providers, pharmacy, and demographics verified at this time. PCP: Juanjose Specialists: Nolberto cardio Obi Pharmacy: [facility] Insurance: AeR Prescription Benefit: AeR Living Will/HPOA: Pt states does not have LW/HPOA and declines info at this time. LNOK: Mel Murphy, ; Skylar Sykes, daughter Living Arrangements: Pt states lives with in 1 story home with a ramp into home from [facility] and states no concerns at home at this time. Pt states is normally independent with ADL's but does state that 'does all the cooking and she is a great cook.' Transportation: Pt's does most of driving and states no transportation concerns at this time. DME/HHC: Pt states has a cane at home and states no need for any further DME. Pt states would like [employer], if home oxygen is needed at discharge. Pt states no hx of HHC or SNF in the past. Pt/ state no concerns with pt going home at time of discharge. Pt states is retired. Pt states does not smoke but does drink occasionally. Pt states no further concerns/needs at this time. CM to follow for any further discharge planning/needs. Advised pt to ask for CM if any further questions/concerns/needs arise, voices understanding. Pt Goal: Home Plan: Home, pending PT/OT benita, home oxygen testing. [place] EMILIE LAURENT
[2018-07-16 11:02] LABS: BNP,B-Type NATRIURETIC PEPTIDE 343.8 pg/mL (0-100)
--- NOTE | 2018-07-16 11:10 | CT_ITS ---
STUDY: CT CHEST WITHOUT CONTRAST REASON FOR EXAM: Male, 77 years old. Sepsis. Respiratory failure. RADIATION DOSAGE (If Supplied By Facility): CTDIvol = ( 15.32 ) mGy, DLP = ( 522.05 ) mGycm TECHNIQUE: Transaxial imaging was performed without the administration of intravenous contrast material. Multiplanar coronal and sagittal images were reformatted. Individualized dose optimization techniques were used for this CT. COMPARISON: Comparison is made with prior chest radiograph done earlier today. FINDINGS: Bilateral pleural effusions with bibasilar atelectasis and/or infiltrates worse on the right side. Mild degree of emphysematous changes bilaterally. There are calcifications of the coronary arteries. There are multiple small lymph nodes within the mediastinum, which are normal in size and morphology most compatible with reactive lymph hyperplasia. Normal hilar regions. Normal unenhanced pulmonary arteries. There is atherosclerotic calcification of the aortic arch with tortuosity and elongation of the aortic arch and descending thoracic aorta. There are multi-level degenerative changes of the thoracic spine. There is no demonstrated abnormality of the visualized upper abdomen. CT/Chest without Contrast IMPRESSION: Bilateral pleural effusions with bibasilar atelectasis and/or infiltration worse on the right side. Mild emphysematous changes. Electronically Signed: Octaviano Banuelos, at 13:21 EDT , Service support ,
[2018-07-16 11:26] LABS: Bedside Glucose 199 mg/dL (70-110)
[2018-07-16 12:25] LABS: Bacteria 0 SEEN /hpf (None Seen); Mucous, Urine 0 SEEN /hpf (<or=2+)
[2018-07-16 12:26] LABS: Color, Urine Yellow (Yellow); Glucose, Dipstick 100 mg/dl (Normal); Ketone-Dipstick Negative (Negative); Leukocyte Esterase-Dipstick Negative /ul (Negative); Nitrite-Dipstick Negative (Negative); Occult Blood-Urine 25 /ul (Negative); Protein-Dipstick Negative (Negative); Urine Bilirubin Dipstick Negative (Negative); Urine Clarity Clear (Clear); Urine Urobilinogen Normal (Normal)
--- NOTE | 2018-07-16 12:39 | PCM.PROGNOTE ---
<Dixon Kim - Last Filed: 07/16/18 12:39> Patient Problems: Active and Suspected Problems (Last Updated 07/16/18 @ 05:43 by Horacio Jerez DO) Wheezing (Acute) Generalized weakness (Acute) Subjective: Ongoing SOB and nonproductive cough. Pt did have chills and sweats at home, none last night. No CP. Somewhat wheezy. 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 He was here about a month ago with CAP. - Physical Exam General: Alert, Oriented x3, Cooperative HEENT: Atraumatic, PERRLA, EOMI, Normocephalic Neck: Supple, No JVD, Negative Carotid Bruits Lungs: Diminished, Rales, Wheezes Cardiovascular: Regular rate, No murmurs Abdomen: Bowel Sounds Present, Soft, Non Tender Extremities: No edema, Capillary Refill Less than 3 Seconds Skin: No rashes, No breakdown Musculoskeletal: No Tenderness to Palpation of Joints or Extremities Neurological: Cranial nerves II-XII grossly intact Psych/Mental Status: Normal Affect, Appropriate, Alert and oriented to time, place, person, mood and affect Vital Signs Temp Pulse Resp BP Pulse Ox 98.1 F 60 22 H 151/62 H 97 07/16/18 09:22 07/16/18 11:28 07/16/18 09:22 07/16/18 09:22 07/16/18 09:22 Oxygen Flow Rate (L/min) 2 Oxygen Delivery Method Nasal Cannula Weight: 181 lb 10.574 oz Body Mass Index (BMI) 26.8 Intake and Output for Last 24 Hours 07/14/18 07/15/18 07/16/18 23:59 23:59 23:59 Intake Total 290.4 / 290.4 Output Total 0 / 0 Balance 290.4 / 290.4 Microbiology Past 72 Hours 07/16/18 07:16 Respiratory Panel (PCR) - Final Mucosa - Nasopharyngeal Laboratory Tests Past 24 Hrs 07/16/18 07/16/18 07/16/18 03:10 03:10 03:10 WBC 24.7 H RBC 4.73 Hgb 13.2 Hct 41.4 MCV 87.5 MCH 27.9 MCHC 31.9 L RDW 16.0 H RDW Differential 50.9 H Plt Count 293 MPV 11.5 Immature Gran % (Auto) 0.400 Neut % (Auto) 81.6 H Lymph % (Auto) 8.7 L [place] % (Auto) 8.5 Eos % (Auto) 0.6 Baso % (Auto) 0.2 Absolute Neuts (auto) 20.1 H Absolute Lymphs (auto) 2.15 Total Counted Not Reportable Differential Comment SCANNED Diff Path Review May foll Sodium 140 Potassium 4.9 Chloride 108 H Carbon Dioxide 22.0 Anion Gap 10 BUN 33 H Creatinine 1.41 H Estim Creat Clear Calc 44.58 Est GFR (MDRD) Af Amer 62 Est GFR (MDRD) Non-Af 52 L BUN/Creatinine Ratio 23.4 H Glucose 196 H Lactic Acid Calcium 9.0 Troponin I < 0.015 B-Natriuretic Peptide 343.8 H Urine Color Urine Clarity Urine pH Ur Specific [place] Urine Protein Urine Glucose (UA) Urine Ketones Urine Occult Blood Urine Nitrite Urine Bilirubin Urine Urobilinogen Ur Leukocyte Esterase Urine RBC Urine WBC Ur Squamous Epith Cells Urine Bacteria Urine Mucus 07/16/18 07/16/18 07/16/18 03:30 07:40 11:49 WBC RBC Hgb Hct MCV MCH MCHC RDW RDW Differential Plt Count MPV Immature Gran % (Auto) Neut % (Auto) Lymph % (Auto) [place] % (Auto) Eos % (Auto) Baso % (Auto) Absolute Neuts (auto) Absolute Lymphs (auto) Total Counted Differential Comment Diff Path Review Sodium Potassium Chloride Carbon Dioxide Anion Gap BUN Creatinine Estim Creat Clear Calc Est GFR (MDRD) Af Amer Est GFR (MDRD) Non-Af BUN/Creatinine Ratio Glucose Lactic Acid 2.1 H 2.4 H Calcium Troponin I B-Natriuretic Peptide Urine Color Yellow Urine Clarity Clear Urine pH 5.0 Ur Specific [place] 1.010 Urine Protein Negative Urine Glucose (UA) 100 H Urine Ketones Negative Urine Occult Blood 25 H Urine Nitrite Negative Urine Bilirubin Negative Urine Urobilinogen Normal Ur Leukocyte Esterase Negative Urine RBC Pending Urine WBC Pending Ur Squamous Epith Cells Pending Urine Bacteria Pending Urine Mucus Pending POC Glucose 07/16/18 07/16/18 11:17 07:00 POC Glucose 199 H 158 H Medical Necessity - Tobacco Use Smoking Status: Former smoker Tobacco Use: Cigarettes Assessment/Plan All Active Problems (Last Updated 07/16/18 @ 05:43 by Horacio Jerez DO) JESUS (acute kidney injury) (Resolved) CAP (community acquired pneumonia) (Resolved) Sepsis (Resolved) Hypoxemia (Acute) Sepsis (Resolved) Wheezing (Acute) Generalized weakness (Acute) Fatigue (Resolved) Atypical chest pain (Resolved) 1. Acute hypoxic respiratory failure 2/2 HCAP and acute diastolic CHF complicated by pulmonary htn and hx of copd - last echo 02/2018 with EF 55%, RSVP 38 mmHg. Heart cath 02/2018 with EF 55%, mild , and mild pulmonary htn. CT with pleural effusions, bnp elevated. Possible HCAP as well, large WBC count and chills at home. Start IV lasix. Continue zosyn. Check MRSA swab add vanc if +. Resp panel negative. Blood cultures and urine antigens pending. -initially required venti mask now on 2lpm o2 NC. -with lactic acidosis will discontinue metformin permanently -contnue IS/PEP therapy 2. hx non obstructive CAD - cath 02/2018 3. CKDIII - above baseline. hopefully this will improve with diuresis 4. T2Dm - SSI, hold nephrotoxic agents 5. HLD - statin 6. HTN - stable 7. Paroxysmal afib - sinus rhythm, controlled, continue amio, cardizem, xarelto, toprol 8. COPD - no acute exacerbation - continue aerosols, IS DVT ppx: xarelto DC planning: PTOT, may need home care vs o/p PTOT This patient was seen by Dixon Kim PA-C under the supervision of Doctor Corry. <Abhishek Wheatley - Last Filed: 07/16/18 16:18> - Physical Exam General: Alert, Cooperative HEENT: Atraumatic, Normocephalic Neck: No Nodes, Thyroid Normal Size and Texture Lungs: Diminished, - - DTP in bases. Bibasilar crackles. Cardiovascular: Regular rate, Regular Rhythm, Normal S1, Normal S2, No murmurs Abdomen: Bowel Sounds Present, Soft, Non Tender, Non-Distended Extremities: No Calf Tenderness, Edema Skin: No rashes, No breakdown Psych/Mental Status: Normal Affect, Appropriate Vital Signs Temp Pulse Resp BP Pulse Ox 36.7 C 58 L 18 151/62 H 97 07/16/18 09:22 07/16/18 13:08 07/16/18 13:08 07/16/18 09:22 07/16/18 09:22 Oxygen Flow Rate (L/min) 2.5 Oxygen Delivery Method Nasal Cannula Weight: 82.4 kg Body Mass Index (BMI) 26.8 Intake and Output for Last 24 Hours 07/14/18 07/15/18 07/16/18 23:59 23:59 23:59 Intake Total 895.4 / 895.4 Output Total 1735 / 1735 Balance -839.6 / -839.6 Microbiology Past 72 Hours 07/16/18 11:49 Legionella Antigen - Final Urine, Clean Catch 07/16/18 11:49 Streptococcus pneumoniae Antigen (M - Final Urine, Clean Catch 07/16/18 07:16 Respiratory Panel (PCR) - Final Mucosa - Nasopharyngeal Laboratory Tests Past 24 Hrs 07/16/18 07/16/18 07/16/18 03:10 03:10 03:10 WBC 24.7 H RBC 4.73 Hgb 13.2 Hct 41.4 MCV 87.5 MCH 27.9 MCHC 31.9 L RDW 16.0 H RDW Differential 50.9 H Plt Count 293 MPV 11.5 Immature Gran % (Auto) 0.400 Neut % (Auto) 81.6 H Lymph % (Auto) 8.7 L [place] % (Auto) 8.5 Eos % (Auto) 0.6 Baso % (Auto) 0.2 Absolute Neuts (auto) 20.1 H Absolute Lymphs (auto) 2.15 Total Counted Not Reportable Differential Comment SCANNED Diff Path Review June Sodium 140 Potassium 4.9 Chloride 108 H Carbon Dioxide 22.0 Anion Gap 10 BUN 33 H Creatinine 1.41 H Estim Creat Clear Calc 44.58 Est GFR (MDRD) Af Amer 62 Est GFR (MDRD) Non-Af 52 L BUN/Creatinine Ratio 23.4 H Glucose 196 H Lactic Acid Calcium 9.0 Troponin I < 0.015 B-Natriuretic Peptide 343.8 H Urine Color Urine Clarity Urine pH Ur Specific [place] Urine Protein Urine Glucose (UA) Urine Ketones Urine Occult Blood Urine Nitrite Urine Bilirubin Urine Urobilinogen Ur Leukocyte Esterase Urine RBC Urine WBC Ur Squamous Epith Cells Urine Bacteria Urine Mucus 07/16/18 07/16/18 07/16/18 03:30 07:40 11:49 WBC RBC Hgb Hct MCV MCH MCHC RDW RDW Differential Plt Count MPV Immature Gran % (Auto) Neut % (Auto) Lymph % (Auto) [place] % (Auto) Eos % (Auto) Baso % (Auto) Absolute Neuts (auto) Absolute Lymphs (auto) Total Counted Differential Comment Diff Path Review Sodium Potassium Chloride Carbon Dioxide Anion Gap BUN Creatinine Estim Creat Clear Calc Est GFR (MDRD) Af Amer Est GFR (MDRD) Non-Af BUN/Creatinine Ratio Glucose Lactic Acid 2.1 H 2.4 H Calcium Troponin I B-Natriuretic Peptide Urine Color Yellow Urine Clarity Clear Urine pH 5.0 Ur Specific [place] 1.010 Urine Protein Negative Urine Glucose (UA) 100 H Urine Ketones Negative Urine Occult Blood 25 H Urine Nitrite Negative Urine Bilirubin Negative Urine Urobilinogen Normal Ur Leukocyte Esterase Negative Urine RBC 0-5 SEEN Urine WBC 0-5 SEEN Ur Squamous Epith Cells 0-5 SEEN Urine Bacteria 0 SEEN Urine Mucus 0 SEEN POC Glucose 07/16/18 07/16/18 11:17 07:00 POC Glucose 199 H 158 H Assessment/Plan 1. Acute hypoxic respiratory failure Secondary to CHF pleural effusions, plus minus pneumonia Currently improved at this time. Wean oxygen as tolerated 2. Heart failure with preserved ejection fraction Ejection fraction of 55% on echocardiogram from February 16, 2018. This is comp gated by mild to moderate aortic stenosis as well. The CAT scan shows bilateral pleural effusions, likely transudative given the heart failure Patient will be placed on Lasix and monitored Not a candidate for GILBERTO inhibitors at this time given acute kidney injury. 3. Suspected gram-negative pneumonia Zosyn Streptococcus and Legionella antigens negative Viral respiratory panel negative Pulmonary toilet CAT scan does not really show much in way of pneumonia so some of this could be related with viral etiology. 4. Possible JESUS up from yesterday monitor closely as he will be on abx. consider nephrology if gets worse. DW patient's family at bedside. Code Visit Inpatient E&M: 35279 Subs Hosp L2
[2018-07-16 12:41] LABS: Red Blood Cells-Urine 0-5 SEEN /hpf (0-5); Squamous Epithelial Cells - UA 0-5 SEEN /hpf (0-5); White Blood Cells 0-5 SEEN /hpf (0-5)
--- NOTE | 2018-07-16 12:49 | PN_ITS ---
<Dixon Kim - Last Filed: 07/16/18 12:39> Patient Problems: Active and Suspected Problems (Last Updated 07/16/18 @ 05:43 by Horacio Jerez DO) Wheezing (Acute) Generalized weakness (Acute) Subjective: Ongoing SOB and nonproductive cough. Pt did have chills and sweats at home, none last night. No CP. Somewhat wheezy. 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 He was here about a month ago with CAP. - Physical Exam General: Alert, Oriented x3, Cooperative HEENT: Atraumatic, PERRLA, EOMI, Normocephalic Neck: Supple, No JVD, Negative Carotid Bruits Lungs: Diminished, Rales, Wheezes Cardiovascular: Regular rate, No murmurs Abdomen: Bowel Sounds Present, Soft, Non Tender Extremities: No edema, Capillary Refill Less than 3 Seconds Skin: No rashes, No breakdown Musculoskeletal: No Tenderness to Palpation of Joints or Extremities Neurological: Cranial nerves II-XII grossly intact Psych/Mental Status: Normal Affect, Appropriate, Alert and oriented to time, place, person, mood and affect Vital Signs Temp Pulse Resp BP Pulse Ox 98.1 F 60 22 H 151/62 H 97 07/16/18 09:22 07/16/18 11:28 07/16/18 09:22 07/16/18 09:22 07/16/18 09:22 Oxygen Flow Rate (L/min) 2 Oxygen Delivery Method Nasal Cannula Weight: 181 lb 10.574 oz Body Mass Index (BMI) 26.8 Intake and Output for Last 24 Hours 07/14/18 07/15/18 07/16/18 23:59 23:59 23:59 Intake Total 290.4 / 290.4 Output Total 0 / 0 Balance 290.4 / 290.4 Microbiology Past 72 Hours 07/16/18 07:16 Respiratory Panel (PCR) - Final Mucosa - Nasopharyngeal Laboratory Tests Past 24 Hrs 07/16/18 07/16/18 07/16/18 03:10 03:10 03:10 WBC 24.7 H RBC 4.73 Hgb 13.2 Hct 41.4 MCV 87.5 MCH 27.9 MCHC 31.9 L RDW 16.0 H RDW Differential 50.9 H Plt Count 293 MPV 11.5 Immature Gran % (Auto) 0.400 Neut % (Auto) 81.6 H Lymph % (Auto) 8.7 L [place] % (Auto) 8.5 Eos % (Auto) 0.6 Baso % (Auto) 0.2 Absolute Neuts (auto) 20.1 H Absolute Lymphs (auto) 2.15 Total Counted Not Reportable Differential Comment SCANNED Diff Path Review May foll Sodium 140 Potassium 4.9 Chloride 108 H Carbon Dioxide 22.0 Anion Gap 10 BUN 33 H Creatinine 1.41 H Estim Creat Clear Calc 44.58 Est GFR (MDRD) Af Amer 62 Est GFR (MDRD) Non-Af 52 L BUN/Creatinine Ratio 23.4 H Glucose 196 H Lactic Acid Calcium 9.0 Troponin I < 0.015 B-Natriuretic Peptide 343.8 H Urine Color Urine Clarity Urine pH Ur Specific [place] Urine Protein Urine Glucose (UA) Urine Ketones Urine Occult Blood Urine Nitrite Urine Bilirubin Urine Urobilinogen Ur Leukocyte Esterase Urine RBC Urine WBC Ur Squamous Epith Cells Urine Bacteria Urine Mucus 07/16/18 07/16/18 07/16/18 03:30 07:40 11:49 WBC RBC Hgb Hct MCV MCH MCHC RDW RDW Differential Plt Count MPV Immature Gran % (Auto) Neut % (Auto) Lymph % (Auto) [place] % (Auto) Eos % (Auto) Baso % (Auto) Absolute Neuts (auto) Absolute Lymphs (auto) Total Counted Differential Comment Diff Path Review Sodium Potassium Chloride Carbon Dioxide Anion Gap BUN Creatinine Estim Creat Clear Calc Est GFR (MDRD) Af Amer Est GFR (MDRD) Non-Af BUN/Creatinine Ratio Glucose Lactic Acid 2.1 H 2.4 H Calcium Troponin I B-Natriuretic Peptide Urine Color Yellow Urine Clarity Clear Urine pH 5.0 Ur Specific [place] 1.010 Urine Protein Negative Urine Glucose (UA) 100 H Urine Ketones Negative Urine Occult Blood 25 H Urine Nitrite Negative Urine Bilirubin Negative Urine Urobilinogen Normal Ur Leukocyte Esterase Negative Urine RBC Pending Urine WBC Pending Ur Squamous Epith Cells Pending Urine Bacteria Pending Urine Mucus Pending POC Glucose 07/16/18 07/16/18 11:17 07:00 POC Glucose 199 H 158 H Medical Necessity - Tobacco Use Smoking Status: Former smoker Tobacco Use: Cigarettes Assessment/Plan All Active Problems (Last Updated 07/16/18 @ 05:43 by Horacio Jerez DO) JESUS (acute kidney injury) (Resolved) CAP (community acquired pneumonia) (Resolved) Sepsis (Resolved) Hypoxemia (Acute) Sepsis (Resolved) Wheezing (Acute) Generalized weakness (Acute) Fatigue (Resolved) Atypical chest pain (Resolved) 1. Acute hypoxic respiratory failure 2/2 HCAP and acute diastolic CHF complicated by pulmonary htn and hx of copd - last echo 02/2018 with EF 55%, RSVP 38 mmHg. Heart cath 02/2018 with EF 55%, mild , and mild pulmonary htn. CT with pleural effusions, bnp elevated. Possible HCAP as well, large WBC count and chills at home. Start IV lasix. Continue zosyn. Check MRSA swab add vanc if +. Resp panel negative. Blood cultures and urine antigens pending. -initially required venti mask now on 2lpm o2 NC. -with lactic acidosis will discontinue metformin permanently -contnue IS/PEP therapy 2. hx non obstructive CAD - cath 02/2018 3. CKDIII - above baseline. hopefully this will improve with diuresis 4. T2Dm - SSI, hold nephrotoxic agents 5. HLD - statin 6. HTN - stable 7. Paroxysmal afib - sinus rhythm, controlled, continue amio, cardizem, xarelto, toprol 8. COPD - no acute exacerbation - continue aerosols, IS DVT ppx: xarelto DC planning: PTOT, may need home care vs o/p PTOT This patient was seen by Dixon Kim PA-C under the supervision of Doctor Corry. <Abhishek Wheatley - Last Filed: 07/16/18 16:18> - Physical Exam General: Alert, Cooperative HEENT: Atraumatic, Normocephalic Neck: No Nodes, Thyroid Normal Size and Texture Lungs: Diminished, - - DTP in bases. Bibasilar crackles. Cardiovascular: Regular rate, Regular Rhythm, Normal S1, Normal S2, No murmurs Abdomen: Bowel Sounds Present, Soft, Non Tender, Non-Distended Extremities: No Calf Tenderness, Edema Skin: No rashes, No breakdown Psych/Mental Status: Normal Affect, Appropriate Vital Signs Temp Pulse Resp BP Pulse Ox 36.7 C 58 L 18 151/62 H 97 07/16/18 09:22 07/16/18 13:08 07/16/18 13:08 07/16/18 09:22 07/16/18 09:22 Oxygen Flow Rate (L/min) 2.5 Oxygen Delivery Method Nasal Cannula Weight: 82.4 kg Body Mass Index (BMI) 26.8 Intake and Output for Last 24 Hours 07/14/18 07/15/18 07/16/18 23:59 23:59 23:59 Intake Total 895.4 / 895.4 Output Total 1735 / 1735 Balance -839.6 / -839.6 Microbiology Past 72 Hours 07/16/18 11:49 Legionella Antigen - Final Urine, Clean Catch 07/16/18 11:49 Streptococcus pneumoniae Antigen (M - Final Urine, Clean Catch 07/16/18 07:16 Respiratory Panel (PCR) - Final Mucosa - Nasopharyngeal Laboratory Tests Past 24 Hrs 07/16/18 07/16/18 07/16/18 03:10 03:10 03:10 WBC 24.7 H RBC 4.73 Hgb 13.2 Hct 41.4 MCV 87.5 MCH 27.9 MCHC 31.9 L RDW 16.0 H RDW Differential 50.9 H Plt Count 293 MPV 11.5 Immature Gran % (Auto) 0.400 Neut % (Auto) 81.6 H Lymph % (Auto) 8.7 L [place] % (Auto) 8.5 Eos % (Auto) 0.6 Baso % (Auto) 0.2 Absolute Neuts (auto) 20.1 H Absolute Lymphs (auto) 2.15 Total Counted Not Reportable Differential Comment SCANNED Diff Path Review June Sodium 140 Potassium 4.9 Chloride 108 H Carbon Dioxide 22.0 Anion Gap 10 BUN 33 H Creatinine 1.41 H Estim Creat Clear Calc 44.58 Est GFR (MDRD) Af Amer 62 Est GFR (MDRD) Non-Af 52 L BUN/Creatinine Ratio 23.4 H Glucose 196 H Lactic Acid Calcium 9.0 Troponin I < 0.015 B-Natriuretic Peptide 343.8 H Urine Color Urine Clarity Urine pH Ur Specific [place] Urine Protein Urine Glucose (UA) Urine Ketones Urine Occult Blood Urine Nitrite Urine Bilirubin Urine Urobilinogen Ur Leukocyte Esterase Urine RBC Urine WBC Ur Squamous Epith Cells Urine Bacteria Urine Mucus 07/16/18 07/16/18 07/16/18 03:30 07:40 11:49 WBC RBC Hgb Hct MCV MCH MCHC RDW RDW Differential Plt Count MPV Immature Gran % (Auto) Neut % (Auto) Lymph % (Auto) [place] % (Auto) Eos % (Auto) Baso % (Auto) Absolute Neuts (auto) Absolute Lymphs (auto) Total Counted Differential Comment Diff Path Review Sodium Potassium Chloride Carbon Dioxide Anion Gap BUN Creatinine Estim Creat Clear Calc Est GFR (MDRD) Af Amer Est GFR (MDRD) Non-Af BUN/Creatinine Ratio Glucose Lactic Acid 2.1 H 2.4 H Calcium Troponin I B-Natriuretic Peptide Urine Color Yellow Urine Clarity Clear Urine pH 5.0 Ur Specific [place] 1.010 Urine Protein Negative Urine Glucose (UA) 100 H Urine Ketones Negative Urine Occult Blood 25 H Urine Nitrite Negative Urine Bilirubin Negative Urine Urobilinogen Normal Ur Leukocyte Esterase Negative Urine RBC 0-5 SEEN Urine WBC 0-5 SEEN Ur Squamous Epith Cells 0-5 SEEN Urine Bacteria 0 SEEN Urine Mucus 0 SEEN POC Glucose 07/16/18 07/16/18 11:17 07:00 POC Glucose 199 H 158 H Assessment/Plan 1. Acute hypoxic respiratory failure * Secondary to CHF pleural effusions, plus minus pneumonia * Currently improved at this time. * Wean oxygen as tolerated 2. Heart failure with preserved ejection fraction * Ejection fraction of 55% on echocardiogram from February 16, 2018. This is comp gated by mild to moderate aortic stenosis as well. * The CAT scan shows bilateral pleural effusions, likely transudative given the heart failure * Patient will be placed on Lasix and monitored * Not a candidate for GILBERTO inhibitors at this time given acute kidney injury. 3. Suspected gram-negative pneumonia * Zosyn * Streptococcus and Legionella antigens negative * Viral respiratory panel negative * Pulmonary toilet * CAT scan does not really show much in way of pneumonia so some of this could be related with viral etiology. 4. Possible JESUS * up from yesterday * monitor closely as he will be on abx. * consider nephrology if gets worse. DW patient's family at bedside. Code Visit Inpatient E&M: 15873 Subs Hosp L2
--- NOTE | 2018-07-16 14:53 | CHAPLAIN ---
Type of Pastoral Visit _x__ Initial Visit ___ Follow-up Visit ___ On-call Visit ___ General Patient Visit ___ Spiritual Assessment ___ Family Conference ___ Bereavement ___ Rapid Response ___ Code Blue ___ Other (describe below) Pastoral Care Referral From _x__ Patient ___ Family ___ Nurse ___ Physician ___ Sales Administration Manager ___ Medical Affairs Director ___ Other (describe below) Sacrament/Intervention _x__ Active listening ___ Anointing ___ Congregational ___ Bereavement ___ Communion ___ Rabia exploration ___ ___ Life review ___ Prayer ___ Reconciliation ___ Sacrament of Sick _x__ Supportive presence ___ Wedding ___ Other (describe below) Pastoral Comments
[2018-07-16] MEDS: Rivaroxaban 15 MG Tablet PO (16:59)
[2018-07-16 17:05] LABS: Bedside Glucose 129 mg/dL (70-110)
[2018-07-16] MEDS: guaiFENesin 1,200 MG Tablet 1200 MG PO (21:49)
[2018-07-16] MEDS: Atorvastatin Calcium 20 MG Tablet PO (21:49)
[2018-07-16 23:16] LABS: Bedside Glucose 166 mg/dL (70-110)
--- NOTE | 2018-07-16 23:29 | EKG12_ITS ---
Test Reason : RHYTHM CHANGE Blood Pressure : / mmHG Vent. Rate : 082 BPM Atrial Rate : 086 BPM P-R Int : 000 ms QRS Dur : 094 ms QT Int : 460 ms P-R-T Axes : 000 068 -08 degrees QTc Int : 537 ms Atrial fibrillation /flutter Nonspecific ST and T wave abnormality Prolonged QT Abnormal ECG Confirmed by ERICA VILLASEÑOR, NEFTALI ([id number]), photography editor LINDA CURTIS ([id number] on 07/23/2018 6:48:31 AM Referred By: MELANIE Confirmed By:NEFTALI MALDONADO MD
[2018-07-17] VITALS (19 sets, daily range): BP systolic 103–143; BP diastolic 60–69; PULSE 78–102; RESP 16–22; TEMP 36.6–37.3; O2SAT 93–96
[2018-07-17 01:07] LABS: Magnesium 1.7 mg/dL (1.6-2.6)
[2018-07-17] MEDS: Ipratropium/Albuterol Sulfate 3 ML AMPUL.NEB INHALATION ×4 (01:13→18:33)
[2018-07-17] MEDS: Budesonide Respules 0.5 MG/2 ML AMPUL.NEB. INHALATION ×2 (06:25→18:33)
[2018-07-17 07:01] LABS: Bedside Glucose 128 mg/dL (70-110)
[2018-07-17 07:15] LABS: Absolute Lymphocyte Count 0.91 X10^3/ul (0.83-4.51); Absolute Neutrophil Count 11.2 X10^3/uL (2.0-7.7); Basophil# 0.03 X10^3/uL; Basophil% 0.2 % (0-1); Differential Indicated SCAN CRITERIA MET; Eosinophil# 0.02 X10^3/uL; Eosinophils% 0.1 % (0-5); Hematocrit 40.7 % (40-54); Hemoglobin 13.4 g/dl (13.0-16.5); Lymphocyte # 0.91 X10^3/ul (4.0); Lymphocyte % 6.6 % (19-41); Mean Corp Hgb Conc 32.9 g/gl (32-36); Mean Corpuscular Hgb 28.2 pg (27.0-32.0); Mean Corpuscular Volume 85.5 fL (80-94); Mean Platelet Vol. 11.7 fl (6.2-12.0); Monocyte# 1.69 X10^3/uL; Monocyte% 12.2 % (0-10); Neutrophil # 11.15 X10^3/uL (2.7-7.7); Neutrophil % 80.5 % (47-70); POSITIVE COUNT NO; POSITIVE DIFFERENTIAL YES; POSITIVE MORPHOLOGY NO; Platelet Count 224 K/mm3 (150-450); RBC Distribution Width CV 16.1 % (11.6-14.6); RBC Distribution Width SD 49.3 fl (35.1-43.9); Red Blood Count 4.76 M/mm3 (4.6-6.2); White Blood Count 13.9 K/mm3 (4.4-11.0)
[2018-07-17 07:50] LABS: ALB/GLOB Ratio 0.8 RATIO (0.9-2.4); AST(SGOT) 19 U/L (15-37); Alanine Aminotransfer ALT/SGPT 20 U/L (16-61); Albumin, Serum 3.3 g/dL (3.2-5.0); Alkaline Phosphatase 41 U/L (45-117); Anion Gap 8 (5-15); BUN 26 mg/dL (7-18); BUN/Creat Ratio 21.8 RATIO (10-20); Calcium,Total 8.7 mg/dL (8.5-10.1); Chloride 104 mmol/L (98-107); Creatinine, Serum 1.19 mg/dL (0.70-1.30); EST Glomerular Filtration Rate 63 mL/min (>60); Est Glom Filt Rate - Afr Amer 76 mL/min (>60); Estimated Creatinine Clearance 51.16 ml/min; Globulin 3.9 g/dL (2.2-4.2); Glucose 139 mg/dL (74-106); Potassium 2.8 mmol/L (3.5-5.1); Protein, Total 7.2 g/dL (6.4-8.2); Sodium Level 141 mmol/L (136-145)
[2018-07-17 07:58] LABS: Platelet Estimate ADEQUATE (ADEQ); Platelet Morphology LARGE
[2018-07-17] MEDS: Furosemide 40 MG/4 ML Vial IV ×2 (09:14→17:09)
[2018-07-17] MEDS: Metoprolol(XL)Succ 200 MG Tablet PO (09:14)
[2018-07-17] MEDS: dilTIAZem CD 180 MG Capsule 360 MG PO (09:14)
[2018-07-17] MEDS: Amiodarone 200 MG Tablet PO (09:14)
[2018-07-17] MEDS: guaiFENesin 1,200 MG Tablet 1200 MG PO ×2 (09:14→21:21)
[2018-07-17 11:15] LABS: Bedside Glucose 206 mg/dL (70-110)
[2018-07-17] MEDS: Insulin Lispro 100 UNIT/ML INSULN.PEN SC ×3 (11:36→21:20)
--- NOTE | 2018-07-17 13:58 | PCM.PROGNOTE ---
<Dixon Kim - Last Filed: 07/17/18 13:58> Patient Problems: Active and Suspected Problems (Last Updated 07/16/18 @ 05:43 by Horacio Jerez DO) Wheezing (Acute) Generalized weakness (Acute) Subjective: Pt has had good urinary output. He was having urinary retention which he does not have a hx of. Severe pressure, scanned for 900+ cc's in bladder. Levi placed. Tolerating well. No fever/chills. SOB improving well. Nonproductive cough. No CP. - Physical Exam General: Alert, Oriented x3, Cooperative HEENT: Atraumatic, PERRLA, EOMI, Normocephalic Neck: Supple, No JVD, Negative Carotid Bruits Lungs: Diminished, Rales - BL bases Cardiovascular: Regular rate, No murmurs Abdomen: Bowel Sounds Present, Soft, Non Tender Extremities: No edema, Capillary Refill Less than 3 Seconds Skin: No rashes, No breakdown Musculoskeletal: No Tenderness to Palpation of Joints or Extremities Neurological: Cranial nerves II-XII grossly intact Psych/Mental Status: Normal Affect, Appropriate, Alert and oriented to time, place, person, mood and affect Vital Signs Temp Pulse Resp BP Pulse Ox 97.8 F 79 18 143/68 H 95 07/17/18 09:12 07/17/18 13:28 07/17/18 13:28 07/17/18 09:14 07/17/18 13:42 Oxygen Flow Rate (L/min) 2 Oxygen Delivery Method Room Air Weight: 181 lb 10.574 oz Body Mass Index (BMI) 26.8 Intake and Output for Last 24 Hours 07/15/18 07/16/18 07/17/18 23:59 23:59 23:59 Intake Total 1322.4 / 1322.4 467.2 / 467.2 Output Total 2760 / 2760 900 / 900 Balance -1437.6 / -1437.6 -432.8 / -432.8 Microbiology Past 72 Hours 07/16/18 11:49 Legionella Antigen - Final Urine, Clean Catch 07/16/18 11:49 Streptococcus pneumoniae Antigen (M - Final Urine, Clean Catch 07/16/18 07:16 Respiratory Panel (PCR) - Final Mucosa - Nasopharyngeal Laboratory Tests Past 24 Hrs 07/17/18 07/17/18 07/17/18 00:40 06:16 06:16 WBC 13.9 H RBC 4.76 Hgb 13.4 Hct 40.7 MCV 85.5 MCH 28.2 MCHC 32.9 RDW 16.1 H RDW Differential 49.3 H Plt Count 224 MPV 11.7 Immature Gran % (Auto) 0.400 Neut % (Auto) 80.5 H Lymph % (Auto) 6.6 L [place] % (Auto) 12.2 H Eos % (Auto) 0.1 Baso % (Auto) 0.2 Absolute Neuts (auto) 11.2 H Absolute Lymphs (auto) 0.91 Total Counted Not Reportable Diff Path Review May foll Platelet Estimate ADEQUATE Plt Morphology Comment LARGE Sodium 141 Potassium 2.8 L Chloride 104 Carbon Dioxide 29.0 Anion Gap 8 BUN 26 H Creatinine 1.19 Estim Creat Clear Calc 51.16 Est GFR (MDRD) Af Amer 76 Est GFR (MDRD) Non-Af 63 BUN/Creatinine Ratio 21.8 H Glucose 139 H Calcium 8.7 Magnesium 1.7 Total Bilirubin 1.50 H AST 19 ALT 20 Alkaline Phosphatase 41 L Total Protein 7.2 Albumin 3.3 Globulin 3.9 Albumin/Globulin Ratio 0.8 L POC Glucose 07/17/18 07/17/18 07/16/18 11:09 06:42 21:47 POC Glucose 206 H 128 H 166 H 07/16/18 16:58 POC Glucose 129 H Medical Necessity - Tobacco Use Smoking Status: Former smoker Tobacco Use: Cigarettes Assessment/Plan All Active Problems (Last Updated 07/16/18 @ 05:43 by Horacio Jerez DO) JESUS (acute kidney injury) (Resolved) CAP (community acquired pneumonia) (Resolved) Sepsis (Resolved) Hypoxemia (Acute) Sepsis (Resolved) Wheezing (Acute) Generalized weakness (Acute) Fatigue (Resolved) Atypical chest pain (Resolved) 1. Acute hypoxic respiratory failure 2/2 HCAP and acute diastolic CHF complicated by pulmonary htn and hx of copd - last echo 02/2018 with EF 55%, RSVP 38 mmHg. Heart cath 02/2018 with EF 55%, mild , and mild pulmonary htn. CT with pleural effusions, bnp elevated. Possible HCAP as well, large WBC count and chills at home. Continue IV lasix. Continue zosyn. Check MRSA swab add vanc if +. Resp panel negative. Blood cultures pending, urine antigens negative. -initially required venti mask now off O2. Walking pulse ox prior to DC. -with lactic acidosis will discontinue metformin permanently -continue IS/PEP therapy -not at dry weight. 2. hx non obstructive CAD - cath 02/2018 3. CKDIII - improved with diuresis. 4. T2Dm - SSI, hold nephrotoxic agents 5. HLD - statin 6. HTN - stable 7. Paroxysmal afib - sinus rhythm, controlled, continue amio, cardizem, xarelto, toprol 8. COPD - no acute exacerbation - continue aerosols, IS 9. Urinary retention - levi placed. flomax started. voiding trial tomorrow, if fails will go with levi and f/u with urology. DVT ppx: xarelto DC planning: PTOT, may need home care vs o/p PTOT This patient was seen by Dixon Kim PA-C under the supervision of Doctor Corry. <Abhishek Wheatley - Last Filed: 07/17/18 14:20> - Physical Exam General: Alert, Cooperative HEENT: Atraumatic, Normocephalic Lungs: Diminished, - - crackles bibasilar. DTP in bases. Cardiovascular: Regular rate, No murmurs Psych/Mental Status: Normal Affect, Appropriate Vital Signs Temp Pulse Resp BP Pulse Ox 36.6 C 95 16 143/68 H 94 07/17/18 09:12 07/17/18 14:00 07/17/18 14:00 07/17/18 09:14 07/17/18 14:00 Oxygen Flow Rate (L/min) 2 Oxygen Delivery Method Room Air Weight: 82.4 kg Body Mass Index (BMI) 26.8 Intake and Output for Last 24 Hours 07/15/18 07/16/18 07/17/18 23:59 23:59 23:59 Intake Total 1322.4 / 1322.4 467.2 / 467.2 Output Total 2760 / 2760 900 / 900 Balance -1437.6 / -1437.6 -432.8 / -432.8 Microbiology Past 72 Hours 07/16/18 12:05 Nasal Screen MRSA/MSSA - Final Swab (Method) 07/16/18 11:49 Legionella Antigen - Final Urine, Clean Catch 07/16/18 11:49 Streptococcus pneumoniae Antigen (M - Final Urine, Clean Catch 07/16/18 07:16 Respiratory Panel (PCR) - Final Mucosa - Nasopharyngeal Laboratory Tests Past 24 Hrs 07/17/18 07/17/18 07/17/18 00:40 06:16 06:16 WBC 13.9 H RBC 4.76 Hgb 13.4 Hct 40.7 MCV 85.5 MCH 28.2 MCHC 32.9 RDW 16.1 H RDW Differential 49.3 H Plt Count 224 MPV 11.7 Immature Gran % (Auto) 0.400 Neut % (Auto) 80.5 H Lymph % (Auto) 6.6 L [place] % (Auto) 12.2 H Eos % (Auto) 0.1 Baso % (Auto) 0.2 Absolute Neuts (auto) 11.2 H Absolute Lymphs (auto) 0.91 Total Counted Not Reportable Diff Path Review May foll Platelet Estimate ADEQUATE Plt Morphology Comment LARGE Sodium 141 Potassium 2.8 L Chloride 104 Carbon Dioxide 29.0 Anion Gap 8 BUN 26 H Creatinine 1.19 Estim Creat Clear Calc 51.16 Est GFR (MDRD) Af Amer 76 Est GFR (MDRD) Non-Af 63 BUN/Creatinine Ratio 21.8 H Glucose 139 H Calcium 8.7 Magnesium 1.7 Total Bilirubin 1.50 H AST 19 ALT 20 Alkaline Phosphatase 41 L Total Protein 7.2 Albumin 3.3 Globulin 3.9 Albumin/Globulin Ratio 0.8 L POC Glucose 07/17/18 07/17/18 07/16/18 11:09 06:42 21:47 POC Glucose 206 H 128 H 166 H 07/16/18 16:58 POC Glucose 129 H Assessment/Plan Patient seen and examined independently. Data reviewed. I agree with the above note by the physician bioinformatics assistant. 1. Acute hypoxic respiratory failure improved on room air Secondary to CHF pleural effusions, plus minus pneumonia Currently improved at this time. Wean oxygen as tolerated DC abx and monitor 2. Heart failure with preserved ejection fraction improved Ejection fraction of 55% on echocardiogram from February 16, 2018. This is comp gated by mild to moderate aortic stenosis as well. The CAT scan shows bilateral pleural effusions, likely transudative given the heart failure Patient will be placed on Lasix and monitored Not a candidate for GILBERTO inhibitors at this time given acute kidney injury. 3. Suspected gram-negative pneumonia doubtful Zosyn stopped Streptococcus and Legionella antigens negative Viral respiratory panel negative Pulmonary toilet CAT scan does not really show much in way of pneumonia so some of this could be related with viral etiology. 4. Possible JESUS improved up from yesterday monitor closely as he will be on abx. consider nephrology if gets worse. 5. Urinary retention 900 cc levi placed because of this started on tamsulosin DC levi in AM and recheck PVRs 6. Disposition: anticipate DC next 24-48h DW patient's [id number]. Code Visit Inpatient E&M: 97206 Subs Hosp L2
--- NOTE | 2018-07-17 14:05 | PN_ITS ---
<Dixon Kim - Last Filed: 07/17/18 13:58> Patient Problems: Active and Suspected Problems (Last Updated 07/16/18 @ 05:43 by Horacio Jerez DO) Wheezing (Acute) Generalized weakness (Acute) Subjective: Pt has had good urinary output. He was having urinary retention which he does not have a hx of. Severe pressure, scanned for 900+ cc's in bladder. Levi placed. Tolerating well. No fever/chills. SOB improving well. Nonproductive cough. No CP. - Physical Exam General: Alert, Oriented x3, Cooperative HEENT: Atraumatic, PERRLA, EOMI, Normocephalic Neck: Supple, No JVD, Negative Carotid Bruits Lungs: Diminished, Rales - BL bases Cardiovascular: Regular rate, No murmurs Abdomen: Bowel Sounds Present, Soft, Non Tender Extremities: No edema, Capillary Refill Less than 3 Seconds Skin: No rashes, No breakdown Musculoskeletal: No Tenderness to Palpation of Joints or Extremities Neurological: Cranial nerves II-XII grossly intact Psych/Mental Status: Normal Affect, Appropriate, Alert and oriented to time, place, person, mood and affect Vital Signs Temp Pulse Resp BP Pulse Ox 97.8 F 79 18 143/68 H 95 07/17/18 09:12 07/17/18 13:28 07/17/18 13:28 07/17/18 09:14 07/17/18 13:42 Oxygen Flow Rate (L/min) 2 Oxygen Delivery Method Room Air Weight: 181 lb 10.574 oz Body Mass Index (BMI) 26.8 Intake and Output for Last 24 Hours 07/15/18 07/16/18 07/17/18 23:59 23:59 23:59 Intake Total 1322.4 / 1322.4 467.2 / 467.2 Output Total 2760 / 2760 900 / 900 Balance -1437.6 / -1437.6 -432.8 / -432.8 Microbiology Past 72 Hours 07/16/18 11:49 Legionella Antigen - Final Urine, Clean Catch 07/16/18 11:49 Streptococcus pneumoniae Antigen (M - Final Urine, Clean Catch 07/16/18 07:16 Respiratory Panel (PCR) - Final Mucosa - Nasopharyngeal Laboratory Tests Past 24 Hrs 07/17/18 07/17/18 07/17/18 00:40 06:16 06:16 WBC 13.9 H RBC 4.76 Hgb 13.4 Hct 40.7 MCV 85.5 MCH 28.2 MCHC 32.9 RDW 16.1 H RDW Differential 49.3 H Plt Count 224 MPV 11.7 Immature Gran % (Auto) 0.400 Neut % (Auto) 80.5 H Lymph % (Auto) 6.6 L [place] % (Auto) 12.2 H Eos % (Auto) 0.1 Baso % (Auto) 0.2 Absolute Neuts (auto) 11.2 H Absolute Lymphs (auto) 0.91 Total Counted Not Reportable Diff Path Review May foll Platelet Estimate ADEQUATE Plt Morphology Comment LARGE Sodium 141 Potassium 2.8 L Chloride 104 Carbon Dioxide 29.0 Anion Gap 8 BUN 26 H Creatinine 1.19 Estim Creat Clear Calc 51.16 Est GFR (MDRD) Af Amer 76 Est GFR (MDRD) Non-Af 63 BUN/Creatinine Ratio 21.8 H Glucose 139 H Calcium 8.7 Magnesium 1.7 Total Bilirubin 1.50 H AST 19 ALT 20 Alkaline Phosphatase 41 L Total Protein 7.2 Albumin 3.3 Globulin 3.9 Albumin/Globulin Ratio 0.8 L POC Glucose 07/17/18 07/17/18 07/16/18 11:09 06:42 21:47 POC Glucose 206 H 128 H 166 H 07/16/18 16:58 POC Glucose 129 H Medical Necessity - Tobacco Use Smoking Status: Former smoker Tobacco Use: Cigarettes Assessment/Plan All Active Problems (Last Updated 07/16/18 @ 05:43 by Horacio Jerez DO) JESUS (acute kidney injury) (Resolved) CAP (community acquired pneumonia) (Resolved) Sepsis (Resolved) Hypoxemia (Acute) Sepsis (Resolved) Wheezing (Acute) Generalized weakness (Acute) Fatigue (Resolved) Atypical chest pain (Resolved) 1. Acute hypoxic respiratory failure 2/2 HCAP and acute diastolic CHF complicated by pulmonary htn and hx of copd - last echo 02/2018 with EF 55%, RSVP 38 mmHg. Heart cath 02/2018 with EF 55%, mild , and mild pulmonary htn. CT with pleural effusions, bnp elevated. Possible HCAP as well, large WBC count and chills at home. Continue IV lasix. Continue zosyn. Check MRSA swab add vanc if +. Resp panel negative. Blood cultures pending, urine antigens negative. -initially required venti mask now off O2. Walking pulse ox prior to DC. -with lactic acidosis will discontinue metformin permanently -continue IS/PEP therapy -not at dry weight. 2. hx non obstructive CAD - cath 02/2018 3. CKDIII - improved with diuresis. 4. T2Dm - SSI, hold nephrotoxic agents 5. HLD - statin 6. HTN - stable 7. Paroxysmal afib - sinus rhythm, controlled, continue amio, cardizem, xarelto, toprol 8. COPD - no acute exacerbation - continue aerosols, IS 9. Urinary retention - levi placed. flomax started. voiding trial tomorrow, if fails will go with levi and f/u with urology. DVT ppx: xarelto DC planning: PTOT, may need home care vs o/p PTOT This patient was seen by Dixon Kim PA-C under the supervision of Doctor Corry. <Abhishek Wheatley - Last Filed: 07/17/18 14:20> - Physical Exam General: Alert, Cooperative HEENT: Atraumatic, Normocephalic Lungs: Diminished, - - crackles bibasilar. DTP in bases. Cardiovascular: Regular rate, No murmurs Psych/Mental Status: Normal Affect, Appropriate Vital Signs Temp Pulse Resp BP Pulse Ox 36.6 C 95 16 143/68 H 94 07/17/18 09:12 07/17/18 14:00 07/17/18 14:00 07/17/18 09:14 07/17/18 14:00 Oxygen Flow Rate (L/min) 2 Oxygen Delivery Method Room Air Weight: 82.4 kg Body Mass Index (BMI) 26.8 Intake and Output for Last 24 Hours 07/15/18 07/16/18 07/17/18 23:59 23:59 23:59 Intake Total 1322.4 / 1322.4 467.2 / 467.2 Output Total 2760 / 2760 900 / 900 Balance -1437.6 / -1437.6 -432.8 / -432.8 Microbiology Past 72 Hours 07/16/18 12:05 Nasal Screen MRSA/MSSA - Final Swab (Method) 07/16/18 11:49 Legionella Antigen - Final Urine, Clean Catch 07/16/18 11:49 Streptococcus pneumoniae Antigen (M - Final Urine, Clean Catch 07/16/18 07:16 Respiratory Panel (PCR) - Final Mucosa - Nasopharyngeal Laboratory Tests Past 24 Hrs 07/17/18 07/17/18 07/17/18 00:40 06:16 06:16 WBC 13.9 H RBC 4.76 Hgb 13.4 Hct 40.7 MCV 85.5 MCH 28.2 MCHC 32.9 RDW 16.1 H RDW Differential 49.3 H Plt Count 224 MPV 11.7 Immature Gran % (Auto) 0.400 Neut % (Auto) 80.5 H Lymph % (Auto) 6.6 L [place] % (Auto) 12.2 H Eos % (Auto) 0.1 Baso % (Auto) 0.2 Absolute Neuts (auto) 11.2 H Absolute Lymphs (auto) 0.91 Total Counted Not Reportable Diff Path Review May foll Platelet Estimate ADEQUATE Plt Morphology Comment LARGE Sodium 141 Potassium 2.8 L Chloride 104 Carbon Dioxide 29.0 Anion Gap 8 BUN 26 H Creatinine 1.19 Estim Creat Clear Calc 51.16 Est GFR (MDRD) Af Amer 76 Est GFR (MDRD) Non-Af 63 BUN/Creatinine Ratio 21.8 H Glucose 139 H Calcium 8.7 Magnesium 1.7 Total Bilirubin 1.50 H AST 19 ALT 20 Alkaline Phosphatase 41 L Total Protein 7.2 Albumin 3.3 Globulin 3.9 Albumin/Globulin Ratio 0.8 L POC Glucose 07/17/18 07/17/18 07/16/18 11:09 06:42 21:47 POC Glucose 206 H 128 H 166 H 07/16/18 16:58 POC Glucose 129 H Assessment/Plan Patient seen and examined independently. Data reviewed. I agree with the above note by the physician medical billing assistant. 1. Acute hypoxic respiratory failure * improved on room air * Secondary to CHF pleural effusions, plus minus pneumonia * Currently improved at this time. * Wean oxygen as tolerated * DC abx and monitor 2. Heart failure with preserved ejection fraction * improved * Ejection fraction of 55% on echocardiogram from February 16, 2018. This is comp gated by mild to moderate aortic stenosis as well. * The CAT scan shows bilateral pleural effusions, likely transudative given the heart failure * Patient will be placed on Lasix and monitored * Not a candidate for GILBETRO inhibitors at this time given acute kidney injury. 3. Suspected gram-negative pneumonia * doubtful * Zosyn stopped * Streptococcus and Legionella antigens negative * Viral respiratory panel negative * Pulmonary toilet * CAT scan does not really show much in way of pneumonia so some of this could be related with viral etiology. 4. Possible JESUS * improved * up from yesterday * monitor closely as he will be on abx. * consider nephrology if gets worse. 5. Urinary retention * 900 cc * levi placed because of this * started on tamsulosin * DC levi in AM and recheck PVRs 6. Disposition: anticipate DC next 24-48h DW patient's [id number]. Code Visit Inpatient E&M: 44519 Subs Hosp L2
[2018-07-17] MEDS: Rivaroxaban 15 MG Tablet PO (17:09)
[2018-07-17] MEDS: Tamsulosin HCl 0.4 MG Capsule PO (17:09)
[2018-07-17 17:26] LABS: Bedside Glucose 153 mg/dL (70-110)
[2018-07-17] MEDS: Atorvastatin Calcium 20 MG Tablet PO (21:21)
[2018-07-17] MEDS: 0.9% NaCl Peripheral Flush Adult/Peds IV (21:21)
[2018-07-17 21:46] LABS: Bedside Glucose 171 mg/dL (70-110)
[2018-07-18] VITALS (11 sets, daily range): BP systolic 100–121; BP diastolic 54–77; PULSE 77–112; RESP 16–18; TEMP 36.6–36.8; O2SAT 92–97
[2018-07-18] MEDS: Insulin Lispro 100 UNIT/ML INSULN.PEN SC ×2 (06:46→11:09)
[2018-07-18] MEDS: Ipratropium/Albuterol Sulfate 3 ML AMPUL.NEB INHALATION ×2 (06:53→13:16)
[2018-07-18] MEDS: Budesonide Respules 0.5 MG/2 ML AMPUL.NEB. INHALATION (06:53)
[2018-07-18 06:55] LABS: Anion Gap 7 (5-15); BUN 26 mg/dL (7-18); BUN/Creat Ratio 19.8 RATIO (10-20); Calcium,Total 8.9 mg/dL (8.5-10.1); Chloride 104 mmol/L (98-107); Creatinine, Serum 1.31 mg/dL (0.70-1.30); EST Glomerular Filtration Rate 56 mL/min (>60); Est Glom Filt Rate - Afr Amer 68 mL/min (>60); Estimated Creatinine Clearance 46.47 ml/min; Glucose 159 mg/dL (74-106); Sodium Level 143 mmol/L (136-145)
[2018-07-18 06:56] LABS: Bedside Glucose 169 mg/dL (70-110)
[2018-07-18] MEDS: dilTIAZem CD 180 MG Capsule 360 MG PO (09:22)
[2018-07-18] MEDS: Amiodarone 200 MG Tablet PO (09:22)
[2018-07-18] MEDS: guaiFENesin 1,200 MG Tablet 1200 MG PO (09:23)
[2018-07-18] MEDS: Furosemide 40 MG/4 ML Vial IV (09:23)
[2018-07-18] MEDS: Metoprolol(XL)Succ 200 MG Tablet PO (09:26)
[2018-07-18 11:30] LABS: Bedside Glucose 272 mg/dL (70-110)
--- NOTE | 2018-07-18 14:09 | NURSING ---
Pt has been unable to void. States feels pressure down there. Bladder scan done and showed 363ml in his bladder. Will notify Dr. Wheatley.
--- NOTE | 2018-07-18 14:39 | PCM.DC ---
- Discharge Diagnoses Current Active Problems: Current Active and Chronic Problems (Last Updated 07/16/18 @ 05:43 by Horacio Jerez DO) Wheezing (Acute) Generalized weakness (Acute) You will use the following diet at home:: Fluid restricted (specify 2000 mls, 1500 mls) - 1500 cc/day Your food should be the consistency of: Regular Discharge Activity: Return to Normal Activity Call your doctor if you observe: Fever of 101 or Higher, Shortness of breath Catheter: [place] to leg bag Drain: [place] Additional Instructions: Daily weights and keep record. Notify physician if greater than 2 pounds in 1 day or 3 pounds in 1 week. Allergies/Adverse Reactions: Allergies No Known Allergies Allergy (Verified 07/16/18 03:03) Medications to take at Discharge albuterol sulfate HFA 90 mcg/actuation aerosol inhaler 2 puff INHALATION Q4H PRN g 01/18/18 diltiazem CD 360 mg capsule,extended release 24 hr 360 mg PO DAILY 01/18/18 donepezil 5 mg tablet 5 mg PO QHS tab 01/18/18 nitroglycerin 0.4 mg/hr transdermal 24 hour patch 1 patch TRANSDERMAL DAILY 01/18/18 sitagliptin 50 mg-metformin 500 mg tablet 1 tab PO BID 01/18/18 metoprolol succinate ER 100 mg tablet,extended release 24 hr 200 mg PO DAILY tab 01/19/18 amiodarone 200 mg tablet 200 mg PO DAILY #30 tab 03/12/18 Atorvastatin Calcium [Lipitor] 20 mg PO QHS 07/16/18 Fenofibrate 120 mg PO DAILY 07/16/18 Rivaroxaban [Xarelto] 20 mg PO DAILY 07/16/18 Furosemide [Lasix] 20 mg PO BIDLX #60 tablet 07/18/18 Potassium Chloride [K-Dur] 20 meq PO DAILY #30 tablet 07/18/18 Tamsulosin HCl [Flomax] 0.4 mg PO DAILY@1730 #30 capsule 07/18/18 The following prescriptions were given: Furosemide [Lasix] 20 mg PO BIDLX #60 tablet Potassium Chloride [K-Dur] 20 meq PO DAILY #30 tablet Tamsulosin HCl [Flomax] 0.4 mg PO DAILY@1730 #30 capsule Primary Care Physician: Johanny Sow DO [Primary Care Provider] - Within 1 Week Test Results: Test results from this visit will be discussed in further detail at your follow-up appointment, if applicable. Please Follow Up With: Javed Arvizu MD When: 08/09/18 Please Follow Up With: Devon Gann MD When: 1-2 weeks. Urology for follow up to remove catheter. Call for appointment. Proposed Discharge Date: 07/18/18
--- NOTE | 2018-07-18 14:44 | PCM.DC.SUM ---
Discharge Date and Diagnosis - Problem List Patient Problems: Active and Suspected Problems (Last Updated 07/16/18 @ 05:43 by Horacio Jerez DO) (HFpEF) heart failure with preserved ejection fraction (Acute) Pleural effusion (Acute) Urinary retention (Acute) Wheezing (Acute) Generalized weakness (Acute) Date of Admission: 07/16/18 Date of Discharge: 07/18/18 - Primary Discharge Diagnosis Active and Suspected Problems (Last Updated 07/16/18 @ 05:43 by Horacio Jerez DO) (HFpEF) heart failure with preserved ejection fraction (Acute) Pleural effusion (Acute) Urinary retention (Acute) Wheezing (Acute) Generalized weakness (Acute) 1. Acute hypoxic respiratory failure improved on room air Secondary to CHF pleural effusions 2. Heart failure with preserved ejection fraction improved Ejection fraction of 55% on echocardiogram from February 16, 2018. This is comp gated by mild to moderate aortic stenosis as well. The CAT scan shows bilateral pleural effusions, likely transudative given the heart failure Patient will be placed on Lasix and monitored Not a candidate for GILBERTO inhibitors/ARB at this time given acute kidney injury and aortic stenosis. Furosemide 20 BID. Supplement K with 40 MeQ K-dur 3. Suspected gram-negative pneumonia ruled out Streptococcus and Legionella antigens negative Viral respiratory panel negative Pulmonary toilet CAT scan does not really show much in way of pneumonia so some of this could be related with viral etiology. 4. Possible JESUS improved 5. Urinary retention Catheter placed. Removed today, and unable to urinary Replace catheter continue tamsulosin Follow up with for removal of catheter as outpt. - Secondary Discharge Diagnosis Chronic Problems (Last Updated 07/16/18 @ 05:43 by Horacio Jerez DO) History of cardioversion (Chronic 05/19/18) History of right and left heart catheterization (Chronic 03/10/18) Nonobstructive coronary arteries, mild pulmonary hypertension, mild aortic stenosis, mildly elevated right heart pressures, EF 55-60% per Dr. Arvizu @ [facility] Secondary pulmonary hypertension (Chronic) RVSP 51 mmhg, EF 55% per echo 07/21 2013 done @ [facility] Nonrheumatic aortic valve regurgitation (Chronic) Mild (1+) per echo 07/21/2013 done @ [facility] Nonrheumatic tricuspid valve regurgitation (Chronic) Moderate (2+) per echo 07/21/2013 done @ [facility] Nonrheumatic mitral valve regurgitation (Chronic) mild (1+) per echo 07/21/2013 done @ [facility] History of TIA (transient ischemic attack) (Chronic) Leg edema (Chronic) Atrial fibrillation (Chronic) Diabetes mellitus, type II (Chronic) Hyperlipidemia (Chronic) Hypertension (Chronic) Hospital Course and Treatment Imaging Results: Clinical Impression(s) from Imaging Studies Chest X-Ray 07/16/18 03:15 IMPRESSION: Possible mild pulmonary edema. Electronically Signed: Magda Vallejo, at 4:11 EDT Tel , Service support , Chest CT 07/16/18 11:10 IMPRESSION: Bilateral pleural effusions with bibasilar atelectasis and/or infiltration worse on the right side. Mild emphysematous changes. Electronically Signed: Octaviano Lakisha, at 13:21 EDT , Service support , NA Operations: None Procedures: None Summary of Care Provided: The patient is a 77 year old M Tyrese with malaise, low's pulse ox and wheezing with heart failure upon arrival. Patient felt to be related with pneumonia but actually is more suggestive of heart failure and patient did have moderate-sized pleural effusions on CAT scan. No infiltrate was noted on CAT scan. Patient was switched over diuresis and he diuresed well. Patient had pneumonia work-up that was negative. Patient will be discharged with Lasix. Given patient's kidney disease as well as aortic stenosis GILBERTO inhibitors and angiotensin receptor blockers will be held. Patient did develop some urinary retention did require [place] catheter placement. [place] catheter was removed on the second, patient unable to void so it will be replaced. Patient has already been started on [place] lotion. Patient will need to follow-up with urology for eventual removal of the catheter. Patient has a follow-up already scheduled with Dr. 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 [] Patient Problems: Active and Suspected Problems (Last Updated 07/16/18 @ 05:43 by Horacio Jerez DO) (HFpEF) heart failure with preserved ejection fraction (Acute) Pleural effusion (Acute) Urinary retention (Acute) Wheezing (Acute) Generalized weakness (Acute) - Physical Exam General: Alert, No apparent distress HEENT: Atraumatic, Normocephalic Oral: Moist Mucosa, No Gingival or Mucosal Lesions/ Ulcerations Neck: No Nodes, Thyroid Normal Size and Texture Lungs: Normal air movement, - - bibasilar crackles. Cardiovascular: Regular rate, No Ectopic Activity Abdomen: Bowel Sounds Present, Soft, Non Tender, Non-Distended Extremities: No edema, No Calf Tenderness Skin: No rashes, No breakdown Psych/Mental Status: Normal Affect, Appropriate Vital Signs Temp Pulse Resp BP Pulse Ox 36.6 C 77 16 100/77 96 07/18/18 09:00 07/18/18 14:14 07/18/18 14:00 07/18/18 09:26 07/18/18 14:00 Oxygen Flow Rate (L/min) 2 Oxygen Delivery Method Room Air Weight: 82.4 kg Body Mass Index (BMI) 26.8 Intake and Output for Last 24 Hours 07/16/18 07/17/18 07/18/18 23:59 23:59 23:59 Intake Total 1322.4 / 1322.4 1072.2 / 1072.2 333.6 / 333.6 Output Total 2760 / 2760 2475 / 2475 750 / 750 Balance -1437.6 / -1437.6 -1402.8 / -1402.8 -416.4 / -416.4 Microbiology Past 72 Hours 07/16/18 03:50 Blood Culture - Preliminary Blood Culture (Wb) - Left Hand No growth in 48 hours. 07/16/18 03:40 Blood Culture - Preliminary Blood Culture (Wb) - Anticubital Left No growth in 48 hours. 07/16/18 12:05 Nasal Screen MRSA/MSSA - Final Swab (Method) 07/16/18 11:49 Legionella Antigen - Final Urine, Clean Catch 07/16/18 11:49 Streptococcus pneumoniae Antigen (M - Final Urine, Clean Catch 07/16/18 07:16 Respiratory Panel (PCR) - Final Mucosa - Nasopharyngeal Laboratory Tests Past 24 Hrs 07/18/18 05:45 Sodium 143 Potassium 3.0 L Chloride 104 Carbon Dioxide 32.0 Anion Gap 7 BUN 26 H Creatinine 1.31 H Estim Creat Clear Calc 46.47 Est GFR (MDRD) Af Amer 68 Est GFR (MDRD) Non-Af 56 L BUN/Creatinine Ratio 19.8 Glucose 159 H Calcium 8.9 POC Glucose 07/18/18 07/18/18 07/17/18 11:05 06:42 21:17 POC Glucose 272 H 169 H 171 H 07/17/18 17:03 POC Glucose 153 H Discharge Diet: Low fat/ Low Cholesterol, 6 Cup Fluid Restriction, 2000 mg Sodium Diet Discharge Activity: Return to Normal Activity Call your doctor if you observe: Fever of 101 or Higher, Shortness of breath Catheter: [place] to leg bag Drain: [place] Home Medications: Medications to take at Discharge albuterol sulfate HFA 90 mcg/actuation aerosol inhaler 2 puff INHALATION Q4H PRN g 01/18/18 diltiazem CD 360 mg capsule,extended release 24 hr 360 mg PO DAILY 01/18/18 donepezil 5 mg tablet 5 mg PO QHS tab 01/18/18 nitroglycerin 0.4 mg/hr transdermal 24 hour patch 1 patch TRANSDERMAL DAILY 01/18/18 sitagliptin 50 mg-metformin 500 mg tablet 1 tab PO BID 01/18/18 metoprolol succinate ER 100 mg tablet,extended release 24 hr 200 mg PO DAILY tab 01/19/18 amiodarone 200 mg tablet 200 mg PO DAILY #30 tab 03/12/18 Atorvastatin Calcium [Lipitor] 20 mg PO QHS 07/16/18 Fenofibrate 120 mg PO DAILY 07/16/18 Rivaroxaban [Xarelto] 20 mg PO DAILY 07/16/18 Furosemide [Lasix] 20 mg PO BIDLX #60 tablet 07/18/18 Potassium Chloride [K-Dur] 20 meq PO DAILY #30 tablet 07/18/18 Tamsulosin HCl [Flomax] 0.4 mg PO DAILY@1730 #30 capsule 07/18/18 Following Prescrptions Were Given to Patient: Furosemide [Lasix] 20 mg PO BIDLX #60 tablet Potassium Chloride [K-Dur] 20 meq PO DAILY #30 tablet Tamsulosin HCl [Flomax] 0.4 mg PO DAILY@1730 #30 capsule Primary Care Physician: Johanny Sow DO [Primary Care Provider] - Within 1 Week Please Follow Up With: Javed Arvizu MD When: 08/09/18 Please Follow Up With: Devon Gann MD When: 1-2 weeks. Urology for follow up to remove catheter. Call for appointment. Disposition: Home with Home Health Minutes spent on discharge:: 35 Patient Condition:: Fair Medical Necessity - Tobacco Use Smoking Status: Former smoker Tobacco Use: Cigarettes Meaningful Use Info Meaningful Use Diagnoses (Choose all that apply): CHF - CHF GILBERTO/ARB ordered at discharge?: No Reason GILBERTO/ARB not ordered?: Worsening renal dysfunctn, Moderate aortic stenosis Documented LVEF (%): 55 Code Visit Inpatient E&M: 97314 Disch Hosp
--- NOTE | 2018-07-18 14:49 | DS.PCM_ITS ---
Discharge Date and Diagnosis - Problem List Patient Problems: Active and Suspected Problems (Last Updated 07/16/18 @ 05:43 by Horacio Jerez DO) (HFpEF) heart failure with preserved ejection fraction (Acute) Pleural effusion (Acute) Urinary retention (Acute) Wheezing (Acute) Generalized weakness (Acute) Date of Admission: 07/16/18 Date of Discharge: 07/18/18 - Primary Discharge Diagnosis Active and Suspected Problems (Last Updated 07/16/18 @ 05:43 by Horacio Jerez DO) (HFpEF) heart failure with preserved ejection fraction (Acute) Pleural effusion (Acute) Urinary retention (Acute) Wheezing (Acute) Generalized weakness (Acute) 1. Acute hypoxic respiratory failure * improved on room air * Secondary to CHF pleural effusions 2. Heart failure with preserved ejection fraction * improved * Ejection fraction of 55% on echocardiogram from February 16, 2018. This is comp gated by mild to moderate aortic stenosis as well. * The CAT scan shows bilateral pleural effusions, likely transudative given the heart failure * Patient will be placed on Lasix and monitored * Not a candidate for GILBERTO inhibitors/ARB at this time given acute kidney injury and aortic stenosis. * Furosemide 20 BID. Supplement K with 40 MeQ K-dur 3. Suspected gram-negative pneumonia * ruled out * Streptococcus and Legionella antigens negative * Viral respiratory panel negative * Pulmonary toilet * CAT scan does not really show much in way of pneumonia so some of this could be related with viral etiology. 4. Possible JESUS * improved 5. Urinary retention * Catheter placed. * Removed today, and unable to urinary * Replace catheter * continue tamsulosin * Follow up with for removal of catheter as outpt. - Secondary Discharge Diagnosis Chronic Problems (Last Updated 07/16/18 @ 05:43 by Horacio Jerez DO) History of cardioversion (Chronic 05/19/18) History of right and left heart catheterization (Chronic 03/10/18) Nonobstructive coronary arteries, mild pulmonary hypertension, mild aortic stenosis, mildly elevated right heart pressures, EF 55-60% per Dr. Arvizu @ [facility] Secondary pulmonary hypertension (Chronic) RVSP 51 mmhg, EF 55% per echo 07/21 2013 done @ [facility] Nonrheumatic aortic valve regurgitation (Chronic) Mild (1+) per echo 07/21/2013 done @ [facility] Nonrheumatic tricuspid valve regurgitation (Chronic) Moderate (2+) per echo 07/21/2013 done @ [facility] Nonrheumatic mitral valve regurgitation (Chronic) mild (1+) per echo 07/21/2013 done @ [facility] History of TIA (transient ischemic attack) (Chronic) Leg edema (Chronic) Atrial fibrillation (Chronic) Diabetes mellitus, type II (Chronic) Hyperlipidemia (Chronic) Hypertension (Chronic) Hospital Course and Treatment Imaging Results: Clinical Impression(s) from Imaging Studies Chest X-Ray 07/16/18 03:15 IMPRESSION: Possible mild pulmonary edema. Electronically Signed: Magda Vallejo, at 4:11 EDT Tel , Service support , Chest CT 07/16/18 11:10 IMPRESSION: Bilateral pleural effusions with bibasilar atelectasis and/or infiltration worse on the right side. Mild emphysematous changes. Electronically Signed: Octaviano Lakisha, at 13:21 EDT , Service support , NA Operations: None Procedures: None Summary of Care Provided: The patient is a 77 year old M Tyrese with malaise, low's pulse ox and wheezing with heart failure upon arrival. Patient felt to be related with pneumonia but actually is more suggestive of heart failure and patient did have moderate-sized pleural effusions on CAT scan. No infiltrate was noted on CAT scan. Patient was switched over diuresis and he diuresed well. Patient had pneumonia work-up that was negative. Patient will be discharged with Lasix. Given patient's kidney disease as well as aortic stenosis GILBERTO inhibitors and angiotensin receptor blockers will be held. Patient did develop some urinary retention did require Kear[place] catheter placement. Kearney catheter was removed on the second, patient unable to void so it will be replaced. Patient has already been started on Olivia lotion. Patient will need to follow-up with urology for eventual removal of the catheter. Patient has a follow-up already scheduled with Dr. 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 [] Patient Problems: Active and Suspected Problems (Last Updated 07/16/18 @ 05:43 by Horacio Jerez DO) (HFpEF) heart failure with preserved ejection fraction (Acute) Pleural effusion (Acute) Urinary retention (Acute) Wheezing (Acute) Generalized weakness (Acute) - Physical Exam General: Alert, No apparent distress HEENT: Atraumatic, Normocephalic Oral: Moist Mucosa, No Gingival or Mucosal Lesions/ Ulcerations Neck: No Nodes, Thyroid Normal Size and Texture Lungs: Normal air movement, - - bibasilar crackles. Cardiovascular: Regular rate, No Ectopic Activity Abdomen: Bowel Sounds Present, Soft, Non Tender, Non-Distended Extremities: No edema, No Calf Tenderness Skin: No rashes, No breakdown Psych/Mental Status: Normal Affect, Appropriate Vital Signs Temp Pulse Resp BP Pulse Ox 36.6 C 77 16 100/77 96 07/18/18 09:00 07/18/18 14:14 07/18/18 14:00 07/18/18 09:26 07/18/18 14:00 Oxygen Flow Rate (L/min) 2 Oxygen Delivery Method Room Air Weight: 82.4 kg Body Mass Index (BMI) 26.8 Intake and Output for Last 24 Hours 07/16/18 07/17/18 07/18/18 23:59 23:59 23:59 Intake Total 1322.4 / 1322.4 1072.2 / 1072.2 333.6 / 333.6 Output Total 2760 / 2760 2475 / 2475 750 / 750 Balance -1437.6 / -1437.6 -1402.8 / -1402.8 -416.4 / -416.4 Microbiology Past 72 Hours 07/16/18 03:50 Blood Culture - Preliminary Blood Culture (Wb) - Left Hand No growth in 48 hours. 07/16/18 03:40 Blood Culture - Preliminary Blood Culture (Wb) - Anticubital Left No growth in 48 hours. 07/16/18 12:05 Nasal Screen MRSA/MSSA - Final Swab (Method) 07/16/18 11:49 Legionella Antigen - Final Urine, Clean Catch 07/16/18 11:49 Streptococcus pneumoniae Antigen (M - Final Urine, Clean Catch 07/16/18 07:16 Respiratory Panel (PCR) - Final Mucosa - Nasopharyngeal Laboratory Tests Past 24 Hrs 07/18/18 05:45 Sodium 143 Potassium 3.0 L Chloride 104 Carbon Dioxide 32.0 Anion Gap 7 BUN 26 H Creatinine 1.31 H Estim Creat Clear Calc 46.47 Est GFR (MDRD) Af Amer 68 Est GFR (MDRD) Non-Af 56 L BUN/Creatinine Ratio 19.8 Glucose 159 H Calcium 8.9 POC Glucose 07/18/18 07/18/18 07/17/18 11:05 06:42 21:17 POC Glucose 272 H 169 H 171 H 07/17/18 17:03 POC Glucose 153 H Discharge Diet: Low fat/ Low Cholesterol, 6 Cup Fluid Restriction, 2000 mg Sodium Diet Discharge Activity: Return to Normal Activity Call your doctor if you observe: Fever of 101 or Higher, Shortness of breath Catheter: [place] to leg bag Drain: [place] Home Medications: Medications to take at Discharge albuterol sulfate HFA 90 mcg/actuation aerosol inhaler 2 puff INHALATION Q4H PRN g 01/18/18 diltiazem CD 360 mg capsule,extended release 24 hr 360 mg PO DAILY 01/18/18 donepezil 5 mg tablet 5 mg PO QHS tab 01/18/18 nitroglycerin 0.4 mg/hr transdermal 24 hour patch 1 patch TRANSDERMAL DAILY 01/18/18 sitagliptin 50 mg-metformin 500 mg tablet 1 tab PO BID 01/18/18 metoprolol succinate ER 100 mg tablet,extended release 24 hr 200 mg PO DAILY tab 01/19/18 amiodarone 200 mg tablet 200 mg PO DAILY #30 tab 03/12/18 Atorvastatin Calcium [Lipitor] 20 mg PO QHS 07/16/18 Fenofibrate 120 mg PO DAILY 07/16/18 Rivaroxaban [Xarelto] 20 mg PO DAILY 07/16/18 Furosemide [Lasix] 20 mg PO BIDLX #60 tablet 07/18/18 Potassium Chloride [K-Dur] 20 meq PO DAILY #30 tablet 07/18/18 Tamsulosin HCl [Flomax] 0.4 mg PO DAILY@1730 #30 capsule 07/18/18 Following Prescrptions Were Given to Patient: Furosemide [Lasix] 20 mg PO BIDLX #60 tablet Potassium Chloride [K-Dur] 20 meq PO DAILY #30 tablet Tamsulosin HCl [Flomax] 0.4 mg PO DAILY@1730 #30 capsule Primary Care Physician: Johanny Sow DO [Primary Care Provider] - Within 1 Week Please Follow Up With: Javed Arvizu MD When: 08/09/18 Please Follow Up With: Devon Gann MD When: 1-2 weeks. Urology for follow up to remove catheter. Call for appointment. Disposition: Home with Home Health Minutes spent on discharge:: 35 Patient Condition:: Fair Medical Necessity - Tobacco Use Smoking Status: Former smoker Tobacco Use: Cigarettes Meaningful Use Info Meaningful Use Diagnoses (Choose all that apply): CHF - CHF GILBERTO/ARB ordered at discharge?: No Reason GILBERTO/ARB not ordered?: Worsening renal dysfunctn, Moderate aortic stenosis Documented LVEF (%): 55 Code Visit Inpatient E&M: 35875 Disch Hosp
[2018-07-18] MEDS: Rivaroxaban 15 MG Tablet PO (15:02)
[2018-07-18] MEDS: Tamsulosin HCl 0.4 MG Capsule PO (15:02)
[2018-07-18 16:25] LABS: Bedside Glucose 190 mg/dL (70-110)
--- NOTE | 2018-07-19 08:51 | CASEMGMT ---
Note left for this RN CM that pt is interested in HHC. Message left for pt to call this RN CM back as soon as possible in regards to same. SStaten RN CM
[2018-07-19 09:12] LABS: Pathologist Review Reviewed
--- NOTE | 2018-07-19 11:14 | CASEMGMT ---
EMILIE LAURENT Discharge F/U Phone Call LACE: Strata: Discharge date: 07/18/18 Call date: 07/19/18 Call time: 1112 Duration: 3minutes Admission dx: Severe sepsis secondary to HCAP, Resp failure Pt's answered phone and states pt is sleeping at this time and preferred to answers questions at this time. states no need for any HHC at this time and states 'My daughter and I are taking care of him just fine.' states that pt has been 'feeling great' since discharge. states no questions regarding discharge instructions or medications at this time. states that daughter is setting up f/u appt's. states no suggestions for [facility] at this time and states that the 'Nurses were terrific and they all took good care of him.' states no further questions/concerns/needs at this time. SStaten EMILIE LAURENT
[2018-07-19 15:14] LABS: Pathologist Review Reviewed
== END 2018-07-18 16:43 | disposition home health service (06) | DRG 189 ==
LOC: ED 03:42 → PCU 04:26
PROVIDERS: Hospitalist; Physician Assistant; Admitting Provider Internal Medicine; Emergency Provider Emergency Medicine; Family Provider Family Medicine; PCP Family Medicine
DX: J96.01 Acute respiratory failure with hypoxia (principal); I50.31 Acute diastolic (congestive) heart failure; I13.0 Hypertensive heart and chronic kidney disease with heart failure and stage 1 through stage 4 chronic kidney disease, or unspecified chronic kidney disease; N17.9 Acute kidney failure, unspecified; E78.5 Hyperlipidemia, unspecified; N18.3 Chronic kidney disease, stage 3 (moderate); I27.29 Other secondary pulmonary hypertension; I48.2 Chronic atrial fibrillation; E11.22 Type 2 diabetes mellitus with diabetic chronic kidney disease; I25.10 Atherosclerotic heart disease of native coronary artery without angina pectoris; F02.80 Dementia in other diseases classified elsewhere, unspecified severity, without behavioral disturbance, psychotic disturbance, mood disturbance, and anxiety; G30.9 Alzheimer's disease, unspecified; I48.0 Paroxysmal atrial fibrillation; J44.9 Chronic obstructive pulmonary disease, unspecified; R33.9 Retention of urine, unspecified; I08.0 Rheumatic disorders of both mitral and aortic valves; Z87.891 Personal history of nicotine dependence
CPT/HCPCS: 36415; 71045; 71250; 80048; 80053; 81001; 82962; 83605; 83735; 83880; 84484; 85025; 87040; 87081; 87449; 87633; 93005; 94640; 94667; 94668; 97110; 97116; 97162; 97166; 97530; 99285; J7050; A4216; J1940

== ENCOUNTER 2018-08-14 19:30 | Inpatient (IN) | payer MEDICARE, SELFPAY ==
[2018-07-16 05:45] VITALS: BMI 26.8
[2018-08-14 19:31] VITALS: BP 102/47; PULSE 44; RESP 18; TEMP 36.7; O2SAT 97; BMI 25.2
[2018-08-14 19:38] VITALS: O2SAT 95
--- NOTE | 2018-08-14 20:12 | EKG12_ITS ---
Test Reason : SOB Blood Pressure : / mmHG Vent. Rate : 043 BPM Atrial Rate : 043 BPM P-R Int : 164 ms QRS Dur : 090 ms QT Int : 586 ms P-R-T Axes : 040 055 033 degrees QTc Int : 495 ms Marked sinus bradycardia Prolonged QT Abnormal ECG Confirmed by ERICA VILLASEÑOR, NEFTALI ([id number]), map editor LINDA CURTIS ([id number]) on 08/17/2018 11:57:08 AM Referred By: FARHAN Confirmed By:NEFTALI MALDONADO MD
--- NOTE | 2018-08-14 20:12 | RAD_ITS ---
HISTORY: DYSPNEAPT INCOHERENT EXAM: XR Chest 1 View: COMPARISON: July 16, 2018 previous chest x-ray and chest CT FINDINGS: # of images incl. paperwork: 1 Atherosclerotic plaque within the aortic arch is unchanged. Perihilar airspace disease, left greater than right persists but is less. Lung apices are clear Heart is not enlarged. Thoracic spondylosis persists Pulmonary vascularity is distinct. Tiny bilateral pleural effusions are suspected effusions. RAD/Chest 1 View (Portable) IMPRESSION: Persistent perihilar and lower lung airspace disease left greater than right. Very small bilateral pleural effusions Severity of this lung disease is less than that of July 16, 2018. at 2058 Reported and signed by: Jeremias Niño MD Electronically Signed: Jeremias Niño MD at 20:57 EDT Tel , Service support ,
[2018-08-14 20:38] LABS: Absolute Lymphocyte Count 1.15 X10^3/ul (0.83-4.51); Absolute Neutrophil Count 8.5 X10^3/uL (2.0-7.7); Basophil# 0.02 X10^3/uL; Basophil% 0.2 % (0-1); Eosinophil# 0.07 X10^3/uL; Eosinophils% 0.6 % (0-5); Hematocrit 20.3 % (40-54); Hemoglobin 6.3 g/dl (13.0-16.5); Lymphocyte # 1.15 X10^3/ul (4.0); Lymphocyte % 10.5 % (19-41); Mean Corpuscular Hgb 26.4 pg (27.0-32.0); Mean Corpuscular Volume 84.9 fL (80-94); Mean Platelet Vol. 11.1 fl (6.2-12.0); Monocyte# 1.13 X10^3/uL; Monocyte% 10.3 % (0-10); Neutrophil # 8.52 X10^3/uL (2.7-7.7); Neutrophil % 78.1 % (47-70); Platelet Count 208 K/mm3 (150-450); RBC Distribution Width CV 16.3 % (11.6-14.6); RBC Distribution Width SD 49.3 fl (35.1-43.9); Red Blood Count 2.39 M/mm3 (4.6-6.2); White Blood Count 10.9 K/mm3 (4.4-11.0)
[2018-08-14 20:40] LABS: POSITIVE COUNT NO; POSITIVE DIFFERENTIAL NO; POSITIVE MORPHOLOGY NO
[2018-08-14 21:07] LABS: BNP,B-Type NATRIURETIC PEPTIDE 294.5 pg/mL (0-100)
[2018-08-14 21:31] VITALS: BP 124/40; PULSE 46; RESP 20; O2SAT 96
[2018-08-14 21:38] LABS: Anion Gap 5 (5-15); BUN 30 mg/dL (7-18); BUN/Creat Ratio 19.6 RATIO (10-20); Calcium,Total 8.5 mg/dL (8.5-10.1); Chloride 108 mmol/L (98-107); Creatinine, Serum 1.53 mg/dL (0.70-1.30); EST Glomerular Filtration Rate 47 mL/min (>60); Est Glom Filt Rate - Afr Amer 57 mL/min (>60); Estimated Creatinine Clearance 41.09 ml/min; Glucose 167 mg/dL (74-106); Potassium 4.1 mmol/L (3.5-5.1); Sodium Level 138 mmol/L (136-145)
[2018-08-14 21:53] LABS: Color, Urine Yellow (Yellow); Glucose, Dipstick Normal (Normal); Ketone-Dipstick Negative (Negative); Leukocyte Esterase-Dipstick Negative /ul (Negative); Nitrite-Dipstick Negative (Negative); Occult Blood-Urine Negative /ul (Negative); Protein-Dipstick Negative (Negative); Specific Gravity, Urine 1.025 (1.002-1.030); Squamous Epithelial Cells - UA 0 SEEN /hpf (0-5); Urine Bilirubin Dipstick Negative (Negative); Urine Clarity Clear (Clear); Urine Urobilinogen Normal (Normal)
[2018-08-14 22:02] LABS: Bacteria 1+ /hpf (None Seen); Mucous, Urine 2+ /hpf (<or=2+); Red Blood Cells-Urine 0-5 SEEN /hpf (0-5); White Blood Cells 0-5 SEEN /hpf (0-5)
--- NOTE | 2018-08-14 22:09 | ED.VISSUMM ---
- ER Visit Summary Date of Service: 08/14/18 Chief Complaint: [Weakness and shortness of breath] History of Present Illness: The patient is a 77 M [presents to the emergency department from home. Patient per has been increasingly weak. Patient had a hard time walking. Patient not eating. He killed last week and patient not wanting to talk about it. He denies any blood in stool or black tarry stool. He denies any chest pain. Patient is always short of breath but tonight his son noted that while watching the baseball game he started to hallucinate and then had his pulse ox checked and it was 83% on room air. Patient not normally on oxygen. Patient does have a history of CHF, A. fib, pulmonary hypertension, diabetes, high cholesterol, pleural effusion history, and dementia. Patient himself is not a good historian. Patient denies any abdominal pain. He denies any fevers. He denies urinary symptoms.] Physical Examination: [HEENT-PERRLA, EOMI. Cranial nerves II through XII grossly intact. TMs clear. Mucous membranes moist. No adenopathy. Cardiovascular-regular and bradycardic. Patient has a 2/6 systolic ejection murmur. Lungs-clear to auscultation, chest wall stable without crepitus or subcu emphysema Abdomen-normoactive bowel sounds, soft, nontender, no rebound or rigidity, no peritoneal signs. Rectal exam-patient has brown stool that is Hemoccult negative. No masses noted. Extremities-intact ?4, normal range of motion, normal pulses, atraumatic] Test Results: [EKG obtained erosive sinus bradycardia with ventricular rate of 43 bpm. CBC with differential showed a white count of 10.9, hemoglobin 6.3, hematocrit 20, platelets 208. Chemistries unremarkable. BUN 30, 1.53. Troponin less than 0.015. BNP was 294. Urinalysis was unremarkable. Chest x-ray showed persistent perihilar and lower lobe airspace disease improved from prior study.] Emergency Department Course and Treatment: [Patient was typed and crossed for 2 units packed red cells.] Treatment Plan: [Admit for further work-up and evaluation of his anemia. Patient's hemoglobin was 13 on July 17.] Disposition: [Admit] Impression: [Anemia Generalized weakness Dyspnea Xarelto coagulopathy] This note was generated with [employer] software. It may contain incorrect words, spelling, and punctuation that were not noted in review of the chart prior to signing ED Disposition - Plan for ED Patient: Referrals: Johanny Sow DO [Primary Care Provider] -
--- NOTE | 2018-08-14 22:30 | PCM.HP.STD ---
Problem List (1) Acute anemia Status: Acute (2) History of cardioversion Status: Chronic (3) Secondary pulmonary hypertension Status: Chronic Comment: RVSP 51 mmhg, EF 55% per echo 07/21 2013 done @ [facility] (4) History of TIA (transient ischemic attack) Status: Chronic (5) Atrial fibrillation Status: Chronic Qualifiers: (6) Diabetes mellitus, type II Status: Chronic (7) Hyperlipidemia Status: Chronic Qualifiers: (8) Hypertension Status: Chronic Qualifiers: History of Present Illness Date of Admission: 08/14/18 Chief Complaint: Weakness, shortness of breath. The patient is a 77 year old M presented to the emergency room because of weakness and shortness of breath. The patient is demented and was not able to provide good history. Patient's son and daughter were at the bedside and they provided most of the information. Patient's spoke to the ED physician and she provided the story. According to the patient's son, the patient's other son few days ago and the patient has been stressed out and not wanting to talk about. The son mentioned that his father has been and not eating today, he looked pale, started hallucinating, short of breath and his pulse oximeter at home was 82% on room air and they brought him to the emergency department. He is not on oxygen at home. The patient mentioned that he has been getting more short of breath than usual with activity and he feels weak and fatigued. He denied chest pain, palpitation, dizziness or lightheadedness. No reported syncope or presyncope. Patient denied epistaxis, hemoptysis, hematemesis, hematochezia, melena or hematuria. On further questioning, patient mentioned that he had questionable bloody bowel movements couple of days ago. None of the family members including the who lives with him mentioned that he had blood in the stool. He had a history of atrial fibrillation, has been on amiodarone and Cardizem as well as Eliquis for anticoagulation. He had a history of type 2 diabetes mellitus which seems to be under control with Janumet. He had a history of dementia, has been having issues with confusion and hallucination and he has been on donepezil. He had history of TIAs and he has been on Plavix and Eliquis. In the emergency department, patient was afebrile, bradycardic, blood pressure was stable, pulse ox was normal on room air all the time. Chest x-ray revealed minimal small bilateral pleural effusion, no acute infiltrate or consolidation. EKG revealed sinus bradycardia, prolonged QTC, no acute changes. Routine blood work was remarkable for hemoglobin of 6.3 g/dL, BUN of 30, creatinine 1.53. Stool for occult blood was negative. Troponin was negative. BNP was elevated but it is chronically elevated. Urinalysis showed no UTI, no hematuria. He is being admitted for acute symptomatic anemia without obvious source of bleeding could be due to GI bleed. Past Medical History Past Medical History (Chronic Problems): Chronic Problems (Last Updated 08/14/18 @ 22:41 by Shashi Cruz MD) Dementia (Chronic) History of cardioversion (Chronic 05/19/18) Secondary pulmonary hypertension (Chronic) RVSP 51 mmhg, EF 55% per echo 07/21 2013 done @ [facility] Nonrheumatic aortic valve regurgitation (Chronic) Mild (1+) per echo 07/21/2013 done @ [facility] Nonrheumatic tricuspid valve regurgitation (Chronic) Moderate (2+) per echo 07/21/2013 done @ [facility] Nonrheumatic mitral valve regurgitation (Chronic) mild (1+) per echo 07/21/2013 done @ [facility] History of TIA (transient ischemic attack) (Chronic) Atrial fibrillation (Chronic) Diabetes mellitus, type II (Chronic) Hyperlipidemia (Chronic) Hypertension (Chronic) Medical History: Medical History (Last Updated 08/14/18 @ 22:41 by Shashi Cruz MD) Secondary pulmonary hypertension (Chronic) RVSP 51 mmhg, EF 55% per echo 07/21 2013 done @ [facility] Nonrheumatic aortic valve regurgitation (Chronic) I35.1 Mild (1+) per echo 07/21/2013 done @ [facility] Nonrheumatic tricuspid valve regurgitation (Chronic) I36.1 Moderate (2+) per echo 07/21/2013 done @ [facility] Nonrheumatic mitral valve regurgitation (Chronic) I34.0 mild (1+) per echo 07/21/2013 done @ [facility] History of TIA (transient ischemic attack) (Chronic) Z86.73 Atrial fibrillation (Chronic) I48.91 Diabetes mellitus, type II (Chronic) E11.9 Hyperlipidemia (Chronic) E78.5 Hypertension (Chronic) I10 Allergies No Known Allergies Allergy (Verified 08/14/18 19:33) Home Medications: Ambulatory Orders Medication Instructions Recorded albuterol sulfate HFA 90 2 puff INHALATION Q4H PRN g 01/18/18 mcg/actuation aerosol inhaler diltiazem CD 360 mg 360 mg PO DAILY 01/18/18 capsule,extended release 24 hr donepezil 5 mg tablet 5 mg PO QHS tab 01/18/18 nitroglycerin 0.4 mg/hr 1 patch TRANSDERMAL DAILY 01/18/18 transdermal 24 hour patch sitagliptin 50 mg-metformin 500 mg 1 tab PO BID 01/18/18 tablet metoprolol succinate ER 100 mg 100 mg PO DAILY tab 01/19/18 tablet,extended release 24 hr amiodarone 200 mg tablet 200 mg PO DAILY #30 tab 03/12/18 Atorvastatin Calcium [Lipitor] 20 mg PO QHS 07/16/18 Potassium Chloride [K-Dur] 20 meq PO DAILY #30 tab 07/18/18 Tamsulosin HCl [Flomax] 0.4 mg PO DAILY@1730 #30 cap 07/18/18 furosemide 20 mg tablet 20 mg PO .COMPLEX #120 tab 08/13/18 Apixaban [Eliquis] 5 mg PO BID 08/14/18 Clopidogrel Bisulfate [Clopidogrel] 75 mg PO DAILY 08/14/18 Fenofibrate,Micronized 130 mg PO DAILY 08/14/18 [Fenofibrate] Surgical History: Surgical History (Last Updated 08/14/18 @ 22:23 by Shashi Cruz MD) History of cardioversion (Chronic) Onset Date: 05/19/18 Z98.890 Surgical History: - - History of cardioversion, right and left heart catheterization. Psychiatric History: No pertinent psych hx, - - Alzheimer's dementia Lives: Spouse/ Significant Other Smoking Status: Former smoker Alcohol: Occasional Drugs: None - *Family History Maternal Family History: Family History (Last Reviewed 08/06/18 @ 09:33 by Yasmin Ramos) Mother CAD (coronary artery disease) CVA (cerebral vascular accident) Congestive heart failure Father Hypertension Sister Cancer Brother Hypertension Diabetes Cancer CAD (coronary artery disease), Onset Age: 70 Brother Esophageal cancer Paternal Family History: Family History (Last Reviewed 08/06/18 @ 09:33 by Yasmin Ramos) Mother CAD (coronary artery disease) CVA (cerebral vascular accident) Congestive heart failure Father Hypertension Sister Cancer Brother Hypertension Diabetes Cancer CAD (coronary artery disease), Onset Age: 70 Brother Esophageal cancer Review of Systems Constitutional: Reports: Anorexia, Weakness, Fatigue. Denies: Chills, Fever Eyes: Denies: Blurred vision, Double vision, Drainage, Redness HEENT: Denies: Difficulty Hearing, Ear Pain, Eye Pain, Nasal Congestion, Sore Throat Cardiovascular: Denies: Chest Pain, Claudication, Chest Pressure, Chest Tightness, Heaviness, Light Headedness, Palpitations, Syncope Respiratory: Reports: Shortness of Breath, Shortness of breath upon exertion. Denies: Cough, Hemoptysis, Pleuritic Pain, Sputum production, Wheezing Gastrointestinal: Denies: Abdominal Pain, Constipation, Diarrhea, Hematochezia, Nausea, Melena, Vomiting Genitourinary: Denies: Dysuria, Frequency, Hematuria Musculoskeletal: Denies: Arm Pain, Back Pain, Foot Pain Skin: Denies: Dryness, Rash Neurological: Reports: Confusion. Denies: Balance problems, Double vision, Change in Speech, Slurred speech, Incoordination, Numbness Psychiatric: Denies: Anxiety, Depression Endocrine: Denies: Change in Body Habitus, Polydipsia, Polyuria VTE Information - Inpt Only VTE Present on Admission: No VTE Mechan Device Prophylaxis: SCD's VTE Pharm Prophylaxis ordered?: No Patient Problems: Active and Suspected Problems (Last Updated 08/14/18 @ 22:41 by Shashi Cruz MD) Acute anemia (Acute) - Physical Exam General: Alert, Oriented x3, Cooperative, No apparent distress, - - Pale. HEENT: Atraumatic, PERRLA, EOMI, Normocephalic Oral: Moist Mucosa, No Gingival or Mucosal Lesions/ Ulcerations Neck: Supple, No JVD, Negative Carotid Bruits, Trachea Midline, Thyroid Normal Size and Texture Lungs: Clear to auscultation, No rhonchi, No wheeze, No rales, Diminished, - - Decreased breath sounds at the bases, otherwise clear. Cardiovascular: Regular rate, Regular Rhythm, Normal S1, Normal S2, Bradycardic, Murmur Abdomen: Bowel Sounds Present, Soft, Non Tender, Non-Distended, No Hepato-splenomegaly Extremities: No clubbing, No cyanosis, Edema - + Edema. Skin: No rashes, No breakdown Lymphatic: No Cervical, Supraclavicular, or Inguinal Adenopathy Neurological: Cranial nerves II-XII grossly intact, Motor Exam 5/5 strength throughout Psych/Mental Status: Normal Affect, Appropriate Vital Signs Temp Pulse Resp BP Pulse Ox 98.0 F 46 L 20 H 124/40 H 96 08/14/18 19:31 08/14/18 21:31 08/14/18 21:31 08/14/18 21:31 08/14/18 21:31 Oxygen Delivery Method Room Air Weight: 176 lb Body Mass Index (BMI) 25.2 Microbiology Past 72 Hours 08/14/18 21:30 Stool Occult Blood (ALICIA) - Final Stool Laboratory Tests Past 24 Hrs 08/14/18 08/14/18 08/14/18 20:25 20:25 20:25 WBC 10.9 RBC 2.39 L Hgb 6.3 L Hct 20.3 L MCV 84.9 MCH 26.4 L MCHC 31.0 L RDW 16.3 H RDW Differential 49.3 H Plt Count 208 MPV 11.1 Immature Gran % (Auto) 0.300 Neut % (Auto) 78.1 H Lymph % (Auto) 10.5 L [place] % (Auto) 10.3 H Eos % (Auto) 0.6 Baso % (Auto) 0.2 Absolute Neuts (auto) 8.5 H Absolute Lymphs (auto) 1.15 Total Counted Not Reportable Sodium 138 Potassium 4.1 Chloride 108 H Carbon Dioxide 25.0 Anion Gap 5 BUN 30 H Creatinine 1.53 H Estim Creat Clear Calc 41.09 Est GFR (MDRD) Af Amer 57 L Est GFR (MDRD) Non-Af 47 L BUN/Creatinine Ratio 19.6 Glucose 167 H Calcium 8.5 Troponin I < 0.015 B-Natriuretic Peptide 294.5 H Urine Color Urine Clarity Urine pH Ur Specific [place] Urine Protein Urine Glucose (UA) Urine Ketones Urine Occult Blood Urine Nitrite Urine Bilirubin Urine Urobilinogen Ur Leukocyte Esterase Urine RBC Urine WBC Ur Squamous Epith Cells Urine Bacteria Urine Mucus Blood Type Antibody Screen Crossmatch 08/14/18 08/14/18 21:30 21:40 WBC RBC Hgb Hct MCV MCH MCHC RDW RDW Differential Plt Count MPV Immature Gran % (Auto) Neut % (Auto) Lymph % (Auto) [place] % (Auto) Eos % (Auto) Baso % (Auto) Absolute Neuts (auto) Absolute Lymphs (auto) Total Counted Sodium Potassium Chloride Carbon Dioxide Anion Gap BUN Creatinine Estim Creat Clear Calc Est GFR (MDRD) Af Amer Est GFR (MDRD) Non-Af BUN/Creatinine Ratio Glucose Calcium Troponin I B-Natriuretic Peptide Urine Color Yellow Urine Clarity Clear Urine pH 5.0 Ur Specific [place] 1.025 Urine Protein Negative Urine Glucose (UA) Normal Urine Ketones Negative Urine Occult Blood Negative Urine Nitrite Negative Urine Bilirubin Negative Urine Urobilinogen Normal Ur Leukocyte Esterase Negative Urine RBC 0-5 SEEN Urine WBC 0-5 SEEN Ur Squamous Epith Cells 0 SEEN Urine Bacteria 1+ Urine Mucus 2+ Blood Type Pending Antibody Screen Pending Crossmatch See Detail Clinical Impression(s) from Imaging Studies Chest X-Ray 08/14/18 20:12 IMPRESSION: Persistent perihilar and lower lung airspace disease left greater than right. Very small bilateral pleural effusions Severity of this lung disease is less than that of July 16, 2018. at 2058 Reported and signed by: Jeremias Niño MD Electronically Signed: Jeremias Niño MD at 20:57 EDT Tel , Service support , Assessment/Plan All Active Problems (Last Updated 08/14/18 @ 22:41 by Shashi Cruz MD) Acute anemia (Acute) This is a 77 years old male patient presented to the emergency room because of weakness, difficulty ambulating, shortness of breath and hypoxia and he was found to have hemoglobin of 6.8 g/dL with output obvious source of infection and he is being admitted for acute symptomatic anemia for evaluation and treatment. #1 acute symptomatic anemia: Unclear source of bleeding. Patient denied any bleeding from body orifices, denied skin bruises or ecchymosis. On further questioning, patient mentioned that he had bloody stool couple of days ago but he is demented. Family members including reported that no bleeding that they are aware of at home. Stool for occult blood was negative and underscore exam, no stool seen which was done by ER physician. Hemoglobin was normal in the beginning of this month and it was 13.4 g/dL. Admission hemoglobin is 6.3 g/dL. Patient has been on Eliquis and Plavix. His vital signs are stable. Plan: Admit to PCU, cardiac monitoring, complete bedrest, transfused 2 units of packed RBCs, hemoglobin and hematocrit every 8 hours, pro time and INR, serum iron, TIBC, ferritin, general surgery consult, hold Xarelto and Plavix, repeat CBC and BMP tomorrow morning, IV Pepcid twice daily, PT OT evaluation and treatment. #2 type 2 diabetes mellitus: Blood sugar stable, clear liquids, Accu-Cheks, insulin scale, hold Janumet. #3 suspected chronic kidney disease: Creatinine has been fluctuating anywhere from normal 1.1 up to 2.4 in the last couple of months. No blood work available before February,. Admission creatinine is 1.53. Plan: IV fluids, input output chart, repeat BMP tomorrow morning. #4 atrial fibrillation: He is in sinus bradycardia, rate is in the 40s, patient is symptomatic at this point. Continue amiodarone and Cardizem as well as metoprolol for rate control, hold Eliquis. #5 hypertension: Blood pressure stable, continue metoprolol. #6 hyperlipidemia: Continue statins. #7 history of TIAs: Continue statins, hold Plavix and Eliquis. #8 dementia: Continue WBC, supportive care. #9 DVT prophylaxis: SCDs. #10 CODE STATUS: Full code. Discussed with the patient himself as well as his son and daughter and patient clearly mentioned that he wants to be resuscitated, intubated and mechanically ventilated if needed. This note was generated with [employer] software. It may contain incorrect words, spelling, and punctuation that were not noted in checking the note before signing. Code Visit Inpatient E&M: 34328 Init Hosp L3
[2018-08-14 22:41] VITALS: BMI 24.5
[2018-08-14 22:42] VITALS: BP 123/42; PULSE 49; RESP 20; TEMP 36.4; O2SAT 95
[2018-08-14 22:43] VITALS: PULSE 54
[2018-08-14 22:44] VITALS: BMI 24.5
[2018-08-14 23:20] LABS: International Normalized Ratio 1.6; Prothrombin Time (Protime)PT. 19.1 SECONDS (11.7-14.9)
[2018-08-15] VITALS (21 sets, daily range): BP systolic 107–148; BP diastolic 34–93; PULSE 46–53; RESP 16–20; TEMP 36.5–37.2; O2SAT 92–99
[2018-08-15 00:37] LABS: Ferritin 24 ng/mL (26-388); Iron 17 ug/dL (65-175); Iron Binding Capacity,Total 367 ug/dL (250-450); PERCENT IRON SATURATION 4.6 % (15.0-55.0)
[2018-08-15] MEDS: 0.9% NaCl Peripheral Flush Adult/Peds IV ×2 (03:38→22:12)
[2018-08-15] MEDS: 0.9% Normal Saline 1,000 ML 60 ML IV (06:55)
[2018-08-15 07:10] LABS: Bedside Glucose 136 mg/dL (70-110)
[2018-08-15] MEDS: Amiodarone 200 MG Tablet PO (08:09)
[2018-08-15] MEDS: Furosemide 20 MG Tablet PO (08:09)
[2018-08-15] MEDS: dilTIAZem CD 180 MG Capsule 360 MG PO (08:09)
[2018-08-15 08:12] LABS: Absolute Lymphocyte Count 1.34 X10^3/ul (0.83-4.51); Absolute Neutrophil Count 7.6 X10^3/uL (2.0-7.7); Basophil# 0.03 X10^3/uL; Basophil% 0.3 % (0-1); Eosinophil# 0.06 X10^3/uL; Eosinophils% 0.6 % (0-5); Hematocrit 26.3 % (40-54); Hemoglobin 8.4 g/dl (13.0-16.5); Lymphocyte # 1.34 X10^3/ul (4.0); Lymphocyte % 13.1 % (19-41); Mean Corp Hgb Conc 31.9 g/gl (32-36); Mean Corpuscular Volume 84.6 fL (80-94); Mean Platelet Vol. 11.6 fl (6.2-12.0); Monocyte# 1.19 X10^3/uL; Monocyte% 11.6 % (0-10); Neutrophil # 7.61 X10^3/uL (2.7-7.7); Neutrophil % 74.1 % (47-70); Platelet Count 209 K/mm3 (150-450); RBC Distribution Width CV 15.2 % (11.6-14.6); RBC Distribution Width SD 45.8 fl (35.1-43.9); Red Blood Count 3.11 M/mm3 (4.6-6.2); White Blood Count 10.3 K/mm3 (4.4-11.0)
[2018-08-15 08:13] LABS: POSITIVE COUNT NO; POSITIVE DIFFERENTIAL NO; POSITIVE MORPHOLOGY NO
[2018-08-15 08:29] LABS: Anion Gap 8 (5-15); BUN 25 mg/dL (7-18); BUN/Creat Ratio 22.5 RATIO (10-20); Calcium,Total 8.1 mg/dL (8.5-10.1); Chloride 111 mmol/L (98-107); Creatinine, Serum 1.11 mg/dL (0.70-1.30); EST Glomerular Filtration Rate 68 mL/min (>60); Est Glom Filt Rate - Afr Amer 82 mL/min (>60); Estimated Creatinine Clearance 56.63 ml/min; Glucose 127 mg/dL (74-106); Potassium 3.8 mmol/L (3.5-5.1); Sodium Level 143 mmol/L (136-145)
--- NOTE | 2018-08-15 08:42 | PCM.CONS.GEN ---
Reason for Consult Date of Consultation: 08/15/18 History of Present Illness: The patient is a 77 year old M was brought to the ER by his son due to paleness and shortness of breath. The ER patient's hemoglobin was found to be 6.3. Patient does have history of dementia and also recently lost his son on Thursday and has not been sleeping well. Did attempt to talk with the patient he denied any blood per stool but per the son he told that he had blood per stool 2 weeks ago 2 times however the next thing that he talked about after that did not make any sense per the son. Family is unaware of how often patient has bowel movements or if there is any blood in stool as this was and not an issue in the past. As patient is agitated right now did not ask any further questions allowing him to sleep, did discussed with son who is also the POA who would like him to have the EGD and colonoscopy done. Per patient's she does not believe he is never had a colonoscopy in the past. Past Medical History Past Medical History (Chronic Problems): Chronic Problems (Last Updated 08/14/18 @ 22:41 by Shashi Cruz MD) Dementia (Chronic) History of cardioversion (Chronic 05/19/18) Secondary pulmonary hypertension (Chronic) RVSP 51 mmhg, EF 55% per echo 07/21 2013 done @ [facility] Nonrheumatic aortic valve regurgitation (Chronic) Mild (1+) per echo 07/21/2013 done @ [facility] Nonrheumatic tricuspid valve regurgitation (Chronic) Moderate (2+) per echo 07/21/2013 done @ [facility] Nonrheumatic mitral valve regurgitation (Chronic) mild (1+) per echo 07/21/2013 done @ [facility] History of TIA (transient ischemic attack) (Chronic) Atrial fibrillation (Chronic) Diabetes mellitus, type II (Chronic) Hyperlipidemia (Chronic) Hypertension (Chronic) Medical History: Medical History (Last Updated 08/14/18 @ 22:41 by Shashi Cruz MD) Secondary pulmonary hypertension (Chronic) RVSP 51 mmhg, EF 55% per echo 07/21 2013 done @ [facility] Nonrheumatic aortic valve regurgitation (Chronic) I35.1 Mild (1+) per echo 07/21/2013 done @ [facility] Nonrheumatic tricuspid valve regurgitation (Chronic) I36.1 Moderate (2+) per echo 07/21/2013 done @ [facility] Nonrheumatic mitral valve regurgitation (Chronic) I34.0 mild (1+) per echo 07/21/2013 done @ [facility] History of TIA (transient ischemic attack) (Chronic) Z86.73 Atrial fibrillation (Chronic) I48.91 Diabetes mellitus, type II (Chronic) E11.9 Hyperlipidemia (Chronic) E78.5 Hypertension (Chronic) I10 Allergies No Known Allergies Allergy (Verified 08/14/18 19:33) Home Medications: Ambulatory Orders Medication Instructions Recorded albuterol sulfate HFA 90 2 puff INHALATION Q4H PRN g 01/18/18 mcg/actuation aerosol inhaler diltiazem CD 360 mg 360 mg PO DAILY 01/18/18 capsule,extended release 24 hr donepezil 5 mg tablet 5 mg PO QHS tab 01/18/18 nitroglycerin 0.4 mg/hr 1 patch TRANSDERMAL DAILY 01/18/18 transdermal 24 hour patch sitagliptin 50 mg-metformin 500 mg 1 tab PO BID 01/18/18 tablet metoprolol succinate ER 100 mg 100 mg PO DAILY tab 01/19/18 tablet,extended release 24 hr amiodarone 200 mg tablet 200 mg PO DAILY #30 tab 03/12/18 Atorvastatin Calcium [Lipitor] 20 mg PO QHS 07/16/18 Potassium Chloride [K-Dur] 20 meq PO DAILY #30 tab 07/18/18 Tamsulosin HCl [Flomax] 0.4 mg PO DAILY@1730 #30 cap 07/18/18 Apixaban [Eliquis] 5 mg PO BID 08/14/18 Clopidogrel Bisulfate [Clopidogrel] 75 mg PO DAILY 08/14/18 Fenofibrate,Micronized 130 mg PO DAILY 08/14/18 [Fenofibrate] Furosemide [Lasix] 40 mg PO BIDLX 08/14/18 Surgical History: Surgical History (Last Updated 08/14/18 @ 22:23 by Shashi Cruz MD) History of cardioversion (Chronic) Onset Date: 05/19/18 Z98.890 Surgical History: - - History of cardioversion, right and left heart catheterization. Psychiatric History: No pertinent psych hx, - - Alzheimer's dementia Lives: Spouse/ Significant Other Smoking Status: Former smoker Alcohol: Occasional Drugs: None - *Family History Maternal Family History: Family History (Last Reviewed 08/06/18 @ 09:33 by Yasmin Ramos) Mother CAD (coronary artery disease) CVA (cerebral vascular accident) Congestive heart failure Father Hypertension Sister Cancer Brother Hypertension Diabetes Cancer CAD (coronary artery disease), Onset Age: 70 Brother Esophageal cancer History Items: No pertinent history Paternal Family History: Family History (Last Reviewed 08/06/18 @ 09:33 by Yasmin Ramos) Mother CAD (coronary artery disease) CVA (cerebral vascular accident) Congestive heart failure Father Hypertension Sister Cancer Brother Hypertension Diabetes Cancer CAD (coronary artery disease), Onset Age: 70 Brother Esophageal cancer History Items: No pertinent history Review of Systems Gastrointestinal: Denies: Abdominal Pain, Hematochezia, Melena Unable to obtain accurate/complete ROS d/t: Due to dementia and agitation Patient Problems: Active and Suspected Problems (Last Updated 08/14/18 @ 22:41 by Shashi Cruz MD) Acute anemia (Acute) - Physical Exam General: Non-Cooperative - Patient has history of dementia and is agitated and just wants to sleep, per the son patient has not gotten much sleep past week HEENT: Atraumatic Lungs: Normal air movement Abdomen: Soft, Non Tender, Non-Distended Comment: Unable to complete physical exam due to patient being agitated and just wan Vital Signs Temp Pulse Resp BP Pulse Ox 97.7 F L 53 L 20 H 120/59 L 98 08/15/18 08:19 08/15/18 08:19 08/15/18 08:19 08/15/18 08:19 08/15/18 08:19 Oxygen Flow Rate (L/min) 2 Oxygen Delivery Method Nasal Cannula Weight: 172 lb 13.478 oz Body Mass Index (BMI) 24.5 Intake and Output for Last 24 Hours 08/13/18 08/14/18 08/15/18 23:59 23:59 23:59 Intake Total 0 / 0 0 / 0 Output Total 300 / 300 Balance 0 / 0 -300 / -300 Microbiology Past 72 Hours 08/14/18 21:30 Stool Occult Blood (ALICIA) - Final Stool Laboratory Tests Past 24 Hrs 08/14/18 08/14/18 08/14/18 20:25 20:25 20:25 WBC 10.9 RBC 2.39 L Hgb 6.3 L Hct 20.3 L MCV 84.9 MCH 26.4 L MCHC 31.0 L RDW 16.3 H RDW Differential 49.3 H Plt Count 208 MPV 11.1 Immature Gran % (Auto) 0.300 Neut % (Auto) 78.1 H Lymph % (Auto) 10.5 L [place] % (Auto) 10.3 H Eos % (Auto) 0.6 Baso % (Auto) 0.2 Absolute Neuts (auto) 8.5 H Absolute Lymphs (auto) 1.15 Total Counted Not Reportable PT INR Sodium 138 Potassium 4.1 Chloride 108 H Carbon Dioxide 25.0 Anion Gap 5 BUN 30 H Creatinine 1.53 H Estim Creat Clear Calc 41.09 Est GFR (MDRD) Af Amer 57 L Est GFR (MDRD) Non-Af 47 L BUN/Creatinine Ratio 19.6 Glucose 167 H Calcium 8.5 Iron TIBC Iron Saturation Ferritin Troponin I < 0.015 B-Natriuretic Peptide 294.5 H Urine Color Urine Clarity Urine pH Ur Specific [place] Urine Protein Urine Glucose (UA) Urine Ketones Urine Occult Blood Urine Nitrite Urine Bilirubin Urine Urobilinogen Ur Leukocyte Esterase Urine RBC Urine WBC Ur Squamous Epith Cells Urine Bacteria Urine Mucus Blood Type Antibody Screen Crossmatch 08/14/18 08/14/18 08/14/18 20:25 20:25 21:30 WBC RBC Hgb Hct MCV MCH MCHC RDW RDW Differential Plt Count MPV Immature Gran % (Auto) Neut % (Auto) Lymph % (Auto) [place] % (Auto) Eos % (Auto) Baso % (Auto) Absolute Neuts (auto) Absolute Lymphs (auto) Total Counted PT 19.1 H INR 1.6 Sodium Potassium Chloride Carbon Dioxide Anion Gap BUN Creatinine Estim Creat Clear Calc Est GFR (MDRD) Af Amer Est GFR (MDRD) Non-Af BUN/Creatinine Ratio Glucose Calcium Iron 17 L TIBC 367 Iron Saturation 4.6 L Ferritin 24 L Troponin I B-Natriuretic Peptide Urine Color Urine Clarity Urine pH Ur Specific [place] Urine Protein Urine Glucose (UA) Urine Ketones Urine Occult Blood Urine Nitrite Urine Bilirubin Urine Urobilinogen Ur Leukocyte Esterase Urine RBC Urine WBC Ur Squamous Epith Cells Urine Bacteria Urine Mucus Blood Type A POSITIVE Antibody Screen NEGATIVE Crossmatch See Detail 08/14/18 08/15/18 08/15/18 21:40 07:57 07:57 WBC 10.3 RBC 3.11 L Hgb 8.4 L Hct 26.3 L MCV 84.6 MCH 27.0 MCHC 31.9 L RDW 15.2 H RDW Differential 45.8 H Plt Count 209 MPV 11.6 Immature Gran % (Auto) 0.300 Neut % (Auto) 74.1 H Lymph % (Auto) 13.1 L [place] % (Auto) 11.6 H Eos % (Auto) 0.6 Baso % (Auto) 0.3 Absolute Neuts (auto) 7.6 Absolute Lymphs (auto) 1.34 Total Counted Not Reportable PT INR Sodium 143 Potassium 3.8 Chloride 111 H Carbon Dioxide 24.0 Anion Gap 8 BUN 25 H Creatinine 1.11 Estim Creat Clear Calc 56.63 Est GFR (MDRD) Af Amer 82 Est GFR (MDRD) Non-Af 68 BUN/Creatinine Ratio 22.5 H Glucose 127 H Calcium 8.1 L Iron TIBC Iron Saturation Ferritin Troponin I B-Natriuretic Peptide Urine Color Yellow Urine Clarity Clear Urine pH 5.0 Ur Specific [place] 1.025 Urine Protein Negative Urine Glucose (UA) Normal Urine Ketones Negative Urine Occult Blood Negative Urine Nitrite Negative Urine Bilirubin Negative Urine Urobilinogen Normal Ur Leukocyte Esterase Negative Urine RBC 0-5 SEEN Urine WBC 0-5 SEEN Ur Squamous Epith Cells 0 SEEN Urine Bacteria 1+ Urine Mucus 2+ Blood Type Antibody Screen Crossmatch POC Glucose 08/15/18 06:35 POC Glucose 136 H Assessment/Plan All Active Problems (Last Updated 08/14/18 @ 22:41 by Shashi Cruz MD) Acute anemia (Acute) 77-year-old male with anemia Did discuss with the son who is also the POA plan for EGD and colonoscopy. He was agreeable to try to start the prep today once patient has gotten a chance to try to sleep and he will try to help the patient to complete the prep. I have discussed the above with the patient his son who is the POA. I have offered the patient EGD and colonoscopy for evaluation. I have explained the risks/benefits of the procedure and described the procedure. I have discussed the risks with the patient, including but not limited to: infection, bleeding--if unable to control bleeding patient may require transfer to tertiary care facility, perforation of the GI tract requiring emergency surgery, inability to complete the procedure, injury to any internal organs, complications of anesthesia, etc. - the patient understands and agrees to proceed. I have answered all the patient's questions to the patient's satisfaction and the patient has no further questions. We will give GoLYTELY 4 L starting at 11 AM today tentatively plan for EGD and colonoscopy tomorrow late morning/early afternoon Patsy Mar M.D. Pager: [phone] [facility] [address] [place] [address], [facility], [address] [place] [id number] Office: [phone] Code Visit Inpatient E&M: 58715 Init Hosp L2
[2018-08-15] MEDS: Furosemide 40 MG Tablet PO ×2 (10:07→17:15)
--- NOTE | 2018-08-15 11:56 | PN_ITS ---
Patient Problems: Active and Suspected Problems (Last Updated 08/14/18 @ 22:41 by Shashi Cruz MD) Acute anemia (Acute) Subjective: Follow-up with delirium/possible GI bleed. Patient was seen and examined. His son is at the bedside. He is confused, alert oriented to self only but not to place or time. Denies any fever or chills or abdominal pain. Seen by general surgery, discussed, will have GoLYTELY for possible colonoscopy tomorrow. Objective: Physical Exam General: Alert, Oriented x3, Cooperative, No apparent distress HEENT: Atraumatic, PERRLA, EOMI, Normocephalic Oral: Moist Mucosa, No Gingival or Mucosal Lesions/ Ulcerations Neck: Supple, No JVD, Negative Carotid Bruits, Trachea Midline, Thyroid Normal Size and Texture Lungs: Clear to auscultation, No rhonchi, No wheeze, No rales, Diminished, - - Decreased breath sounds at the bases, otherwise clear. Cardiovascular: Regular rate, Regular Rhythm, Normal S1, Normal S2, Bradycardic, Murmur Abdomen: Bowel Sounds Present, Soft, Non Tender, Non-Distended, No Hepato- splenomegaly Extremities: No clubbing, No cyanosis, Edema - + Edema. Skin: No rashes, No breakdown Lymphatic: No Cervical, Supraclavicular, or Inguinal Adenopathy Neurological: Cranial nerves II-XII grossly intact, Motor Exam 5/5 strength throughout Psych/Mental Status: Normal Affect, Appropriate Vitals/I&O's: Vital Signs Temp Pulse Resp BP Pulse Ox 97.7 F L 53 L 20 H 120/59 L 98 08/15/18 08:19 08/15/18 08:58 08/15/18 08:19 08/15/18 08:19 08/15/18 08:19 Oxygen Flow Rate (L/min) 2 Oxygen Delivery Method Nasal Cannula Weight: 78.4 kg Body Mass Index (BMI) 24.5 Intake and Output for Last 24 Hours 08/13/18 08/14/18 08/15/18 23:59 23:59 23:59 Intake Total 0 / 0 0 / 0 Output Total 300 / 300 Balance 0 / 0 -300 / -300 Microbiology Past 72 Hours 08/14/18 21:30 Stool Stool Occult Blood (ALICIA) - Final Laboratory Results 08/14/18 20:25: WBC 10.9, RBC 2.39 L, Hgb 6.3 L, Hct 20.3 L, MCV 84.9, MCH 26.4 L, MCHC 31.0 L, RDW 16.3 H, RDW Differential 49.3 H, Plt Count 208, MPV 11.1, Immature Gran % (Auto) 0.300, Neut % (Auto) 78.1 H, Lymph % (Auto) 10.5 L, [place] % (Auto) 10.3 H, Eos % (Auto) 0.6, Baso % (Auto) 0.2, Absolute Neuts (auto) 8.5 H, Absolute Lymphs (auto) 1.15, Total Counted Not Reportable 08/14/18 20:25: Sodium 138, Potassium 4.1, Chloride 108 H, Carbon Dioxide 25.0, Anion Gap 5, BUN 30 H, Creatinine 1.53 H, Estim Creat Clear Calc 41.09, Est GFR (MDRD) Af Amer 57 L, Est GFR (MDRD) Non-Af 47 L, BUN/Creatinine Ratio 19.6, Glucose 167 H, Calcium 8.5, Troponin I < 0.015 08/14/18 20:25: B-Natriuretic Peptide 294.5 H 08/14/18 20:25: Iron 17 L, TIBC 367, Iron Saturation 4.6 L, Ferritin 24 L 08/14/18 20:25: PT 19.1 H, INR 1.6 08/14/18 21:30: Blood Type A POSITIVE, Antibody Screen NEGATIVE, Crossmatch See Detail 08/14/18 21:40: Urine Color Yellow, Urine Clarity Clear, Urine pH 5.0, Ur Specific [place] 1.025, Urine Protein Negative, Urine Glucose (UA) Normal, Urine Ketones Negative, Urine Occult Blood Negative, Urine Nitrite Negative, Urine Bilirubin Negative, Urine Urobilinogen Normal, Ur Leukocyte Esterase Negative, Urine RBC 0-5 SEEN, Urine WBC 0-5 SEEN, Ur Squamous Epith Cells 0 SEEN, Urine Bacteria 1+, Urine Mucus 2+ 08/15/18 06:35: POC Glucose 136 H 08/15/18 07:57: WBC 10.3, RBC 3.11 L, Hgb 8.4 L, Hct 26.3 L, MCV 84.6, MCH 27.0, MCHC 31.9 L, RDW 15.2 H, RDW Differential 45.8 H, Plt Count 209, MPV 11.6, Immature Gran % (Auto) 0.300, Neut % (Auto) 74.1 H, Lymph % (Auto) 13.1 L, [place] % (Auto) 11.6 H, Eos % (Auto) 0.6, Baso % (Auto) 0.3, Absolute Neuts (auto) 7.6, Absolute Lymphs (auto) 1.34, Total Counted Not Reportable 08/15/18 07:57: Sodium 143, Potassium 3.8, Chloride 111 H, Carbon Dioxide 24.0, Anion Gap 8, BUN 25 H, Creatinine 1.11, Estim Creat Clear Calc 56.63, Est GFR (MDRD) Af Amer 82, Est GFR (MDRD) Non-Af 68, BUN/Creatinine Ratio 22.5 H, Glucose 127 H, Calcium 8.1 L Current Medications Acetaminophen (Tylenol) 650 mg PO Q6H PRN PRN PRN Reason: Mild pain 1-3/Temp > 100.7 F Albuterol Sulfate (Ventolin Aerosols) 2.5 mg INHALATION Q4H PRN PRN PRN Reason: SOB/Wheezing Amiodarone HCl (Cordarone) 200 mg PO DAILY [facility] Last Admin: 08/15/18 08:09 Dose: 200 mg Documented by: Atorvastatin Calcium (Lipitor) 20 mg PO QHS [facility] Dextrose (D50w Syringe) 0 gm IV X1 PRN; Protocol PRN Reason: Hypoglycemia Diltiazem HCl (Cardizem Cd) 360 mg PO DAILY [facility] Last Admin: 08/15/18 08:09 Dose: 360 mg Documented by: Donepezil HCl (Aricept) 5 mg PO QHS [place] Furosemide (Lasix) 40 mg PO BIDLX [facility] Last Admin: 08/15/18 10:07 Dose: 20 mg Documented by: Glucagon () 1 mg IM .X1 PRN PRN Reason: Hypoglycemia Sodium Chloride () 250 mls @ 15 mls/hr IV .[id number] PRN PRN Reason: SALINE FLUSH Sodium Chloride () 1,000 mls @ 60 mls/hr IV .[id number] [facility] Last Admin: 08/15/18 06:55 Dose: 60 mls/hr Documented by: Pantoprazole Sodium 40 mg/ (Sodium Chloride) 110 mls @ 330 mls/hr IV Q12 [facility] Last Admin: 08/15/18 06:55 Dose: 330 mls/hr Documented by: Insulin Human Lispro (Humalog Kwikpen (Bkc)) 0 unit SC ACHS [facility]; Protocol Last Admin: 08/15/18 06:36 Dose: Not Given Documented by: Metoprolol Succinate (Toprol Xl (Beta Jose)) 100 mg PO DAILY [facility] Last Admin: 08/15/18 08:58 Dose: Not Given Documented by: Nutritional Formula (Lactose Free) (Glucerna Shake) 120 ml PO TIDCM [facility] Last Admin: 08/14/18 23:37 Dose: Not Given Documented by: Ondansetron HCl (Zofran) 4 mg IV Q8H PRN PRN PRN Reason: NAUSEA/VOMITING Senna/Docusate Sodium (Senokot-S, Dorene-Colace) 2 tablet PO BID PRN PRN PRN Reason: Constipation Sodium Chloride () 10 - 40 ml IV UD PRN PRN Reason: SALINE FLUSH Last Admin: 08/15/18 03:38 Dose: 10 ml Documented by: Tamsulosin HCl (Flomax) 0.4 mg PO DAILY@1730 [facility] Medical Necessity - Tobacco Use Smoking Status: Former smoker Assessment/Plan All Active Problems (Last Updated 08/14/18 @ 22:41 by Shashi Cruz MD) Acute anemia (Acute) 1. Acute symptomatic anemia, likely secondary to GI bleed, reported history of GI bleed, hemoglobin was low, patient is on Eliquis and Plavix, both have been held, status post 2 units packed RBCs, hemoglobin is now 8.4, continue on IV PPI, encourage bowel prep 2. Type 2 DM, blood sugars are stable, continue with Accu-Cheks and insulin sliding scale 3. JESUS on CKD stage 3, previous creatinine was 1.1, improved to baseline with IV fluids/blood transfusion 4. Chronic atrial fibrillation, controlled, on amiodarone, Cardizem, metoprolol. Eliquis and Plavix held 5. Hypertension, controlled, continue home medications 6. H/o TIAs/ hyperlipidemia, on statin, 7. Dementia, likely mixed, on donepezil 8. DVT PPx- SCDs on account of GI bleed Code Visit Inpatient E&M: 67569 Subs Hosp L2
[2018-08-15] MEDS: Electrolyte Solution/Peg's 4000 ML PO (12:14)
[2018-08-15 12:26] LABS: Bedside Glucose 129 mg/dL (70-110)
--- NOTE | 2018-08-15 12:32 | EKG12_ITS ---
Test Reason : RYTHEM CHECK Blood Pressure : / mmHG Vent. Rate : 052 BPM Atrial Rate : 052 BPM P-R Int : 154 ms QRS Dur : 098 ms QT Int : 570 ms P-R-T Axes : 084 052 025 degrees QTc Int : 530 ms Sinus bradycardia with Premature atrial complexes Prolonged QT Abnormal ECG Confirmed by ERICA VILLASEÑOR, NEFTALI ([id number]), associate entertainment editor YELENA RODRÍGUEZ ([id number]) on 08/18/2018 12:36:32 PM Referred By: HORACE Confirmed By:NEFTALI MALDONADO MD
[2018-08-15 16:39] LABS: Hematocrit 27.4 % (40-54); Hemoglobin 9.1 g/dl (13.0-16.5)
[2018-08-15 16:51] LABS: Bedside Glucose 119 mg/dL (70-110)
[2018-08-15] MEDS: Tamsulosin HCl 0.4 MG Capsule PO (17:15)
[2018-08-15] MEDS: Donepezil HCl 5 MG Tablet PO (21:53)
[2018-08-15] MEDS: Atorvastatin Calcium 20 MG Tablet PO (21:53)
[2018-08-15 22:21] LABS: Bedside Glucose 131 mg/dL (70-110)
[2018-08-15] MEDS: Bisacodyl 5 MG Tablet 10 MG PO (22:28)
[2018-08-16] VITALS (16 sets, daily range): BP systolic 124–147; BP diastolic 40–98; PULSE 46–63; RESP 16–20; TEMP 36.4–37.1; O2SAT 93–100; BMI 24.7; BMI 24.0
[2018-08-16 00:23] LABS: Hematocrit 27.4 % (40-54); Hemoglobin 8.9 g/dl (13.0-16.5)
[2018-08-16] MEDS: Acetaminophen 325 MG Tablet 650 MG PO (00:33)
[2018-08-16 06:02] LABS: Absolute Lymphocyte Count 1.01 X10^3/ul (0.83-4.51); Basophil# 0.03 X10^3/uL; Basophil% 0.4 % (0-1); Eosinophils% 1.4 % (0-5); Hematocrit 26.4 % (40-54); Hemoglobin 8.6 g/dl (13.0-16.5); Lymphocyte # 1.01 X10^3/ul (4.0); Lymphocyte % 14.2 % (19-41); Mean Corp Hgb Conc 32.6 g/gl (32-36); Mean Corpuscular Hgb 27.7 pg (27.0-32.0); Mean Corpuscular Volume 85.2 fL (80-94); Mean Platelet Vol. 10.6 fl (6.2-12.0); Monocyte# 0.95 X10^3/uL; Monocyte% 13.3 % (0-10); Neutrophil # 5.01 X10^3/uL (2.7-7.7); Neutrophil % 70.4 % (47-70); Platelet Count 229 K/mm3 (150-450); RBC Distribution Width CV 15.8 % (11.6-14.6); RBC Distribution Width SD 49.1 fl (35.1-43.9); White Blood Count 7.1 K/mm3 (4.4-11.0)
[2018-08-16 06:24] LABS: POSITIVE COUNT NO; POSITIVE DIFFERENTIAL NO; POSITIVE MORPHOLOGY NO
[2018-08-16 07:17] LABS: Anion Gap 6 (5-15); BUN 15 mg/dL (7-18); BUN/Creat Ratio 15.5 RATIO (10-20); Calcium,Total 8.4 mg/dL (8.5-10.1); Chloride 112 mmol/L (98-107); Creatinine, Serum 0.97 mg/dL (0.70-1.30); EST Glomerular Filtration Rate 80 mL/min (>60); Est Glom Filt Rate - Afr Amer 96 mL/min (>60); Estimated Creatinine Clearance 64.81 ml/min; Glucose 110 mg/dL (74-106); Potassium 3.8 mmol/L (3.5-5.1); Sodium Level 142 mmol/L (136-145)
[2018-08-16] MEDS: 0.9% NaCl Peripheral Flush Adult/Peds IV ×2 (09:08→21:58)
--- NOTE | 2018-08-16 10:25 | PN.SURG_ITS ---
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, plan for egd/colonoscopy at abt 2 - Physical Exam General: Alert, Cooperative, No apparent distress Lungs: Normal air movement Cardiovascular: Regular rate Abdomen: Soft, Non Tender, Non-Distended Extremities: No clubbing, No cyanosis, No edema Vital Signs Temp Pulse Resp BP Pulse Ox 97.6 F L 53 L 16 147/50 H 100 08/16/18 09:02 08/16/18 09:02 08/16/18 09:02 08/16/18 09:02 08/16/18 09:02 Oxygen Flow Rate (L/min) 2 Oxygen Delivery Method Room Air Weight: 167 lb 12.348 oz Body Mass Index (BMI) 24.7 Intake and Output for Last 24 Hours 08/14/18 08/15/18 08/16/18 23:59 23:59 23:59 Intake Total 0 / 0 2800 / 4000 1250 / 1250 Output Total 300 / 300 Balance 0 / 0 2500 / 3700 1250 / 1250 Microbiology Past 72 Hours 08/14/18 21:30 Stool Occult Blood (ALICIA) - Final Stool Laboratory Tests Past 24 Hrs 08/15/18 08/16/18 08/16/18 16:25 00:05 05:10 WBC 7.1 RBC 3.10 L Hgb 9.1 L 8.9 L 8.6 L Hct 27.4 L 27.4 L 26.4 L MCV 85.2 MCH 27.7 MCHC 32.6 RDW 15.8 H RDW Differential 49.1 H Plt Count 229 MPV 10.6 Immature Gran % (Auto) 0.300 Neut % (Auto) 70.4 H Lymph % (Auto) 14.2 L [place] % (Auto) 13.3 H Eos % (Auto) 1.4 Baso % (Auto) 0.4 Absolute Neuts (auto) 5.0 Absolute Lymphs (auto) 1.01 Total Counted Not Reportable Sodium Potassium Chloride Carbon Dioxide Anion Gap BUN Creatinine Estim Creat Clear Calc Est GFR (MDRD) Af Amer Est GFR (MDRD) Non-Af BUN/Creatinine Ratio Glucose Calcium 08/16/18 05:10 WBC RBC Hgb Hct MCV MCH MCHC RDW RDW Differential Plt Count MPV Immature Gran % (Auto) Neut % (Auto) Lymph % (Auto) [place] % (Auto) Eos % (Auto) Baso % (Auto) Absolute Neuts (auto) Absolute Lymphs (auto) Total Counted Sodium 142 Potassium 3.8 Chloride 112 H Carbon Dioxide 24.0 Anion Gap 6 BUN 15 Creatinine 0.97 Estim Creat Clear Calc 64.81 Est GFR (MDRD) Af Amer 96 Est GFR (MDRD) Non-Af 80 BUN/Creatinine Ratio 15.5 Glucose 110 H Calcium 8.4 L POC Glucose 08/15/18 08/15/18 08/15/18 21:56 16:18 12:22 POC Glucose 131 H 119 H 129 H Medical Necessity - Tobacco Use Smoking Status: Former smoker Assessment/Plan All Active Problems (Last Updated 08/14/18 @ 22:41 by Shashi Cruz MD) Acute anemia (Acute) 77-year-old male with anemia, status post 2 units packed red blood cells We will plan for EGD and colonoscopy about 2:00 today. Patient did complete the prep as well as some additional Dulcolax. Patient last took his Plavix and Eliquis Thursday morning. Did discuss with patient and his that he would be at risk for higher risk of bleeding due to his anticoagulation. Also discussed that if I found a source of bleeding but was unable to get to stop he may not require transfer to tertiary care care facility with GI. Currently patient's hemoglobin has remained stable. His hemoglobin was 6.3 on admit after 2 packed red blood cells this morning it is 8.6. Patsy Mar M.D. Pager: [phone] [facility] [address] [place] [address], [facility], [address] [place] [address] Office: [phone]
--- NOTE | 2018-08-16 11:45 | EGD_PTH ---
PATIENT: ISIDRO COOPER LOC: U U#:[id number] AGE/SX: 77/M ROOM: [facility] RE08/14/[address]: Dr. Mel Dash DO : 1940 BED: 1 DIS: 08/17/2018 SPEC #: [id number] RECD: 08/16/18 15:24 STATUS: TYLER JAY #: [id number] NORIS: 08/16/18 11:[address]: Patsy Mar DEPT: SURGICAL PATHOLOGY RECD BY: Rosales Greenfield ENTERED: 08/17/18 09:45 SP TYPE: EGD BIOPSY OTHR DR: DO Dr. Shashi Garcia MD Dr. Kimberly Sheets, Tissues: A - Gastric mucous membrane B - Pylorus C - Descending colon D - Rectum, NOS E - Rectum, NOS Procedures: Surgery Specimen Level IV HEADER OPERATION: Colonoscopy, EGD ([facility] [place]) PRE-OP DIAGNOSIS: Anemia, Hemoccult positive test TISSUE SUBMITTED: A - Antrum biopsy for H. pylori and path, B - Biopsy of prepyloric ulcer site, C - Biopsy of descending colon polyp, D - Rectal polyp, E - 15 cm rectal polyp MICROSCOPIC DIAGNOSIS A. Antrum, biopsy: Mild gastritis. See microscopic description and comment. B. Prepyloric ulcer site, biopsy: A fragment of gastric mucosa with superficial erosion, fibrosis and chronic inflammation. See comment. C. Descending colon polyp, biopsy: Fragments of tubular adenoma. D. Rectal polyp, biopsy: Tubular adenoma. E. Rectal polyp at 15 cm, biopsy: Tubular adenoma with focal high-grade dysplasia. SJ:noemi 08/18/18 COMMENT A. The results of immunohistochemistry for Helicobacter pylori will be reported separately ([id number]). B. Immunohistochemistry for Helicobacter pylori can be performed in this specimen, if clinically indicated. Please notify the Laboratory if it is needed. E. Focal high grade dysplasia is noted at the luminal surface of the polyp. Cauterized and inked base is free of high grade dysplasia. Correlation with endoscopic findings and appropriate follow up are necessary. This case was reviewed and diagnosis discussed with Dr. Mar on 08/18/18. Case has been reviewed in consultation with Dr. Dasilva who concurs with the above diagnosis. IDC:AM MICROSCOPIC DESCRIPTION Slides are reviewed. A. The specimen shows fragments of gastric mucosa with chronic inflammatory cell infiltrates in the lamina propria consisting of lymphocytes and plasma cells, consistent with mild chronic gastritis. GROSS DESCRIPTION A - Received in fixative is one container labeled with the patient's name and designated antrum biopsy. The specimen consists of one irregular fragment of light goldsmith soft tissue that measures 0.3 x 0.3 x 0.1 cm. The specimen is totally submitted in one cassette. B - Received in fixative is one container labeled with the patient's name and designated biopsy of prepyloric ulcer site. The specimen consists of one irregular fragment of light goldsmith soft tissue that measures 0.3 x 0.3 x 0.1 cm. The specimen is totally submitted in one cassette. C - Received in fixative is one container labeled with the patient's name and designated biopsy of descending colon polyp. The specimen consists of two irregular fragments of light goldsmith soft tissue that in aggregate measure 0.4 x 0.3 x 0.1 cm. The specimen is totally submitted in one cassette. D - Received in fixative is one container labeled with the patient's name and designated rectal polyp. The specimen consists of a pink-red polyp measuring 1 x 0.6 x 0.6 cm. The apparent base is inked. The specimen is bisected and submitted entirely in one cassette. E - Received in fixative is one container labeled with the patient's name and designated 15 cm rectal polyp. The specimen consists of a pink-red polyp measuring 1.5 x 1.2 x 1 cm. The apparent base is inked. Also present in the container are a few smaller minute fragments of goldsmith soft tissue measuring in aggregate 0.3 x 0.3 x 0.1. The specimen is bisected and submitted entirely in one cassette. / SJ:noemi 08/17/18 TC:1 CPT: 12827 x5
--- NOTE | 2018-08-16 11:45 | IMM_PTH ---
PATIENT: ISIDRO COOPER LOC: [facility] U#:[id number] AGE/SX: 77/M ROOM: [facility] RE08/14/[address]: Dr. Mel Dash DO : 1940 BED: 1 DIS: 08/17/2018 SPEC #: [id number] RECD: 08/17/18 15:14 STATUS: SOUT REQ #: [id number] NORIS: 08/16/18 11:[address]: Patsy Mar DEPT: IMMUNOHISTOCHEMISTRY RECD BY: Yasmine De Anda ENTERED: 08/17/18 15:15 SP TYPE: IMMUNO OTHR DR: DO Dr. Shashi Garcia MD Dr. Kimberly Sheets, DO Tissues: A - Stomach, NOS Procedures: H Pylori (initial) Comments: @ Ordering doctor for H.PYLORI edited from to @ by LOIS at 08/17/18 1515 @ Submitting doctor edited from to @ by LOIS at 08/17/18 1515 PHYSICIAN & [place] [id number] SPECIMEN INFORMATION: Tissue Source: A - Antrum biopsy Clinical Info: Anemia, Hemoccult positive test Specimen Number: [id number] CPT code: 38185 METHODOLOGY: Deparaffinized sections of prefer/formalin-fixed tissue or PAP/DQ stained slides are incubated with monoclonal/polyclonal antibodies/oligonucleotide probes. Localization is made via biotin free immunoperoxidase method. Appropriate controls are performed and reacted as expected. Results on target cell population are indicated in the following table: RESULTS: ANTIBODY / CLONE RESULT Block A H Pylori (polyclonal) negative These tests were developed and their performance characteristics determined by [facility]. They may not have been cleared or approved by the U.S. Food and Drug Administration. The FDA has determined that such clearance or approval is not necessary. INTERPRETATION: A. Antrum biopsy: Negative for Helicobacter pylori organisms. VENICE:noemi 08/20/18
[2018-08-16 11:51] LABS: Bedside Glucose 99 mg/dL (70-110)
[2018-08-16 12:51] LABS: Bedside Glucose 97 mg/dL (70-110)
--- NOTE | 2018-08-16 13:11 | CASEMGMT ---
RN CM Readmission Note Previous Admission: 07/16/18-07/18/18 Diagnosis: Severe Sepsis related to HCAP, Heart failure with preserved EF. DC Disposition: Home. Did not require home oxygen. Home Health ordered, but on all from RN CM to schedule after weekend discharge, HHC was declined. Current Admission Presentation: Symptomatic anemia. Pt was on Eliquis, Plavix. Intro role of CM and purpose of RN CM assessment. Demographics, PCP and Pharmacy verified. PCP: Dr. Huertas Preferred Pharmacy: [facility] Insurance: [facility] Living Arrangements: One story home, 5 steps, ramp. Pt is independent in ADL. Lives with , Mel. DME: straight cane, walker DC PLAN: Home with family support. PT ambulated 250' with contact guard. Consuelo WINKLER RN ACM
--- NOTE | 2018-08-16 15:53 | PN_ITS ---
Patient Problems: Active and Suspected Problems (Last Updated 08/14/18 @ 22:41 by Shashi Cruz MD) Acute anemia (Acute) Subjective: The patient is a 77-year-old male with a past medical history of dementia, paroxysmal atrial fibrillation, moderate pulmonary hypertension, nonrheumatic aortic valve regurgitation, nonrheumatic tricuspid valve regurgitation, nonrheumatic mitral valve regurgitation, TIAs, diabetes mellitus type 2, hyperlipidemia and hypertension who was brought to the emergency department at [facility] on 08/14/2018 with complaints of generalized weakness and shortness of breath. History was obtained from his son and daughter because the patient is oriented to self only and was unable to give an adequate history. Pulse ox at home was 82%. He is not on O2 at home. Vital signs of presentation to the emergency department were temperature 98, pulse rate 44, blood pressure 102/47, respiratory rate 18 and he was 97% saturated on room air. CBC revealed a white blood cell count of 10.9 with a left shift. Hemoglobin was 6.3 and the MCV was 84.9 with an RDW of 16.3. Platelets were within normal limits. BMP was remarkable for a BUN of 30 and a creatinine of 1.53. Iron studies showed a low serum iron of 17 with a TIBC of 367 and a ferritin of 24. Troponin was less than 0.015 and a BNP was 294. UA revealed no evidence of urinary tract infection. Chest x-ray had no infiltrates, pleural effusions or pulmonary vascular congestion. He was admitted to a monitored bed on PCU and transfused with 2 units of packed red blood cells. He was started on Protonix 40 mg IV every [address] Mar was consulted and performed EGD and colonoscopy on 08/16/2018. EGD showed a mildly erythematous mucosa without bleeding in the gastric antrum. There were 2 nonbleeding superficial gastric ulcers with no stigmata of bleeding found in the prepyloric region of the stomach. The duodenum was normal. Colonoscopy showed a less than 5 mm sessile polyp found in the descending colon which was removed. There were 2 semi- pedunculated polyps found in the rectum and they were removed. There were multiple small and large mouth diverticuli in the sigmoid and descending colon. Hemoglobin was stable at 9.1 following transfusion of 2 units of packed red blood cells. He is afebrile. Vital signs are stable. Heart rate is generally in the 50s. Pulse ox is 95 to 97% on room air. All lab was personally reviewed. With hydration and transfusion creatinine came down to 1.11 from 1.53 at admission. He denies abdominal pain, CP, SOB and nausea. VSS. - Physical Exam General: Alert, Cooperative, No apparent distress HEENT: Atraumatic, PERRLA, EOMI, Normocephalic Oral: Dry Mucosa Neck: Supple, No JVD Lungs: Clear to auscultation Cardiovascular: Regular rate, Regular Rhythm, Normal S1, Normal S2, Murmur, No rub noted, No Gallop Abdomen: Bowel Sounds Present, Soft, Non Tender, Non-Distended Extremities: No clubbing, No cyanosis, No edema Skin: No rashes Neurological: Cranial nerves II-XII grossly intact, Neuro grossly intact Vital Signs Temp Pulse Resp BP Pulse Ox 98.7 F 52 L 18 146/60 H 98 08/16/18 15:29 08/16/18 15:29 08/16/18 15:29 08/16/18 15:29 08/16/18 15:29 Oxygen Flow Rate (L/min) 2 Oxygen Delivery Method Room Air Weight: 167 lb 12.348 oz Body Mass Index (BMI) 24.0 Intake and Output for Last 24 Hours 08/14/18 08/15/18 08/16/18 23:59 23:59 23:59 Intake Total 0 / 0 2800 / 4000 1862 / 1862 Output Total 300 / 300 Balance 0 / 0 2500 / 3700 1862 / 1862 Microbiology Past 72 Hours 08/14/18 21:30 Stool Occult Blood (ALICIA) - Final Stool Laboratory Tests Past 24 Hrs 08/15/18 08/16/18 08/16/18 16:25 00:05 05:10 WBC 7.1 RBC 3.10 L Hgb 9.1 L 8.9 L 8.6 L Hct 27.4 L 27.4 L 26.4 L MCV 85.2 MCH 27.7 MCHC 32.6 RDW 15.8 H RDW Differential 49.1 H Plt Count 229 MPV 10.6 Immature Gran % (Auto) 0.300 Neut % (Auto) 70.4 H Lymph % (Auto) 14.2 L Alexander % (Auto) 13.3 H Eos % (Auto) 1.4 Baso % (Auto) 0.4 Absolute Neuts (auto) 5.0 Absolute Lymphs (auto) 1.01 Total Counted Not Reportable Sodium Potassium Chloride Carbon Dioxide Anion Gap BUN Creatinine Estim Creat Clear Calc Est GFR (MDRD) Af Amer Est GFR (MDRD) Non-Af BUN/Creatinine Ratio Glucose Calcium 08/16/18 05:10 WBC RBC Hgb Hct MCV MCH MCHC RDW RDW Differential Plt Count MPV Immature Gran % (Auto) Neut % (Auto) Lymph % (Auto) Alexander % (Auto) Eos % (Auto) Baso % (Auto) Absolute Neuts (auto) Absolute Lymphs (auto) Total Counted Sodium 142 Potassium 3.8 Chloride 112 H Carbon Dioxide 24.0 Anion Gap 6 BUN 15 Creatinine 0.97 Estim Creat Clear Calc 64.81 Est GFR (MDRD) Af Amer 96 Est GFR (MDRD) Non-Af 80 BUN/Creatinine Ratio 15.5 Glucose 110 H Calcium 8.4 L POC Glucose 08/16/18 08/16/18 08/15/18 12:18 06:02 21:56 POC Glucose 97 99 131 H 08/15/18 16:18 POC Glucose 119 H Medical Necessity - Tobacco Use Smoking Status: Former smoker Assessment/Plan All Active Problems (Last Updated 08/14/18 @ 22:41 by Shashi Cruz MD) Acute anemia (Acute) Impressions 1. Acute anemia secondary to GI blood loss 2. Prepyloric ulcers with no stigmata of recent bleeding 3. Diabetes mellitus type 2 4. Chronic renal failure stage III with mildly increased creatinine secondary- acute kidney injury has been ruled out 5. Dementia 6. Hypertension 7. Atrial fibrillation chronic 8. Paroxysmal anticoagulation with Eliquis 9. Hyperlipidemia 10. History of TIAs 11. Moderate pulmonary hypertension 12. Nonrheumatic aortic valve, tricuspid valve and mitral valve regurgitation 13. Rectal polyps-biopsy sent 14. Bradycardia secondary to amiodarone, diltiazem and metoprolol-patient is asymptomatic 15. BPH Continue to monitor hemoglobin Protonix twice daily at discharge and Carafate Continue to hold Eliquis and Plavix Recheck lab in the a.m. Code Visit Inpatient E&M: 20429 Subs Hosp L2
[2018-08-16] MEDS: Metoprolol(XL)Succ 100 MG Tablet PO (16:25)
[2018-08-16] MEDS: Amiodarone 200 MG Tablet PO (16:25)
[2018-08-16] MEDS: dilTIAZem CD 180 MG Capsule 360 MG PO (16:25)
[2018-08-16] MEDS: Sucralfate 1 GM Tablet PO ×2 (16:45→21:58)
[2018-08-16] MEDS: Furosemide 40 MG Tablet PO (16:46)
[2018-08-16] MEDS: Tamsulosin HCl 0.4 MG Capsule PO (16:46)
[2018-08-16] MEDS: Glucerna Shake 120 ML LIQUID PO (16:49)
[2018-08-16 17:10] LABS: Bedside Glucose 117 mg/dL (70-110)
[2018-08-16] MEDS: MELATONIN 3 MG TABLET PO (19:38)
[2018-08-16] MEDS: Donepezil HCl 5 MG Tablet PO (21:57)
[2018-08-16] MEDS: Atorvastatin Calcium 20 MG Tablet PO (21:57)
[2018-08-16 22:10] LABS: Bedside Glucose 163 mg/dL (70-110)
[2018-08-17] VITALS (8 sets, daily range): BP systolic 129–141; BP diastolic 40–51; PULSE 45–60; RESP 16–18; TEMP 36.7–36.9; O2SAT 95–99
[2018-08-17 05:50] LABS: Hematocrit 27.9 % (40-54); Hemoglobin 8.7 g/dl (13.0-16.5); Mean Corp Hgb Conc 31.2 g/gl (32-36); Mean Corpuscular Hgb 26.5 pg (27.0-32.0); Mean Corpuscular Volume 85.1 fL (80-94); Mean Platelet Vol. 11.1 fl (6.2-12.0); Platelet Count 257 K/mm3 (150-450); RBC Distribution Width CV 15.7 % (11.6-14.6); RBC Distribution Width SD 47.3 fl (35.1-43.9); Red Blood Count 3.28 M/mm3 (4.6-6.2); White Blood Count 7.9 K/mm3 (4.4-11.0)
[2018-08-17 05:51] LABS: Scan Indicated on CBC? Y/N NO
[2018-08-17 06:15] LABS: ALB/GLOB Ratio 0.9 RATIO (0.9-2.4); AST(SGOT) 28 U/L (15-37); Alanine Aminotransfer ALT/SGPT 29 U/L (16-61); Albumin, Serum 2.9 g/dL (3.2-5.0); Alkaline Phosphatase 41 U/L (45-117); Anion Gap 7 (5-15); BUN 11 mg/dL (7-18); BUN/Creat Ratio 11.2 RATIO (10-20); Chloride 110 mmol/L (98-107); Creatinine, Serum 0.98 mg/dL (0.70-1.30); EST Glomerular Filtration Rate 78 mL/min (>60); Est Glom Filt Rate - Afr Amer 95 mL/min (>60); Estimated Creatinine Clearance 64.14 ml/min; Globulin 3.2 g/dL (2.2-4.2); Glucose 104 mg/dL (74-106); Potassium 3.3 mmol/L (3.5-5.1); Protein, Total 6.1 g/dL (6.4-8.2); Sodium Level 143 mmol/L (136-145)
[2018-08-17] MEDS: Sucralfate 1 GM Tablet PO ×2 (06:33→10:55)
[2018-08-17 06:40] LABS: Bedside Glucose 139 mg/dL (70-110)
--- NOTE | 2018-08-17 08:15 | PN_ITS ---
Patient Problems: Active and Suspected Problems (Last Updated 08/14/18 @ 22:41 by Shashi Cruz MD) Acute anemia (Acute) Subjective: All events of the past 24 hours of been reviewed. He remains afebrile. Vital signs are stable. He has a persistent sinus bradycardia at rest but denies lightheadedness and blood pressure is within normal limits. He is maintaining an appropriate oxygen saturation on room air. All lab was personally reviewed. Hemoglobin is stable at 8.7. White blood cell count and platelets are normal. Potassium is low at 3.3 today and creatinine is stable at 0.98. Calcium corrected for hypoalbuminemia is within normal limits. LFTs are normal. Magnesium and phosphorus are normal. Blood sugars are well controlled. - Physical Exam Vital Signs Temp Pulse Resp BP Pulse Ox 98.5 F 51 L 18 129/51 H 95 08/17/18 02:09 08/17/18 07:48 08/17/18 02:09 08/17/18 02:09 08/17/18 07:18 Oxygen Flow Rate (L/min) 2 Oxygen Delivery Method Room Air Weight: 174 lb 9.698 oz Body Mass Index (BMI) 24.0 Intake and Output for Last 24 Hours 08/15/18 08/16/18 08/17/18 23:59 23:59 23:59 Intake Total 2800 / 4000 2542 / 2542 590 / 590 Output Total 300 / 300 Balance 2500 / 3700 2542 / 2542 590 / 590 Microbiology Past 72 Hours 08/14/18 21:30 Stool Occult Blood (ALICIA) - Final Stool Laboratory Tests Past 24 Hrs 08/17/18 08/17/18 05:18 05:18 WBC 7.9 RBC 3.28 L Hgb 8.7 L Hct 27.9 L MCV 85.1 MCH 26.5 L MCHC 31.2 L RDW 15.7 H RDW Differential 47.3 H Plt Count 257 MPV 11.1 Sodium 143 Potassium 3.3 L Chloride 110 H Carbon Dioxide 26.0 Anion Gap 7 BUN 11 Creatinine 0.98 Estim Creat Clear Calc 64.14 Est GFR (MDRD) Af Amer 95 Est GFR (MDRD) Non-Af 78 BUN/Creatinine Ratio 11.2 Glucose 104 Calcium 8.0 L Phosphorus 3.0 Magnesium 2.0 Total Bilirubin 0.50 AST 28 ALT 29 Alkaline Phosphatase 41 L Total Protein 6.1 L Albumin 2.9 L Globulin 3.2 Albumin/Globulin Ratio 0.9 POC Glucose 08/17/18 08/16/18 08/16/18 06:32 21:49 16:44 POC Glucose 139 H 163 H 117 H 08/16/18 08/16/18 12:18 06:02 POC Glucose 97 99 Medical Necessity - Tobacco Use Smoking Status: Former smoker Assessment/Plan All Active Problems (Last Updated 08/14/18 @ 22:41 by Shashi Cruz MD) Acute anemia (Acute) Impressions 1. Acute anemia secondary to GI blood loss 2. Prepyloric ulcers with no stigmata of recent bleeding 3. Diabetes mellitus type 2 4. Chronic renal failure stage III with mildly increased creatinine secondary- acute kidney injury has been ruled out 5. Dementia 6. Hypertension 7. Atrial fibrillation chronic 8. Paroxysmal anticoagulation with Eliquis 9. Hyperlipidemia 10. History of TIAs 11. Moderate pulmonary hypertension 12. Nonrheumatic aortic valve, tricuspid valve and mitral valve regurgitation 13. Rectal polyps-biopsy sent 14. Bradycardia secondary to amiodarone, diltiazem and metoprolol-patient is asymptomatic 15. BPH Transition to p.o. Protonix 40 mg p.o. twice daily Check orthostatic vital signs Possible discharge later today if the orthostatic vital signs are negative. Will discuss with cardiology and neurology the timing of restarting Eliquis and Plavix.
[2018-08-17] MEDS: Amiodarone 200 MG Tablet PO (09:10)
[2018-08-17] MEDS: dilTIAZem CD 180 MG Capsule 360 MG PO (09:10)
[2018-08-17] MEDS: Glucerna Shake 120 ML LIQUID PO ×2 (09:10→11:59)
[2018-08-17] MEDS: Furosemide 40 MG Tablet PO (09:10)
[2018-08-17] MEDS: Pantoprazole Sodium 40 MG Tablet PO (09:16)
[2018-08-17] MEDS: Metoprolol(XL)Succ 100 MG Tablet PO (09:31)
--- NOTE | 2018-08-17 09:38 | NURSING ---
hr continues to be in the 50's and dr. liu aware but still wanting toprol to be given. ortho vitals obtained and pt vickie well. neg
[2018-08-17 11:06] LABS: Bedside Glucose 206 mg/dL (70-110)
[2018-08-17] MEDS: Insulin Lispro 100 UNIT/ML INSULN.PEN SC (11:55)
--- NOTE | 2018-08-17 13:36 | DCINST_ITS ---
- Discharge Diagnoses Current Active Problems: Current Active and Chronic Problems (Last Updated 08/14/18 @ 22:41 by Shashi Cruz MD) Dementia (Chronic) Acute anemia (Acute) You will use the following diet at home:: Calorie/Carbohydrate Controlled (specify 1200, 1400, etc), Other - no caffeine, peppermints or chocolate for 1 month....these things increase gastric acid secretion Your food should be the consistency of: Regular, Mechanical soft (ground) Your liquids should be the consistency of: Regular/Thin Discharge Activity: - - Gradually return to normal activity. You are still anemic, even though you received blood transfusions in the hospital. It will take a while for your white count to return to normal and in the interim you may be more short of breath with exertion. Call your doctor if you observe: Fever of 101 or Higher, Shortness of breath, Dizziness, Fainting spells, Swelling in the ankles, Chest pain, - - nausea, vomiting, black tarry stool, black diarrhea, vomiting blood Additional Instructions: 1. You have 2 very small ulcers in your stomach. This may be the source of the blood loss. You will be taking 2 new medications to treat for ulcer disease. These medications are Carafate....this protects the ulcer base, and Protonix which decreases the acid secretion in the stomach and allows the ulcers to heal. 2. I have given you a requisition to obtain a blood count in 5 days and the results will be sent to Dr. Johanny Sow. 3. Do NOT take the Eliquis, aspirin or clopidogrel(Plavix) when you get home. You will not have to take Aspirin or Plavix in the future. It is OK to resume the Eliquis in 3 weeks IF the blood count is stable or improving. Dr. Sow will give you the OK. 4. I am going to have you follow up with Dr. Mar in 1 we ek to go over the results of the biopsies she took when she looked in your stomach and colon. Pending Tests on Discharge: results of the gastric and rectal biopsies and the H. Pylori Allergies/Adverse Reactions: Allergies No Known Allergies Allergy (Verified 08/14/18 19:33) Medications to take at Discharge albuterol sulfate HFA 90 mcg/actuation aerosol inhaler 2 puff INHALATION Q4H PRN g 01/18/18 diltiazem CD 360 mg capsule,extended release 24 hr 360 mg PO DAILY 01/18/18 donepezil 5 mg tablet 5 mg PO QHS tab 01/18/18 nitroglycerin 0.4 mg/hr transdermal 24 hour patch 1 patch TRANSDERMAL DAILY 01/18/18 sitagliptin 50 mg-metformin 500 mg tablet 1 tab PO BID 01/18/18 metoprolol succinate ER 100 mg tablet,extended release 24 hr 100 mg PO DAILY tab 01/19/18 amiodarone 200 mg tablet 200 mg PO DAILY #30 tab 03/12/18 Atorvastatin Calcium [Lipitor] 20 mg PO QHS 07/16/18 Potassium Chloride [K-Dur] 20 meq PO DAILY #30 tab 07/18/18 Tamsulosin HCl [Flomax] 0.4 mg PO DAILY@1730 #30 cap 07/18/18 Fenofibrate,Micronized [Fenofibrate] 130 mg PO DAILY 08/14/18 Furosemide [Lasix] 40 mg PO BIDLX 08/14/18 Pantoprazole Sodium [Protonix] 40 mg PO BID #60 tab 08/17/18 Sucralfate [Carafate] 1 gm PO 1HR_ACHS #120 tab 08/17/18 The following prescriptions were given: Sucralfate [Carafate] 1 gm PO 1HR_ACHS #120 tab Transmission Status: Pending to [facility] Pantoprazole Sodium [Protonix] 40 mg PO BID #60 tab Transmission Status: Pending to [facility] Orders to be completed after discharge: CBC-Complete Blood Cnt No Diff Time Frame: 5 Days, Facility: [facility], Location: Laboratory Primary Care Physician: Johanny Sow DO [Primary Care Provider] - Please follow up with your Primary Care Physician in: 1 week Test Results: Test results from this visit will be discussed in further detail at your follow- up appointment, if applicable. Please Follow Up With: Patsy Mar MD When: 1 week Proposed Discharge Date: 08/17/18
--- NOTE | 2018-08-17 13:54 | DS.PCM_ITS ---
Discharge Date and Diagnosis - Problem List Patient Problems: Active and Suspected Problems (Last Updated 08/14/18 @ 22:41 by Shashi Cruz MD) Acute blood loss anemia (Acute) Rectal polyp (Acute) Hypokalemia (Acute) Gastric ulcer (Acute) Upper gastrointestinal bleed (Acute) Acute anemia (Acute) Date of Admission: 08/14/18 Date of Discharge: 08/17/18 - Primary Discharge Diagnosis Active and Suspected Problems (Last Updated 08/14/18 @ 22:41 by Shashi Cruz MD) Acute blood loss anemia (Acute) Gastric ulcers (Acute) Upper gastrointestinal bleed (Acute) One polyp in the descending colon and 2 rectal polyps (Acute) Hypokalemia (Acute) JESUS ruled out - Secondary Discharge Diagnosis Chronic Problems (Last Updated 08/14/18 @ 22:41 by Shashi Cruz MD) Sinus bradycardia (Chronic) Moderate pulmonary arterial systolic hypertension (Chronic) Chronic anticoagulation (Chronic) with Eliquis Dementia (Chronic) History of cardioversion (Chronic 05/19/18) Nonrheumatic aortic valve regurgitation (Chronic) Mild (1+) per echo 07/21/2013 done @ [facility] Nonrheumatic tricuspid valve regurgitation (Chronic) Moderate (2+) per echo 07/21/2013 done @ [facility] Nonrheumatic mitral valve regurgitation (Chronic) mild (1+) per echo 07/21/2013 done @ [facility] History of TIA (transient ischemic attack) (Chronic) Paroxysmal atrial fibrillation (Chronic) Diabetes mellitus, type II (Chronic) Hyperlipidemia (Chronic) Hypertension (Chronic) Diverticulosis Hospital Course and Treatment Imaging Results: Clinical Impression(s) from Imaging Studies Chest X-Ray 08/14/18 20:12 IMPRESSION: Persistent perihilar and lower lung airspace disease left greater than right. Very small bilateral pleural effusions Severity of this lung disease is less than that of July 16, 2018. at 2058 Reported and signed by: Jeremias Niño MD Electronically Signed: Jeremias Niño MD at 20:57 EDT Tel , Service support , Laboratory Results - last 24 hr 08/16/18 08/16/18 08/17/18 16:44 21:49 05:18 WBC 7.9 RBC 3.28 L Hgb 8.7 L Hct 27.9 L MCV 85.1 MCH 26.5 L MCHC 31.2 L RDW 15.7 H RDW Differential 47.3 H Plt Count 257 MPV 11.1 Sodium Potassium Chloride Carbon Dioxide Anion Gap BUN Creatinine Estim Creat Clear Calc Est GFR (MDRD) Af Amer Est GFR (MDRD) Non-Af BUN/Creatinine Ratio Glucose Calcium Phosphorus Magnesium Total Bilirubin AST ALT Alkaline Phosphatase Total Protein Albumin Globulin Albumin/Globulin Ratio POC Glucose 117 H 163 H 08/17/18 08/17/18 08/17/18 05:18 06:32 10:55 WBC RBC Hgb Hct MCV MCH MCHC RDW RDW Differential Plt Count MPV Sodium 143 Potassium 3.3 L Chloride 110 H Carbon Dioxide 26.0 Anion Gap 7 BUN 11 Creatinine 0.98 Estim Creat Clear Calc 64.14 Est GFR (MDRD) Af Amer 95 Est GFR (MDRD) Non-Af 78 BUN/Creatinine Ratio 11.2 Glucose 104 Calcium 8.0 L Phosphorus 3.0 Magnesium 2.0 Total Bilirubin 0.50 AST 28 ALT 29 Alkaline Phosphatase 41 L Total Protein 6.1 L Albumin 2.9 L Globulin 3.2 Albumin/Globulin Ratio 0.9 POC Glucose 139 H 206 H Microbiology 08/14/18 21:30 Stool Stool Occult Blood ([facility]) - Final Dr. Mar- [place] [facility] Operations: None Procedures: Colonoscopy - 5 mm polyp in the descending colon, 2 semi- pedunculated polyps in the rectum, multiple small enlarged mouth diverticuli in the sigmoid colon and descending colon, EGD - 2 small gastric ulcers with no stigmata of bleeding, mild gastritis Summary of Care Provided: The patient is a 77-year-old male with a past medical history of dementia, paroxysmal atrial fibrillation, moderate pulmonary hypertension, nonrheumatic aortic valve regurgitation, nonrheumatic tricuspid valve regurgitation, nonrheumatic mitral valve regurgitation, TIAs, diabetes mellitus type 2, hyperlipidemia and hypertension who was brought to the emergency department at [facility] on 08/14/2018 with complaints of generalized weakness and shortness of breath. History was obtained from his son and daughter because the patient is oriented to self only and was unable to give an adequate history. Pulse ox at home was 82%. He is not on O2 at home. Vital signs at presentation to the emergency department were temperature 98, pulse rate 44 (on Diltiazem, amiodarone and Metoprolol for AF), blood pressure 102/47, respiratory rate 18 and he was 97% saturated on room air. CBC revealed a white blood cell count of 10.9 with a left shift. Hemoglobin was 6.3 and the MCV was 84.9 with an RDW of 16.3. Platelets were within normal limits. BMP was remarkable for a BUN of 30 and a creatinine of 1.53. Iron studies showed a low serum iron of 17 with a TIBC of 367 and a ferritin of 24 which is low for a gentleman this age who probably has DJD/chronic inflammation. Troponin was less than 0.015 and a BNP was 294. UA revealed no evidence of urinary tract infection. Chest x-ray had no infiltrates, pleural effusions or pulmonary vascular congestion. He was admitted to a monitored bed on PCU and transfused with 2 units of packed red blood cells. He was started on Protonix 40 mg IV every [address] Mar was consulted and performed EGD and colonoscopy on 08/16/2018. EGD s howed a mildly erythematous mucosa without bleeding in the gastric antrum. There were 2 nonbleeding superficial gastric ulcers with no stigmata of bleeding found in the prepyloric region of the stomach. The duodenum was normal. Colonoscopy showed a less than 5 mm sessile polyp found in the descending colon which was removed. There were 2 semi-pedunculated polyps found in the rectum and they were removed. There were multiple small and large mouth diverticuli in the sigmoid and descending colon. Hemoglobin was stable at 9.1 following transfusion of 2 units of packed red blood cells. On 08/17/18 the HGB was stable at 8.7. Orthostatic vital signs were negative for orthostatic hypotension. He was afebrile with stable vital signs. Potassium was low at 3.3 and he received supplementation on the date of discharge. He will resume potassium 20 mEq daily at home. He was discharged home on Protonix 40 mg twice daily and Carafate 1 g p.o. before meals and at bedtime. He will follow-up with Dr. Johanny lopez in 1 week and will have a CBC drawn in 5 days. Results will be sent to Dr. lopez. He will follow-up with Dr. Mar in 1 week to discuss the results of the gastric and colon/rectal biopsies and the C. difficile. He can resume the Eliquis in 3 weeks IF the HGB is stable. He does not need ASA or Plavix when he is on Eliquis. He will follow up with Nolberto Arana as previously scheduled. General: Alert, Cooperative, No apparent distress, pleasant HEENT: Atraumatic, PERRLA, EOMI, Normocephalic Oral: moist Mucosa Neck: Supple, No JVD Lungs: Clear to auscultation Cardiovascular: Regular rate, Regular Rhythm, Normal S1, Normal S2, Murmur, No rub noted, No Gallop, telemetry shows SB with no ectopy Abdomen: Bowel Sounds Present, Soft, Non Tender, Non-Distended, BS's are not hyperactive Extremities: No clubbing, No cyanosis, No edema Skin: No rashes Neurological: Cranial nerves II-XII grossly intact, Neuro grossly intact This note was generated with [employer] dictation software. It may contain incorrect words, spelling, and punctuation that were not noted in checking the note before signing. Patient Problems: Active and Suspected Problems (Last Updated 08/14/18 @ 22:41 by Shashi Cruz MD) Acute blood loss anemia (Acute) Rectal polyp (Acute) Hypokalemia (Acute) Gastric ulcer (Acute) Upper gastrointestinal bleed (Acute) Acute anemia (Acute) - Physical Exam Vital Signs Temp Pulse Resp BP Pulse Ox 98.1 F 53 L 16 129/40 H 99 08/17/18 08:05 08/17/18 09:37 08/17/18 08:05 08/17/18 09:37 08/17/18 08:05 Oxygen Flow Rate (L/min) 2 Oxygen Delivery Method Room Air Weight: 174 lb 9.698 oz Body Mass Index (BMI) 24.0 Orthostatic Vital Signs Start: 08/17/18 09:37 Freq: q24h Status: Active Protocol: Activity Type Activity Date Activity User E-Sign Co-Sign Detail Recorded Client Recorded Date Recorded By Document 08/17/18 09:37 [id number] 08/17/18 09:38 08/17/18 09:37 Orthostatic Vitals Standing -Blood Pressure (90/60-120/80 mm Hg) 141/42 H -Extremity Use Right Arm -Pulse Rate (60-100 beats/min) 60 Sitting -Blood Pressure (90/60-120/80 mm Hg) 131/40 H -Extremity Use Right Arm -Pulse Rate (60-100 beats/min) 54 L Lying -Blood Pressure (90/60-120/80 mm Hg) 129/40 H -Extremity Use Right Arm -Pulse Rate (60-100 beats/min) 53 L Intake and Output for Last 24 Hours 08/15/18 08/16/18 08/17/18 23:59 23:59 23:59 Intake Total 2800 / 4000 2542 / 2542 950 / 950 Output Total 300 / 300 Balance 2500 / 3700 2542 / 2542 950 / 950 Microbiology Past 72 Hours 08/14/18 21:30 Stool Occult Blood (ALICIA) - Final Stool Laboratory Tests Past 24 Hrs 08/17/18 08/17/18 05:18 05:18 WBC 7.9 RBC 3.28 L Hgb 8.7 L Hct 27.9 L MCV 85.1 MCH 26.5 L MCHC 31.2 L RDW 15.7 H RDW Differential 47.3 H Plt Count 257 MPV 11.1 Sodium 143 Potassium 3.3 L Chloride 110 H Carbon Dioxide 26.0 Anion Gap 7 BUN 11 Creatinine 0.98 Estim Creat Clear Calc 64.14 Est GFR (MDRD) Af Amer 95 Est GFR (MDRD) Non-Af 78 BUN/Creatinine Ratio 11.2 Glucose 104 Calcium 8.0 L Phosphorus 3.0 Magnesium 2.0 Total Bilirubin 0.50 AST 28 ALT 29 Alkaline Phosphatase 41 L Total Protein 6.1 L Albumin 2.9 L Globulin 3.2 Albumin/Globulin Ratio 0.9 POC Glucose 08/17/18 08/17/18 08/16/18 10:55 06:32 21:49 POC Glucose 206 H 139 H 163 H 08/16/18 16:44 POC Glucose 117 H Discharge Activity: - - Gradually return to normal activity. You are still anemic, even though you received blood transfusions in the hospital. It will take a while for your white count to return to normal and in the interim you may be more short of breath with exertion. Call your doctor if you observe: Fever of 101 or Higher, Shortness of breath, Dizziness, Fainting spells, Swelling in the ankles, Chest pain, - - nausea, vomiting, black tarry stool, black diarrhea, vomiting blood Home Medications: Medications to take at Discharge albuterol sulfate HFA 90 mcg/actuation aerosol inhaler 2 puff INHALATION Q4H PRN g 01/18/18 diltiazem CD 360 mg capsule,extended release 24 hr 360 mg PO DAILY 01/18/18 donepezil 5 mg tablet 5 mg PO QHS tab 01/18/18 nitroglycerin 0.4 mg/hr transdermal 24 hour patch 1 patch TRANSDERMAL DAILY 01/18/18 sitagliptin 50 mg-metformin 500 mg tablet 1 tab PO BID 01/18/18 metoprolol succinate ER 100 mg tablet,extended release 24 hr 100 mg PO DAILY tab 01/19/18 amiodarone 200 mg tablet 200 mg PO DAILY #30 tab 03/12/18 Atorvastatin Calcium [Lipitor] 20 mg PO QHS 07/16/18 Potassium Chloride [K-Dur] 20 meq PO DAILY #30 tab 07/18/18 Tamsulosin HCl [Flomax] 0.4 mg PO DAILY@1730 #30 cap 07/18/18 Fenofibrate,Micronized [Fenofibrate] 130 mg PO DAILY 08/14/18 Furosemide [Lasix] 40 mg PO BIDLX 08/14/18 Pantoprazole Sodium [Protonix] 40 mg PO BID #60 tab 08/17/18 Sucralfate [Carafate] 1 gm PO 1HR_ACHS #120 tab 08/17/18 Following Prescrptions Were Given to Patient: Sucralfate [Carafate] 1 gm PO 1HR_ACHS #120 tab Transmission Status: Pending to [id number] Pantoprazole Sodium [Protonix] 40 mg PO BID #60 tab Transmission Status: Pending to [facility] Other Amb Orders: CBC-Complete Blood Cnt No Diff Time Frame: 5 Days, Facility: [facility], Location: Laboratory Primary Care Physician: Johanny Sow DO [Primary Care Provider] - Please follow up with your Primary Care Physician in: 1 week Please Follow Up With: Patsy Mar MD When: 1 week Disposition: Home Minutes spent on discharge:: 35 Patient Condition:: Stable Medical Necessity - Tobacco Use Smoking Status: Former smoker Tobacco Use: Non-smoker Meaningful Use Info Meaningful Use Diagnoses (Choose all that apply): None applicable Code Visit Inpatient E&M: 61706 Disch Hosp
--- NOTE | 2018-08-18 10:45 | OP.ENDO_ITS ---
08/18/2018 Johanny Lara Re : Upper GI endoscopy procedure for Rubio Murphy Deavitaliy Lara This procedure was performed on Thursday, August 16, 2018. My impressions and recommendations are as follows: Impressions : - Z-line regular, 36 cm from the incisors. - Erythematous mucosa in the antrum. Biopsied. - Non-bleeding gastric ulcers with no stigmata of bleeding. Biopsied. - Normal examined duodenum. Recommendations : - Await pathology results. - Return patient to [facility] for [facility] care. - Clear liquid diet. - Use Protonix (pantoprazole) 40 mg PO BID for 2 months. - Use sucralfate tablets 1 gram PO QID for 1 month. - No aspirin, ibuprofen, naproxen, or other non-steroidal anti-inflammatory drugs for 3 days after biopsy. My findings are described in the full procedure note, which is enclosed. If I can be of further assistance, please feel free to contact me at Doctor phone number(s): , Work: . Sincerely, MD Patsy Paris MD 08/16/2018 3:11:01 PM This report has been signed electronically.
--- NOTE | 2018-08-18 10:45 | OP.ENDO_ITS ---
08/18/2018 Johanny Lara Re : Colonoscopy procedure for Rubio Murphy Deavitaliy Lara This procedure was performed on Thursday, August 16, 2018. My impressions and recommendations are as follows: Impressions : - One less than 5 mm polyp in the descending colon, removed with a cold biopsy forceps. Resected and retrieved. - Two 4 to 7 mm polyps in the rectum, removed with a hot snare. Resected and retrieved. - Diverticulosis in the sigmoid colon and in the descending colon. Recommendations : - Return patient to [facility] for ongoing care. - No repeat colonoscopy due to age. - Continue present medications. - No aspirin, ibuprofen, naproxen, or other non-steroidal anti-inflammatory drugs for 3 days after biopsy. My findings are described in the full procedure note, which is enclosed. If I can be of further assistance, please feel free to contact me at Doctor phone number(s): , Work: . Sincerely, MD Patsy Paris MD 08/16/2018 3:16:53 PM This report has been signed electronically.
--- NOTE | 2018-08-18 16:13 | CASEMGMT ---
EMILIE CM DC PHONE CALL DC DATE: 08/17/18 DC Disposition: Home Diagnosis on Discharge: Rectal Bleeding LACE/STRATA: 29/05 Attempted call to phone. No answer, and no message machine with identifier. Consuelo CHESTERN RN ACM
== END 2018-08-17 15:09 | disposition home or self-care (01) | DRG 811 ==
LOC: ED 20:42 → PCU 22:26
PROVIDERS: Internal Medicine; Surgery; Admitting Provider Hospitalist; Emergency Provider Emergency Medicine; Family Provider Family Medicine; PCP Family Medicine; Visit Provider Internal Medicine
PROC: 0DJD8ZZ Inspection of Lower Intestinal Tract, Via Natural or Artificial Opening Endoscopic (ICD-10-PCS; CPT 45378; principal; 2018-08-16 11:40)
DX: D62 Acute posthemorrhagic anemia (principal); K25.4 Chronic or unspecified gastric ulcer with hemorrhage; K29.70 Gastritis, unspecified, without bleeding; K57.30 Diverticulosis of large intestine without perforation or abscess without bleeding; K62.1 Rectal polyp; D12.4 Benign neoplasm of descending colon; E87.6 Hypokalemia; E11.9 Type 2 diabetes mellitus without complications; E78.5 Hyperlipidemia, unspecified; F03.90 Unspecified dementia, unspecified severity, without behavioral disturbance, psychotic disturbance, mood disturbance, and anxiety; I35.1 Nonrheumatic aortic (valve) insufficiency; I36.1 Nonrheumatic tricuspid (valve) insufficiency; I10 Essential (primary) hypertension; I48.0 Paroxysmal atrial fibrillation; I34.0 Nonrheumatic mitral (valve) insufficiency; Z79.01 Long term (current) use of anticoagulants; Z86.73 Personal history of transient ischemic attack (TIA), and cerebral infarction without residual deficits; Z79.84 Long term (current) use of oral hypoglycemic drugs; Z87.891 Personal history of nicotine dependence
CPT/HCPCS: 36415; 71045; 80048; 80053; 81001; 82274; 82728; 82962; 83540; 83550; 83735; 83880; 84100; 84484; 85014; 85018; 85025; 85027; 85610; 86850; 86900; 86920; 86922; 88305; 88342; 93005; 97162; 97166; 97802; 99284; J7030; J7040; P9016; A4216; J1610

== ENCOUNTER 2018-09-01 03:29 | Inpatient (IN) | payer MEDICARE, SELFPAY ==
[2018-08-27 14:44] VITALS: BMI 24.0
[2018-09-01] VITALS (15 sets, daily range): BP systolic 123–179; BP diastolic 42–60; PULSE 53–80; RESP 18–27; TEMP 36.4–37.2; O2SAT 92–98; BMI 25.1; BMI 25.6
--- NOTE | 2018-09-01 03:47 | EKG12_ITS ---
Test Reason : SOB Blood Pressure : / mmHG Vent. Rate : 058 BPM Atrial Rate : 058 BPM P-R Int : 162 ms QRS Dur : 092 ms QT Int : 520 ms P-R-T Axes : 088 063 028 degrees QTc Int : 510 ms Sinus bradycardia Nonspecific ST abnormality Prolonged QT Abnormal ECG Confirmed by WALLY VILLASEÑOR, ELIZABETH ([id number]), editorial assistant YELENA RODRÍGUEZ ([id number]) on 09/03/2018 1:45:51 PM Referred By: FRANKIE Confirmed By:JESÚS LO MD
--- NOTE | 2018-09-01 03:47 | RAD_ITS ---
STUDY: X-RAY CHEST REASON FOR EXAM: Male, 77 years old. Shortness of breath TECHNIQUE: 2 views COMPARISON: August 14, 2018 FINDINGS: Patchy densities in both lung bases and blunting of the left costophrenic angle most likely from effusion. The heart is normal Normal visualized thoracic spine. Normal visualized ribs, clavicles, and shoulders. There is no demonstrated abnormality of the visualized soft tissue structures of the upper abdomen. RAD/Chest PA and Lateral IMPRESSION: Bibasilar pneumonia and a small left-sided effusion Electronically Signed: Tae Marcus MD at 5:15 EDT Tel , Service support ,
--- NOTE | 2018-09-01 04:16 | ED.VISSUMM ---
- ER Visit Summary Date of Service: 09/01/18 Chief Complaint: Shortness of breath History of Present Illness: The patient is a 77 M who presents with shortness of breath. This is progressed gradually since yesterday. It became severe tonight. He denies associated symptoms. No fevers chest pain or cough. He denies any upper respiratory symptoms. Review of systems otherwise negative. No abdominal pain nausea vomiting. He was recently hospitalized for an upper GI bleed and blood loss anemia. He had upper and lower endoscopies and did have gastric ulcers. He was previously on Eliquis for atrial fibrillation which has been held given recent GI bleed. Physical Examination: Blood pressure 179/59 respiratory rate 26 afebrile pulse ox 94% on 2 L nasal cannula Moist mucous membranes Heart regular rate and rhythm there is a systolic murmur Patient is tachypneic but his lungs are clear I do not appreciate rales rhonchi or wheezes The abdomen is soft 2+ symmetric pitting lower extremity edema Alert Test Results: EKG shows sinus bradycardia at a rate of 58 with prolonged QT similar to prior. Labs notable for white count 12.2, hemoglobin 9.1, BUN 22, creatinine 1.4. INR is 1.2. Troponin is negative. Chest x-ray shows bibasilar pneumonia and small left-sided effusion. Emergency Department Course and Treatment: Patient was placed on oxygen by nasal cannula. Work-up as above. Patient was recently hospitalized so his healthcare associated pneumonia. He was given IV Zosyn and vancomycin. Blood cultures were sent. The patient will be discussed with the hospitalist and admitted. Treatment Plan: [] Disposition: Admit Impression: Healthcare associated pneumonia This note was generated with [employer] dictation software. It may contain incorrect words, spelling, and punctuation that were not noted in review of the chart prior to signing ED Disposition - Plan for ED Patient: Referrals: Johanny Sow DO [Primary Care Provider] -
[2018-09-01 04:25] LABS: Absolute Lymphocyte Count 1.16 X10^3/uL (0.83-4.51); Absolute Neutrophil Count 9.3 X10^3/uL (2.0-7.7); Basophil# 0.05 X10^3/uL; Basophil% 0.4 % (0-1); Eosinophil# 0.11 X10^3/uL; Eosinophils% 0.9 % (0-5); Hematocrit 30.3 % (40-54); Hemoglobin 9.1 g/dL (13.0-16.5); Lymphocyte # 1.16 X10^3/ul (4.0); Lymphocyte % 9.5 % (19-41); Mean Corpuscular Hgb 25.5 pg (27.0-32.0); Mean Corpuscular Volume 84.9 fL (80-94); Mean Platelet Vol. 10.7 fl (6.2-12.0); Monocyte# 1.47 X10^3/uL; NRBC Flagged by Analyzer 0 % (0-5); Neutrophil # 9.34 X10^3/uL (2.7-7.7); Neutrophil % 76.5 % (47-70); Platelet Count 334 K/mm3 (150-450); RBC Distribution Width CV 17.3 % (11.6-14.6); RBC Distribution Width SD 53.6 fl (35.1-43.9); Red Blood Count 3.57 M/mm3 (4.6-6.2); White Blood Count 12.2 K/mm3 (4.4-11.0)
[2018-09-01 04:28] LABS: International Normalized Ratio 1.2; Prothrombin Time (Protime)PT. 14.7 SECONDS (11.7-14.9)
[2018-09-01 04:31] LABS: Anion Gap 7 (5-15); BUN 22 mg/dL (7-18); BUN/Creat Ratio 15.6 RATIO (10-20); Chloride 105 mmol/L (98-107); Creatinine, Serum 1.41 mg/dL (0.70-1.30); EST Glomerular Filtration Rate 52 mL/min (>60); Est Glom Filt Rate - Afr Amer 62 mL/min (>60); Estimated Creatinine Clearance 44.58 ml/min; Glucose 136 mg/dL (74-106); Potassium 3.8 mmol/L (3.5-5.1); Sodium Level 138 mmol/L (136-145)
--- NOTE | 2018-09-01 05:36 | PCM.HP.STD ---
Problem List (1) Bilateral pneumonia Status: Acute History of Present Illness Date of Admission: 09/01/18 Chief Complaint: shortness of breath The patient is a 77 year old M with a significant history of dementia diabetes mellitus; paroxysmal A. fib status post cardioversion; former tobacco abuse; hypertension; nonrheumatic aortic valve regurgitation, nonrheumatic tricuspid valve regurgitation, nonrheumatic mitral valve regurgitation; and TIA who presented to emergency department with 1 day history of progressively worsening shortness of breath. Associated with his symptoms is sneezing and some dry cough. Patient has orthopnea and paroxysmal nocturnal dyspnea. He use his home oxygen probe and his oxygen saturation was 88% prompting family to bring him to the emergency department. Patient was admitted on 08/14/2018 and discharged on 08/17/2018 and was found to have gastric ulcers. His aspirin, Plavix and Eliquis was stopped at that time. The plan was to resume his Eliquis in 3 weeks time if his hemoglobin remains stable. Past Medical History Past Medical History (Chronic Problems): Chronic Problems (Last Reviewed 09/01/18 @ 07:14 by Prem Tavares MD) Sinus bradycardia (Chronic) Moderate pulmonary arterial systolic hypertension (Chronic) Chronic anticoagulation (Chronic) Dementia (Chronic) History of cardioversion (Chronic 05/19/18) Secondary pulmonary hypertension (Chronic) RVSP 51 mmhg, EF 55% per echo 07/21 2013 done @ [facility] Nonrheumatic aortic valve regurgitation (Chronic) Mild (1+) per echo 07/21/2013 done @ [facility] Nonrheumatic tricuspid valve regurgitation (Chronic) Moderate (2+) per echo 07/21/2013 done @ [facility] Nonrheumatic mitral valve regurgitation (Chronic) mild (1+) per echo 07/21/2013 done @ [facility] History of TIA (transient ischemic attack) (Chronic) Atrial fibrillation (Chronic) Diabetes mellitus, type II (Chronic) Hyperlipidemia (Chronic) Hypertension (Chronic) Medical History: Medical History (Last Reviewed 09/01/18 @ 07:14 by Prem Tavares MD) Acute blood loss anemia (Acute) D62 Rectal polyp (Acute) K62.1 Sinus bradycardia (Chronic) R00.1 Moderate pulmonary arterial systolic hypertension (Chronic) I27.21 Chronic anticoagulation (Chronic) Z79.01 Hypokalemia (Acute) E87.6 Gastric ulcer (Acute) K25.9 Upper gastrointestinal bleed (Acute) K92.2 Dementia (Chronic) F03.90 Acute anemia (Acute) D64.9 Secondary pulmonary hypertension (Chronic) RVSP 51 mmhg, EF 55% per echo 07/21 2013 done @ [facility] Nonrheumatic aortic valve regurgitation (Chronic) I35.1 Mild (1+) per echo 07/21/2013 done @ [facility] Nonrheumatic tricuspid valve regurgitation (Chronic) I36.1 Moderate (2+) per echo 07/21/2013 done @ [facility] Nonrheumatic mitral valve regurgitation (Chronic) I34.0 mild (1+) per echo 07/21/2013 done @ [facility] History of TIA (transient ischemic attack) (Chronic) Z86.73 Atrial fibrillation (Chronic) I48.91 Diabetes mellitus, type II (Chronic) E11.9 Hyperlipidemia (Chronic) E78.5 Hypertension (Chronic) I10 Allergies No Known Allergies Allergy (Verified 09/01/18 03:37) Home Medications: Ambulatory Orders Medication Instructions Recorded albuterol sulfate HFA 90 2 puff INHALATION Q4H PRN g 01/18/18 mcg/actuation aerosol inhaler diltiazem CD 360 mg 360 mg PO DAILY 01/18/18 capsule,extended release 24 hr donepezil 5 mg tablet 5 mg PO QHS tab 01/18/18 nitroglycerin 0.4 mg/hr 1 patch TRANSDERMAL DAILY 01/18/18 transdermal 24 hour patch sitagliptin 50 mg-metformin 500 mg 1 tab PO BID 01/18/18 tablet amiodarone 200 mg tablet 200 mg PO DAILY #30 tab 03/12/18 Atorvastatin Calcium [Lipitor] 20 mg PO QHS 07/16/18 Potassium Chloride [K-Dur] 20 meq PO DAILY #30 tab 07/18/18 Tamsulosin HCl [Flomax] 0.4 mg PO DAILY@1730 #30 cap 07/18/18 Fenofibrate,Micronized 130 mg PO DAILY 08/14/18 [Fenofibrate] Furosemide [Lasix] 40 mg PO BIDLX 08/14/18 Ferrous Sulfate 325 mg PO DAILY #30 tab 08/17/18 Pantoprazole Sodium [Protonix] 40 mg PO BID #60 tab 08/17/18 Sucralfate [Carafate] 1 gm PO 1HR_ACHS #120 tab 08/17/18 Aspirin [Aspirin, Baby] 81 mg PO DAILY@0800 09/01/18 Surgical History: Surgical History (Last Reviewed 09/01/18 @ 07:14 by Prem Tavares MD) History of cardioversion (Chronic) Onset Date: 05/19/18 Z98.890 History of esophagogastroduodenoscopy (EGD) Onset Date: ~08/14/18 Z98.890 history c-scope Onset Date: ~08/14/18 Surgical History: - - History of cardioversion, right and left heart catheterization. Psychiatric History: No pertinent psych hx, - - Alzheimer's dementia Lives: Spouse/ Significant Other Smoking Status: Former smoker Alcohol: Occasional - *Family History Maternal Family History: Family History (Last Reviewed 09/01/18 @ 07:15 by Prem Tavares MD) Mother CAD (coronary artery disease) CVA (cerebral vascular accident) Congestive heart failure Father Hypertension Sister Cancer Brother Hypertension Diabetes Cancer CAD (coronary artery disease), Onset Age: 70 Brother Esophageal cancer Review of Systems Constitutional: Reports: Weight Change - Her daughter thinks that patient gained about 6 pounds in 3 weeks after a recent hospitalization. Denies: Chills, Fever HEENT: Denies: Head Aches, Sinus Congestion, Sinus Drainage Cardiovascular: Reports: Orthopnea, Paroxysmal Noc. Dyspnea. Denies: Chest Pain, Palpitations Respiratory: Reports: Cough, Shortness of breath at rest Gastrointestinal: Denies: Abdominal Pain, Nausea, Vomiting Genitourinary: Denies: Dysuria Musculoskeletal: Denies: Joint Pain, Joint Tenderness Skin: Denies: Rash, Wounds Neurological: Reports: Confusion - chronic. Denies: Focal weakness, Numbness, Tingling Psychiatric: Denies: Anxiety, Depression, Homicidal Ideations, Suicidal Ideations Hematologic/ Lymphatic: Denies: Easy Bruising, Easy Bleeding VTE Information - Inpt Only VTE Present on Admission: No VTE Mechan Device Prophylaxis: SCD's VTE Pharm Prophylaxis ordered?: No Patient Problems: Active and Suspected Problems (Last Reviewed 09/01/18 @ 07:14 by Prem Tavares MD) Bilateral pneumonia (Acute) - Physical Exam General: Alert, Cooperative, Confused HEENT: Atraumatic, PERRLA, EOMI, Normocephalic Neck: Supple, No JVD, Negative Carotid Bruits Lungs: Clear to auscultation, Normal air movement, Tachypneic Cardiovascular: Bradycardic, Murmur Abdomen: Bowel Sounds Present, Soft, Non Tender Extremities: Capillary Refill Less than 3 Seconds, Edema - bilateral leg edema Skin: No rashes, No breakdown Musculoskeletal: No Tenderness to Palpation of Joints or Extremities Neurological: Cranial nerves II-XII grossly intact Psych/Mental Status: Normal Affect, Appropriate Vital Signs Temp Pulse Resp BP Pulse Ox 97.5 F L 54 L 23 H 139/42 H 97 09/01/18 04:36 09/01/18 04:36 09/01/18 04:36 09/01/18 04:36 09/01/18 04:36 Oxygen Flow Rate (L/min) 2 Oxygen Delivery Method Nasal Cannula Weight: 79.4 kg Body Mass Index (BMI) 25.1 Laboratory Tests Past 24 Hrs 09/01/18 09/01/18 09/01/18 03:40 03:40 03:40 WBC 12.2 H RBC 3.57 L Hgb 9.1 L Hct 30.3 L MCV 84.9 MCH 25.5 L MCHC 30.0 L RDW Std Deviation 53.6 H RDW Coeff of Dipesh 17.3 H Plt Count 334 MPV 10.7 Immature Gran % (Auto) 0.700 Neut % (Auto) 76.5 H Lymph % (Auto) 9.5 L [place] % (Auto) 12.0 H Eos % (Auto) 0.9 Baso % (Auto) 0.4 Absolute Neuts (auto) 9.3 H Absolute Lymphs (auto) 1.16 Absolute Nucleated RBC 0.00 Nucleated RBC % 0 PT 14.7 INR 1.2 Sodium 138 Potassium 3.8 Chloride 105 Carbon Dioxide 26.0 Anion Gap 7 BUN 22 H Creatinine 1.41 H Estim Creat Clear Calc 44.58 Est GFR (MDRD) Af Amer 62 Est GFR (MDRD) Non-Af 52 L BUN/Creatinine Ratio 15.6 Glucose 136 H Lactic Acid Calcium 9.0 Troponin I < 0.015 09/01/18 03:40 WBC RBC Hgb Hct MCV MCH MCHC RDW Std Deviation RDW Coeff of Dipesh Plt Count MPV Immature Gran % (Auto) Neut % (Auto) Lymph % (Auto) [place] % (Auto) Eos % (Auto) Baso % (Auto) Absolute Neuts (auto) Absolute Lymphs (auto) Absolute Nucleated RBC Nucleated RBC % PT INR Sodium Potassium Chloride Carbon Dioxide Anion Gap BUN Creatinine Estim Creat Clear Calc Est GFR (MDRD) Af Amer Est GFR (MDRD) Non-Af BUN/Creatinine Ratio Glucose Lactic Acid Pending Calcium Troponin I Assessment/Plan All Active Problems (Last Reviewed 09/01/18 @ 07:14 by Prem Tavares MD) Bilateral pneumonia (Acute) Acute blood loss anemia (Acute) Rectal polyp (Acute) Hypokalemia (Acute) Gastric ulcer (Acute) Upper gastrointestinal bleed (Acute) Acute anemia (Acute) The patient is a 77 year old M with a significant history of dementia diabetes mellitus; paroxysmal A. fib status post cardioversion; former tobacco abuse; hypertension; nonrheumatic aortic valve regurgitation, nonrheumatic tricuspid valve regurgitation, nonrheumatic mitral valve regurgitation; and TIA who presented to emergency department with 1 day history of progressively worsening shortness of breath; and found to have tachypnea and leukocytosis and radiographic evidence of bibasilar infiltrates and small left sided pleural effusion. Sepsis secondary community acquired pneumonia Lactic acid: 2.0 Patient with leukocytosis of white count 12.2 and with tachypnea with respiratory rate between 20-27 Blood culture ?2 is pending Chest x-ray: Interpreted by radiologist as patchy densities in both lung bases and blunting of the left costophrenic angle most likely from effusion. Chest x-ray was independently reviewed. There appeared to be bilateral hilar infiltrates more prominent than previous. Review of records shows history of bilateral pleural effusion. Antibiotics: The patient was started on vancomycin and Zosyn since he was at the hospital about 2 to 3 weeks ago. Will de-escalate to Zosyn only and gets MRSA of nares. Albuterol as needed continued Legionella antigen screen and Strep antigen ordered The BNP is around his baseline; unlikely heart failure. JESUS On presentation his creatinine was 1.41 Review of records shows baseline creatinine around 1.0. BUN over creatinine is 15.6 indicating probable intrinsic renal failure. However, rule out prerenal. Will start patient on gentle IV hydration. Will stop his home Lasix and concomitant potassium. Trend BMP. Avoid nephrotoxins. Diabetes mellitus On presentation his blood glucose was within goal. At home patient is on Janumet. We will continue Januvia and stop metformin since patient is at risk of lactic acidosis. Accu-Chek q. ACH with correction scale added. Paroxysmal Afib Amiodarone and Cardizem continued QT prolongation EKG shows QT prolongation. Of note patient is on amiodarone and Aricept which can involve prolonged QT. Avoid other QT prolongation drugs. Peptic ulcer disease Protonix twice daily continued Sucralfate continued History of chest pain: Nitroglycerin patch continued BPH Flomax continued DVT prophylaxis Due to recent GI bleed chemical prophylaxis was not started. SCD was ordered. Code Visit Inpatient E&M: 87903 Init Hosp L3
--- NOTE | 2018-09-01 06:23 | ED.RN ---
DR DAVID NOTIFIED OF LACTIC ACID RESULTS
[2018-09-01 06:34] LABS: BNP,B-Type NATRIURETIC PEPTIDE 350.2 pg/mL (0-100)
[2018-09-01 08:16] LABS: Bedside Glucose 153 mg/dL (70-110)
[2018-09-01] MEDS: 0.9% Normal Saline 1,000 ML 75 ML IV (08:49)
[2018-09-01] MEDS: Insulin Lispro 100 UNIT/ML INSULN.PEN SC ×2 (08:50→22:22)
[2018-09-01] MEDS: Amiodarone 200 MG Tablet PO (08:51)
[2018-09-01] MEDS: LINAGLIPTIN 5 MG TABLET PO (08:52)
[2018-09-01] MEDS: Ferrous Sulfate 325 MG Tablet PO (08:52)
[2018-09-01] MEDS: Sucralfate 1 GM Tablet PO ×4 (08:52→22:22)
[2018-09-01] MEDS: Pantoprazole Sodium 40 MG Tablet PO ×2 (08:52→22:22)
[2018-09-01] MEDS: Aspirin 81 MG TAB.CHEW PO (08:53)
[2018-09-01] MEDS: dilTIAZem CD 180 MG Capsule 360 MG PO (08:53)
[2018-09-01] MEDS: guaiFENesin 1,200 MG Tablet 1200 MG PO ×2 (08:53→22:22)
[2018-09-01] MEDS: Fenofibrate 145 MG Tablet PO (08:54)
[2018-09-01 09:29] LABS: Reflex Lactate? Y
[2018-09-01 10:22] LABS: Lactic Acid 2.3 mmol/L (0.4-2.0)
[2018-09-01 11:35] LABS: Bedside Glucose 127 mg/dL (70-110)
--- NOTE | 2018-09-01 13:49 | CASEMGMT ---
RN CM Readmission Note Previous Admissions: 07/16-07/18/18- Sepsis, pneumonia. DC Disposition: Home with family on dc. F/U phone call by RN MEHRAN to discuss home health but Home Health declined. stated pt was feeling great. 08/14-08/17/18- anemia, UGIB On Eliquis for hx of afib. DC Disposition: Home on dc. Off Eliquis for 3 weeks. Per , pt went to F/U appts with Dr. Mar on 08/[address] Lara on 08/20/18. - states they followed prescription instructions and she assists with medications. Pt was independent, doing well until [facility] of 08/31/18 where pt had onset of shortness of breath and his lips turned purple. To ER for tx. Current Admission Presentation: Bilateral pnuemonia, sepsis, Lactic acid 2.0, WBC 12.2 (HGB/HCT 9.1/30.3) Intro role of CM and purpose of RN CM assessment to patient and his in room. Pt awake and alert, but with hx of dementia. 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 Demographics, PCP and Pharmacy verified. states pt was doing well @ home until 08/31 in [place]. Family assists with any care needs and son took pt to physician visits. did not have concerns re: previous discharges and states she plans to have pt return home. RN CM discussed f/u with physicians and states they try to make all the appointments. PCP: Dr. Sow Specialists: Dr. Arvizu, Dr. Mar Preferred Pharmacy: [facility] Insurance: [facility] Prescription Benefit: yes LNOK: , Mel Murphy Living Arrangements: Lives in one story home with ramp into home from [employer]. and pt state he is generally independent with ADL's. does cooking and home care. Transportation: or son drive DME: none @ home. Pt has not qualified for Home oxygen. Recommend testing prior to dc. No preference for DME provider. [facility] ok. HHC: has declined. EMILIE LAURENT did speak with and patient to consider Home Health if recommended by physician for nursing to evaluate pt at home. In light of frequent admissions, Home Health nurse may be beneficial. states she declined because they did not need help, but understands now that nursing may be beneficial on dc. Choices given, OK with [facility] Patient DC goals: Home DC PLAN: Home; possible Home Health, possible need for Home oxygen. Consuelo CHESTERN RN ACM
[2018-09-01] MEDS: Tamsulosin HCl 0.4 MG Capsule PO (16:44)
[2018-09-01 17:15] LABS: Bedside Glucose 130 mg/dL (70-110)
[2018-09-01 18:10] LABS: Lactic Acid 1.6 mmol/L (0.4-2.0)
--- NOTE | 2018-09-01 20:27 | RAD_ITS ---
HISTORY: shortness of breath EXAM: XR Chest 1 View: COMPARISON: September 01, 2018, about 16 hours earlier FINDINGS: # of images incl. paperwork: 1 Diffuse bilateral airspace disease is present with some interstitial thickening. Due to difference in technique it has a slightly different appearance on today's study, but is likely similar to the previous study. Atherosclerotic plaque within the aortic arch persists Heart is not enlarged. Moderate thoracic spondylosis Pulmonary vascularity is indistinct. Small bilateral pleural effusions. RAD/Chest 1 View (Portable) IMPRESSION: Persistent bilateral airspace disease and small pleural effusions. This could represent by basilar pneumonia, however, due to the interstitial thickening and pleural effusions, the possibility of CHF should be considered. at [id number] Reported and signed by: Jeremias Niño MD Electronically Signed: Jeremias Niño MD at 22:41 EDT Tel , Service support ,
[2018-09-01] MEDS: Atorvastatin Calcium 20 MG Tablet PO (22:22)
[2018-09-01] MEDS: 0.9% NaCl Peripheral Flush Adult/Peds IV (22:22)
[2018-09-01] MEDS: Donepezil HCl 5 MG Tablet PO (22:22)
[2018-09-01 22:55] LABS: Bedside Glucose 185 mg/dL (70-110)
[2018-09-02] VITALS (13 sets, daily range): BP systolic 124–139; BP diastolic 39–54; PULSE 53–85; RESP 16–22; TEMP 36.4–37.1; O2SAT 91–100
--- NOTE | 2018-09-02 04:30 | NURSING ---
Pt up to bathroom with VESSEL SCRAPPER, encouraged to ambulate in hallway for short walk, but pt refuses at this time. Pt c/o dyspnea with exertion and occasional audible wheezes present. Pt assisted back to bed with HOB elevated. Lesli, CPS notified for request of PRN breathing treatment.
[2018-09-02] MEDS: Albuterol 2.5 MG/3 ML VIAL.NEB. INHALATION ×2 (04:37→14:25)
[2018-09-02 06:14] LABS: Anion Gap 8 (5-15); BUN 16 mg/dL (7-18); BUN/Creat Ratio 15.4 RATIO (10-20); Calcium,Total 8.4 mg/dL (8.5-10.1); Chloride 110 mmol/L (98-107); Creatinine, Serum 1.04 mg/dL (0.70-1.30); EST Glomerular Filtration Rate 73 mL/min (>60); Est Glom Filt Rate - Afr Amer 89 mL/min (>60); Estimated Creatinine Clearance 60.44 ml/min; Glucose 118 mg/dL (74-106); Sodium Level 141 mmol/L (136-145)
[2018-09-02 06:44] LABS: Absolute Lymphocyte Count 1.23 X10^3/uL (0.83-4.51); Absolute Neutrophil Count 7.8 X10^3/uL (2.0-7.7); Basophil# 0.06 X10^3/uL; Basophil% 0.6 % (0-1); Eosinophil# 0.12 X10^3/uL; Eosinophils% 1.1 % (0-5); Hematocrit 26.7 % (40-54); Hemoglobin 8.2 g/dL (13.0-16.5); Lymphocyte # 1.23 X10^3/ul (4.0); Lymphocyte % 11.6 % (19-41); Mean Corp Hgb Conc 30.7 g/dL (32-36); Mean Corpuscular Hgb 25.7 pg (27.0-32.0); Mean Corpuscular Volume 83.7 fL (80-94); Mean Platelet Vol. 11.3 fl (6.2-12.0); Monocyte# 1.36 X10^3/uL; Monocyte% 12.8 % (0-10); NRBC Flagged by Analyzer 0 % (0-5); Neutrophil # 7.76 X10^3/uL (2.7-7.7); Neutrophil % 73.3 % (47-70); Platelet Count 271 K/mm3 (150-450); RBC Distribution Width CV 17.6 % (11.6-14.6); RBC Distribution Width SD 53.7 fl (35.1-43.9); Red Blood Count 3.19 M/mm3 (4.6-6.2); White Blood Count 10.6 K/mm3 (4.4-11.0)
[2018-09-02] MEDS: 0.9% NaCl Peripheral Flush Adult/Peds IV (06:44)
[2018-09-02] MEDS: Sucralfate 1 GM Tablet PO ×4 (06:44→21:41)
[2018-09-02 06:55] LABS: Bedside Glucose 124 mg/dL (70-110)
--- NOTE | 2018-09-02 07:53 | PCM.PN.HOSP ---
Patient Problems: Active and Suspected Problems (Last Reviewed 09/01/18 @ 07:14 by Prem Tavares MD) Bilateral pneumonia (Acute) Subjective: Doing well, states that breathing is a little bit improved. No acute events overnight Vitals/I&O's: Vital Signs Temp Pulse Resp BP Pulse Ox 98.7 F 65 22 H 132/50 H 96 09/02/18 03:06 09/02/18 04:38 09/02/18 04:38 09/02/18 03:06 09/02/18 03:06 Oxygen Flow Rate (L/min) 2 Oxygen Delivery Method Nasal Cannula Weight: 178 lb 9.191 oz Body Mass Index (BMI) 25.6 Intake and Output for Last 24 Hours 08/31/18 09/01/18 09/02/18 23:59 23:59 23:59 Intake Total 2480 / 2480 582 / 582 Output Total 300 / 300 Balance 2180 / 2180 582 / 582 General: Alert, Oriented x3, Cooperative, No apparent distress HEENT: Atraumatic, PERRLA, EOMI, Normocephalic Oral: Moist Mucosa Neck: Supple, No JVD Lungs: Clear to auscultation, Diminished, - - Poor air movement Cardiovascular: Regular rate, Regular Rhythm, Normal S1, Normal S2, No murmurs Abdomen: Soft, Non Tender, Non-Distended, No Hepato-splenomegaly Extremities: No edema, Capillary Refill Less than 3 Seconds Skin: No rashes, No breakdown Neurological: Neuro grossly intact, Sensory exam intact to light touch and pain Psych/Mental Status: Normal Affect, Appropriate Microbiology Past 72 Hours 09/01/18 09:00 Urine, Clean Catch Streptococcus pneumoniae Antigen (M - Final 09/01/18 09:00 Urine, Clean Catch Legionella Antigen - Final Laboratory Results 09/01/18 08:12: POC Glucose 153 H 09/01/18 09:45: Lactic Acid 2.3 H 09/01/18 11:16: POC Glucose 127 H 09/01/18 16:37: POC Glucose 130 H 09/01/18 17:35: Lactic Acid 1.6 09/01/18 22:17: POC Glucose 185 H 09/02/18 05:30: WBC 10.6, RBC 3.19 L, Hgb 8.2 L, Hct 26.7 L, MCV 83.7, MCH 25.7 L, MCHC 30.7 L, RDW Std Deviation 53.7 H, RDW Coeff of Dipesh 17.6 H, Plt Count 271, MPV 11.3, Immature Gran % (Auto) 0.600, Neut % (Auto) 73.3 H, Lymph % (Auto) 11.6 L, [place] % (Auto) 12.8 H, Eos % (Auto) 1.1, Baso % (Auto) 0.6, Absolute Neuts (auto) 7.8 H, Absolute Lymphs (auto) 1.23, Absolute Nucleated RBC 0.00, Nucleated RBC % 0 09/02/18 05:30: Sodium 141, Potassium 4.0, Chloride 110 H, Carbon Dioxide 23.0, Anion Gap 8, BUN 16, Creatinine 1.04, Estim Creat Clear Calc 60.44, Est GFR (MDRD) Af Amer 89, Est GFR (MDRD) Non-Af 73, BUN/Creatinine Ratio 15.4, Glucose 118 H, Calcium 8.4 L 09/02/18 06:41: POC Glucose 124 H Current Medications Acetaminophen (Tylenol) 650 mg PO Q6H PRN PRN PRN Reason: Mild Pain (1-3)/Temp > 100.7 F Albuterol Sulfate (Ventolin Aerosols) 2.5 mg INHALATION Q2H PRN PRN PRN Reason: Shortness of Breath/Wheezing Last Admin: 09/02/18 04:37 Dose: 2.5 mg Documented by: Amiodarone HCl (Cordarone) 200 mg PO DAILY [facility] Last Admin: 09/01/18 08:51 Dose: 200 mg Documented by: Aspirin (Aspirin, Baby) 81 mg PO DAILY@0800 [facility] Last Admin: 09/01/18 08:53 Dose: 81 mg Documented by: Atorvastatin Calcium (Lipitor) 20 mg PO QHS [facility] Last Admin: 09/01/18 22:22 Dose: 20 mg Documented by: Dextrose (D50w Syringe) 0 gm IV X1 PRN; Protocol PRN Reason: Hypoglycemia Diltiazem HCl (Cardizem Cd) 360 mg PO DAILY [facility] Last Admin: 09/01/18 08:53 Dose: 360 mg Documented by: Donepezil HCl (Aricept) 5 mg PO QHS [facility] Last Admin: 07/17/19 22:22 Dose: 5 mg Documented by: Fenofibrate (Tricor) 145 mg PO DAILY@0800 [facility] Last Admin: 09/01/18 08:54 Dose: 145 mg Documented by: Ferrous Sulfate (Ferrous Sulfate) 325 mg PO DAILYCM [facility] Last Admin: 09/01/18 08:52 Dose: 325 mg Documented by: Furosemide (Lasix) 40 mg PO DAILY [facility] Glucagon () 1 mg IM .X1 PRN PRN Reason: Hypoglycemia Guaifenesin (Mucinex) 1,200 mg PO BID [facility] Last Admin: 09/01/18 22:22 Dose: 1,200 mg Documented by: Piperacillin Sod/Tazobactam (Sod 3.375 gm/ Sodium Chloride) 50 mls @ 12.5 mls/hr IV Q8 [facility] Last Admin: 09/02/18 06:44 Dose: 12.5 mls/hr Documented by: Sodium Chloride () 1,000 mls @ 15 mls/hr IV .Q48H [facility] Last Admin: 09/01/18 22:57 Dose: Not Given Documented by: Insulin Human Lispro (Humalog Kwikpen (Bkc)) 0 unit SC ACHS [facility]; Protocol Last Admin: 09/02/18 06:44 Dose: Not Given Documented by: Linagliptin (Tradjenta) 5 mg PO DAILY [facility] Last Admin: 09/01/18 08:52 Dose: 5 mg Documented by: Melatonin (Melatonin) 3 mg PO QHS PRN PRN PRN Reason: INSOMNIA Nitroglycerin (Nitro-Dur) 0.4 mg TRANSDERM. DAILY [facility] Last Admin: 09/01/18 08:52 Dose: 0.4 mg Documented by: Pantoprazole Sodium (Protonix) 40 mg PO BID [facility] Last Admin: 09/01/18 22:22 Dose: 40 mg Documented by: Sodium Chloride () 10 - 40 ml IV UD PRN PRN Reason: SALINE FLUSH Last Admin: 09/02/18 06:44 Dose: 10 ml Documented by: Sucralfate (Carafate) 1 gm PO 1HR_ACHS [facility] Last Admin: 09/02/18 06:44 Dose: 1 gm Documented by: Tamsulosin HCl (Flomax) 0.4 mg PO DAILY@1730 [facility] Last Admin: 09/01/18 16:44 Dose: 0.4 mg Documented by: Medical Necessity - Tobacco Use Smoking Status: Former smoker Assessment/Plan All Active Problems (Last Reviewed 09/01/18 @ 07:14 by Prem Tavares MD) Bilateral pneumonia (Acute) Acute blood loss anemia (Acute) Rectal polyp (Acute) Hypokalemia (Acute) Gastric ulcer (Acute) Upper gastrointestinal bleed (Acute) Acute anemia (Acute) 1. Sepsis secondary hospital acquired pneumonia/JESUS -His JESUS has resolved, can restart his Lasix -He is currently on Vanco and Zosyn, and he is improving therefore will discontinue the vancomycin once the MRSA nasal swab comes back negative -Lactic acid has resolved -No leukocytosis and is afebrile 2. A. fib/iron deficiency anemia, history of upper GI bleed -Currently stable, his hemoglobin has dropped from 9.1-8.2 but I think this is secondary to his IV fluids -We will restart his p.o. Lasix as he is diminished in his lungs now that his lactic acid is normalized -Continue with his Lipitor, Cardizem, amiodarone, and aspirin 3. GERD with a history of GI bleed -Stable -10 you to monitor her hemoglobin -Continue with PPI and Carafate 4. DM 2 -He is on sitagliptin and metformin at home, will hold -We will place on insulin sliding scale and monitor with Accu-Cheks before meals at bedtime 5. Dementia -Son states that he has been steadily declining over the last several months -Continue with donepezil 6. BPH -Stable -Continue with Flomax DVT: SCDs Code Visit Inpatient E&M: 35801 Subs Hosp L2
[2018-09-02] MEDS: Furosemide 40 MG Tablet PO (09:04)
[2018-09-02] MEDS: dilTIAZem CD 180 MG Capsule 360 MG PO (09:04)
[2018-09-02] MEDS: Amiodarone 200 MG Tablet PO (09:04)
[2018-09-02] MEDS: guaiFENesin 1,200 MG Tablet 1200 MG PO ×2 (09:04→21:41)
[2018-09-02] MEDS: Fenofibrate 145 MG Tablet PO (09:05)
[2018-09-02] MEDS: Pantoprazole Sodium 40 MG Tablet PO ×2 (09:05→21:40)
[2018-09-02] MEDS: Ferrous Sulfate 325 MG Tablet PO (09:06)
[2018-09-02] MEDS: LINAGLIPTIN 5 MG TABLET PO (09:06)
[2018-09-02] MEDS: Aspirin 81 MG TAB.CHEW PO (09:06)
[2018-09-02] MEDS: Insulin Lispro 100 UNIT/ML INSULN.PEN SC ×3 (11:55→21:45)
[2018-09-02 12:00] LABS: Bedside Glucose 158 mg/dL (70-110)
[2018-09-02] MEDS: Tamsulosin HCl 0.4 MG Capsule PO (17:15)
[2018-09-02 17:26] LABS: Bedside Glucose 215 mg/dL (70-110)
[2018-09-02] MEDS: Atorvastatin Calcium 20 MG Tablet PO (21:40)
[2018-09-02] MEDS: Donepezil HCl 5 MG Tablet PO (21:41)
[2018-09-02 22:36] LABS: Bedside Glucose 155 mg/dL (70-110)
[2018-09-03 02:00] VITALS: PULSE 72
[2018-09-03 02:05] VITALS: BP 122/45; PULSE 81; RESP 18; TEMP 36.7; O2SAT 98
[2018-09-03 05:37] LABS: Absolute Lymphocyte Count 1.23 X10^3/uL (0.83-4.51); Absolute Neutrophil Count 6.3 X10^3/uL (2.0-7.7); Basophil# 0.05 X10^3/uL; Basophil% 0.6 % (0-1); Eosinophil# 0.18 X10^3/uL; Hemoglobin 8.6 g/dL (13.0-16.5); Lymphocyte # 1.23 X10^3/ul (4.0); Lymphocyte % 13.7 % (19-41); Mean Corp Hgb Conc 30.7 g/dL (32-36); Mean Corpuscular Hgb 25.7 pg (27.0-32.0); Mean Corpuscular Volume 83.6 fL (80-94); Mean Platelet Vol. 10.5 fl (6.2-12.0); Monocyte# 1.21 X10^3/uL; Monocyte% 13.4 % (0-10); NRBC Flagged by Analyzer 0 % (0-5); Neutrophil # 6.31 X10^3/uL (2.7-7.7); Platelet Count 287 K/mm3 (150-450); RBC Distribution Width CV 17.5 % (11.6-14.6); Red Blood Count 3.35 M/mm3 (4.6-6.2)
[2018-09-03 06:00] VITALS: PULSE 65
[2018-09-03] MEDS: Sucralfate 1 GM Tablet PO (06:18)
[2018-09-03 06:36] LABS: Bedside Glucose 121 mg/dL (70-110)
[2018-09-03 07:30] VITALS: O2SAT 96
--- NOTE | 2018-09-03 08:46 | NURSING ---
Sitting in chair eating breakfast.
[2018-09-03] MEDS: Amiodarone 200 MG Tablet PO (08:48)
[2018-09-03] MEDS: Pantoprazole Sodium 40 MG Tablet PO (08:48)
[2018-09-03] MEDS: Aspirin 81 MG TAB.CHEW PO (08:48)
[2018-09-03] MEDS: Ferrous Sulfate 325 MG Tablet PO (08:49)
[2018-09-03] MEDS: dilTIAZem CD 180 MG Capsule 360 MG PO (08:49)
[2018-09-03] MEDS: Furosemide 40 MG Tablet PO (08:49)
[2018-09-03] MEDS: guaiFENesin 1,200 MG Tablet 1200 MG PO (08:50)
[2018-09-03] MEDS: Fenofibrate 145 MG Tablet PO (08:50)
[2018-09-03] MEDS: LINAGLIPTIN 5 MG TABLET PO (08:51)
[2018-09-03 08:54] VITALS: BP 125/59; PULSE 107; RESP 20; TEMP 36.6; O2SAT 96
--- NOTE | 2018-09-03 09:44 | DCINST_ITS ---
- Discharge Diagnoses Current Active Problems: Current Active and Chronic Problems (Last Reviewed 09/01/18 @ 07:14 by Prem Tavares MD) Bilateral pneumonia (Acute) You will use the following diet at home:: Cardiac Your food should be the consistency of: Regular Your liquids should be the consistency of: Regular/Thin Discharge Activity: Return to Normal Activity, No Restrictions Call your doctor if you observe: Fever of 101 or Higher, Shortness of breath, Dizziness, Fainting spells, Swelling in the ankles, Chest pain, Increased palpitations (irregular heartbeat) Allergies/Adverse Reactions: Allergies No Known Allergies Allergy (Verified 09/01/18 03:37) Medications to take at Discharge albuterol sulfate HFA 90 mcg/actuation aerosol inhaler 2 puff INHALATION Q4H PRN g 01/18/18 diltiazem CD 360 mg capsule,extended release 24 hr 360 mg PO DAILY 01/18/18 donepezil 5 mg tablet 5 mg PO QHS tab 01/18/18 nitroglycerin 0.4 mg/hr transdermal 24 hour patch 1 patch TRANSDERMAL DAILY 01/18/18 sitagliptin 50 mg-metformin 500 mg tablet 1 tab PO BID 01/18/18 amiodarone 200 mg tablet 200 mg PO DAILY #30 tab 03/12/18 Atorvastatin Calcium [Lipitor] 20 mg PO QHS 07/16/18 Potassium Chloride [K-Dur] 20 meq PO DAILY #30 tab 07/18/18 Tamsulosin HCl [Flomax] 0.4 mg PO DAILY@1730 #30 cap 07/18/18 Fenofibrate,Micronized [Fenofibrate] 130 mg PO DAILY 08/14/18 Furosemide [Lasix] 40 mg PO DAILY 08/14/18 Ferrous Sulfate 325 mg PO DAILY #30 tab 08/17/18 Pantoprazole Sodium [Protonix] 40 mg PO BID #60 tab 08/17/18 Sucralfate [Carafate] 1 gm PO 1HR_ACHS #120 tab 08/17/18 Aspirin [Aspirin, Baby] 81 mg PO DAILY@0800 09/01/18 Amoxicillin/Potassium Clav [Augmentin 875-125 Tablet] 1 ea PO BID #10 tab 09/03/18 The following prescriptions were given: Amoxicillin/Potassium Clav [Augmentin 875-125 Tablet] 1 ea PO BID #10 tab Transmission Status: Pending to [facility] Primary Care Physician: Johanny Sow DO [Primary Care Provider] - Please follow up with your Primary Care Physician in: 3-5 days Test Results: Test results from this visit will be discussed in further detail at your follow- up appointment, if applicable.
--- NOTE | 2018-09-03 10:30 | CASEMGMT ---
RN CM received update that patient will require oxygen at discharge. RN CM sent referral to [facility], patient's first choice. RN CM arranged for portable oxygen to be delivered to hospital prior to discharge. RN CM inquired with patient and son if they would like [facility] at discharge for nursing and therapy as it was recommended. Patient and son agreeable and setup with [facility] which is patient's first choice. [facility] is able to accept the patient. Son and patient updated and voiced no further concerns at this time.
[2018-09-03 10:34] VITALS: O2SAT 88; O2SAT 94; O2SAT 95
--- NOTE | 2018-09-03 10:35 | NURSING ---
Walked in garza with this nurse. Spo2 checked while on RA and while oxygen. See intervention.
--- NOTE | 2018-09-03 10:56 | PCM.DC.SUM ---
Discharge Date and Diagnosis - Problem List Patient Problems: Active and Suspected Problems (Last Reviewed 09/01/18 @ 07:14 by Prem Tavares MD) Bilateral pneumonia (Acute) Date of Admission: 09/01/18 Date of Discharge: 09/03/18 - Primary Discharge Diagnosis Active and Suspected Problems (Last Reviewed 09/01/18 @ 07:14 by Prem Tavares MD) Bilateral pneumonia (Acute) - Secondary Discharge Diagnosis Chronic Problems (Last Reviewed 09/01/18 @ 07:14 by Prem Tavares MD) Sinus bradycardia (Chronic) Moderate pulmonary arterial systolic hypertension (Chronic) Chronic anticoagulation (Chronic) Dementia (Chronic) History of cardioversion (Chronic 05/19/18) Secondary pulmonary hypertension (Chronic) RVSP 51 mmhg, EF 55% per echo 07/21 2013 done @ [facility] Nonrheumatic aortic valve regurgitation (Chronic) Mild (1+) per echo 07/21/2013 done @ [facility] Nonrheumatic tricuspid valve regurgitation (Chronic) Moderate (2+) per echo 07/21/2013 done @ [facility] Nonrheumatic mitral valve regurgitation (Chronic) mild (1+) per echo 07/21/2013 done @ [facility] History of TIA (transient ischemic attack) (Chronic) Atrial fibrillation (Chronic) Diabetes mellitus, type II (Chronic) Hyperlipidemia (Chronic) Hypertension (Chronic) Hospital Course and Treatment Imaging Results: CXR: IMPRESSION: Bibasilar pneumonia and a small left-sided effusion Consults: None Operations: None Procedures: None Summary of Care Provided: Per HPI: The patient is a 77 year old M with a significant history of dementia diabetes mellitus; paroxysmal A. fib status post cardioversion; former tobacco abuse; hypertension; nonrheumatic aortic valve regurgitation, nonrheumatic tricuspid valve regurgitation, nonrheumatic mitral valve regurgitation; and TIA who presented to emergency department with 1 day history of progressively worsening shortness of breath. Associated with his symptoms is sneezing and some dry cough. Patient has orthopnea and paroxysmal nocturnal dyspnea. He use his home oxygen probe and his oxygen saturation was 88% prompting family to bring him to the emergency department. Patient was admitted on 08/14/2018 and discharged on 08/17/2018 and was found to have gastric ulcers. His aspirin, Plavix and Eliquis was stopped at that time. The plan was to resume his Eliquis in 3 weeks time if his hemoglobin remains stable. Hospital Course: 1. Sepsis secondary to hospital-acquired pneumonia/[id number]-old male with history of dementia, diabetes, and paroxysmal A. fib presented with bilateral lower lobe pneumonia and shortness of breath. He was started on vancomycin and Zosyn, and then he was de-escalated to Zosyn when his MRSA nares swab came back negative. On admission his lactate had increased to 2.3 and he was continued on IV fluids and his lactate improved to 1.6 by discharge. However he did get more significantly short of breath with the IV fluids and he was restarted on his Lasix which has seemed to improved his. He has significantly improved since admission and he is able to ambulate around the unit however he had a pulse ox ambulation test today and he was 88% on room air necessitating home O2 therapy. Plan will be to discharge on Augmentin for 5 more days to complete a 7-day course of antibiotics and he will need to follow-up with his primary care physician in 3 to 5 days. This plan was discussed with him and his son and they are both in agreement. 2. A. fib/iron deficiency anemia after a history of GI bleed-his hemoglobin on admission was 9.1 and he is now 8.6 and stable. Part of this was due to fluid overload from the IV fluid that he was given for his sepsis. He will continue with his home iron and his home amiodarone. Given his history of a GI bleed he should also continue with his Protonix and should have vitamin C added to his medication regimen to assist in absorption of his iron since he is on a PPI. 3. His other medical diagnoses were evaluated and his home medications were continued where appropriate Patient Problems: Active and Suspected Problems (Last Reviewed 09/01/18 @ 07:14 by Prme Tavares MD) Bilateral pneumonia (Acute) Objective: General: Alert, Oriented x3, Cooperative, No apparent distress HEENT: Atraumatic, PERRLA, EOMI, Normocephalic Oral: Moist Mucosa Neck: Supple, No JVD Lungs: Clear to auscultation, Diminished, - - air movement improved Cardiovascular: Regular rate, Regular Rhythm, Normal S1, Normal S2, No murmurs Abdomen: Soft, Non Tender, Non-Distended, No Hepato-splenomegaly Extremities: No edema, Capillary Refill Less than 3 Seconds Skin: No rashes, No breakdown Neurological: Neuro grossly intact, Sensory exam intact to light touch and pain Psych/Mental Status: Normal Affect, Appropriate - Physical Exam Vital Signs Temp Pulse Resp BP Pulse Ox 97.9 F 107 H 20 H 125/59 H 94 09/03/18 08:54 09/03/18 08:54 09/03/18 08:54 09/03/18 08:54 09/03/18 10:34 Oxygen Flow Rate (L/min) [ 2 AMBULATION with Oxygen] Oxygen Flow Rate (L/min) 3 Oxygen Delivery Method Room Air Weight: 178 lb 9.191 oz Body Mass Index (BMI) 25.6 Intake and Output for Last 24 Hours 09/01/18 09/02/18 09/03/18 23:59 23:59 23:59 Intake Total 2480 / 2480 1613.7 / 1613.7 188 / 188 Output Total 300 / 300 Balance 2180 / 2180 1613.7 / 1613.7 188 / 188 Microbiology Past 72 Hours 09/01/18 05:26 Blood Culture - Preliminary Blood Culture (Wb) - Anticubital Right No growth in 48 hours. 09/01/18 03:40 Blood Culture - Preliminary Blood Culture (Wb) - Anticubital Left No growth in 48 hours. 09/01/18 07:55 Nasal Screen MRSA/MSSA - Final Nasal Secretion 09/01/18 09:00 Streptococcus pneumoniae Antigen (M - Final Urine, Clean Catch 09/01/18 09:00 Legionella Antigen - Final Urine, Clean Catch Laboratory Tests Past 24 Hrs 09/03/18 05:22 WBC 9.0 RBC 3.35 L Hgb 8.6 L Hct 28.0 L MCV 83.6 MCH 25.7 L MCHC 30.7 L RDW Std Deviation 53.0 H RDW Coeff of Dipesh 17.5 H Plt Count 287 MPV 10.5 Immature Gran % (Auto) 0.300 Neut % (Auto) 70.0 Lymph % (Auto) 13.7 L Thurston % (Auto) 13.4 H Eos % (Auto) 2.0 Baso % (Auto) 0.6 Absolute Neuts (auto) 6.3 Absolute Lymphs (auto) 1.23 Absolute Nucleated RBC 0.00 Nucleated RBC % 0 POC Glucose 09/03/18 09/02/18 09/02/18 06:15 21:44 17:11 POC Glucose 121 H 155 H 215 H 09/02/18 11:52 POC Glucose 158 H Discharge Activity: Return to Normal Activity, No Restrictions Call your doctor if you observe: Fever of 101 or Higher, Shortness of breath, Dizziness, Fainting spells, Swelling in the ankles, Chest pain, Increased palpitations (irregular heartbeat) Home Medications: Medications to take at Discharge albuterol sulfate HFA 90 mcg/actuation aerosol inhaler 2 puff INHALATION Q4H PRN g 01/18/18 diltiazem CD 360 mg capsule,extended release 24 hr 360 mg PO DAILY 01/18/18 donepezil 5 mg tablet 5 mg PO QHS tab 01/18/18 nitroglycerin 0.4 mg/hr transdermal 24 hour patch 1 patch TRANSDERMAL DAILY 01/18/18 sitagliptin 50 mg-metformin 500 mg tablet 1 tab PO BID 01/18/18 amiodarone 200 mg tablet 200 mg PO DAILY #30 tab 03/12/18 Atorvastatin Calcium [Lipitor] 20 mg PO QHS 07/16/18 Potassium Chloride [K-Dur] 20 meq PO DAILY #30 tab 07/18/18 Tamsulosin HCl [Flomax] 0.4 mg PO DAILY@1730 #30 cap 07/18/18 Fenofibrate,Micronized [Fenofibrate] 130 mg PO DAILY 08/14/18 Furosemide [Lasix] 40 mg PO DAILY 08/14/18 Ferrous Sulfate 325 mg PO DAILY #30 tab 08/17/18 Pantoprazole Sodium [Protonix] 40 mg PO BID #60 tab 08/17/18 Sucralfate [Carafate] 1 gm PO 1HR_ACHS #120 tab 08/17/18 Aspirin [Aspirin, Baby] 81 mg PO DAILY@0800 09/01/18 Amoxicillin/Potassium Clav [Augmentin 875-125 Tablet] 1 ea PO BID #10 tab 09/03/18 Following Prescrptions Were Given to Patient: Amoxicillin/Potassium Clav [Augmentin 875-125 Tablet] 1 ea PO BID #10 tab Transmission Status: Received by [facility] Primary Care Physician: Johanny Sow DO [Primary Care Provider] - Please follow up with your Primary Care Physician in: 3-5 days Disposition: Home with Home Health Minutes spent on discharge:: 35 Patient Condition:: Good Medical Necessity - Tobacco Use Smoking Status: Former smoker Meaningful Use Info Meaningful Use Diagnoses (Choose all that apply): None applicable Code Visit Inpatient E&M: 47424 Disch Hosp
[2018-09-03 11:46] LABS: Bedside Glucose 195 mg/dL (70-110)
[2018-09-03] MEDS: Insulin Lispro 100 UNIT/ML INSULN.PEN SC (12:30)
--- NOTE | 2018-09-03 12:36 | NURSING ---
Portable Oxygen delivered to room and [employer] Showed Son how to use.
--- NOTE | 2018-09-06 15:36 | CASEMGMT ---
EMILIE DC PHONE CALL DC DATE: 09/03/18 DC Disposition: Home Diagnosis on Discharge: Bilateral pneumonia LACE/STRATA: 29/05 Attempted call to phone. No answer. Consuelo CHESTERN RN [facility]
== END 2018-09-03 13:17 | disposition home or self-care (01) | DRG 871 ==
LOC: ED 04:11 → MS3 06:34
PROVIDERS: Admitting Provider Hospitalist; Emergency Provider Emergency Medicine; Family Provider Family Medicine; PCP Family Medicine; Visit Provider Family Medicine
DX: A41.9 Sepsis, unspecified organism (principal); J18.9 Pneumonia, unspecified organism; N17.9 Acute kidney failure, unspecified; F03.90 Unspecified dementia, unspecified severity, without behavioral disturbance, psychotic disturbance, mood disturbance, and anxiety; E11.9 Type 2 diabetes mellitus without complications; I27.29 Other secondary pulmonary hypertension; I48.0 Paroxysmal atrial fibrillation; I36.1 Nonrheumatic tricuspid (valve) insufficiency; I34.0 Nonrheumatic mitral (valve) insufficiency; Y95 Nosocomial condition; I10 Essential (primary) hypertension; E78.5 Hyperlipidemia, unspecified; K25.9 Gastric ulcer, unspecified as acute or chronic, without hemorrhage or perforation; Z79.84 Long term (current) use of oral hypoglycemic drugs; D50.9 Iron deficiency anemia, unspecified; Z86.73 Personal history of transient ischemic attack (TIA), and cerebral infarction without residual deficits; I35.1 Nonrheumatic aortic (valve) insufficiency; Z87.891 Personal history of nicotine dependence; N40.0 Benign prostatic hyperplasia without lower urinary tract symptoms
CPT/HCPCS: 36415; 71045; 71046; 80048; 82962; 83605; 83880; 84484; 85025; 85610; 87040; 87081; 87449; 93005; 94640; 97162; 97166; 97530; 99285; J7030; J7040; J7050; A4216

== ENCOUNTER 2020-07-25 21:05 | Emergency (ER) | payer MEDICARE, SELFPAY ==
[2018-09-01 06:54] VITALS: BMI 25.6
[2020-07-25 21:06] VITALS: BP 142/58; PULSE 101; RESP 20; TEMP 36.6; O2SAT 99; BMI 25.8
--- NOTE | 2020-07-25 21:36 | EKG12_ITS ---
Test Reason : DYSRYTHMIA Blood Pressure : / mmHG Vent. Rate : 090 BPM Atrial Rate : 084 BPM P-R Int : 000 ms QRS Dur : 088 ms QT Int : 422 ms P-R-T Axes : 000 077 042 degrees QTc Int : 516 ms Atrial fibrillation Prolonged QT Abnormal ECG Confirmed by RINA VILLASEÑOR, DARWIN ([id number]), copy editor YELENA RODRÍGUEZ ([id number]) on 07/27/2020 8:39:49 AM Referred By: LIGIA Confirmed By:DARWIN FLYNN MD
--- NOTE | 2020-07-25 21:36 | EDS_ITS ---
HPI History of Present Illness Chief Complaint: General Illness Narrative Narrative: Patient presents with generalized weakness, some abdominal pain that the son has noticed and distention in the abdomen. Patient has progressive dementia and he cannot give me a history or review of systems. All the information is from the son. No recent fevers or chills, no recent difficulty breathing or chest pain. [facility] Medical History (Updated 07/25/20 @ 22:[address] Benedict Fox MD) Acute anemia Acute blood loss anemia Atrial fibrillation Chronic anticoagulation Dementia Diabetes mellitus, type II Gastric ulcer History of TIA (transient ischemic attack) Hyperlipidemia Hypertension Hypokalemia Moderate pulmonary arterial systolic hypertension Nonrheumatic aortic valve regurgitation Nonrheumatic mitral valve regurgitation Nonrheumatic tricuspid valve regurgitation Rectal polyp Secondary pulmonary hypertension Sinus bradycardia Upper gastrointestinal bleed Home Medications albuterol sulfate 90 mcg/actuation aerosol inhaler 2 puff INHALATION Q4H PRN g 01/18/18 [History Last Taken Unknown] donepezil 5 mg tablet 5 mg PO QHS tab 01/18/18 [History Last Taken 05/21/18] nitroglycerin 0.4 mg/hr transdermal 24 hour patch 1 patch TRANSDERMAL DAILY 01/18/18 [History Last Taken 05/21/18] sitagliptin 50 mg-metformin 500 mg tablet 1 tab PO BID 01/18/18 [History Last Taken 05/21/18] atorvastatin 20 mg PO QHS 07/16/18 [History Last Taken Unknown] tamsulosin 0.4 mg PO DAILY@1730 #30 cap 07/18/18 [Rx Last Taken Unknown] fenofibrate micronized 130 mg PO DAILY 08/14/18 [History Last Taken Unknown] pantoprazole 40 mg PO BID #60 tab 08/17/18 [Rx Last Taken Unknown] ascorbic acid (vitamin C) 500 mg PO DAILY #30 cap 09/03/18 [Rx Last Taken Unknown] amiodarone 200 mg tablet 200 mg PO DAILY #90 tab 02/29/20 [Rx Last Taken Unknown] apixaban 5 mg tablet 5 mg PO BID #60 tab 04/24/20 [Rx Last Taken Unknown] furosemide 20 mg tablet 40 mg PO DAILY #180 tab 04/30/20 [Rx Last Taken Unknown] potassium chloride 20 mEq tablet,extended release(part/cryst) See Rx Instructions .ROUTE .COMPLEX #30 tab 07/23/20 [Rx Last Taken Unknown] Allergy/AdvReac Type Severity Reaction Status Date / Time No Known Allergies Allergy Verified 07/25/20 21:07 Family History Mother CAD (coronary artery disease) CVA (cerebral vascular accident) Congestive heart failure Father Hypertension Sister Cancer Brother Hypertension Diabetes Cancer Liver cancer CAD (coronary artery disease), Onset Age: 70 Brother Esophageal cancer Surgical History history c-scope (~08/14/18) History of cardioversion (05/19/18) History of esophagogastroduodenoscopy (EGD) (~08/14/18) Social History (Updated 08/27/18 @ 15:[address] Patsy Mar MD) Smoking Status: Former smoker quit date: 09/22/89 pack-years: 30 alcohol intake: current alcohol intake frequency: a few times a week Alcohol type: beer caffeine: Yes Type: coffee Number of servings: 1 ROS ROS ED Review of Systems ROS Unobtainable: due to mental condition EXAM Physical Exam Narrative Exam Narrative: Physical exam General: Patient appears chronically ill. He does appear in some distress he appears uncomfortable in bed. Head: Normocephalic, Atraumatic Eyes: Conjunctiva not pale ENT: Moist mucous membranes Neck: Supple, Nontender, No lymphadenopathy Cardiovascular: Regular rate, Regular rhythm Respiratory: No distress, CTA bilaterally Abdomen: Soft, there is a suprapubic mass extending to just below the umbilicus. It is tender. Back: Nontender, Normal Inspection. Negative for: CVA tenderness Extremities: Nontender, No edema Skin: Normal color, No rash Neurological: Alert, he is oriented to person only. He has no gross focal deficit. Psychological: Normal affect Const Vital Signs: 07/25/20 21:06 Temperature 97.9 F Temperature Source Temporal Pulse Rate 101 H Respiratory Rate 20 H Blood Pressure 142/58 H Blood Pressure Mean 86 Pulse Ox 99 Oxygen Delivery Method Room Air MDM MDM MDM Narrative Medical decision making narrative: Patient received a [place] by the nurse, over a liter of urine was obtained he feels much better his work-up is negative. He appears well, son is comfortable with his discharge. I believe this is quite reasonable I will refer to urology. Lab Data Labs: Laboratory Results - last 24 hr 07/25/20 07/25/20 07/25/20 21:41 21:51 21:51 WBC 14.6 H RBC 3.75 L Hgb 10.9 L Hct 33.1 L MCV 88.3 MCH 29.1 MCHC 32.9 RDW Std Deviation 54.1 H RDW Coeff of Dipesh 16.9 H Plt Count 262 MPV 10.8 Immature Gran % (Auto) 0.400 Neut % (Auto) 88.6 H Lymph % (Auto) 4.4 L Tompkins % (Auto) 6.5 Eos % (Auto) 0.0 Baso % (Auto) 0.1 Absolute Neuts (auto) 12.9 H Absolute Lymphs (auto) 0.65 L Nucleated RBC % 0 Sodium 138 Potassium 3.8 Chloride 103 Carbon Dioxide 25.0 Anion Gap 10 BUN 23 H Creatinine 1.09 Estim Creat Clear Calc 55.81 Est GFR (MDRD) Af Amer 84 Est GFR (MDRD) Non-Af 69 BUN/Creatinine Ratio 21.1 H Glucose 176 H Calcium 9.0 Total Bilirubin 0.30 AST 20 ALT 33 Alkaline Phosphatase 68 Total Protein 7.2 Albumin 3.5 Globulin 3.7 Albumin/Globulin Ratio 0.9 Urine Color Yellow Urine Clarity Clear Urine pH 5.0 Ur Specific [place] 1.015 Urine Protein 15 H Urine Glucose (UA) Normal Urine Ketones Negative Urine Occult Blood 250 H Urine Nitrite Negative Urine Bilirubin Negative Urine Urobilinogen Normal Ur Leukocyte Esterase Negative Urine RBC 0-5 SEEN Urine WBC 0 SEEN Ur Squamous Epith Cells 0 SEEN Urine Bacteria 0 SEEN Urine Mucus 0 SEEN Radiography Diagnostic Testing: Radiology Impression Chest X-Ray 07/25/20 22:15 IMPRESSION: Normal x-ray examination of the chest. Electronically Signed: Umesh Espinal DO at 22:49 EDT Tel , Service support , Discharge Plan Triage Chief Complaint: General Illness ED Provider: Benedict Fox Dx/Rx/DC Orders Clinical Impression: Acute urinary retention Instructions: ED [place] Catheter, Care, ED Urinary Retention, Male Prescriptions: No Action Proventil HFA 90 mcg/actuation HFA aerosol inhaler 2 puff INHALATION Q4H PRN (Reason: Shortness Of Breath) RF: 0 donepezil [Aricept] 5 mg tablet 5 mg PO QHS RF: 0 nitroglycerin 0.4 mg/hr patch 24 hour 1 patch Transdermal DAILY RF: 0 Janumet 50-500 mg tablet 1 tab PO BID RF: 0 atorvastatin 20 MG tablet 20 mg PO QHS RF: 0 tamsulosin 0.4 MG capsule 0.4 mg PO DAILY@1730 Qty: 30 RF: 0 fenofibrate micronized 130 MG capsule 130 mg PO DAILY RF: 0 pantoprazole 40 MG tablet 40 mg PO BID Qty: 60 RF: 0 ascorbic acid (vitamin C) 500 MG capsule 500 mg PO DAILY Qty: 30 RF: 0 amiodarone 200 mg tablet 200 mg PO DAILY Qty: 90 RF: 3 Eliquis 5 mg tablet 5 mg PO BID Qty: 60 RF: 11 furosemide 20 mg tablet 40 mg PO DAILY Qty: 180 RF: 3 potassium chloride 20 mEq tablet,ER particles/crystals See Rx Instructions .ROUTE .COMPLEX Qty: 30 RF: 11 Primary Care Provider: Johanny Lara Referrals: Devon Gann MD [STAFF PHYSICIAN] - 2 Days Johanny Lara DO [Primary Care Provider] - Disposition Disposition: Home, self care
[2020-07-25 21:48] LABS: Bacteria 0 SEEN /hpf (None Seen); Mucous, Urine 0 SEEN /hpf (<or=2+); Squamous Epithelial Cells - UA 0 SEEN /hpf (0-5); White Blood Cells 0 SEEN /hpf (0-5)
[2020-07-25 21:54] LABS: Color, Urine Yellow (Yellow); Glucose, Dipstick Normal (Normal); Ketone-Dipstick Negative (Negative); Leukocyte Esterase-Dipstick Negative /ul (Negative); Nitrite-Dipstick Negative (Negative); Occult Blood-Urine 250 /ul (Negative); Protein-Dipstick 15 mg/dl (Negative); Specific Gravity, Urine 1.015 (1.002-1.030); Urine Bilirubin Dipstick Negative (Negative); Urine Clarity Clear (Clear); Urine Urobilinogen Normal (Normal)
[2020-07-25 22:03] LABS: Red Blood Cells-Urine 0-5 SEEN /hpf (0-5)
[2020-07-25 22:06] LABS: Absolute Lymphocyte Count 0.65 X10^3/uL (0.83-4.51); Absolute Neutrophil Count 12.9 X10^3/uL (2.0-7.7); Basophil# 0.02 X10^3/uL; Basophil% 0.1 % (0-1); Hematocrit 33.1 % (40-54); Hemoglobin 10.9 g/dL (13.0-16.5); Lymphocyte # 0.65 X10^3/ul (0.83-4.51); Lymphocyte % 4.4 % (19-41); Mean Corp Hgb Conc 32.9 g/dL (32-36); Mean Corpuscular Hgb 29.1 pg (27.0-32.0); Mean Corpuscular Volume 88.3 fL (80-94); Mean Platelet Vol. 10.8 fl (6.2-12.0); Monocyte# 0.95 X10^3/uL; Monocyte% 6.5 % (0-10); NRBC Flagged by Analyzer 0 % (0-5); Neutrophil # 12.93 X10^3/uL (2.7-7.7); Neutrophil % 88.6 % (47-70); Platelet Count 262 K/mm3 (150-450); RBC Distribution Width CV 16.9 % (11.6-14.6); RBC Distribution Width SD 54.1 fl (35.1-43.9); Red Blood Count 3.75 M/mm3 (4.6-6.2); White Blood Count 14.6 K/mm3 (4.4-11.0)
[2020-07-25 22:15] LABS: ALB/GLOB Ratio 0.9 RATIO (0.9-2.4); AST(SGOT) 20 U/L (15-37); Alanine Aminotransfer ALT/SGPT 33 U/L (16-61); Albumin, Serum 3.5 g/dL (3.2-5.0); Alkaline Phosphatase 68 U/L (45-117); Anion Gap 10 (5-15); BUN 23 mg/dL (7-18); BUN/Creat Ratio 21.1 RATIO (10-20); Chloride 103 mmol/L (98-107); Creatinine, Serum 1.09 mg/dL (0.70-1.30); EST Glomerular Filtration Rate 69 mL/min (>60); Est Glom Filt Rate - Afr Amer 84 mL/min (>60); Estimated Creatinine Clearance 55.81 ml/min; Globulin 3.7 g/dL (2.2-4.2); Glucose 176 mg/dL (74-106); Potassium 3.8 mmol/L (3.5-5.1); Protein, Total 7.2 g/dL (6.4-8.2); Sodium Level 138 mmol/L (136-145)
--- NOTE | 2020-07-25 22:15 | RAD_ITS ---
STUDY: X-RAY CHEST REASON FOR EXAM: Male, 79 years old. weakness TECHNIQUE: Single AP portable view of the chest. COMPARISON: 08/02/2018 FINDINGS: The lungs are clear and expanded. There is no demonstrated pleural abnormality. Normal size heart. Normal mediastinum and paco. Normal visualized pulmonary arteries. Normal visualized aortic arch and descending thoracic aorta. Normal visualized thoracic spine. Normal visualized ribs, clavicles, and shoulders. There is no demonstrated abnormality of the visualized soft tissue structures of the upper abdomen. RAD/Chest 1 View (Portable) IMPRESSION: Normal x-ray examination of the chest. Electronically Signed: Umesh Espinal DO at 22:49 EDT Tel , Service support ,
== END 2020-07-25 23:24 | disposition home or self-care (01) ==
PROVIDERS: Emergency Provider Emergency Medicine; PCP Family Medicine
DX: R33.9 Retention of urine, unspecified (principal); F03.90 Unspecified dementia, unspecified severity, without behavioral disturbance, psychotic disturbance, mood disturbance, and anxiety; I48.91 Unspecified atrial fibrillation; E11.9 Type 2 diabetes mellitus without complications; E78.5 Hyperlipidemia, unspecified; I10 Essential (primary) hypertension; Z86.73 Personal history of transient ischemic attack (TIA), and cerebral infarction without residual deficits; Z79.02 Long term (current) use of antithrombotics/antiplatelets; Z79.899 Other long term (current) drug therapy; Z87.891 Personal history of nicotine dependence
CPT/HCPCS: 51702; 71045; 80053; 81001; 85025; 93005; 99284; A4216

== ENCOUNTER 2020-11-30 11:44 | Inpatient (IN) | payer MEDICARE, SELFPAY ==
[2020-11-30] VITALS (18 sets, daily range): BP systolic 107–145; BP diastolic 46–70; PULSE 75–99; RESP 18–24; TEMP 36.4–37; O2SAT 78–98; BMI 27.2; BMI 26.3
--- NOTE | 2020-11-30 12:21 | EKG12_ITS ---
Test Reason : SOB Blood Pressure : / mmHG Vent. Rate : 082 BPM Atrial Rate : 082 BPM P-R Int : 150 ms QRS Dur : 094 ms QT Int : 430 ms P-R-T Axes : 102 078 000 degrees QTc Int : 502 ms Normal sinus rhythm Nonspecific T wave abnormality Abnormal ECG Confirmed by RINA VILLASEÑOR, DARWIN ([id number]), non linear editor ARA GONZALEZ ([id number]) on 12/04/2020 7:52:59 AM Referred By: /BB Confirmed By:DARWIN FLYNN MD
--- NOTE | 2020-11-30 12:21 | CT_ITS ---
STUDY: CT BRAIN WITHOUT CONTRAST REASON FOR EXAM: Male, 79 years old. Fall RADIATION DOSAGE (If Supplied By Facility): CTDIvol = ( 44.99 ) mGy, DLP = ( 779.24 ) mGycm TECHNIQUE: Transaxial CT imaging of the brain was performed without administration of intravenous contrast material. Individualized dose optimization techniques were used for this CT. COMPARISON: No relevant priors. FINDINGS: Normal soft tissue structures. Normal calvarium. There is mild cerebral atrophy with widening of the extra-axial spaces and ventricular dilatation. There are areas of decreased attenuation within the white matter tracts of the supratentorial brain, consistent with microvascular disease changes. There is evidence of encephalomalacia in the left posterior parietal and occipital lobes in keeping with a prior ischemic insult. No acute infarction is seen. Focal encephalitis is also seen in the region of the right sylvian fissure. Normal basal ganglia and thalami. Normal brainstem. Normal cerebellum. There is no intracranial hemorrhage. There are no findings of an acute ischemic infarction. Atherosclerotic calcification of the vertebral arteries and cavernous portions of the internal carotid arteries bilaterally. Normal visualized paranasal sinuses. CT/Brain/Head without Contrast IMPRESSION: Chronic involutional changes of the brain. Electronically Signed: Octaviano Banuelos MD at 13:55 EDT , Service support ,
--- NOTE | 2020-11-30 12:22 | CT_ITS ---
STUDY: CT ABDOMEN AND PELVIS WITH CONTRAST REASON FOR EXAM: Male, 79 years old. Abd pain, fall RADIATION DOSAGE (If Supplied By Facility): CTDIvol = ( 17.10 ) mGy, DLP = ( 999.35 ) mGycm TECHNIQUE: Transaxial images were obtained from the dome of the diaphragm to the symphysis pubis without oral contrast. IV 100mL Isovue-[id number] was administered. Sagittal and coronal images were reconstructed. Individualized dose optimization techniques were used for this CT. COMPARISON: None. FINDINGS: Small bilateral pleural effusions. Diffuse bibasilar pulmonary infiltrates. The visualized portions of the heart are within normal limits. Mildly dilated central intrahepatic biliary ducts. Small gallstones. Normal spleen. Normal pancreas. Normal bilateral adrenal glands. Normal right kidney. Normal left kidney. Normal visualized stomach. Normal small intestine. There are multiple colonic diverticula consistent with diverticulosis. The appendix is visualized and appears normal. There is scattered atherosclerotic calcification of the abdominal aorta, without a demonstrated aneurysm. Dense atherosclerotic calcification at the origin of both renal arteries and the superior mesenteric artery and celiac artery. Normal inferior vena cava. Normal retroperitoneum. Normal urinary bladder. The patient is status post radiation seed implants in the prostate. Central prostatic calcification. Normal abdominal wall. There are diffuse degenerative changes of the visualized lumbar spine. CT/Abdomen/Pelvis W IV Cont ONLY IMPRESSION: There is atherosclerotic calcification of the abdominal aorta as well as both renal arteries and the celiac and superior mesenteric arteries. Small gallstones. Electronically Signed: Octaviano Banuelos MD at 13:53 EDT , Service support ,
--- NOTE | 2020-11-30 12:49 | EX.ED.DYSGE1 ---
HPI History of Present Illness Chief Complaint: Shortness of Breath Informant: patient and family Narrative Narrative: 79-year-old male presenting after fall. Family states patient fell a few days ago and had x-rays which were negative for hip fracture at that time. Patient has a history of dementia. Family states his pulse ox has been running low and he has been short of breath with a cough. They were concerned about possible pneumonia. Denies exposure to Covid. He is on Eliquis for history of A. fib. Prior similar symptoms: Yes Recent Illness/Hospitalization: No PFSH [facility] Medical History (Updated 11/30/20 @ 14:[address] Stefany Alexandra MD) Acute anemia Acute blood loss anemia Atrial fibrillation Chronic anticoagulation Dementia Diabetes mellitus, type II Gastric ulcer History of TIA (transient ischemic attack) Hyperlipidemia Hypertension Hypokalemia Moderate pulmonary arterial systolic hypertension Nonrheumatic aortic valve regurgitation Nonrheumatic mitral valve regurgitation Nonrheumatic tricuspid valve regurgitation Rectal polyp Secondary pulmonary hypertension Sinus bradycardia Upper gastrointestinal bleed Home Medications albuterol sulfate 90 mcg/actuation aerosol inhaler 2 puff INHALATION Q4H PRN g 01/18/18 [History Last Taken Unknown] donepezil 5 mg tablet 5 mg PO QHS tab 01/18/18 [History Last Taken 05/21/18] nitroglycerin 0.4 mg/hr transdermal 24 hour patch 1 patch TRANSDERMAL DAILY 01/18/18 [History Last Taken 05/21/18] sitagliptin 50 mg-metformin 500 mg tablet 1 tab PO BID 01/18/18 [History Last Taken 05/21/18] atorvastatin 20 mg PO QHS 07/16/18 [History Last Taken Unknown] tamsulosin 0.4 mg PO DAILY@1730 #30 cap 07/18/18 [Rx Last Taken Unknown] fenofibrate micronized 130 mg PO DAILY 08/14/18 [History Last Taken Unknown] pantoprazole 40 mg PO BID #60 tab 08/17/18 [Rx Last Taken Unknown] ascorbic acid (vitamin C) 500 mg PO DAILY #30 cap 09/03/18 [Rx Last Taken Unknown] amiodarone 200 mg tablet 200 mg PO DAILY #90 tab 02/29/20 [Rx Last Taken Unknown] apixaban 5 mg tablet 5 mg PO BID #60 tab 04/24/20 [Rx Last Taken Unknown] furosemide 20 mg tablet 40 mg PO DAILY #180 tab 04/30/20 [Rx Last Taken Unknown] potassium chloride 20 mEq tablet,extended release(part/cryst) See Rx Instructions .ROUTE .COMPLEX #30 tab 07/23/20 [Rx Last Taken Unknown] Allergy/AdvReac Type Severity Reaction Status Date / Time No Known Allergies Allergy Verified 11/30/20 11:51 Family History Mother CAD (coronary artery disease) CVA (cerebral vascular accident) Congestive heart failure Father Hypertension Sister Cancer Brother Hypertension Diabetes Cancer Liver cancer CAD (coronary artery disease), Onset Age: 70 Brother Esophageal cancer Surgical History history c-scope (~08/14/18) History of cardioversion (05/19/18) History of esophagogastroduodenoscopy (EGD) (~08/14/18) Social History (Updated 08/27/18 @ 15:[address] Patsy Mar MD) Smoking Status: Former smoker quit date: 09/22/89 pack-years: 30 alcohol intake: current alcohol intake frequency: a few times a week Alcohol type: beer caffeine: Yes Type: coffee Number of servings: 1 ROS ROS ED Constitutional Constitutional ED: Denies fever(s) Eyes Eyes: Denies change in vision ENT ENT ED: Denies rhinorrhea or sore throat Cardiovascular Cardiovascular: Denies chest pain or palpitations Respiratory/Chest Respiratory/Chest: Reports cough and dyspnea Gastrointestinal Gastrointestinal: Denies abdominal pain, diarrhea, nausea or vomiting Genitourinary Genitourinary ED: Denies dysuria Musculoskeletal Musculoskeletal: Reports back pain; Denies myalgias Integumentary Denies rash Neurologic Neurologic: Denies headache(s) Psychiatric Psychiatric: Denies suicidal thoughts EXAM Physical Exam Const Vital Signs: 11/30/20 11:45 11/30/20 11:51 11/30/20 11:57 Temperature 97.9 F 97.9 F Temperature Source Axillary Axillary Pulse Rate 88 87 Respiratory Rate 22 H 22 H Respiratory Effort Short of Breath Labored Respiratory Pattern Normal Blood Pressure 145/57 H 145/57 H Blood Pressure Mean 86 86 Pulse Ox 78 92 Oxygen Delivery Method Room Air Nasal Cannula Nasal Cannula Oxygen Flow Rate (L/min) 3 3 11/30/20 12:24 11/30/20 12:51 11/30/20 13:00 Temperature 97.9 F 97.9 F Temperature Source Axillary Temporal Pulse Rate 87 78 Respiratory Rate 22 H 20 H Respiratory Effort Respiratory Pattern Blood Pressure 145/57 H 107/52 L Blood Pressure Mean 86 70 Pulse Ox 92 93 Oxygen Delivery Method Nasal Cannula Nasal Cannula Nasal Cannula Oxygen Flow Rate (L/min) 3 3 3 11/30/20 13:44 11/30/20 14:00 Temperature 97.9 F Temperature Source Temporal Pulse Rate 80 80 Respiratory Rate 19 H 19 H Respiratory Effort Respiratory Pattern Blood Pressure 113/46 L 113/46 L Blood Pressure Mean 68 68 Pulse Ox 94 94 Oxygen Delivery Method Nasal Cannula Nasal Cannula Oxygen Flow Rate (L/min) 3 3 Positive well nourished and well developed General Appearance ED: well developed HEENT Reports normocephalic and head/scalp atraumatic Eyes PERRL and EOMs intact bilaterally Neck supple Neck Narrative: No midline tenderness General: Negative for tenderness Chest Wall inspection of chest normal Resp normal respiratory effort and clear to auscultation bilaterally Cardio regular rate and regular rhythm GI non-distended GI Narrative: Diffuse ecchymosis lower abdomen and back Palpation: soft and tender LLQ and RLQ; Negative for guarding or rebound tenderness present no CVA tenderness Extremity Extremity Narrative: Ecchymosis left hip and thigh Neuro no sensory deficits noted Sensorium / Orientation: alert Motor Exam: strength 5/5 throughout Psych mental status grossly normal MDM MDM MDM Narrative Medical decision making narrative: Covid is negative. CBC shows white count 18.3, hemoglobin 6.9. Lactic acid 4.1. High-sensitivity troponin 107. His blood pressure has remained above 100. Blood cultures were sent. He was given 30 cc/kg normal saline bolus. He was given Rocephin, Zithromax IV. CT head shows chronic changes. CT cervical spine shows findings suggestive of metastatic deposits versus multiple myeloma. CT abdomen pelvis shows atherosclerotic aorta, small gallstones. Chest x-ray shows diffuse bilateral pulmonary infiltrates in keeping with diffuse bilateral pneumonia. Patient has remained hemodynamically stable. Discussed with family at bedside. Patient will be admitted. Discussed with hospitalist. Lab Data Attestation: I reviewed the patient's lab results. Labs: Laboratory Results - last 24 hr 11/30/20 11/30/20 11/30/20 11:30 11:50 11:50 WBC 18.3 H RBC 2.51 L Hgb 6.9 L Hct 22.4 L MCV 89.2 MCH 27.5 MCHC 30.8 L RDW Std Deviation 61.7 H RDW Coeff of Dipesh 19.0 H Plt Count 302 MPV 11.4 Immature Gran % (Auto) 0.700 Neut % (Auto) 89.6 H Lymph % (Auto) 2.9 L [place] % (Auto) 6.6 Eos % (Auto) 0.0 Baso % (Auto) 0.2 Absolute Neuts (auto) 16.4 H Absolute Lymphs (auto) 0.54 L Nucleated RBC % 0 Platelet Estimate ADEQUATE Polychromasia 2+ Hypochromasia 3+ Anisocytosis 1+ Sodium 138 Potassium 4.2 Chloride 106 Carbon Dioxide 24.0 Anion Gap 8 BUN 24 H Creatinine 1.04 Estim Creat Clear Calc 54.81 Est GFR (MDRD) Af Amer 88 Est GFR (MDRD) Non-Af 73 BUN/Creatinine Ratio 23.1 H Glucose 221 H Lactic Acid 4.1 H* Calcium 8.7 Troponin I High Sens 107 H Radiography Chest X-Ray - ED: 1 View, Read by ED Physician and Read by Radiologist Diagnostic Testing: Clinical Impression(s) from Imaging Studies Brain CT 11/30/20 12:21 IMPRESSION: Chronic involutional changes of the brain. Electronically Signed: Octaviano Banuelos MD at 13:55 EDT , Service support , Abdomen/Pelvis CT 11/30/20 12:22 IMPRESSION: There is atherosclerotic calcification of the abdominal aorta as well as both renal arteries and the celiac and superior mesenteric arteries. Small gallstones. Electronically Signed: Octaviano Banuelos MD at 13:53 EDT , Service support , Cervical Spine CT 11/30/20 12:52 IMPRESSION: Multilevel degenerative changes, as described above. Findings suggestive of metastatic deposits versus multiple myeloma of the visualized cervical vertebrae. Electronically Signed: Octaviano Banuelos MD at 13:58 EDT , Service support , Chest X-Ray 11/30/20 13:05 IMPRESSION: Diffuse bilateral pulmonary infiltrates in keeping with diffuse bilateral pneumonia. Electronically Signed: Octaviano Banuelos MD at 13:51 EDT , Service support , EKG Initial EKG: Attestation: I personally reviewed and interpreted this EKG as follows: Interpretation: Sinus Rhythm and No Acute Injury Pattern Discharge Plan Dx/Rx/DC Orders Clinical Impression: Bilateral pneumonia Disposition Disposition: Acute Care Hospital [facility]
--- NOTE | 2020-11-30 12:52 | CT_ITS ---
STUDY: CT CERVICAL SPINE WITHOUT CONTRAST REASON FOR EXAM: Male, 79 years old. Fall RADIATION DOSAGE (If Supplied By Facility): CTDIvol = ( 24.92 ) mGy, DLP = ( 555.54 ) mGycm TECHNIQUE: High resolution transaxial imaging was performed without contrast material. Sagittal and coronal images were reconstructed. Individualized dose optimization techniques were used for this CT. COMPARISON: None FINDINGS: Normal craniovertebral junction. There are degenerative changes of the anterior atlantoaxial articulation. Normal odontoid process. Normal cervical lordosis. Heterogeneous appearance of the visualized cervical vertebrae with evidence of a focal sclerotic changes and lytic lesions suggestive of a metastatic disease or multiple myeloma. C2-3: Normal endplates. Normal disc height and morphology. Normal central canal and intervertebral neuroforamina. C3-4: Mild degree of disc space narrowing. Facet joint osteoarthritis and hypertrophy. No significant stenosis is seen. C4-5: Moderate degree of disc space narrowing. Facet joint osteoarthritis with spondylosis and uncovertebral arthrosis. Bilateral neural foraminal stenosis worse on the right side. C5-6: Heterogeneous appearance of the C5 and C6 vertebrae with a lytic lesions. Metastatic deposits or multiple myeloma should be ruled out. There is evidence of a mild degree of bilateral neural foraminal stenosis. C6-7: Focal lytic lesion in the superior posterior aspect of the C6 vertebrae. Atherosclerotic calcification of the carotid bifurcations. CT/Spine Cervical without Contras IMPRESSION: Multilevel degenerative changes, as described above. Findings suggestive of metastatic deposits versus multiple myeloma of the visualized cervical vertebrae. Electronically Signed: Octaviano Banuelos MD at 13:58 EDT , Service support ,
[2020-11-30 12:55] LABS: Absolute Lymphocyte Count 0.54 X10^3/uL (0.83-4.51); Absolute Neutrophil Count 16.4 X10^3/uL (2.0-7.7); Basophil# 0.04 X10^3/uL; Basophil% 0.2 % (0-1); Hematocrit 22.4 % (40-54); Hemoglobin 6.9 g/dL (13.0-16.5); Lymphocyte # 0.54 X10^3/ul (0.83-4.51); Lymphocyte % 2.9 % (19-41); Mean Corp Hgb Conc 30.8 g/dL (32-36); Mean Corpuscular Hgb 27.5 pg (27.0-32.0); Mean Corpuscular Volume 89.2 fL (80-94); Mean Platelet Vol. 11.4 fl (6.2-12.0); Monocyte# 1.21 X10^3/uL; Monocyte% 6.6 % (0-10); NRBC Flagged by Analyzer 0 % (0-5); Neutrophil % 89.6 % (47-70); POSITIVE DIFFERENTIAL YES; Platelet Count 302 K/mm3 (150-450); RBC Distribution Width SD 61.7 fl (35.1-43.9); Red Blood Count 2.51 M/mm3 (4.6-6.2); White Blood Count 18.3 K/mm3 (4.4-11.0)
[2020-11-30 12:56] LABS: Differential Indicated SCAN CRITERIA MET
--- NOTE | 2020-11-30 13:05 | RAD_ITS ---
STUDY: X-RAY CHEST REASON FOR EXAM: Male, 79 years old. Cough. Shortness of breath and frequent falls. TECHNIQUE: Single AP portable view of the chest. COMPARISON: Comparison is made with prior examination dated 07/25/2020. FINDINGS: EKG electrodes are seen. There are diffuse bilateral pulmonary infiltrates incomplete bilateral pneumonia. Follow-up is recommended. There is no demonstrated pleural abnormality. Normal size heart. Normal mediastinum and paco. Normal visualized pulmonary arteries. There is atherosclerotic calcification of the aortic arch with tortuosity. There are diffuse degenerative changes of the visualized thoracic spine. Normal visualized ribs, clavicles, and shoulders. There is no demonstrated abnormality of the visualized soft tissue structures of the upper abdomen. RAD/Chest 1 View (Portable) IMPRESSION: Diffuse bilateral pulmonary infiltrates in keeping with diffuse bilateral pneumonia. Electronically Signed: Octaviano Banuelos MD at 13:51 EDT , Service support ,
[2020-11-30 13:07] LABS: Anion Gap 8 (5-15); BUN 24 mg/dL (7-18); BUN/Creat Ratio 23.1 RATIO (10-20); Calcium,Total 8.7 mg/dL (8.5-10.1); Chloride 106 mmol/L (98-107); Creatinine, Serum 1.04 mg/dL (0.70-1.30); EST Glomerular Filtration Rate 73 mL/min (>60); Est Glom Filt Rate - Afr Amer 88 mL/min (>60); Estimated Creatinine Clearance 54.81 ml/min; Glucose 221 mg/dL (74-106); Potassium 4.2 mmol/L (3.5-5.1); Sodium Level 138 mmol/L (136-145); Troponin-I HS 107 pg/mL (3.0-78.0)
[2020-11-30 13:31] LABS: Anisocytosis 1+; Hypochromasia 3+; Platelet Estimate ADEQUATE (ADEQ); Polychromasia 2+
[2020-11-30 13:47] LABS: Lactic Acid 4.1 mmol/L (0.4-1.9)
[2020-11-30] MEDS: 0.9% Normal Saline 1,000 ML 999 ML IV ×3 (14:02→16:15)
--- NOTE | 2020-11-30 15:13 | HP.PCM.HOS_ITS ---
HPI - General General Date of Admission: 11/30/20 Date of Service: 11/30/20 Chief Complaint: falls. hypoxia HPI Narrative ISIDRO COOPER, is a 79 M who presents presents with recurrent falls. Patient has dementia baseline but had falls few days ago as well as today. Patient was also noted to be hypoxic with pulse ox in 70s. Patient has oxygen at home but does not usually use it and was placed on oxygen and EMS was called. Patient was sent to the emergency room found to have a lactic acid of 4, diffuse patchy infiltrates on chest x-ray. Rapid Covid was negative. Patient has been vaccinated for COVID-19. Son, who most of the history is obtained through, denies any exposures for the patient for COVID-19. In the emergency room, patient received IV fluids because a lactic acid as well as ceftriaxone and azithromycin. The hospital service was contacted for admission. Due to fall the patient sustained few days ago he has large ecchymosis over his left flank. [facility] Medical History Acute anemia Acute blood loss anemia Atrial fibrillation Chronic anticoagulation Dementia Diabetes mellitus, type II Gastric ulcer History of TIA (transient ischemic attack) Hyperlipidemia Hypertension Hypokalemia Moderate pulmonary arterial systolic hypertension Nonrheumatic aortic valve regurgitation Nonrheumatic mitral valve regurgitation Nonrheumatic tricuspid valve regurgitation Rectal polyp Secondary pulmonary hypertension Sinus bradycardia Upper gastrointestinal bleed Home Medications albuterol sulfate 90 mcg/actuation aerosol inhaler 2 puff INHALATION Q4H PRN g 01/18/18 [History Last Taken Unknown] donepezil 5 mg tablet 5 mg PO QHS tab 01/18/18 [History Last Taken 05/21/18] nitroglycerin 0.4 mg/hr transdermal 24 hour patch 1 patch TRANSDERMAL DAILY 01/18/18 [History Last Taken 05/21/18] sitagliptin 50 mg-metformin 500 mg tablet 1 tab PO BID 01/18/18 [History Last Taken 05/21/18] atorvastatin 20 mg PO QHS 07/16/18 [History Last Taken Unknown] tamsulosin 0.4 mg PO DAILY@1730 #30 cap 07/18/18 [Rx Last Taken Unknown] fenofibrate micronized 130 mg PO DAILY 08/14/18 [History Last Taken Unknown] pantoprazole 40 mg PO BID #60 tab 08/17/18 [Rx Last Taken Unknown] amiodarone 200 mg tablet 200 mg PO DAILY #90 tab 02/29/20 [Rx Last Taken Unknown] apixaban 5 mg tablet 5 mg PO BID #60 tab 04/24/20 [Rx Last Taken Unknown] furosemide 20 mg tablet 40 mg PO DAILY #180 tab 04/30/20 [Rx Last Taken Unknown] potassium chloride 20 mEq tablet,extended release(part/cryst) See Rx Instructions .ROUTE .COMPLEX #30 tab 07/23/20 [Rx Last Taken Unknown] Allergy/AdvReac Type Severity Reaction Status Date / Time No Known Allergies Allergy Verified 11/30/20 11:51 Family History Mother CAD (coronary artery disease) CVA (cerebral vascular accident) Congestive heart failure Father Hypertension Sister Cancer Brother Hypertension Diabetes Cancer Liver cancer CAD (coronary artery disease), Onset Age: 70 Brother Esophageal cancer Surgical History history c-scope (~08/14/18) History of cardioversion (05/19/18) History of esophagogastroduodenoscopy (EGD) (~08/14/18) Social History Smoking Status: Former smoker quit date: 09/22/89 pack-years: 30 alcohol intake: current alcohol intake frequency: a few times a week Alcohol type: beer caffeine: Yes Type: coffee Number of servings: 1 ROS ROS Narrative Limited due to dementia. Please refer to the HPI for further details. Review of Systems ROS Unobtainable: due to encephalopathy Vital Signs Vital Signs Vital Signs: 11/30/20 11:45 11/30/20 11:51 11/30/20 11:57 Temperature 36.6 C 36.6 C Temperature Source Axillary Axillary Pulse Rate 88 87 Respiratory Rate 22 H 22 H Respiratory Effort Short of Breath Labored Respiratory Pattern Normal Blood Pressure 145/57 H 145/57 H Blood Pressure Mean 86 86 Pulse Ox 78 92 Oxygen Delivery Method Room Air Nasal Cannula Nasal Cannula Oxygen Flow Rate (L/min) 3 3 11/30/20 12:24 11/30/20 12:51 11/30/20 13:00 Temperature 36.6 C 36.6 C Temperature Source Axillary Temporal Pulse Rate 87 78 Respiratory Rate 22 H 20 H Respiratory Effort Respiratory Pattern Blood Pressure 145/57 H 107/52 L Blood Pressure Mean 86 70 Pulse Ox 92 93 Oxygen Delivery Method Nasal Cannula Nasal Cannula Nasal Cannula Oxygen Flow Rate (L/min) 3 3 3 11/30/20 13:44 11/30/20 14:00 Temperature 36.6 C Temperature Source Temporal Pulse Rate 80 80 Respiratory Rate 19 H 19 H Respiratory Effort Respiratory Pattern Blood Pressure 113/46 L 113/46 L Blood Pressure Mean 68 68 Pulse Ox 94 94 Oxygen Delivery Method Nasal Cannula Nasal Cannula Oxygen Flow Rate (L/min) 3 3 Weight Weight: 81.3 kg Body Mass Index (BMI) 27.2 Physical Exam Const no apparent distress Constitutional Narrative: Awake. Pleasant. HEENT normocephalic and moist oral mucous membranes Eyes Eyes Narrative: No icterus Neck no JVD Neck Narrative: No thyromegaly Resp normal respiratory effort and no retractions Resp Narrative: Coarse breath sounds bilateral Cardio regular rate, regular rhythm, S1 normal heart sound and S2 normal heart sound GI normal to inspection, nondistended, normoactive bowel sounds, soft to palpation, non-tender, non-distended and hepatosplenomegaly Extremity normal to inspection Extremity Narrative: Bilateral lower extremity edema Neuro Neuro Narrative: No close. DTRs intact in lower extremities. Sensorium / Orientation: alert Psych affect normal Results Lab / Micro Data Attestation: I reviewed the patient's lab results. Result Diagrams: 11/30/20 11:50 11/30/20 11:50 Labs: Laboratory Results - last 24 hr 11/30/20 11:30: Lactic Acid 4.1 H* 11/30/20 11:50: WBC 18.3 H, RBC 2.51 L, Hgb 6.9 L, Hct 22.4 L, MCV 89.2, MCH 27.5, MCHC 30.8 L, RDW Std Deviation 61.7 H, RDW Coeff of Dipesh 19.0 H, Plt Count 302, MPV 11.4, Immature Gran % (Auto) 0.700, Neut % (Auto) 89.6 H, Lymph % (Auto) 2.9 L, [place] % (Auto) 6.6, Eos % (Auto) 0.0, Baso % (Auto) 0.2, Absolute Neuts (auto) 16.4 H, Absolute Lymphs (auto) 0.54 L, Nucleated RBC % 0, Platelet Estimate ADEQUATE, Polychromasia 2+, Hypochromasia 3+, Anisocytosis 1+ 11/30/20 11:50: Sodium 138, Potassium 4.2, Chloride 106, Carbon Dioxide 24.0, Anion Gap 8, BUN 24 H, Creatinine 1.04, Estim Creat Clear Calc 54.81, Est GFR (MDRD) Af Amer 88, Est GFR (MDRD) Non-Af 73, BUN/Creatinine Ratio 23.1 H, Glucose 221 H, Calcium 8.7, Troponin I High Sens 107 H Micro: Microbiology 11/30/20 11:55 Nasal Secretion SARS-CoV-2 Antigen (Rapid) - Final EKG Initial EKG: Attestation: I personally reviewed and interpreted this EKG as follows: EKG Rhythm Intrepretation: Sinus Rhythm Radiology Impression Brain CT 11/30/20 12:21 IMPRESSION: Chronic involutional changes of the brain. Electronically Signed: Octaviano Banuelos MD at 13:55 EDT , Service support , Abdomen/Pelvis CT 11/30/20 12:22 IMPRESSION: There is atherosclerotic calcification of the abdominal aorta as well as both renal arteries and the celiac and superior mesenteric arteries. Small gallstones. Electronically Signed: Octaviano Banuelos MD at 13:53 EDT , Service support , Cervical Spine CT 11/30/20 12:52 IMPRESSION: Multilevel degenerative changes, as described above. Findings suggestive of metastatic deposits versus multiple myeloma of the visualized cervical vertebrae. Electronically Signed: Octaviano Banuelos MD at 13:58 EDT , Service support , Chest X-Ray 11/30/20 13:05 IMPRESSION: Diffuse bilateral pulmonary infiltrates in keeping with diffuse bilateral pneumonia. Electronically Signed: Octaviano Banuelos MD at 13:51 EDT , Service support , Assessment & Plan Assessment/Plan (1) Acute respiratory failure with hypoxia: (2) Acute blood loss anemia: (3) Lactic acidosis: (4) Debility: (5) Multiple myeloma: PLAN: 1. Acute toxic respiratory failure * Etiology pending. Suspect CHF exacerbation versus atypical pneumonia less likely COVID-19 * Plan: Check COVID-19 PCR is rapid was negative. Check urinary antigens for Streptococcus and Legionella, check sputum culture as well as check 2D echocardiogram. * Treatment: Continue with empiric antibiotics with ceftriaxone hold off on azithromycin given the patient is already on amiodarone. Diuresis with furosemide. Would recommend discontinuation of antibiotics if infectious work-up is negative. And also recommend starting dexamethasone if his COVID- 19 PCR is positive. 2. Acute blood loss anemia * Secondary to large ecchymosis the patient has on his left flank * Hold his apixaban * Transfuse 1 unit packed red blood cells and monitor 3. Lactic acidosis * Patient is qSOFA is only 1 therefore patient does not meet criteria for sepsis. * Suspect related with hypoxia * No additional work-up at this time. 4. Debility * PT OT evaluate and treat 5. Dysphagia * Chronic. Speech therapy evaluation 6. Possible multiple myeloma * Incidental findings on CT of the neck of some punched out lesions. * Discussed with Dr. Watts who advised getting CT of the chest as well as SPEP, IgG, IgA, IgM, beta-2 microglobulin, cryoglobulin and to follow-up with onc ology as outpatient. 7. A. fib * Continue with amiodarone * Apixaban held due to the anemia 8. VTE prophylaxis: SCDs. Avoiding chemical prophylaxis given the acute blood loss anemia. 9. CODE STATUS: Discussed the patient's son, patient is full code. 10. Code vaccination status: Patient has been vaccinated Charges/Coding Visit Charges Inpatient E&M: 88380 Init Hosp L3
--- NOTE | 2020-11-30 16:31 | ECHOD_ITS ---
Reason For Study: CHF Procedure This was a 2D Doppler, Color Flow transthoracic echocardiogram. Pt laying to rt side d/t recent fall on left side. Technically difficult due to dementia. Exam performed portable in patient room. Left Ventricle Normal left ventricle. Concentric left ventricular hypertrophy. The estimated ejection fraction is EF 55-60 %. Right Ventricle Normal right ventricle. Atria The left atrium is moderately enlarged. The right atrium is moderately enlarged. Mitral Valve There is moderate to severe mitral annular calcification. Mild (1+) mitral valve insufficiency. Tricuspid Valve Normal tricuspid valve. Mild tricuspid valve insufficiency. Aortic Valve Mild aortic stenosis. ARON 1.5 cm2 Max gradient 22.7 mmhg Mean gradient 11.5 mmhg. Mild (1+) aortic valve insufficiency. Pulmonic Valve The pulmonic valve is not well visualized. Great Vessels Normal aortic root. Pericardium/Pleural No pericardial effusion. MMode/2D Measurements & Calculations LVIDd: 4.3 cm IVSd: 1.3 cm LVOT diam: 2.0 cm LVIDs: 3.1 cm LVPWd: 1.1 cm LVOT area: 3.2 cm2 FS: 29.6 % LAV(MOD-bp): 70.1 ml LVAd ap4: 29.7 cm2 LVAd ap2: 30.1 cm2 LAV(MOD-bp) Indexed: 36.5 ml/m2 LVLd ap4: 7.8 cm LVLd ap2: 8.9 cm LAV(MOD-sp2): 59.4 ml EDV(MOD-sp4): 94.4 ml EDV(MOD-sp2): 88.5 ml LAV(MOD-sp4): 77.7 ml EDV(sp4-el): 96.3 ml EDV(sp2-el): 86.9 ml LVAs ap4: 16.8 cm2 LVAs ap2: 15.7 cm2 LVLs ap4: 6.6 cm LVLs ap2: 6.6 cm ESV(MOD-sp4): 34.5 ml ESV(MOD-sp2): 32.2 ml ESV(sp4-el): 36.5 ml ESV(sp2-el): 31.7 ml EF(MOD-sp4): 63.5 % EF(MOD-sp2): 63.6 % EF(sp4-el): 62.1 % SV(MOD-sp4): 59.9 ml SV(MOD-sp2): 56.3 ml SV(sp4-el): 59.8 ml LA A4 area: 24.7 cm2 RA A4 area: 20.7 cm2 Doppler Measurements & Calculations Lat Peak E' Kain: 8.8 cm/sec Med Peak E' [place]: 7.1 cm/sec MV V2 max: 149.5 cm/sec MV max P.9 mmHg MV V2 mean: 95.7 cm/sec MV mean P.9 mmHg MV V2 VTI: 33.5 cm MVA(VTI): 1.8 cm2 Ao V2 max: 238.2 cm/sec LV V1 max: 108.0 cm/sec SV(LVOT): 61.9 ml Ao max P.7 mmHg LV V1 max P.7 mmHg Ao V2 mean: 160.2 cm/sec LV V1 mean P.2 mmHg Ao mean P.5 mmHg LV V1 mean: 69.7 cm/sec Ao V2 VTI: 41.0 cm LV V1 VTI: 19.2 cm ARON(I,D): 1.5 cm2 ARON(V,D): 1.5 cm2 TR max kain: 392.3 cm/sec MV P1/2t-pr_phl: 240.0 msec TR max P.6 mmHg ECHO/Echo Complete Interpretation Summary Normal LV systolic function The estimated ejection fraction is EF 55-60 %. Mild LVH MILD ARON 1.5 cm2 Max gradient 22.7 mmhg Mean gradient 11.5 mmhg RVSP calculated 71 mmhg consistent with severe Pulmonary Hypertension Ordering Physician: Abhishek Wheatley Referring Physician: FRANKIE KRUGER Performed By: Missy Garcia, RDCS, RVT
[2020-11-30 17:26] LABS: Reflex Lactate? Y
[2020-11-30 17:33] LABS: Bacteria 0 SEEN /hpf (None Seen); Mucous, Urine 0 SEEN /hpf (<or=2+); Red Blood Cells-Urine 0 SEEN /hpf (0-5); Squamous Epithelial Cells - UA 0 SEEN /hpf (0-5)
[2020-11-30 17:40] LABS: Color, Urine Yellow (Yellow); Glucose, Dipstick 100 mg/dl (Normal); Ketone-Dipstick Negative (Negative); Leukocyte Esterase-Dipstick 100 /ul (Negative); Nitrite-Dipstick Negative (Negative); Occult Blood-Urine 10 /ul (Negative); Protein-Dipstick 15 mg/dl (Negative); Urine Bilirubin Dipstick Negative (Negative); Urine Clarity Clear (Clear); Urine Urobilinogen 1 mg/dl (Normal)
[2020-11-30 17:45] LABS: Troponin-I HS 148 pg/mL (3.0-78.0)
[2020-11-30 17:52] LABS: White Blood Cells 0-5 SEEN /hpf (0-5)
[2020-11-30 18:29] LABS: Troponin-I HS 128 pg/mL (3.0-78.0)
[2020-11-30 18:35] LABS: Lactic Acid 2.6 mmol/L (0.4-1.9)
[2020-11-30] MEDS: Insulin Lispro 100 UNIT/ML INSULN.PEN SC (19:03)
[2020-11-30] MEDS: 0.9% Saline Lock 10 ML Syringe IV (19:04)
[2020-11-30] MEDS: Tamsulosin HCl 0.4 MG Capsule PO (19:05)
[2020-11-30 19:11] LABS: Bedside Glucose 209 mg/dL (70-110)
[2020-11-30] MEDS: Donepezil HCl 5 MG Tablet PO (21:21)
[2020-11-30] MEDS: Pantoprazole Sodium 40 MG Tablet PO (21:21)
[2020-11-30] MEDS: Furosemide 40 MG/4 ML Vial IV (21:21)
[2020-11-30] MEDS: Atorvastatin Calcium 20 MG Tablet PO (21:21)
[2020-11-30] MEDS: Albuterol 2.5 MG/3 ML VIAL.NEB. INHALATION (22:38)
[2020-11-30 22:56] LABS: Bedside Glucose 213 mg/dL (70-110)
[2020-12-01] VITALS (11 sets, daily range): BP systolic 127–147; BP diastolic 47–54; PULSE 81–98; RESP 16–20; TEMP 36.8–37.9; O2SAT 91–98
--- NOTE | 2020-12-01 00:32 | NURSING ---
pt bladder distended after voiding, in distress, Dr. Tavares notified with straight cath orders. bladder scanned for 728 after voiding.
--- NOTE | 2020-12-01 01:12 | NURSING ---
straight cathed for 900
[2020-12-01] MEDS: Haloperidol Lactate 5 MG/ML Vial 2 MG IV (02:29)
[2020-12-01] MEDS: Insulin Lispro 100 UNIT/ML INSULN.PEN SC ×3 (06:22→17:11)
[2020-12-01 06:25] LABS: Bedside Glucose 172 mg/dL (70-110)
[2020-12-01 06:46] LABS: Absolute Lymphocyte Count 0.57 X10^3/uL (0.83-4.51); Absolute Neutrophil Count 17.4 X10^3/uL (2.0-7.7); Basophil# 0.03 X10^3/uL; Basophil% 0.2 % (0-1); Hematocrit 24.8 % (40-54); Hemoglobin 7.9 g/dL (13.0-16.5); Lymphocyte # 0.57 X10^3/ul (0.83-4.51); Lymphocyte % 2.9 % (19-41); Mean Corp Hgb Conc 31.9 g/dL (32-36); Mean Corpuscular Hgb 28.1 pg (27.0-32.0); Mean Corpuscular Volume 88.3 fL (80-94); Mean Platelet Vol. 11.2 fl (6.2-12.0); Monocyte# 1.52 X10^3/uL; Monocyte% 7.7 % (0-10); NRBC Flagged by Analyzer 0.2 % (0-5); Neutrophil % 88.3 % (47-70); POSITIVE DIFFERENTIAL YES; Platelet Count 314 K/mm3 (150-450); RBC Distribution Width CV 18.1 % (11.6-14.6); RBC Distribution Width SD 58.5 fl (35.1-43.9); Red Blood Count 2.81 M/mm3 (4.6-6.2); White Blood Count 19.7 K/mm3 (4.4-11.0)
[2020-12-01 06:55] LABS: Differential Indicated SCAN CRITERIA MET
--- NOTE | 2020-12-01 07:17 | PCS.PANDOC ---
PANDEMIC DOCUMENTATION INITIATED: Date: 11/30/2020 Time: 8937
[2020-12-01 07:33] LABS: ALB/GLOB Ratio 0.8 RATIO (0.9-2.4); AST(SGOT) 31 U/L (15-37); Alanine Aminotransfer ALT/SGPT 41 U/L (16-61); Albumin, Serum 2.6 g/dL (3.2-5.0); Alkaline Phosphatase 56 U/L (45-117); Anion Gap 8 (5-15); BUN 19 mg/dL (7-18); BUN/Creat Ratio 20.8 RATIO (10-20); Chloride 106 mmol/L (98-107); Cholesterol 110 mg/dL (200); Creatinine, Serum 0.91 mg/dL (0.70-1.30); EST Glomerular Filtration Rate 85 mL/min (>60); Est Glom Filt Rate - Afr Amer 103 mL/min (>60); Estimated Creatinine Clearance 62.64 ml/min; Globulin 3.3 g/dL (2.2-4.2); Glucose 170 mg/dL (74-106); High Density Lipoprotein 48 mg/dL; Potassium 4.1 mmol/L (3.5-5.1); Protein, Total 5.9 g/dL (6.4-8.2); Sodium Level 141 mmol/L (136-145); Triglycerides 64 mg/dL; Very Low Density Lipoprotein 13 mg/dL (5-40)
[2020-12-01] MEDS: Furosemide 40 MG/4 ML Vial IV ×2 (08:58→17:11)
[2020-12-01] MEDS: Pantoprazole Sodium 40 MG Tablet PO ×2 (08:58→21:55)
[2020-12-01] MEDS: Ascorbic Acid 500 MG Tablet PO (08:58)
[2020-12-01] MEDS: Potassium Chloride Oral Tablet 20 MEQ PO (08:58)
[2020-12-01] MEDS: Fenofibrate 145 MG Tablet PO (08:58)
[2020-12-01] MEDS: 0.9% Saline Lock 10 ML Syringe IV ×2 (08:58→17:11)
--- NOTE | 2020-12-01 10:40 | CASEMGMT ---
Addendum entered by Yuliet Hernández 12/01/20 15:43: Green sheet on chart if pt needs >2L with exertion with instructions. Addendum entered by Yuliet Hernández 12/01/20 15:40: Per previous documentation, pt was set up on 2L with ambulation in August with [employer]. Pt previously also was referred to [facility]. Original Note: RN CM Assessment: Face to Face with pt for initial transition planning/care coordination assessment. RN CM introduced self and role at [facility], pt voices understanding and consents to assessment. Pt is very tired per son, lying in bed with eyes closed. Son Amando at bedside and asks this RN CM to ask him the assessment questions so his father can rest. Pt agrees to this. Care providers, pharmacy, and demographics verified/updated. Admitting Dx: RONAN PCP:Jane Specialists:konrad Watts Preferred Pharmacy:[facility] [employer] [facility] [facility] Prescription Benefit: yes LW/HPOA: Pt son reports pt has a LW/DPOA and it is him, Amando and his sister Skylar Sykes. He is aware that it is not on file at [facility] and may bring in to be scanned into the chart. LNOK: Mel Murphy, ; Skylar Sykes, dtr; Amando Murphy, son Living Arrangements: Pt lives with in a single story home with a ramp to enter. Pt son states someone is with patient at all times as he and his sister take turns. Transportation: Pt family transports him to medical appts. DME/HHC/SNF: Pt has grab bars in the bathroom and throughout the home, pulse ox, O2 that he does not use. Pt has a portable tank and will bring in upon dc. Pt son states he does not know who the O2 is through. Denies previous HHC or SNF stays. Discussed the option of HHC and pt son states he feels that if too many people are in the home then it will make his dementia worse. He is aware that should they change their mind and be interested to notify the RN CM while inpatient at [facility] or to notify the PCP once home. Pt son states he does therapy and stretching with the patient routinely. Pt son requesting pt be dc'd as this will help his confusion. He is aware to speak with the physician regarding this. Pt states no concerns with going home at time of dc. Pt states no further concerns/needs. CM to follow. Advised pt to ask CM if any further question/concerns/needs arise, voices understanding. Pt Goal: Home Plan: Home
[2020-12-01 12:05] LABS: Bedside Glucose 180 mg/dL (70-110)
--- NOTE | 2020-12-01 12:05 | NURSING ---
Patient bladder scanned for 740 mL. Son present at bedside and asked that we not straight cath patient.
[2020-12-01 13:45] LABS: BNP,B-Type NATRIURETIC PEPTIDE 609.4 pg/mL (0-100)
--- NOTE | 2020-12-01 15:00 | CT_ITS ---
STUDY: CTA CHEST REASON FOR EXAM: Male, 79 years old. Dyspnea RADIATION DOSAGE (If Supplied By Facility): CTDIvol = ( 15.03 ) mGy, DLP = ( 542.78 ) mGycm TECHNIQUE: The examination was performed with the intravenous administration of IV 100mL Isovue-370. Post-processing of the angiographic images was performed, with multiplanar reformation and 3D reconstruction. Individualized dose optimization techniques were used for this CT. COMPARISON: 16 Jul 2018 FINDINGS: There is no acute or chronic pulmonary embolism. Aorta is of normal caliber. There are multiple regional groundglass opacities. There is no pneumothorax or pulmonary edema. There are moderate to large right and moderate left pleural effusions. Coronary arteries are severely diseased. Osseous structures are intact with degenerative change in the thoracic spine. CT/CTA Chest W/WO Contrast IMPRESSION: 1. No pulmonary embolism. 2. Multifocal bilateral presumably Covid pneumonia. 3. Moderate/large bilateral pleural effusions. 4. Severe coronary artery disease. Electronically Signed: Cristiano Thorne MD at 14:37 EDT Tel , Service support ,
[2020-12-01] MEDS: Tamsulosin HCl 0.4 MG Capsule PO (17:11)
[2020-12-01 17:26] LABS: Bedside Glucose 213 mg/dL (70-110)
[2020-12-01 17:39] LABS: PSA,Total- Diagnostic 0.98 ng/mL (0.0-4.0)
--- NOTE | 2020-12-01 18:29 | PN.HOSP_ITS ---
Subjective Subjective Patient was seen and examined today, he does not appear short of breath at rest. His son was in the room and I talked with him extensively today, he question whether his father could be discharged home, I told him that he is currently getting IV Lasix and that I would recommend staying in the hospital and reevalua ting the patient tomorrow. I am not sure the patient has pneumonia although his chest x-ray has the appearance of bilateral infiltrates suggesting pneumonia. Patient had an echocardiogram today which showed a normal EF but severe pulmonary hypertension. I talked briefly about the patient's CODE STATUS to the son, he was supposed to get back with nursing after he talks with his mother concerning the patient's CODE STATUS. Objective Data Objective Data Vital Signs: Vital Signs Temp Pulse Resp BP Pulse Ox 98.8 F 85 20 H 127/47 H 96 12/01/20 14:45 12/01/20 15:00 12/01/20 14:45 12/01/20 14:45 12/01/20 14:50 Oxygen Flow Rate (L/min) 3 Oxygen Delivery Method Nasal Cannula Weight: 78.8 kg Body Mass Index (BMI) 26.3 Intake & Output: Intake and Output for Last 24 Hours 11/29/20 11/30/20 12/01/20 23:59 23:59 23:59 Intake Total 2970.40 / 2970.40 470 / 470 Output Total 380 / 380 900 / 900 Balance 2590.40 / 2590.40 -430 / -430 Lab / Micro Data Result Diagrams: 12/01/20 06:02 12/01/20 06:02 Labs: Laboratory Results - last 24 hr 11/30/20 15:26: COVID-19 (YAN) Not Detected 11/30/20 16:10: Blood Type A POSITIVE, Antibody Screen NEGATIVE, Crossmatch See Detail 11/30/20 18:03: Troponin I High Sens 128 H* 11/30/20 18:03: Lactic Acid 2.6 H* 11/30/20 19:01: POC Glucose 209 H 11/30/20 21:19: POC Glucose 213 H 12/01/20 06:02: WBC 19.7 H, RBC 2.81 L, Hgb 7.9 L, Hct 24.8 L, MCV 88.3, MCH 28.1, MCHC 31.9 L, RDW Std Deviation 58.5 H, RDW Coeff of Dipesh 18.1 H, Plt Count 314, MPV 11.2, Immature Gran % (Auto) 0.900, Neut % (Auto) 88.3 H, Lymph % (Auto ) 2.9 L, [place] % (Auto) 7.7, Eos % (Auto) 0.0, Baso % (Auto) 0.2, Absolute Neuts (auto) 17.4 H, Absolute Lymphs (auto) 0.57 L, Nucleated RBC % 0.2, Diff Path Review June12/01/20 06:02: Sodium 141, Potassium 4.1, Chloride 106, Carbon Dioxide 27.0, Anion Gap 8, BUN 19 H, Creatinine 0.91, Estim Creat Clear Calc 62.64, Est GFR (MDRD) Af Amer 103, Est GFR (MDRD) Non-Af 85, BUN/Creatinine Ratio 20.8 H, Glucose 170 H, Calcium 8.0 L, Total Bilirubin 1.10 H, AST 31, ALT 41, Alkaline Phosphatase 56, Total Protein 5.9 L, Albumin 2.6 L, Globulin 3.3, Albumin/Globulin Ratio 0.8 L, Triglycerides 64, Cholesterol 110, LDL Cholesterol 49, VLDL Cholesterol 13, HDL Cholesterol 48, TSH 2.00 12/01/20 06:02: Total PSA 0.98 12/01/20 06:05: B-Natriuretic Peptide 609.4 H 12/01/20 06:21: POC Glucose 172 H 12/01/20 11:52: POC Glucose 180 H 12/01/20 17:10: POC Glucose 213 H Micro: Microbiology 11/30/20 17:25 Urine, Clean Catch Legionella Antigen - Final 11/30/20 17:25 Urine, Clean Catch Streptococcus pneumoniae Antigen (M - Final 11/30/20 18:00 Mucosa - Nasopharyngeal Respiratory Panel (PCR) - Final 11/30/20 11:55 Nasal Secretion SARS-CoV-2 Antigen (Rapid) - Final Radiography Diagnostic Testing: Radiology Impression Echocardiogram 11/30/20 16:31 Interpretation Summary Normal LV systolic function The estimated ejection fraction is EF 55-60 %. Mild LVH MILD ARON 1.5 cm2 Max gradient 22.7 mmhg Mean gradient 11.5 mmhg RVSP calculated 71 mmhg consistent with severe Pulmonary Hypertension Ordering Physician: Abhishek Wheatley Referring Physician: FRANKIE KRUGER Performed By: Missy Garcia, ELIDACS, RVT Chest CTA 12/01/20 15:00 IMPRESSION: 1. No pulmonary embolism. 2. Multifocal bilateral presumably Covid pneumonia. 3. Moderate/large bilateral pleural effusions. 4. Severe coronary artery disease. Electronically Signed: Cristiano Thorne MD at 14:37 EDT Tel , Service support , Physical Exam Const alert and no apparent distress Constitutional Narrative: Patient appears older than his stated age General Appearance: cooperative, well kempt and well developed Orientation / Consciousness: awake, oriented to person, oriented to place and oriented to time HEENT normocephalic, head/scalp atraumatic and moist oral mucous membranes Head and Scalp: normocephalic Eyes PERRL, EOMs intact bilaterally and conjunctivae normal Neck nuchal rigidity, supple, no JVD, thyroid normal and no carotid bruits General: trachea midline Resp normal respiratory effort, no retractions and no use of accessory muscles Auscultation: Negative for rales, rhonchi or wheezes Cardio no murmurs, no rub and no gallops Cardio Narrative: Heart rate and rhythm is irregular GI normal to inspection, nondistended, normoactive bowel sounds, soft to palpation, non-tender and non-distended Extremity no clubbing, cyanosis or edema Skin no rashes or lesions noted General Skin Exam: no breakdown Neuro CN's II-XII intact bilaterally Neuro Narrative: Patient is alert but confused Sensorium / Orientation: awake and alert Psych thought process normal Psych Narrative: Patient is alert and confused Assessment & Plan Assessment/Plan (1) Acute respiratory failure with hypoxia: PLAN: 1. Acute on chronic respiratory failure-according to the patient's son, patient has oxygen at home, will continue to monitor oxygen saturation #2 bilateral diffuse pulmonary infiltrates suggestive of pneumonia or possibly metastatic process-I will have pulmonary medicine consult regarding these infiltrates, continue IV antibiotics for now #3 possible diastolic CHF-patient will remain on IV Lasix, chest x-ray will be repeated tomorrow #4 question metastatic disease to the cervical spine-patient has evidence of cervical spine lesion suggestive of multiple myeloma, patient's son was aware of this as he was told this on the patient's admit to the hospital, patient will need further work-up as an outpatient for this if the family desires #5 dementia #6 lactic acidosis due to hypoxia #7 chronic anemia-etiology unclear, I will check to see if iron studies have been ordered Charges/Coding Visit Charges Inpatient E&M: 45448 Subs Hosp L2
[2020-12-01 19:57] LABS: Iron 20 ug/dL (65-175); Iron Binding Capacity,Total 240 ug/dL (250-450); PERCENT IRON SATURATION 8.3 % (15.0-55.0)
[2020-12-01] MEDS: Donepezil HCl 5 MG Tablet PO (21:55)
[2020-12-01] MEDS: LORazepam 0.5 MG Tablet PO (21:55)
[2020-12-01] MEDS: Atorvastatin Calcium 20 MG Tablet PO (21:55)
[2020-12-01 22:11] LABS: Bedside Glucose 163 mg/dL (70-110)
[2020-12-02] VITALS (7 sets, daily range): BP systolic 111–121; BP diastolic 46–51; PULSE 80–88; RESP 16–20; TEMP 37.2; O2SAT 92–96
--- NOTE | 2020-12-02 05:43 | RAD_ITS ---
STUDY: X-RAY CHEST REASON FOR EXAM: Male, 79 years old. CHF TECHNIQUE: Frontal view of the chest COMPARISON: 11/30/20 FINDINGS: Again noted are diffuse bilateral airspace opacities. When compared with the prior exam, there is slightly improved aeration in the left lung. There are no pleural effusions. There is no pneumothorax. The heart is normal in size. The visualized osseous structures are within normal limits. RAD/Chest 1 View (Portable) IMPRESSION: Redemonstration of diffuse bilateral airspace opacities with slightly improved aeration in the left lung. Electronically Signed: Ayden Carr MD at 10:13 EDT Tel , Service support ,
[2020-12-02 05:52] LABS: Absolute Lymphocyte Count 0.94 X10^3/uL (0.83-4.51); Absolute Neutrophil Count 14.1 X10^3/uL (2.0-7.7); Basophil# 0.04 X10^3/uL; Basophil% 0.2 % (0-1); Eosinophil# 0.01 X10^3/uL; Eosinophils% 0.1 % (0-5); Hematocrit 25.1 % (40-54); Hemoglobin 7.9 g/dL (13.0-16.5); Lymphocyte # 0.94 X10^3/ul (0.83-4.51); Lymphocyte % 5.6 % (19-41); Mean Corp Hgb Conc 31.5 g/dL (32-36); Mean Platelet Vol. 10.3 fl (6.2-12.0); Monocyte# 1.61 X10^3/uL; Monocyte% 9.6 % (0-10); NRBC Flagged by Analyzer 0 % (0-5); Neutrophil # 14.07 X10^3/uL (2.7-7.7); POSITIVE DIFFERENTIAL YES; Platelet Count 303 K/mm3 (150-450); RBC Distribution Width CV 18.6 % (11.6-14.6); RBC Distribution Width SD 60.2 fl (35.1-43.9); Red Blood Count 2.82 M/mm3 (4.6-6.2); White Blood Count 16.8 K/mm3 (4.4-11.0)
[2020-12-02 06:03] LABS: Differential Indicated SCAN CRITERIA MET
[2020-12-02 06:45] LABS: Bedside Glucose 141 mg/dL (70-110)
[2020-12-02 06:48] LABS: Differential Comment SCANNED
[2020-12-02] MEDS: Pantoprazole Sodium 40 MG Tablet PO (07:54)
[2020-12-02] MEDS: Ascorbic Acid 500 MG Tablet PO (07:54)
[2020-12-02] MEDS: Potassium Chloride Oral Tablet 20 MEQ PO (07:54)
[2020-12-02] MEDS: Fenofibrate 145 MG Tablet PO (07:54)
[2020-12-02] MEDS: Furosemide 40 MG/4 ML Vial IV (08:10)
[2020-12-02] MEDS: 0.9% Saline Lock 10 ML Syringe IV ×2 (08:12→09:23)
[2020-12-02 08:26] LABS: Anion Gap 7 (5-15); BUN 19 mg/dL (7-18); BUN/Creat Ratio 22.4 RATIO (10-20); Chloride 106 mmol/L (98-107); Creatinine, Serum 0.85 mg/dL (0.70-1.30); EST Glomerular Filtration Rate 92 mL/min (>60); Est Glom Filt Rate - Afr Amer 112 mL/min (>60); Estimated Creatinine Clearance 67.06 ml/min; Glucose 153 mg/dL (74-106); Potassium 3.2 mmol/L (3.5-5.1); Sodium Level 142 mmol/L (136-145)
--- NOTE | 2020-12-02 08:27 | CON.PCM.CC_ITS ---
Assessment & Plan Assessment/Plan (1) Secondary pulmonary hypertension: (2) Nonrheumatic aortic valve regurgitation: (3) Chronic anticoagulation: (4) Acute blood loss anemia: PLAN: RECOMMENDATIONS: 1. Continue aggressive diuresis 2. Okay to treat empirically with antibiotics from my perspective 3. Outpatient diagnostic and therapeutic thoracentesis 4. Clarify goals of therapy 5. Walking oximetry prior to discharge. High clinical suspicion supplemental oxygen will be required at discharge IMPRESSIONS: 1. Acute hypoxic respiratory insufficiency Multiple contributing factors. Patient does have some aortic stenosis w ith regurgitation, bilateral pleural effusions and pulmonary hypertension. High clinical suspicion for type II pulmonary hypertension. Treatment for this would include diuresis. Patient does have a leukocytosis, but also had a recent stress response secondary to fall and acute blood loss anemia. Anemia would exacerbate underlying pulmonary disorder. Patient does have some emphysematous changes, but this does not appear to predominate. Low clinical suspicion for COVID-19 as an etiology. Patient has been on chronic anticoagulation, so PE would not be suspected. Infection cannot be excluded, so empiric antibiotics pending culture data would be appropriate. 2. Possible multiple myeloma Patient with possible lytic lesions noted of the cervical spine. However, given his age, dementia and multiple comorbidities it is unclear if family will want a work-up. This can probably be completed as an outpatient. Do not believe this affects inpatient management at this time. 3. Dementia/advanced age/poor historian/recent acute blood loss anemia/A. fib/hypertension/hyperlipidemia/diabetes Complicates care, management, recovery and prognosis. Patient currently listed as a full code, but reportedly the son wants to take the patient home as soon as possible. Consider discussion about goals of therapy. DNR Comfort Care arrest versus comfort care may be more appropriate given the clinical scenario. HPI Consult Data Date of Consult: 12/02/20 HPI Narrative HPI Narrative: ISIDRO COOPER is an 79 M, with past medical history listed below, who presents to [facility] on 11/30/2020 secondary to a fall. Patient reportedly had fallen a couple days ago and had negative x-rays. Patient does have a history of dementia and reportedly has had a lower pulse ox reading. Patient had complained of some shortness of breath with a cough and they were concerned about pneumonia. Patient is on Eliquis secondary to A. fib. In the ER, patient was afebrile, but tachypneic at 22 breaths/min. Blood pressures were normal, but patient was saturating only 78% on room air. Patient was placed on 3 L nasal cannula with control of hypoxemia. Covid testing was negative, but laboratory data showed a white blood cell count of 18.3, hemoglobin of 6.9 and platelets of 302. Lactate was elevated at 4.1 and creatinine was 1.04. Glucose was elevated at 221. Multiple CT scans were completed. There was some concern for possible multiple myeloma changes of the cervical vertebrae and a CT of the chest showed bilateral pleural effusions with groundglass opacities. Since being admitted, patient has received diuretic therapy. Patient has maintained saturations on 4 L nasal cannula. Patient has had an echocardiogram showing some aortic stenosis with a valve area of 1.5 cm and an RVSP of 71. A CTA of the chest showed no PE, but bilateral groundglass opacities and e ffusions. A pulmonary consult was obtained secondary to persistent hypoxia and this I am asking to send patient home. Patient has dementia and is not able to provide much additional history. Tiffany sidhu reportedly does have a significant smoking history, but it is unclear if he is ever had pulmonary function testing. Patient does have previous imaging with pleural effusions as far back as June 2018. Emphysematous changes appear to be stable. Unable to obtain a review of systems secondary to mental status. [facility] Medical History Acute anemia Acute blood loss anemia Atrial fibrillation Chronic anticoagulation Dementia Diabetes mellitus, type II Gastric ulcer History of TIA (transient ischemic attack) Hyperlipidemia Hypertension Hypokalemia Moderate pulmonary arterial systolic hypertension Nonrheumatic aortic valve regurgitation Nonrheumatic mitral valve regurgitation Nonrheumatic tricuspid valve regurgitation Rectal polyp Secondary pulmonary hypertension Sinus bradycardia Upper gastrointestinal bleed Home Medications albuterol sulfate 90 mcg/actuation aerosol inhaler 2 puff INHALATION Q4H PRN g 01/18/18 [History Last Taken Unknown] donepezil 5 mg tablet 5 mg PO QHS tab 01/18/18 [History Last Taken 05/21/18] nitroglycerin 0.4 mg/hr transdermal 24 hour patch 1 patch TRANSDERMAL DAILY 01/18/18 [History Last Taken 05/21/18] atorvastatin 20 mg PO QHS 07/16/18 [History Last Taken Unknown] fenofibrate micronized 130 mg PO DAILY 08/14/18 [History Last Taken Unknown] pantoprazole 40 mg PO BID #60 tab 08/17/18 [Rx Last Taken Unknown] amiodarone 200 mg tablet 200 mg PO DAILY #90 tab 02/29/20 [Rx Last Taken Unknown] apixaban 5 mg tablet 5 mg PO BID #60 tab 04/24/20 [Rx Last Taken Unknown] furosemide 20 mg tablet 40 mg PO DAILY #180 tab 04/30/20 [Rx Last Taken Unknown] potassium chloride 20 mEq tablet,extended release(part/cryst) See Rx Instructions .ROUTE .COMPLEX #30 tab 07/23/20 [Rx Last Taken Unknown] dutasteride 0.5 mg PO DAILY 11/30/20 [History Last Taken Unknown] tamsulosin 0.4 mg PO BID 11/30/20 [History Last Taken Unknown] Allergy/AdvReac Type Severity Reaction Status Date / Time No Known Allergies Allergy Verified 11/30/20 11:51 Family History Mother CAD (coronary artery disease) CVA (cerebral vascular accident) Congestive heart failure Father Hypertension Sister Cancer Brother Hypertension Diabetes Cancer Liver cancer CAD (coronary artery disease), Onset Age: 70 Brother Esophageal cancer Surgical History history c-scope (~08/14/18) History of cardioversion (05/19/18) History of esophagogastroduodenoscopy (EGD) (~08/14/18) Social History Smoking Status: Former smoker quit date: 09/22/89 pack-years: 30 alcohol intake: current alcohol intake frequency: a few times a week Alcohol type: beer caffeine: Yes Type: coffee Number of servings: 1 ROS Review of Systems ROS Unobtainable: due to encephalopathy Physical Exam Const alert and no apparent distress Constitutional Narrative: Patient appears older than his stated age General Appearance: cooperative, well kempt and well developed Orientation / Consciousness: awake, oriented to person, oriented to place and oriented to time HEENT normocephalic, head/scalp atraumatic and moist oral mucous membranes Head and Scalp: normocephalic Eyes PERRL, EOMs intact bilaterally and conjunctivae normal Neck nuchal rigidity, supple, no JVD, thyroid normal and no carotid bruits General: trachea midline Chest inspection of chest normal Chest: symmetrical chest wall rise; Negative for crepitus Resp normal respiratory effort, no retractions and no use of accessory muscles Auscultation: Negative for rales, rhonchi or wheezes Cardio no murmurs, no rub and no gallops Rate: regular rate Rhythm: abnormal rhythm irregularly irregular GI normal to inspection, nondistended, normoactive bowel sounds, soft to palpation, non-tender and non-distended Back/Spine Back/Spine Narrative: Significant kyphosis noted Extremity no clubbing, cyanosis or edema Skin no rashes or lesions noted General Skin Exam: no breakdown Neuro CN's II-XII intact bilaterally Neuro Narrative: Patient is alert but confused. Significant bilateral upper extremity tremor with waking Sensorium / Orientation: awake and alert Psych thought process normal Psych Narrative: Patient is alert and confused Lab / Micro Data Result Diagrams: 12/02/20 05:40 12/02/20 07:50 Labs: Laboratory Results - last 24 hr 12/01/20 06:02: Total PSA 0.98 12/01/20 06:02: Iron 20 L, TIBC 240 L, Iron Saturation 8.3 L 12/01/20 06:05: B-Natriuretic Peptide 609.4 H 12/01/20 11:52: POC Glucose 180 H 12/01/20 17:10: POC Glucose 213 H 12/01/20 22:03: POC Glucose 163 H 12/02/20 05:40: WBC 16.8 H, RBC 2.82 L, Hgb 7.9 L, Hct 25.1 L, MCV 89.0, MCH 28.0, MCHC 31.5 L, RDW Std Deviation 60.2 H, RDW Coeff of Dipesh 18.6 H, Plt Count 303, MPV 10.3, Immature Gran % (Auto) 0.500, Neut % (Auto) 84.0 H, Lymph % (Auto) 5.6 L, [place] % (Auto) 9.6, Eos % (Auto) 0.1, Baso % (Auto) 0.2, Absolute Neuts (auto) 14.1 H, Absolute Lymphs (auto) 0.94, Nucleated RBC % 0, Differential Comment SCANNED, Diff Path Review June12/02/20 06:41: POC Glucose 141 H 12/02/20 07:50: Sodium 142, Potassium 3.2 L, Chloride 106, Carbon Dioxide 29.0, Anion Gap 7, BUN 19 H, Creatinine 0.85, Estim Creat Clear Calc 67.06, Est GFR (MDRD) Af Amer 112, Est GFR (MDRD) Non-Af 92, BUN/Creatinine Ratio 22.4 H, Glucose 153 H, Calcium 8.0 L Micro: Microbiology 11/30/20 17:25 Urine, Clean Catch Legionella Antigen - Final 11/30/20 17:25 Urine, Clean Catch Streptococcus pneumoniae Antigen (M - Final Radiology Impression Echocardiogram 11/30/20 16:31 Interpretation Summary Normal LV systolic function The estimated ejection fraction is EF 55-60 %. Mild LVH MILD ARON 1.5 cm2 Max gradient 22.7 mmhg Mean gradient 11.5 mmhg RVSP calculated 71 mmhg consistent with severe Pulmonary Hypertension Ordering Physician: Abhishek Wheatley Referring Physician: FRANKIE KRUGER Performed By: Missy Garcia, RDCS, RVT Chest CTA 12/01/20 15:00 IMPRESSION: 1. No pulmonary embolism. 2. Multifocal bilateral presumably Covid pneumonia. 3. Moderate/large bilateral pleural effusions. 4. Severe coronary artery disease. Electronically Signed: Cristiano Thorne MD at 14:37 EDT Tel , Service support , Charges/Coding Visit Charges Inpatient E&M: 69001 Init Hosp L3
--- NOTE | 2020-12-02 08:54 | PCM.DC ---
Discharge Instructions Diet Discharge Diet: 1800 Calorie Control Diet Activity Discharge Activity: Return to Normal Activity Weight Bearing Status: Full weight bearing Follow Up Care Test Results: Test results from this visit will be discussed in further detail at your follow-up appointment, if applicable. Discharge Plan Admission Admit Date/Time: 11/30/20 14:58 Attending Provider: Horacio Jerez Primary Care Provider: Johanny Lara Consulting Providers: Aj Peterson Instructions Additional Instructions / Restrictions: Use oxygen at 3 L/min continuously You will need to follow-up with your primary care doctor regarding your abnormal neck x-rays, you may need further work-up for suspected multiple myeloma Discharge Orders/Prescriptions Prescriptions: New levofloxacin 500 mg tablet 500 mg PO DAILY Qty: 5 RF: 0 metformin 500 mg tablet 500 mg PO BID Qty: 60 RF: 0 Continued Proventil HFA 90 mcg/actuation HFA aerosol inhaler 2 puff INHALATION Q4H PRN (Reason: Shortness Of Breath) RF: 0 donepezil [Aricept] 5 mg tablet 5 mg PO QHS RF: 0 nitroglycerin 0.4 mg/hr patch 24 hour 1 patch Transdermal DAILY RF: 0 atorvastatin 20 MG tablet 20 mg PO QHS RF: 0 fenofibrate micronized 130 MG capsule 130 mg PO DAILY RF: 0 pantoprazole 40 MG tablet 40 mg PO BID Qty: 60 RF: 0 dutasteride 0.5 mg capsule 0.5 mg PO DAILY RF: 0 tamsulosin 0.4 MG capsule 0.4 mg PO BID RF: 0 amiodarone 200 mg tablet 200 mg PO DAILY Qty: 90 RF: 3 Eliquis 5 mg tablet 5 mg PO BID Qty: 60 RF: 11 Changed potassium chloride 20 mEq tablet,ER particles/crystals See Rx Instructions .ROUTE .COMPLEX Qty: 30 RF: 11 furosemide 20 mg tablet 40 mg PO BID Qty: 180 RF: 3 Referrals / Follow Up: Johanny Lara DO [Primary Care Provider] - Within 1 Week Disposition Disposition (needs filled in before D/C Order can be placed): Home, Self Care
--- NOTE | 2020-12-02 09:09 | DS.PCM_ITS ---
Providers Date of Admission: 11/30/20 Date of Discharge: 12/02/20 Primary Care Physician: Dr. Frankie Lara, DO Consultations 12/01/20 17:09 Consult: Mule Driver / Pulmonary Medicine Routine Consulting Provider: Aj Peterson Reason for Consult: ? METASTATIC DISEASE VS PNEUMONIA EMERGENT Consult: No MD Notified: Yes Date Notified: 12/01/20 Time Notified: 17:38 Method of Notification: Text Reason For Visit: PNEUMONIA Diagnosis Discharge Diagnosis (1) Secondary pulmonary hypertension: Status: Chronic (2) Nonrheumatic aortic valve regurgitation: Status: Chronic Code(s): I35.1 - Nonrheumatic aortic (valve) insufficiency (3) Chronic anticoagulation: Status: Chronic Code(s): Z79.01 - FCI (current) use of anticoagulants (4) Acute blood loss anemia: Status: Acute Code(s): D62 - Acute posthemorrhagic anemia Plan: Final diagnosis: #1 acute on chronic respiratory failure #2 pulmonary edema #3 congestive heart failure with preserved ejection fraction #4 community-acquired pneumonia #5 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-etiology unclear #6 dementia #7 lactic acidosis secondary to hypoxia #8 chronic anemia etiology unclear Medications at Discharge Home Medications albuterol sulfate 90 mcg/actuation aerosol inhaler 2 puff INHALATION Q4H PRN g 01/18/18 donepezil 5 mg tablet 5 mg PO QHS tab 01/18/18 nitroglycerin 0.4 mg/hr transdermal 24 hour patch 1 patch TRANSDERMAL DAILY 01/18/18 atorvastatin 20 mg PO QHS 07/16/18 fenofibrate micronized 130 mg PO DAILY 08/14/18 pantoprazole 40 mg PO BID #60 tab 08/17/18 apixaban 5 mg tablet 5 mg PO BID #60 tab 04/24/20 dutasteride 0.5 mg PO DAILY 11/30/20 tamsulosin 0.4 mg PO BID 11/30/20 amiodarone 200 mg PO DAILY 12/02/20 furosemide 40 mg PO BID #180 tab 12/02/20 levofloxacin 500 mg PO DAILY #5 tab 12/02/20 metformin 500 mg PO BID #60 tab 12/02/20 potassium chloride See Rx Instructions .ROUTE .COMPLEX #30 tab 12/02/20 Hospital Course Operations None Procedures 2-D Echocardiogram Summary of Care Provided Minutes Spent on Discharge: 31 Hospital Course: This 79-year-old white male was brought to the emergency room at [facility] for evaluation after a fall at home, patient was evaluated in the ER, he had a chest x-ray which showed bilateral infiltrates, neck x-ray showed evidence of possible metastatic disease such as multiple myeloma. Patient was noted to be hypoxic, Covid test was negative. Patient's white blood cell count was elevated at 18.3. Patient was given IV antibiotics and admitted to PCU for community-acquired pneumonia and possible CHF, he was treated with IV diuretics, seen in consultation by pulmonary medicine and had an echocardiogram which showed preserved ejection fraction. Patient's condition improved during his hospitalization, patient's son requested that he be discharged home, patient had oxygen at home at 3 L chronically. On 12/02/2020, patient was seen and examined: On examination he appeared older than his stated age, he was confused. Vital signs as documented. Skin warm and dry and without overt rashes. Neck without JVD, neck was supple, trachea midline, thyroid was normal. Lungs clear bilaterally, normal air movement was noted. Heart exam notable for regular rhythm, normal sounds and absence of murmurs, rubs or gallops. Abdomen unremarkable and without evidence of organomegaly, masses, or abdominal aortic enlargement. Bowel sounds are present, abdomen is not distended. Extremities nonedematous, no cyanosis was noted, no clubbing was noted. Neuro: Cranial nerves II through XII are grossly intact, no focal motor deficits were noted, sensation to light touch and pinprick intact, motor exam 5/5 throughout. Psych: Patient is alert and confused Weight / BMI Weight Weight: 76.3 kg Body Mass Index (BMI) 26.3 ABG / Lab / Microbiology Data Result Diagrams: 12/02/20 05:40 12/02/20 07:50 Laboratory: Laboratory Results - last 24 hr 12/01/20 06:02: Total PSA 0.98 12/01/20 06:02: Iron 20 L, TIBC 240 L, Iron Saturation 8.3 L 12/01/20 06:05: B-Natriuretic Peptide 609.4 H 12/01/20 11:52: POC Glucose 180 H 12/01/20 17:10: POC Glucose 213 H 12/01/20 22:03: POC Glucose 163 H 12/02/20 05:40: WBC 16.8 H, RBC 2.82 L, Hgb 7.9 L, Hct 25.1 L, MCV 89.0, MCH 28.0, MCHC 31.5 L, RDW Std Deviation 60.2 H, RDW Coeff of Dipesh 18.6 H, Plt Count 303, MPV 10.3, Immature Gran % (Auto) 0.500, Neut % (Auto) 84.0 H, Lymph % (Auto) 5.6 L, [place] % (Auto) 9.6, Eos % (Auto) 0.1, Baso % (Auto) 0.2, Absolute Neuts (auto) 14.1 H, Absolute Lymphs (auto) 0.94, Nucleated RBC % 0, Differential Comment SCANNED, Diff Path Review June12/02/20 06:41: POC Glucose 141 H 12/02/20 07:50: Sodium 142, Potassium 3.2 L, Chloride 106, Carbon Dioxide 29.0, Anion Gap 7, BUN 19 H, Creatinine 0.85, Estim Creat Clear Calc 67.06, Est GFR (MDRD) Af Amer 112, Est GFR (MDRD) Non-Af 92, BUN/Creatinine Ratio 22.4 H, Glucose 153 H, Calcium 8.0 L Microbiology: Microbiology 11/30/20 17:25 Urine, Clean Catch Legionella Antigen - Final 11/30/20 17:25 Urine, Clean Catch Streptococcus pneumoniae Antigen (M - Final 11/30/20 18:00 Mucosa - Nasopharyngeal Respiratory Panel (PCR) - Final 11/30/20 11:55 Nasal Secretion SARS-CoV-2 Antigen (Rapid) - Final Radiography Diagnostic Testing: Radiology Impression Echocardiogram 11/30/20 16:31 Interpretation Summary Normal LV systolic function The estimated ejection fraction is EF 55-60 %. Mild LVH MILD ARON 1.5 cm2 Max gradient 22.7 mmhg Mean gradient 11.5 mmhg RVSP calculated 71 mmhg consistent with severe Pulmonary Hypertension Ordering Physician: Abhishek Wheatley Referring Physician: FRANKIE LARA Performed By: Missy Garcia, MYKEL, RVT Chest CTA 12/01/20 15:00 IMPRESSION: 1. No pulmonary embolism. 2. Multifocal bilateral presumably Covid pneumonia. 3. Moderate/large bilateral pleural effusions. 4. Severe coronary artery disease. Electronically Signed: Cristiano Thorne MD at 14:37 EDT Tel , Service support , D/C Instructions Discharge Diet: 1800 Calorie Control Diet Weight Bearing Status: Full weight bearing Meaningful Use Info Meaningful Use Diagnoses (Choose all that apply): CHF CHF GILBERTO/ARB ordered at discharge?: No Reason GILBERTO/ARB not ordered?: Not indicated Documented LVEF (%): 60 Discharge Plan Admission Admit Date/Time: 11/30/20 14:58 Primary Reason for Your Visit: Congestive heart failure, possible pneumonia Attending Provider: Horacio Jerez Primary Care Provider: Frankie Lraa Consulting Providers: Aj Peterson Instructions Additional Instructions / Restrictions: Use oxygen at 2L/min continuously You will need to follow-up with your primary care doctor regarding your abnormal neck x-rays, you may need further work-up for suspected multiple myeloma Discharge Orders/Prescriptions Prescriptions: New levofloxacin 500 mg tablet 500 mg PO DAILY Qty: 5 RF: 0 metformin 500 mg tablet 500 mg PO BID Qty: 60 RF: 0 Continued Proventil HFA 90 mcg/actuation HFA aerosol inhaler 2 puff INHALATION Q4H PRN (Reason: Shortness Of Breath) RF: 0 donepezil [Aricept] 5 mg tablet 5 mg PO QHS RF: 0 nitroglycerin 0.4 mg/hr patch 24 hour 1 patch Transdermal DAILY RF: 0 atorvastatin 20 MG tablet 20 mg PO QHS RF: 0 fenofibrate micronized 130 MG capsule 130 mg PO DAILY RF: 0 pantoprazole 40 MG tablet 40 mg PO BID Qty: 60 RF: 0 dutasteride 0.5 mg capsule 0.5 mg PO DAILY RF: 0 tamsulosin 0.4 MG capsule 0.4 mg PO BID RF: 0 Eliquis 5 mg tablet 5 mg PO BID Qty: 60 RF: 11 Changed potassium chloride 20 mEq tablet,ER particles/crystals See Rx Instructions .ROUTE .COMPLEX Qty: 30 RF: 11 furosemide 20 mg tablet 40 mg PO BID Qty: 180 RF: 3 No Action amiodarone 200 mg tablet 200 mg PO DAILY RF: 0 Referrals / Follow Up: Frankie Lara DO [Primary Care Provider] - Within 1 Week Disposition Disposition (needs filled in before D/C Order can be placed): Home, Self Care Charges/Coding Visit Charges Inpatient E&M: 27358 Disch Hosp
--- NOTE | 2020-12-03 15:31 | CASEMGMT ---
Addendum entered by Sally Luna 12/04/20 13:52: EMILIE LAURENT attempted to complete follow-up phone call again. No answer and unable to leave message. Original Note: EMILIE LAURENT Discharge Follow-up Phone Call: JOYCE: Bridger Strata: 3 Call Date: 12/03/20 Discharge Date: 12/02/20 Time of Call: 1530 Duration: 1 min Admitting Diagnosis: Pneumonia EMILIE LAURENT attempted to complete follow-up phone call after recent hospitalization. No answer and unable to leave message. Will attempt to complete call at another time.
[2020-12-03 15:45] LABS: Pathologist Review Reviewed
[2020-12-03 15:50] LABS: Pathologist Review Reviewed
[2020-12-03 16:40] LABS: Beta-2-Microglobulin, S 2.2 mg/L (0.6-2.4)
[2020-12-06 14:09] LABS: Albumin 2.8 g/dL (2.9-4.4); Alpha-1-Globulins 0.3 g/dL (0.0-0.4); Alpha-2-Globulins 0.8 g/dL (0.4-1.0); Gamma Globulin 0.6 g/dL (0.4-1.8); Immunoglobulin A 224 mg/dL (61-437); Immunoglobulin G 598 mg/dL (603-1613); Immunoglobulin M 52 mg/dL (15-143); PROEL- TOTAL PROTEIN 5.4 g/dL (6.0-8.5)
== END 2020-12-02 11:23 | disposition home or self-care (01) | DRG 291 ==
LOC: ED 14:47 → PCU 15:41
PROVIDERS: Internal Medicine Critical Care Medicine; Emergency Provider Emergency Medicine; PCP Family Medicine; Visit Provider Internal Medicine
DX: I11.0 Hypertensive heart disease with heart failure (principal); I50.31 Acute diastolic (congestive) heart failure; J18.9 Pneumonia, unspecified organism; J96.21 Acute and chronic respiratory failure with hypoxia; D62 Acute posthemorrhagic anemia; C90.00 Multiple myeloma not having achieved remission; E44.0 Moderate protein-calorie malnutrition; S30.1XXA Contusion of abdominal wall, initial encounter; W19.XXXA Unspecified fall, initial encounter; Z91.81 History of falling; Y93.9 Activity, unspecified; Y92.009 Unspecified place in unspecified non-institutional (private) residence as the place of occurrence of the external cause; R13.10 Dysphagia, unspecified; R53.81 Other malaise; K80.80 Other cholelithiasis without obstruction; E11.9 Type 2 diabetes mellitus without complications; E78.5 Hyperlipidemia, unspecified; I34.0 Nonrheumatic mitral (valve) insufficiency; E87.6 Hypokalemia; F03.90 Unspecified dementia, unspecified severity, without behavioral disturbance, psychotic disturbance, mood disturbance, and anxiety; I35.0 Nonrheumatic aortic (valve) stenosis; I35.1 Nonrheumatic aortic (valve) insufficiency; I25.10 Atherosclerotic heart disease of native coronary artery without angina pectoris; I27.29 Other secondary pulmonary hypertension; I36.1 Nonrheumatic tricuspid (valve) insufficiency; I48.91 Unspecified atrial fibrillation; Z87.19 Personal history of other diseases of the digestive system; Z86.73 Personal history of transient ischemic attack (TIA), and cerebral infarction without residual deficits; Z79.01 Long term (current) use of anticoagulants; Z79.899 Other long term (current) drug therapy; Z87.891 Personal history of nicotine dependence; Z23 Encounter for immunization
CPT/HCPCS: 36415; 70450; 71045; 71275; 72125; 74177; 80048; 80053; 80061; 81001; 82232; 82595; 82784; 82962; 83540; 83550; 83605; 83880; 84153; 84165; 84443; 84484; 85025; 86334; 86850; 86900; 86901; 86920; 86922; 87040; 87426; 87449; 87633; 87635; 92526; 92610; 93005; 93306; 94640; 97802; 99251; 99285; G0008; J7030; J7040; P9016; Q9967; U0005; 90686; A4216; G0463; J0696; J1940; U0003

== ENCOUNTER 2021-01-05 12:14 | Emergency (ER) | payer MEDICARE, SELFPAY ==
[2021-01-05 12:15] VITALS: BP 127/40; PULSE 64; RESP 18; TEMP 36.6; O2SAT 100; BMI 25.5
--- NOTE | 2021-01-05 12:33 | RAD_ITS ---
STUDY: X-RAY CHEST REASON FOR EXAM: Male, 80 years old. cough TECHNIQUE: Single view of the chest was obtained COMPARISON: 12/02/2020 FINDINGS: Calcifications of the aortic knob. Minimal platelike atelectasis. No consolidation. Cardiac size is slightly prominent. IMPRESSION: Improved lung aeration since previous examination. Mild cardiomegaly Electronically Signed: Shailesh Jolley MD at 13:57 EST Tel , Service support , RAD/Chest 1 View (Portable)
--- NOTE | 2021-01-05 12:35 | EDS_ITS ---
HPI History of Present Illness Chief Complaint: General Illness Informant: patient and family Narrative Narrative: Patient with presents with mild cough and exposure to COVID-19. He denies chest pain. Patient's tested positive for Covid 6 days ago. He has had symptoms for 2 days. He has history of dementia and history is provided by son who takes care of him. He has been monitoring his pulse ox at home and has not had any low pulse ox readings. He had a home Covid test which was positive. He is interested in referral for monoclonal antibody treatment. He is vaccinated for Covid. Prior similar symptoms: No Recent Illness/Hospitalization: No [facility] Medical History Acute anemia Acute blood loss anemia Atrial fibrillation Chronic anticoagulation Dementia Diabetes mellitus, type II Gastric ulcer History of TIA (transient ischemic attack) Hyperlipidemia Hypertension Hypokalemia Moderate pulmonary arterial systolic hypertension Nonrheumatic aortic valve regurgitation Nonrheumatic mitral valve regurgitation Nonrheumatic tricuspid valve regurgitation Rectal polyp Secondary pulmonary hypertension Sinus bradycardia Upper gastrointestinal bleed Home Medications albuterol sulfate 90 mcg/actuation aerosol inhaler 2 puff INHALATION Q4H PRN g 01/18/18 [History Last Taken Unknown] donepezil 5 mg tablet 5 mg PO QHS tab 01/18/18 [History Last Taken 05/21/18] nitroglycerin 0.4 mg/hr transdermal 24 hour patch 1 patch TRANSDERMAL DAILY 01/18/18 [History Last Taken 05/21/18] atorvastatin 20 mg PO QHS 07/16/18 [History Last Taken Unknown] fenofibrate micronized 130 mg PO DAILY 08/14/18 [History Last Taken Unknown] pantoprazole 40 mg PO BID #60 tab 08/17/18 [Rx Last Taken Unknown] apixaban 5 mg tablet 5 mg PO BID #60 tab 04/24/20 [Rx Last Taken Unknown] dutasteride 0.5 mg PO DAILY 11/30/20 [History Last Taken Unknown] tamsulosin 0.4 mg PO BID 11/30/20 [History Last Taken Unknown] amiodarone 200 mg PO DAILY 12/02/20 [History Last Taken Unknown] furosemide 40 mg PO BID #180 tab 12/02/20 [Rx Last Taken Unknown] metformin 500 mg PO BID #60 tab 12/02/20 [Rx Last Taken Unknown] potassium chloride See Rx Instructions .ROUTE .COMPLEX #30 tab 12/02/20 [Rx Last Taken Unknown] Allergy/AdvReac Type Severity Reaction Status Date / Time No Known Allergies Allergy Verified 11/30/20 11:51 Family History Mother CAD (coronary artery disease) CVA (cerebral vascular accident) Congestive heart failure Father Hypertension Sister Cancer Brother Hypertension Diabetes Cancer Liver cancer CAD (coronary artery disease), Onset Age: 70 Brother Esophageal cancer Surgical History history c-scope (~08/14/18) History of cardioversion (05/19/18) History of esophagogastroduodenoscopy (EGD) (~08/14/18) Social History Smoking Status: Former smoker quit date: 09/22/89 pack-years: 30 alcohol intake: current alcohol intake frequency: a few times a week Alcohol type: beer caffeine: Yes Type: coffee Number of servings: 1 ROS ROS ED Constitutional Constitutional ED: Denies fever(s) Eyes Eyes: Denies change in vision ENT ENT ED: Denies rhinorrhea or sore throat Cardiovascular Cardiovascular: Denies chest pain or palpitations Respiratory/Chest Respiratory/Chest: Reports cough; Denies dyspnea Gastrointestinal Gastrointestinal: Denies abdominal pain, diarrhea, nausea or vomiting Genitourinary Genitourinary ED: Denies dysuria Musculoskeletal Musculoskeletal: Denies myalgias Integumentary Denies rash Neurologic Neurologic: Denies headache(s) Psychiatric Psychiatric: Denies suicidal thoughts EXAM Physical Exam Const Vital Signs: 01/05/21 12:15 01/05/21 12:40 Temperature 97.9 F Temperature Source Temporal Pulse Rate 64 Respiratory Rate 18 Respiratory Pattern Normal Blood Pressure 127/40 H Blood Pressure Mean 69 Pulse Ox 100 Oxygen Delivery Method Room Air Positive well nourished and well developed General Appearance ED: well developed HEENT Reports normocephalic and head/scalp atraumatic Eyes PERRL and EOMs intact bilaterally Neck supple General: Negative for tenderness Chest Wall inspection of chest normal Resp normal respiratory effort Auscultation: diminished lung sounds Cardio regular rate and regular rhythm GI non-tender and non-distended Palpation: soft; Negative for guarding or rebound tenderness present no CVA tenderness Extremity normal to inspection Neuro oriented x3 Sensorium / Orientation: alert Psych mental status grossly normal MDM MDM MDM Narrative Medical decision making narrative: Pulse ox is 100% on room air. Patient is nontoxic-appearing and is resting comfortably. Chest x-ray read by myself and radiology shows Improved lung aeration since previous examination. Mild cardiomegaly. Labs are reviewed. His hemoglobin is 7.5 at his baseline. Chemistries are unremarkable. Troponin is negative. Patient is resting comfortably with a pulse ox of 100% on room air. Family has pulse oximeter at home. They are comfortable with discharge home. Referral for monoclonal antibodies was placed. Advised to return to ED for worsening complaints. Lab Data Attestation: I reviewed the patient's lab results. Labs: Laboratory Results - last 24 hr 01/05/21 01/05/21 13:05 13:05 WBC 9.6 RBC 2.74 L Hgb 7.5 L Hct 25.0 L MCV 91.2 MCH 27.4 MCHC 30.0 L RDW Std Deviation 58.6 H RDW Coeff of Dipesh 17.5 H Plt Count 216 MPV 10.6 Immature Gran % (Auto) 0.400 Neut % (Auto) 79.6 H Lymph % (Auto) 9.4 L [place] % (Auto) 9.4 Eos % (Auto) 0.9 Baso % (Auto) 0.3 Absolute Neuts (auto) 7.6 Absolute Lymphs (auto) 0.90 Nucleated RBC % 0 Sodium 138 Potassium 3.8 Chloride 104 Carbon Dioxide 29.0 Anion Gap 5 BUN 18 Creatinine 1.01 Estim Creat Clear Calc 57.36 Est GFR (MDRD) Af Amer 91 Est GFR (MDRD) Non-Af 75 BUN/Creatinine Ratio 17.8 Glucose 108 H Calcium 8.5 Troponin I High Sens 20 Radiography Chest X-Ray - ED: 1 View, Read by ED Physician and Read by Radiologist Diagnostic Testing: Clinical Impression(s) from Imaging Studies Chest X-Ray 01/05/21 12:33 EKG Initial EKG: Attestation: I personally reviewed and interpreted this EKG as follows: Interpretation: Sinus Rhythm and No Acute Injury Pattern Discharge Plan Triage Chief Complaint: General Illness ED Provider: Stefany Alexandra Dx/Rx/DC Orders Clinical Impression: COVID-19 Instructions: Coronavirus Disease 2019 (COVID-19): Overview Prescriptions: No Action Proventil HFA 90 mcg/actuation HFA aerosol inhaler 2 puff INHALATION Q4H PRN (Reason: Shortness Of Breath) RF: 0 donepezil [Aricept] 5 mg tablet 5 mg PO QHS RF: 0 nitroglycerin 0.4 mg/hr patch 24 hour 1 patch Transdermal DAILY RF: 0 atorvastatin 20 MG tablet 20 mg PO QHS RF: 0 fenofibrate micronized 130 MG capsule 130 mg PO DAILY RF: 0 pantoprazole 40 MG tablet 40 mg PO BID Qty: 60 RF: 0 dutasteride 0.5 mg capsule 0.5 mg PO DAILY RF: 0 tamsulosin 0.4 MG capsule 0.4 mg PO BID RF: 0 potassium chloride 20 mEq tablet,ER particles/crystals See Rx Instructions .ROUTE .COMPLEX Qty: 30 RF: 11 furosemide 20 mg tablet 40 mg PO BID Qty: 180 RF: 3 metformin 500 mg tablet 500 mg PO BID Qty: 60 RF: 0 amiodarone 200 mg tablet 200 mg PO DAILY RF: 0 Eliquis 5 mg tablet 5 mg PO BID Qty: 60 RF: 11 Other Ambulatory Orders: COVID Outpatient Monoclonal Antibody Referral (Routine) Timeframe: 1 Day Facility: [facility] - Location: [facility] Ordered By: Dr. Stefany Alexandra Primary Care Provider: Johanny Lara Referrals: Johanny Lara DO [Primary Care Provider] - Disposition Disposition: Home, Self Care
--- NOTE | 2021-01-05 12:50 | EKG12_ITS ---
Test Reason : SOB Blood Pressure : / mmHG Vent. Rate : 059 BPM Atrial Rate : 059 BPM P-R Int : 176 ms QRS Dur : 088 ms QT Int : 570 ms P-R-T Axes : 079 068 062 degrees QTc Int : 564 ms Sinus bradycardia Nonspecific ST abnormality Prolonged QT Abnormal ECG Confirmed by RINA VILLASEÑOR, DARWIN ([id number]), newspaper photo editor ARA GONZALEZ ([id number]) on 01/07/2021 1:22:25 PM Referred By: Confirmed By:DARWIN FLYNN MD
[2021-01-05 13:23] LABS: Absolute Neutrophil Count 7.6 X10^3/uL (2.0-7.7); Basophil# 0.03 X10^3/uL; Basophil% 0.3 % (0-1); Eosinophil# 0.09 X10^3/uL; Eosinophils% 0.9 % (0-5); Hemoglobin 7.5 g/dL (13.0-16.5); Lymphocyte % 9.4 % (19-41); Mean Corpuscular Hgb 27.4 pg (27.0-32.0); Mean Corpuscular Volume 91.2 fL (80-94); Mean Platelet Vol. 10.6 fl (6.2-12.0); Monocyte% 9.4 % (0-10); NRBC Flagged by Analyzer 0 % (0-5); Neutrophil # 7.59 X10^3/uL (2.7-7.7); Neutrophil % 79.6 % (47-70); Platelet Count 216 K/mm3 (150-450); RBC Distribution Width CV 17.5 % (11.6-14.6); RBC Distribution Width SD 58.6 fl (35.1-43.9); Red Blood Count 2.74 M/mm3 (4.6-6.2); White Blood Count 9.6 K/mm3 (4.4-11.0)
[2021-01-05 13:43] LABS: Anion Gap 5 (5-15); BUN 18 mg/dL (7-18); BUN/Creat Ratio 17.8 RATIO (10-20); Calcium,Total 8.5 mg/dL (8.5-10.1); Chloride 104 mmol/L (98-107); Creatinine, Serum 1.01 mg/dL (0.70-1.30); EST Glomerular Filtration Rate 75 mL/min (>60); Est Glom Filt Rate - Afr Amer 91 mL/min (>60); Estimated Creatinine Clearance 57.36 ml/min; Glucose 108 mg/dL (74-106); Potassium 3.8 mmol/L (3.5-5.1); Sodium Level 138 mmol/L (136-145); Troponin-I HS 20 pg/mL (3.0-78.0)
[2021-01-05 14:55] VITALS: BP 126/83; PULSE 76; RESP 18; TEMP 37.2; O2SAT 98
== END 2021-01-05 14:56 | disposition home or self-care (01) ==
PROVIDERS: Emergency Provider Emergency Medicine; PCP Family Medicine
DX: U07.1 COVID-19 (principal); I10 Essential (primary) hypertension; E11.9 Type 2 diabetes mellitus without complications; E78.5 Hyperlipidemia, unspecified; F03.90 Unspecified dementia, unspecified severity, without behavioral disturbance, psychotic disturbance, mood disturbance, and anxiety; I27.29 Other secondary pulmonary hypertension; I35.1 Nonrheumatic aortic (valve) insufficiency; I34.0 Nonrheumatic mitral (valve) insufficiency; I48.91 Unspecified atrial fibrillation; Z86.73 Personal history of transient ischemic attack (TIA), and cerebral infarction without residual deficits; Z87.19 Personal history of other diseases of the digestive system; Z79.01 Long term (current) use of anticoagulants; Z79.84 Long term (current) use of oral hypoglycemic drugs; Z79.899 Other long term (current) drug therapy; Z87.891 Personal history of nicotine dependence
CPT/HCPCS: 71045; 80048; 84484; 85025; 87426; 93005; 99284; A4216

== ENCOUNTER 2021-01-07 13:43 | Outpatient (CLI) | payer MEDICARE, SELFPAY ==
[2021-01-07 13:55] VITALS: BP 107/33; PULSE 62; RESP 18; TEMP 36.6; O2SAT 98; BMI 24.3
[2021-01-07] MEDS: 0.9% Saline Lock 10 ML Syringe IV (14:00)
[2021-01-07 15:06] VITALS: BP 127/39; PULSE 72; RESP 18; TEMP 36.6; O2SAT 100
[2021-01-07 16:03] VITALS: BP 118/35; PULSE 70; RESP 16; TEMP 36.4; O2SAT 100
== END 2021-01-07 16:04 | disposition home or self-care (01) ==
LOC: MS3OUT 13:43 → MS3 13:44
PROVIDERS: PCP Family Medicine; Referring Provider Nurse Practitioner Adult Health; Visit Provider Nurse Practitioner Adult Health
DX: Z23 Encounter for immunization (principal); U07.1 COVID-19
CPT/HCPCS: J7050; M0245; Q0245; A4216

== ENCOUNTER 2022-02-24 18:59 | Emergency (ER) | payer MEDICARE, SELFPAY ==
[2022-02-24 19:00] VITALS: BP 145/118; PULSE 104; RESP 18; TEMP 36.3; O2SAT 100; BMI 28.0
--- NOTE | 2022-02-24 20:27 | ED.RN ---
pt's son and state that patient seems to be doing much better now. Son states that he thinks the patient's oxygen tank at home was not working. He adjusted it after EMS arrived and could then hear the oxygen coming out. He thinks the patients symptoms were related to that. States they will take him to PCP tomorrow. Instructed to return if any concerns. pt's son and voiced understanding.
== END 2022-02-24 20:23 | disposition left against medical advice (07) ==
LOC: ED 20:30
PROVIDERS: PCP Family Medicine
DX: R10.9 Unspecified abdominal pain (principal)

== ENCOUNTER 2022-03-14 14:56 | Inpatient (IN) | payer MEDICARE, SELFPAY ==
[2022-03-14 15:05] VITALS: BP 150/60; PULSE 72; RESP 17; RESP 19; TEMP 36.3; O2SAT 97; O2SAT 99
--- NOTE | 2022-03-14 15:16 | HP.PCM_ITS ---
HPI - General General Date of Admission: 03/14/22 Date of Service: 03/14/22 Chief Complaint: Here for rehabilitation. HPI Narrative 02/27/2022 ISIDRO COOPER, is a 81 Male admitted to [facility] ICU. Presented with black stool, anemia, worsening shortness of breath. Confused. Wean oxygen for acute respiratory failure with hypoxia. Zosyn, Doxycycline for pneumonia. Hold Eliquis, PPI bid, consult GI for GI bleed. Haldol PRN agitation/delirium. EGD negative bleeding source, Stop all anticoagulation, antiplatelet medications. Bone lesion of cervical spine concerning for mets, multiple myeloma, family declined workup due to advanced Alzheimer Disease. 03/03/2022 status post atrial fibrillation, in sinus rhythm. 03/11/2022 More alert, sinus rhythm, no distress, no shortness of breath. 03/12/2022 Alert, confused. 03/14/2022 Admit to TCU with debility, here for rehabilitation, strengthening, prior to disposition determination. [facility] Medical History Acute anemia Acute blood loss anemia Acute respiratory failure with hypoxia Atrial fibrillation Bilateral pneumonia Chronic anticoagulation Dementia Diabetes mellitus, type II Gastric ulcer History of TIA (transient ischemic attack) Hyperlipidemia Hypertension Hypokalemia Moderate pulmonary arterial systolic hypertension Nonrheumatic aortic valve regurgitation Nonrheumatic mitral valve regurgitation Nonrheumatic tricuspid valve regurgitation Rectal polyp Secondary pulmonary hypertension Sinus bradycardia Upper gastrointestinal bleed Home Medications albuterol sulfate 90 mcg/actuation aerosol inhaler (Proventil HFA) 2 puff inhalation Q4H PRN Shortness Of Breath 01/18/18 [History Last Taken Unknown] donepezil 5 mg tablet (Aricept) 5 mg PO QHS Dementia 01/18/18 [History Last Taken 05/21/18] nitroglycerin 0.4 mg/hr transdermal 24 hour patch 1 patch transdermal DAILY CP 01/18/18 [History Last Taken 05/21/18] atorvastatin 20 mg tablet 20 mg PO QHS cholesterol 07/16/18 [History Last Taken Unknown] fenofibrate micronized 130 mg capsule 130 mg PO DAILY triglycerides 08/14/18 [History Last Taken Unknown] dutasteride 0.5 mg capsule 0.5 mg PO DAILY prostate 11/30/20 [History Last Taken Unknown] tamsulosin 0.4 mg capsule 0.4 mg PO BID 11/30/20 [History Last Taken Unknown] furosemide 20 mg tablet 40 mg PO BID WATER PILL #180 tabs 12/02/20 [Rx Last Taken Unknown] metformin 500 mg tablet 500 mg PO BID #60 tabs 12/02/20 [Rx Last Taken Unknown] potassium chloride 20 mEq tablet,extended release(part/cryst) See Rx Instructions .Route .COMPLEX #30 tabs 12/02/20 [Rx Last Taken Unknown] apixaban 5 mg tablet (Eliquis) 5 mg PO BID #60 tabs 03/25/21 [Rx Last Taken Unknown] amiodarone 200 mg tablet 200 mg PO DAILY heart rate #90 tabs 02/21/22 [Rx Last Taken Unknown] FeroSul 325 mg PO/SL DAILY supplement 03/14/22 [History Last Taken Unknown] Janumet 1 tablet PO/SL BIDCM blood sugars 03/14/22 [History Last Taken Unknown] doxazosin 1 mg PO/SL QHS BPH 03/14/22 [History Last Taken Unknown] pantoprazole 40 mg tablet,delayed release 40 mg PO BID GERD 03/14/22 [History Last Taken Unknown] quetiapine 25 mg PO/SL QHS mood 03/14/22 [History Last Taken Unknown] Allergy/AdvReac Type Severity Reaction Status Date / Time No Known Allergies Allergy Verified 11/30/20 11:51 Family History Mother CAD (coronary artery disease) CVA (cerebral vascular accident) Congestive heart failure Father Hypertension Sister Cancer Brother Hypertension Diabetes Cancer Liver cancer CAD (coronary artery disease), Onset Age: 70 Brother Esophageal cancer Surgical History history c-scope (~08/14/18) History of cardioversion (05/19/18) History of esophagogastroduodenoscopy (EGD) (~08/14/18) Social History (Updated 03/14/22 @ 15:[address] Tomi Barbosa MD) household members: spouse Smoking Status: Former smoker quit date: 09/22/89 pack-years: 30 alcohol intake: current alcohol intake frequency: a few times a week Alcohol type: beer caffeine: Yes Type: coffee Number of servings: 1 ROS Constitutional Constitutional: Denies chills, fever(s) or weight gain ENT HEENT: Denies headache(s), nasal congestion or nasal discharge Cardiovascular Cardiovascular: Denies chest pain or palpitations Respiratory/Chest Respiratory/Chest: Denies cough, excessive phlegm production or shortness of breath with exertion Gastrointestinal Gastrointestinal: Denies abdominal pain, nausea or vomiting Genitourinary Genitourinary: Denies dysuria Musculoskeletal Musculoskeletal: Denies joint pain or joint swelling Integumentary Integumentary: Denies rash or wounds Neurologic Neurologic: Denies focal weakness, numbness or tingling Psychiatric Psychiatric: Denies anxiety, auditory hallucinations, depression, homicidal ideation or suicidal ideation Vital Signs Vital Signs Vital Signs: 03/14/22 15:05 03/14/22 15:05 Temperature 97.3 F L 97.3 F L Temperature Source Temporal Temporal Pulse Rate 72 72 Respiratory Rate 17 19 H Blood Pressure 150/60 H 150/60 H Blood Pressure Mean 90 90 Blood Pressure Source Monitor Monitor Blood Pressure Position Supine Supine Blood Pressure Location Left Arm Left Arm Pulse Ox 97 99 Oxygen Delivery Method Room Air Room Air Physical Exam Const alert General Appearance: cooperative HEENT normocephalic Eyes PERRL and EOMs intact bilaterally Neck supple, no JVD and no carotid bruits Resp normal respiratory effort, normal air movement and clear to auscultation bilaterally Cardio regular rate and regular rhythm GI normal to inspection, nondistended, normoactive bowel sounds, non-tender and non-distended Extremity normal capillary refill General Extremity: Negative for edema Skin no rashes or lesions noted General Skin Exam: no breakdown Psych affect normal Appearance: appropriate Assessment & Plan Assessment/Plan (1) Debility: (2) Acute respiratory failure with hypoxia: (3) Multifocal pneumonia: (4) Acute on chronic diastolic (congestive) heart failure: (5) Atrial fibrillation with rapid ventricular response: (6) Anemia: (7) Emphysema lung: (8) Atrial fibrillation: (9) Alzheimer disease: (10) Diabetes mellitus: (11) Hypertension: (12) Hyperlipidemia: PLAN: Plan 81 year old male with below past medical history hospitalized for acute respiratory failure with hypoxia secondary to multifocal pneumonia, complicated by acute on chronic diastolic congestive heart failure, atrial fibrillation with rapid ventricular response, gastrointestinal bleed, admitted to TCU with debility, here for rehabilitation, strengthening, prior to disposition determination. * Debility - PT/OT. * Dysphagia - ST, pureed/honey thick diet. * Pain - Tylenol 1000mg q6h prn pain (1-10). * Bowel - senna/colace 1 tablet bid, MOM 30ml po x 1 prn. * Adult immunization - Administer pneumonia vaccine, covid19 vaccine, flu vaccine as appropriate. * DVT prophylaxis - Hold, GI bleed. * Atrial fibrillation - Amiodarone 200mg daily, hold anticoagulation due to GI bleed. * Alzheimer Disease - Donepezil 5mg qhs. * BPH - Doxazosin 1mg qhs. * Iron deficiency anemia - Iron 325mg daily. * Diabetes Mellitus II - Tradjenta 5mg, Metformin 500mg bid. * GERD - Pantoprazole 40mg daily. * Encephalopathy - Seroquel 25mg qhs, stable chronic penitentiary use, GDR not recommended.
[2022-03-14] MEDS: Pantoprazole Sodium 40 MG Tablet PO (18:21)
[2022-03-14] MEDS: metFORMIN HCl 500 MG Tablet PO (18:21)
[2022-03-14] MEDS: LINAGLIPTIN 5 MG TABLET PO (18:21)
[2022-03-14] MEDS: Iron Polysaccharide Complex 150 MG CAPSULE PO (18:25)
[2022-03-14 18:55] LABS: Bedside Glucose 129 mg/dL (74-106)
[2022-03-14 19:00] VITALS: PULSE 72; RESP 18; O2SAT 99
[2022-03-14] MEDS: Doxazosin 1 MG Tablet PO (20:30)
[2022-03-14] MEDS: Donepezil HCl 5 MG Tablet PO (20:30)
[2022-03-14] MEDS: Atorvastatin Calcium 20 MG Tablet PO (20:30)
[2022-03-14] MEDS: QUEtiapine 25 MG Tablet PO (20:30)
[2022-03-14 21:00] VITALS: BMI 25.5
[2022-03-15 06:58] VITALS: BP 141/53; PULSE 61
[2022-03-15] MEDS: LINAGLIPTIN 5 MG TABLET PO (06:59)
[2022-03-15] MEDS: Pantoprazole Sodium 40 MG Tablet PO ×2 (06:59→17:59)
[2022-03-15] MEDS: Iron Polysaccharide Complex 150 MG CAPSULE PO ×2 (06:59→17:58)
[2022-03-15] MEDS: metFORMIN HCl 500 MG Tablet PO ×2 (07:00→17:58)
[2022-03-15] MEDS: Amiodarone 200 MG Tablet PO (07:00)
[2022-03-15 07:44] LABS: Absolute Lymphocyte Count 0.94 X10^3/uL (0.83-4.51); Absolute Neutrophil Count 4.8 X10^3/uL (2.0-7.7); Basophil# 0.05 X10^3/uL; Basophil% 0.8 % (0-1); Eosinophil# 0.07 X10^3/uL; Eosinophils% 1.1 % (0-5); Hematocrit 34.7 % (40-54); Hemoglobin 10.2 g/dL (13.0-16.5); Lymphocyte # 0.94 X10^3/ul (0.83-4.51); Lymphocyte % 14.2 % (19-41); Mean Corp Hgb Conc 29.4 g/dL (32-36); Mean Corpuscular Hgb 27.2 pg (27.0-32.0); Mean Corpuscular Volume 92.5 fL (80-94); Mean Platelet Vol. 10.7 fl (6.2-12.0); Monocyte# 0.72 X10^3/uL; Monocyte% 10.9 % (0-10); NRBC Flagged by Analyzer 0 % (0-5); Neutrophil # 4.78 X10^3/uL (2.7-7.7); Neutrophil % 72.4 % (47-70); Platelet Count 430 K/mm3 (150-450); RBC Distribution Width CV 19.3 % (11.6-14.6); RBC Distribution Width SD 64.9 fl (35.1-43.9); Red Blood Count 3.75 M/mm3 (4.6-6.2); White Blood Count 6.6 K/mm3 (4.4-11.0)
[2022-03-15 07:53] LABS: Anion Gap 6 (5-15); BUN 15 mg/dL (7-18); BUN/Creat Ratio 19.9 RATIO (10-20); Calcium,Total 8.5 mg/dL (8.5-10.1); Chloride 112 mmol/L (98-107); Creatinine, Serum 0.75 mg/dL (0.70-1.30); EST Glomerular Filtration Rate 105 mL/min (>60); Est Glom Filt Rate - Afr Amer 127 mL/min (>60); Estimated Creatinine Clearance 56.95 ml/min; Glucose 94 mg/dL (74-106); Potassium 4.1 mmol/L (3.5-5.1); Sodium Level 143 mmol/L (136-145)
[2022-03-15 08:21] LABS: Bedside Glucose 88 mg/dL (74-106)
[2022-03-15 09:10] VITALS: PULSE 73; RESP 18; O2SAT 96
[2022-03-15] MEDS: Acetaminophen 500 MG Tablet 1000 MG PO ×2 (09:51→20:55)
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
[2022-03-15] MEDS: Tuberculin,Purif.prot.deriv. 50 TU/ML Vial 0.1 ML ID (10:54)
[2022-03-15 15:35] VITALS: BP 108/48; PULSE 60; RESP 13; TEMP 36.4; O2SAT 97
[2022-03-15] MEDS: Atorvastatin Calcium 20 MG Tablet PO (20:55)
[2022-03-15] MEDS: Doxazosin 1 MG Tablet PO (20:56)
[2022-03-15] MEDS: QUEtiapine 25 MG Tablet PO (20:56)
[2022-03-15] MEDS: Nystatin Powder 15gm Bottle 1 APPLIC TOPICAL (20:57)
[2022-03-15] MEDS: Menthol/Lanolin/Calamine/Znox 113 GM Tube 1 APPLIC TOPICAL (20:57)
[2022-03-15] MEDS: Donepezil HCl 5 MG Tablet PO (20:57)
[2022-03-16] MEDS: Pantoprazole Sodium 40 MG Tablet PO ×2 (05:03→18:00)
[2022-03-16] MEDS: Iron Polysaccharide Complex 150 MG CAPSULE PO ×2 (05:03→18:00)
[2022-03-16 06:46] LABS: Bedside Glucose 108 mg/dL (74-106)
[2022-03-16] MEDS: metFORMIN HCl 500 MG Tablet PO ×2 (09:07→18:00)
[2022-03-16] MEDS: LINAGLIPTIN 5 MG TABLET PO (09:08)
[2022-03-16] MEDS: Amiodarone 200 MG Tablet PO (09:08)
[2022-03-16] MEDS: Acetaminophen 500 MG Tablet 1000 MG PO ×2 (09:11→21:04)
[2022-03-16 09:19] VITALS: BP 140/50; PULSE 63
[2022-03-16] MEDS: Nystatin Powder 15gm Bottle 1 APPLIC TOPICAL ×2 (11:12→21:05)
[2022-03-16] MEDS: Menthol/Lanolin/Calamine/Znox 113 GM Tube 1 APPLIC TOPICAL ×2 (11:13→21:04)
--- NOTE | 2022-03-16 14:32 | NURSING ---
PT STILL YELLS OUT IN PAIN WHEN TRYING TO MOVE HIM. NEW ORDERS FOR SCHEDULED TYLENOL AND PRN ULTRAM. WILL CONTINUE TO MONITOR. RN AWARE
[2022-03-16 15:18] VITALS: BP 134/41; PULSE 51; RESP 18; TEMP 36.2; O2SAT 98
[2022-03-16 20:00] VITALS: PULSE 50; RESP 18; O2SAT 94
[2022-03-16] MEDS: traMADol 50 MG Tablet PO (20:17)
[2022-03-16 20:34] VITALS: PULSE 50; RESP 18; O2SAT 94
[2022-03-16] MEDS: Doxazosin 1 MG Tablet PO (21:03)
[2022-03-16] MEDS: Atorvastatin Calcium 20 MG Tablet PO (21:04)
[2022-03-16] MEDS: Donepezil HCl 5 MG Tablet PO (21:05)
[2022-03-16] MEDS: QUEtiapine 25 MG Tablet PO (21:05)
[2022-03-17] MEDS: Acetaminophen 500 MG Tablet 1000 MG PO ×3 (05:14→21:52)
[2022-03-17] MEDS: Iron Polysaccharide Complex 150 MG CAPSULE PO ×2 (05:14→17:53)
[2022-03-17] MEDS: Pantoprazole Sodium 40 MG Tablet PO ×2 (05:14→17:53)
[2022-03-17 06:56] LABS: Bedside Glucose 96 mg/dL (74-106)
[2022-03-17 07:40] VITALS: PULSE 57; RESP 16
[2022-03-17 08:44] VITALS: BP 131/49; PULSE 57
[2022-03-17] MEDS: Amiodarone 200 MG Tablet PO (08:54)
--- NOTE | 2022-03-17 09:27 | CASEMGMT ---
Addendum entered by Yenni Shaffer 03/17/22 11:34: requested referral to palliative. SW spoke with about palliative. did express interest in hospice at home at [place], but stated she doesn't know anything else about hospice other than they assist in the home. SW educated to palliative and hospice services. Offered referral to [facility] palliative for informational meeting. would like children present and agreeable before consents are signed. Order entered. Email sent to palliative for referral. Original Note: Social Work Pt unable to complete assessment d/t cognition. SW contacted to complete assessment. Introduced self and role. Verified contacts. No MOLST form completed r/t cognition of pt. agreed to bring in copies of advanced directives. Educated to [facility] insurance with [employer]D 03/18 and continued stay is not guaranteed with each review. See SW assessment for PLOF. explained she provided 08/09 care for pt and did not leave the house. The children would assist with grocery shopping, etc. is primary caregiver. SW inquired about behaviors at home prior. explained pt does get agitated, yells, says nasty things to me, denied any physical altercations; pt did get out of their home several times. Son installed locks on the doors and pt has not gotten out of the home since. Inquired about DC plan. firm on taking pt home along with children. and children will not place pt in an AL or SNF. Pt will return home. SW offered ongoing assistance with DC planning. Yenni Shaffer, DAGO LANDW
--- NOTE | 2022-03-17 11:33 | NURSING ---
Consult called to podiatry for nail care.
--- NOTE | 2022-03-17 11:43 | NURSING ---
Speech therapy consulted for swallowing difficulty.
--- NOTE | 2022-03-17 11:52 | NURSING ---
Portrait Consultant Note; Activity Asset: Complete Rubio is unable to independent activities, his and children help him w/his daily needs. He will talk with staff but unable to understand most of the conversation. He can watch tv and read or look at magazines independently. Rubio will need 1.1 visit for extra social well-being. Staff will give Rubio a daily chronicle for him to look at and read on his own time. stated he can get overwhelmed if to many people are in his space.
[2022-03-17] MEDS: Glucerna Shake 120 ML LIQUID PO ×2 (12:11→17:59)
--- NOTE | 2022-03-17 13:57 | PCM.PROGNOTE ---
Subjective Subjective Patient seen for nail care and pressure ulceration to bilateral heel no new complaints today denies constitutionals patient agitated during nail care Objective Data Objective Data Vital Signs: Vital Signs Temp Pulse Resp BP Pulse Ox O2 Del Method 97.2 F L 57 L 16 131/49 H 94 Room Air 03/16/22 15:18 03/17/22 08:44 03/17/22 07:40 03/17/22 08:44 03/16/22 20:34 03/17/22 07:40 Oxygen Delivery Method Room Air Weight: 78.4 kg Body Mass Index (BMI) 25.5 Intake & Output: Intake and Output for Last 24 Hours 03/15/22 03/16/22 03/17/22 23:59 23:59 23:59 Intake Total 220 / 220 360 / 360 180 / 180 Balance 220 / 220 360 / 360 180 / 180 Lab / Micro Data Result Diagrams: 03/15/22 06:58 03/15/22 06:58 Labs: Laboratory Results - last 24 hr 03/17/22 06:37: POC Glucose 96 Micro: Microbiology 03/16/22 05:00 Nasal Secretion SARS-CoV-2 Antigen (Rapid) - Final 03/15/22 04:40 Nasal Secretion SARS-CoV-2 Antigen (Rapid) - Final Physical Exam Narrative Diminished dorsalis pedis pulses. Atrophic skin changes noted to bilateral feet. Absent protective sensation and light touch sensation. Toenails 1-5 bilaterally elongated/thickened with subuungual debris. Stable pressure ulcerations with necrotic base w/o acute or chronic signs of infection to bilateral heels. Assessment & Plan Assessment/Plan (1) Tinea unguium: PLAN: Exam performed Patient has stable heel ulcerations to bilateral feet. Patient offloading with eggcrate cushions and heel float using pillows. Wound care on board performing dressing changes. Wounds appear stable with necrotic base no signs of infection. Per nurse patient may progress to hospice. We will continue local wound care with once a week checks to ensure no acute infection to maintain comfort. Nail care x10 performed using sterile nail nippers debriding toenails x10 in length and thickness without incident. Will follow up in 1 week with patient. (2) Peripheral vascular disease, unspecified: (3) Non-pressure chronic ulcer of other part of right foot with fat layer exposed: (4) Non-pressure chronic ulcer of other part of left foot with fat layer exposed:
[2022-03-17 14:39] VITALS: BP 132/60; PULSE 61; RESP 18; TEMP 36.3; O2SAT 97
[2022-03-17] MEDS: traMADol 50 MG Tablet PO (14:49)
--- NOTE | 2022-03-17 14:50 | NURSING ---
Patient and daughter agreed to receive COVID booster tomorrow and ordered.
--- NOTE | 2022-03-17 15:01 | WOUNDNOTE ---
wound photo: right great toe
--- NOTE | 2022-03-17 15:02 | WOUNDNOTE ---
wound photo: right heel
--- NOTE | 2022-03-17 15:03 | WOUNDNOTE ---
wound photo: right heel
--- NOTE | 2022-03-17 15:03 | WOUNDNOTE ---
wound photo: left heel
--- NOTE | 2022-03-17 15:56 | PCM.PN.DRR ---
TCU RX Drug Regimen Review Subjective: TCU Admission. 81 YOM admitted to [facility] ICU. Hospitalized for acute respiratory failure with hypoxia secondary to multifocal pneumonia, complicated by acute on chronic diastolic congestive heart failure, atrial fibrillation with rapid ventricular response, gastrointestinal bleed. Admitted to TCU with debility for strengthening and rehabilitation. Objective: Allergies No Known Allergies Allergy (Verified 11/30/20 11:51) Current Medications Generic Name Dose Route Start Last Admin Trade Name Freq PRN Reason Stop Dose Admin Acetaminophen 1,000 mg 03/16/22 14:00 03/17/22 14:45 Acetaminophen 500 Mg Tablet PO 1,000 mg Q8H EVENS Administration Amiodarone HCl 200 mg 03/15/22 08:00 03/17/22 08:54 Amiodarone 200 Mg Tablet PO 200 mg DAILYCM [facility] Administration Atorvastatin Calcium 20 mg 03/14/22 22:00 03/16/22 21:04 Atorvastatin Calcium 20 Mg Tablet PO 20 mg QHS [facility]ENS Administration COVID-19 Vaccine mRNA LNP-S (MOD) (PF) 50 mcg 03/18/22 11:00 Covid-19 Bv Moderna Booster 50 Mcg/0.5 Ml Syringe IM 03/18/22 11:01 .ONCE ONE Calamine/Phenol 1 applic 03/16/22 10:00 03/16/22 21:04 Menthol/Lanolin/Calamine/Znox 113 Gm Tube TOPICAL 1 applic BID@1000,2200 EVENS Administration Protocol Donepezil HCl 5 mg 03/14/22 22:00 03/16/22 21:05 Donepezil Hcl 5 Mg Tablet PO 5 mg QHS [facility]ENS Administration Doxazosin Mesylate 1 mg 03/14/22 22:00 03/16/22 21:03 Doxazosin 1 Mg Tablet PO 1 mg QHS [facility]ENS Administration Linagliptin 5 mg 03/16/22 08:00 03/17/22 08:57 Linagliptin 5 Mg Tablet PO Not Given DAILY@0800 EVENS Magnesium Hydroxide 30 ml 03/14/22 15:37 Magnesium Hydroxide 30 Ml Udc PO X1 PRN Constipation Metformin HCl 500 mg 03/14/22 17:00 03/17/22 08:57 Metformin Hcl 500 Mg Tablet PO Not Given BIDCM [facility] Nutritional Formula (Lactose Free) 120 ml 03/17/22 12:45 03/17/22 12:11 Glucerna Shake 120 Ml Liquid PO 120 ml TIDCM [facility]ENS Administration Nystatin 1 applic 03/16/22 10:00 03/16/22 21:05 Nystatin Powder 15gm Bottle TOPICAL 1 applic BID@1000,2200 EVENS Administration Protocol Pantoprazole Sodium 40 mg 03/14/22 18:00 03/17/22 05:14 Pantoprazole Sodium 40 Mg Tablet PO 40 mg BID [facility] Administration Polysaccharide Iron Complex 150 mg 03/14/22 18:00 03/17/22 05:14 Iron Polysaccharide Complex 150 Mg Capsule PO 150 mg BID [facility] Administration Quetiapine Fumarate 25 mg 03/14/22 22:00 03/16/22 21:05 Quetiapine 25 Mg Tablet PO 25 mg QHS [facility] Administration Tramadol HCl 50 mg 03/16/22 12:39 03/17/22 14:49 Tramadol 50 Mg Tablet PO 50 mg Q6H PRN PRN Administration Pain Score 1-10 Tuberculin PPD 0.1 ml 03/22/22 10:00 Tuberculin,Purif.Prot.Deriv. 50 Tu/Ml Vial ID 03/22/22 10:01 X1 ONE Problem List (Last Reviewed 03/14/22 @ 15:[address] Tomi Barbosa MD) Non-pressure chronic ulcer of other part of left foot with fat layer exposed (Chronic) Non-pressure chronic ulcer of other part of right foot with fat layer exposed (Chronic) Peripheral vascular disease, unspecified (Acute) Tinea unguium (Acute) Hyperlipidemia (Acute) Hypertension (Chronic) Diabetes mellitus (Acute) Alzheimer disease (Acute) Atrial fibrillation (Acute) Emphysema lung (Acute) Anemia (Acute) Atrial fibrillation with rapid ventricular response (Acute) Acute on chronic diastolic (congestive) heart failure (Chronic) Multifocal pneumonia (Acute) Acute respiratory failure with hypoxia (Acute) Debility (Acute) Vital Signs Temp Pulse Resp BP Pulse Ox O2 Del Method 97.4 F L 61 18 132/60 H 97 Room Air 03/17/22 14:39 03/17/22 14:39 03/17/22 14:39 03/17/22 14:39 03/17/22 14:39 03/17/22 14:39 Oxygen Delivery Method Room Air Weight: 78.4 kg Body Mass Index (BMI) 25.5 Sodium 143 mmol/L (136-145) 03/15/22 06:58 Potassium 4.1 mmol/L (3.5-5.1) 03/15/22 06:58 Chloride 112 mmol/L (98-107) H 03/15/22 06:58 Carbon Dioxide 25.0 mmol/L (21.0-32.0) 03/15/22 06:58 Anion Gap 6 (5-15) 03/15/22 06:58 BUN 15 mg/dL (7-18) 03/15/22 06:58 Creatinine 0.75 mg/dL (0.70-1.30) 03/15/22 06:58 Est GFR (MDRD) Af Amer 127 mL/min (>60) 03/15/22 06:58 Est GFR (MDRD) Non-Af 105 mL/min (>60) 03/15/22 06:58 BUN/Creatinine Ratio 19.9 RATIO (10-20) 03/15/22 06:58 Glucose 94 mg/dL (74-106) 03/15/22 06:58 Assessment/Plan: 1. Pain: acetaminophen 1000mg PO Q8 and tramadol 50mg PO Q6H PRN pain 1-10. Resident has had 2 doses of tramadol for generalized pain score of 2 and 6. Please continue to monitor for increased pain, PRN usage, constipation, respiratory depression, and renal function. 2. Bowel: senna/docusate 1T PO BID and MOM 30mL PO x1 PRN constipation. Resident has not had any PRN doses. Please continue to monitor for constipation and PRN usage. Last documented bowel movement 03/15. 3. Atrial fibrillation: amiodarone 200mg PO daily. Anticoagulation held due to GI bleed. Please continue to monitor BP (last 132/60), HR (last 61), potassium (last 4.1mmol/L) and sodium (last 143mmol/L). 4. Alzheimer disease: donepezil 5mg PO QHS. Please continue to monitor for GI symptoms and S/S of Alzheimer's. 5. BPH: doxazosin 1mg PO QHS. Please continue to monitor for S/S of BPH, dizziness and drowsiness. 6. Iron deficiency anemia: Ferrex 150mg PO daily. Please continue to monitor hemoglobin (last 10.2g/dL), dark stools and constipation. 7. Diabetes Mellitus II: linagliptin 5mg PO daily and metformin 500mg PO BIDCM. Please consider ordering a hemoglobin A1c as this resident does not have one in the chart. Thanks. Please continue to monitor renal function, glucose (last 96 mg/dL) and S/S of hypoglycemia. 8. GERD: pantoprazole 40mg PO daily. Please continue to monitor for S/S of GERD and diarrhea (BEERs medication, increased risk of C. diff infections). 9. Hyperlipidemia: atorvastatin 20mg PO QHS. Please consider ordering a lipid panel as the last lipid panel was from 12/01/2020. Thanks. Please continue to monitor for muscle pain. Assessment/Plan for indications treated with psychotropic medications: 1. Encephalopathy: quetiapine 25mg PO QHS. Please see physician note regarding GDR. Please continue to monitor for falls/fracture/delirium/dementia (BEERs medication), sodium and weight gain. Medical chart and medication regimen reviewed. The following medication irregularities or issues were identified: *1. Linagliptin 5mg PO daily and metformin 500mg PO BIDCM. Please consider ordering a hemoglobin A1c as this resident does not have one in the chart. Thanks. *2. Atorvastatin 20mg PO QHS. Please consider ordering a lipid panel as the last lipid panel was from 12/01/2020. Thanks. Date of Note:: 03/17/22
[2022-03-17] MEDS: Menthol/Lanolin/Calamine/Znox 113 GM Tube 1 APPLIC TOPICAL ×2 (17:51→21:53)
[2022-03-17] MEDS: metFORMIN HCl 500 MG Tablet PO (17:52)
[2022-03-17] MEDS: Nystatin Powder 15gm Bottle 1 APPLIC TOPICAL ×2 (17:52→21:54)
--- NOTE | 2022-03-17 18:10 | NURSING ---
Poor intake today, ate only a few bites for breakfast and lunch. Family in this evening, he ate much better with them helping him. Added glucerna shakes and he will drink the whole cup, loves chocolate per family. Updated Dr Barbosa about intake and that pt hasn't voided all day, bladder scan shows only 233cc in bladder. No new orders, will continue to encourage fluids. Updated Dr. Barbosa that patient also gets very agitated/restless at times, meds adjusted.
[2022-03-17] MEDS: QUEtiapine 25 MG Tablet PO (21:51)
[2022-03-17] MEDS: Atorvastatin Calcium 20 MG Tablet PO (21:51)
[2022-03-17] MEDS: Doxazosin 1 MG Tablet PO (21:51)
[2022-03-17] MEDS: Donepezil HCl 5 MG Tablet PO (21:51)
[2022-03-17] MEDS: Mirtazapine 15 MG Tablet 7.5 MG PO (21:51)
--- NOTE | 2022-03-17 21:59 | NURSING ---
Aide notified this nurse that pt has not urinated yet this shift. Abdomen soft, non-distended, and non-tender. Bladder scanned for 293 cc. Fluids given as pt has had poor intake today.
[2022-03-18] MEDS: traMADol 50 MG Tablet PO ×2 (00:38→08:56)
[2022-03-18] MEDS: Pantoprazole Sodium 40 MG Tablet PO ×2 (04:49→18:03)
[2022-03-18] MEDS: Acetaminophen 500 MG Tablet 1000 MG PO ×3 (04:49→20:40)
[2022-03-18] MEDS: Iron Polysaccharide Complex 150 MG CAPSULE PO ×2 (04:49→18:02)
[2022-03-18 06:46] LABS: Bedside Glucose 93 mg/dL (74-106)
[2022-03-18 08:36] VITALS: BP 149/47; PULSE 63
[2022-03-18] MEDS: metFORMIN HCl 500 MG Tablet PO ×2 (08:51→18:02)
[2022-03-18] MEDS: Glucerna Shake 120 ML LIQUID PO ×3 (08:51→17:59)
[2022-03-18] MEDS: Amiodarone 200 MG Tablet PO (08:52)
[2022-03-18] MEDS: LINAGLIPTIN 5 MG TABLET PO (08:52)
--- NOTE | 2022-03-18 10:00 | NURSING ---
CALLED MADE TO OFFICE FOR CONSULT PER ORDER. TALKED TO STAFF AND STAFF WILL LET INK JET OPERATOR KNOW.
[2022-03-18] MEDS: Menthol/Lanolin/Calamine/Znox 113 GM Tube 1 APPLIC TOPICAL ×2 (10:14→20:41)
[2022-03-18] MEDS: Nystatin Powder 15gm Bottle 1 APPLIC TOPICAL ×2 (10:14→20:41)
--- NOTE | 2022-03-18 13:29 | NURSING ---
CALLED PT SON YULIET COOPER WHO IS THE 1ST CHOICE FOR POA AND ASKED HIM IF IT WAS OK FOR THIS NURSE TO GIVE HIS DAD HIS COVID BOOSTER AND THAT HIS SISTER NATANAEL [2ND CHOICE POA] SIGNED THE PAPERS AND PT WAS ASKED [WHO HAS DEMENTIA/CONFUSION] AND PT STATED YES. SON STATED HE WAS NOT SURE AND STILL HAD QUESTIONS AND ASKED THIS NURSE IF HIS DAD WOULD HAVE SIDE AFFECTS. THIS NURSE STATED THAT SOME PT DO AND SOME NOT. SON STATED HE WILL DO SOME RESEARCH ON IT AND TALK TO HIS SISTER MORE ABOUT IT AND GIVE THIS NURSE AN ANSWER TOMORROW AND WILL TRY AND BE HERE FOR THE PLAN OF CARE MEETING. SON THANKED THIS NURSE FOR CALLING. THIS NURSE ALSO DISCUSSED THIS WITH CONSUELO,HUMAN RESOURCES OFFICER BEFORE CALLING SON. RN AND PHARMACY AWARE.
[2022-03-18 15:33] VITALS: BP 124/62; PULSE 64; RESP 14; TEMP 36.4; O2SAT 97
[2022-03-18 20:15] VITALS: PULSE 50; RESP 16; O2SAT 91
[2022-03-18] MEDS: Doxazosin 1 MG Tablet PO (20:40)
[2022-03-18] MEDS: Mirtazapine 15 MG Tablet 7.5 MG PO (20:40)
[2022-03-18] MEDS: Atorvastatin Calcium 20 MG Tablet PO (20:40)
[2022-03-18] MEDS: Donepezil HCl 5 MG Tablet PO (20:40)
[2022-03-18] MEDS: QUEtiapine 25 MG Tablet PO (20:40)
[2022-03-19] MEDS: Pantoprazole Sodium 40 MG Tablet PO (05:43)
[2022-03-19] MEDS: Acetaminophen 500 MG Tablet 1000 MG PO ×2 (05:43→21:09)
[2022-03-19] MEDS: Iron Polysaccharide Complex 150 MG CAPSULE PO (05:44)
[2022-03-19 06:51] LABS: Bedside Glucose 109 mg/dL (74-106)
[2022-03-19] MEDS: LINAGLIPTIN 5 MG TABLET PO (08:38)
[2022-03-19] MEDS: metFORMIN HCl 500 MG Tablet PO (08:38)
[2022-03-19] MEDS: Amiodarone 200 MG Tablet PO (08:38)
[2022-03-19] MEDS: traMADol 50 MG Tablet PO (08:43)
[2022-03-19] MEDS: Glucerna Shake 120 ML LIQUID PO ×2 (08:43→13:52)
[2022-03-19 08:57] VITALS: BP 133/55; PULSE 58
[2022-03-19] MEDS: Menthol/Lanolin/Calamine/Znox 113 GM Tube 1 APPLIC TOPICAL ×2 (10:38→21:10)
[2022-03-19] MEDS: Nystatin Powder 15gm Bottle 1 APPLIC TOPICAL ×2 (10:38→21:11)
[2022-03-19 10:40] VITALS: PULSE 68; RESP 16; O2SAT 97
--- NOTE | 2022-03-19 10:59 | CASEMGMT ---
Addendum entered by Teena Forrester 03/19/22 11:44: This manager social work provided Amando with list of private duty aides in the event that family would be able to or have a desire to private pay for aides in the home. Amando thanked this manager social work. FDC placement was broached with family by this manager social work and patient family continues to not be open to fdc placement and only open to patient returning to home. Original Note: Social Work Plan of care meeting held. Patient unable to attend due to agitation and getting overwhelmed with multiple people in the room. Team meeting with patient sonAmando in person and patient spouse, Mel and daughter, Skylar outside patient room. Therapy inquired about family training to be able to assess how patient does with family present and working with family versus staff that patient does not know as well. Patient family open to doing family training with therapy and plans to touch base with therapy on setting the family training up. This manager social work communicating to patient family that insurance update was due on 03/18/2022 and continue to be pending response from insurance on continued stay approval. This manager social work communicating to patient family that no guarantee of continued stay approval for patient insurance. Team broached conversation of discharge plan for patient as patient continues to require x2 assist for transfers and mobility. Patient family report that plan is for patient to return to home regardless of level of assistance and we will work things out. Amando reports that plan is for [facility] to be consulted when patient discharges to the community for hospice services to follow and assist with care/treatment plan for patient in the community. Amando and patient families main goal for patient is to be able to increase patient mobility to be able to better manage and maintain patient safety in the home. Patient family appear to be understanding patient level of care needs and plan to set up family training with therapy on a daily basis. Social Work to continue to follow. Mitchel LOZA, AILYN
--- NOTE | 2022-03-19 11:01 | NURSING ---
THIS NURSE INTO PT ROOM AND SON WAS THERE. SON WONDERING WHY PT WAS SLEEPING. THIS NURSE STATED THAT I GAVE PT PRN PAIN MEDS DUE TO PT COMPLAINING AND GRIMACING IN PAIN. SON VERY UPSET FOR THIS NURSE GIVING PAIN MED. SON STATED HOW DO YOU KNOW IF HE IS REALLY IN PAIN. IF I TOUCH HIM HERE HE MAY HURT AND IF I TOUCH HIM HERE HE MAY NOT BUT THEN IF I GO BACK TO SAME AREA HE WONT COMPLAIN HES HURTING. HOW DO I KNOW IF HES REALLY NEEDING THE PAIN MED OR IF YOU ARE JUST DRUGGING HIM FOR YOUR CONVINCE CAUSE NOW HE CANT BE AWAKE FOR THE MEETING AND IF THIS CONTINUES WE ARE NOT ABLE TO CARE FOR HIM AT HOME AND MY DAD WILL CONTINUE TO GET WEAK AND JUST . HE WONT EVEN BE ABLE TO DO THERAPY HERE IF HES DRUGGED UP THE OTHER HOSPITAL DIDNT EVEN GET HIM OUT OF BED AND DIDNT FEED HIM FOR 4 DAYS. THIS NURSE STATED TO SON THAT WE ARE NOT THE OTHER HOSPITAL AND THERAPY HAS BEEN WORKING WITH PT AND PT HAS BEEN EATING MEALS AND THIS NURSE DOES NOT GIVE PAIN MEDS FOR HER CONVINCE I GIVE THEM WHEN PT ASKS FOR THEM AND FOR THERE COMFORT AND WILL NOT DENY THE PT THAT. AND IF YOU DO NOT WANT THIS NURSE TO GIVE YOUR DAD ANY PAIN MEDS THEN YOU TELL ME AND IN FRONT OF MY RN [employer] ARCHITECT PLUS YOU NEED TO DECIDE IF YOU WANT YOUR DAD TO HAVE HIS COVID BOOSTER THATS ON HOLD AT THE MOMENT DUE TO YOU WANTING TO THINK ABOUT IT WHEN WE TALKED YESTERDAY. SON ASKED IF GETTING THE SHOT WILL HELP HIS DAD OR NOT AND STATED I KNOW HE HAS BONE CANCER. THIS NURSE STATED TO SON THAT I CANT NOT ANSWER THAT QUESTION AND ITS HIS AND FAMILY DECISION. THIS NURSE LEFT ROOM AND STAFF FOR PLAN OF CARE MEETING CAME IN. REPORTED TO RN.
--- NOTE | 2022-03-19 14:08 | NURSING ---
THIS NURSE IN PT ROOM TO GIVE SCHEDULED MEDS AND GLUCERNA AND PT REFUSED. WITH AID, CHECKED PT ATTENDS AND REPOSITION PT. PT YELLED LEAVE ME ALONE. PT ATTENDS WAS STILL DRY AND HAS NOT VOIDED SINCE 4AM. BLADDER SCANNED PT AND HAD 143. RN NOTIFIED AND WILL CONTINUE TO MONITOR.
--- NOTE | 2022-03-19 14:30 | CASEMGMT ---
Social Work Voicemail received from patient son, Amando requesting a return phone call. Telephone call to Amando, no answer. voicemail left. Social Work to continue to follow. Mitchel LOZA, AILYN
[2022-03-19 16:00] VITALS: BP 138/31; PULSE 79; RESP 16; TEMP 36.4; O2SAT 98
--- NOTE | 2022-03-19 16:12 | CASEMGMT ---
Social Work Referral faxed to [facility] to begin process. Yenni Shaffer, FRUCTOSE LOADER PICTURE FRAMES INSPECTOR
--- NOTE | 2022-03-19 16:59 | CASEMGMT ---
Social Work Insurance issued LCD 03/21, DC 03/22. Contacted but does not have voicemail set up. Contacted son. Spoke with son and explained LCD, DC date and appeal rights. Son will speak with family to decide on appeal. Copy of NOM[facility] left in pt's room and family visiting this evening. Son did confirm plan is home with [facility]. Phoned referral to Angela at [facility]. Plan: DC home 03/22 with and [facility]
[2022-03-19 17:16] VITALS: BP 122/40; PULSE 60
--- NOTE | 2022-03-19 19:11 | DS.PCM_ITS ---
Providers Date of Admission: 03/14/22 Primary Care Physician: Dr. Johanny Lara, DO Consultations 03/15/22 09:21 Consult: Onc/Wound/wood floor layer Routine Comment: Reason for Consult:: pressure sores, heels black. stage 3 03/15/22 15:20 Consult: Podiatry Routine Consulting Provider: Isai Dubois Reason for Consult: trimming toenails EMERGENT Consult: No MD Notified: Yes Date Notified: 03/17/22 Time Notified: 11:35 Method of Notification: Spoke with office staff 03/17/22 11:37 Consult: Hospice / Palliative Care Routine Consulting Provider: [facility] Reason for Consult: PALLIATIVE - end stage Dementia EMERGENT Consult: No MD Notified: Yes Date Notified: 03/17/22 Time Notified: 11:37 Method of Notification: Verbal Reason For Visit: RESP. FAILURE,GI BLEED Diagnosis Discharge Diagnosis (1) Tinea unguium: Status: Acute Code(s): B35.1 - Tinea unguium (2) Peripheral vascular disease, unspecified: Status: Acute Code(s): I73.9 - Peripheral vascular disease, unspecified (3) Non-pressure chronic ulcer of other part of right foot with fat layer exposed: Status: Chronic Code(s): L97.512 - Non-pressure chronic ulcer of other part of right foot with fat layer exposed (4) Non-pressure chronic ulcer of other part of left foot with fat layer exposed: Status: Chronic Code(s): L97.522 - Non-pressure chronic ulcer of other part of left foot with fat layer exposed Plan 81 year old male with below past medical history hospitalized for acute respiratory failure with hypoxia secondary to multifocal pneumonia, complicated by acute on chronic diastolic congestive heart failure, atrial fibrillation with rapid ventricular response, gastrointestinal bleed, admitted to TCU with debility, here for rehabilitation, strengthening, prior to disposition determination. * Debility - PT/OT. * Dysphagia - ST, pureed/honey thick diet. * Pain - Tylenol 1000mg q6h prn pain (1-10). * Bowel - senna/colace 1 tablet bid, MOM 30ml po x 1 prn. * Adult immunization - Administer pneumonia vaccine, covid19 vaccine, flu vacc ine as appropriate. * DVT prophylaxis - Hold, GI bleed. * Atrial fibrillation - Amiodarone 200mg daily, hold anticoagulation due to GI bleed. * Alzheimer Disease - Donepezil 5mg qhs. * BPH - Doxazosin 1mg qhs. * Iron deficiency anemia - Iron 325mg daily. * Diabetes Mellitus II - Tradjenta 5mg, Metformin 500mg bid. * GERD - Pantoprazole 40mg daily. * Encephalopathy - Seroquel 25mg qhs, stable chronic skilled nursing use, GDR not recommended. Medications at Discharge Home Medications acetaminophen 500 mg tablet 1,000 mg PO Q8H #0 tabs 03/19/22 Hospital Course Operations None Procedures None Summary of Care Provided Minutes Spent on Discharge: 35 Hospital Course: 81 year old male with below past medical history hospitalized for acute respiratory failure with hypoxia secondary to multifocal pneumonia, complicated by acute on chronic diastolic congestive heart failure, atrial fibrillation with rapid ventricular response, gastrointestinal bleed, admitted to TCU with debility, here for rehabilitation, strengthening, prior to disposition determination. Resident dying. Discharge home with 03/22/2022, [facility]. Physical Exam Const alert General Appearance: cooperative HEENT normocephalic Eyes PERRL and EOMs intact bilaterally Neck supple, no JVD and no carotid bruits Resp normal respiratory effort, normal air movement and clear to auscultation bilaterally Cardio regular rate and regular rhythm GI normal to inspection, nondistended, normoactive bowel sounds, non-tender and non-distended Extremity normal capillary refill General Extremity: Negative for edema Skin no rashes or lesions noted General Skin Exam: no breakdown Psych affect normal Appearance: appropriate Weight / BMI Weight Weight: 78.4 kg Body Mass Index (BMI) 25.5 ABG / Lab / Microbiology Data Result Diagrams: 03/15/22 06:58 03/15/22 06:58 Laboratory: Laboratory Results - last 24 hr 03/19/22 06:17: POC Glucose 109 H Microbiology: Microbiology 03/18/22 06:45 Nasal Secretion SARS-CoV-2 Antigen (Rapid) - Final 03/16/22 05:00 Nasal Secretion SARS-CoV-2 Antigen (Rapid) - Final 03/15/22 04:40 Nasal Secretion SARS-CoV-2 Antigen (Rapid) - Final D/C Instructions Discharge Diet: No restrictions Discharge Activity: Return to Normal Activity, May Shower and Use Walker Weight Bearing Status: Weight bearing as tolerated Call your doctor if you observe: Fever of 101 or Higher, Inability to urinate, Inability to have a bowel movement, Shortness of breath, Dizziness, Fainting spells, Swelling in the ankles, Chest pain and Uncontrolled pain Additional Instructions: Discharge home with 03/22/2022, [facility]. Please Follow Up With: Torres Sahu When: Cancel. Meaningful Use Info Meaningful Use Diagnoses (Choose all that apply): None applicable Discharge Plan Admission Admit Date/Time: 03/14/22 14:56 Primary Reason for Your Visit: Debility. Attending Provider: Tomi Barbosa Chi Primary Care Provider: Johanny Lara Consulting Providers: Isai Dubois ; Sharon Mercado ; Ap Pradhan ; Samia Huertas ; Susannah Bowden ; Kimberlee Ochoa DOSIMETRIST Instructions Additional Instructions / Restrictions: Discharge home with 03/22/2022, [facility]. Discharge Orders/Prescriptions Prescriptions: New acetaminophen 500 mg Tablet 1,000 mg PO Q8H Qty: 0 0RF Discontinued Proventil HFA 90 mcg/actuation HFA aerosol inhaler 2 puff INHALATION Q4H PRN (Reason: Shortness Of Breath) donepezil [Aricept] 5 mg tablet 5 mg PO QHS nitroglycerin 0.4 mg/hr patch 24 hour 1 patch Transdermal DAILY atorvastatin 20 MG tablet 20 mg PO QHS fenofibrate micronized 130 MG capsule 130 mg PO DAILY dutasteride 0.5 mg capsule 0.5 mg PO DAILY Label Comments: TAKE 1 CAPSULE BY MOUTH EVERY DAY tamsulosin 0.4 MG capsule 0.4 mg PO BID potassium chloride 20 mEq tablet,ER particles/crystals See Rx Instructions .ROUTE .COMPLEX Qty: 30 11RF Dose Instruction: TAKE 1 TABLET BY MOUTH ONCE DAILY Rx Instructions: TAKE 1 TABLET BY MOUTH Twice DAILY furosemide 20 mg tablet 40 mg PO BID Qty: 180 3RF metformin 500 mg tablet 500 mg PO BID Qty: 60 0RF FeroSul 325 mg PO/SL DAILY Janumet 1 tablet PO/SL BIDCM doxazosin 1 mg PO/SL QHS quetiapine 25 mg PO/SL QHS pantoprazole 40 MG tablet,delayed release (DR/EC) 40 mg PO BID Eliquis 5 mg tablet 5 mg PO BID Qty: 60 11RF amiodarone 200 mg tablet 200 mg PO DAILY Qty: 90 3RF Referrals / Follow Up: Johanny Lara DO [Primary Care Provider] - Disposition Disposition (needs filled in before D/C Order can be placed): Hospice in Home
[2022-03-19] MEDS: Doxazosin 1 MG Tablet PO (21:10)
[2022-03-19] MEDS: Atorvastatin Calcium 20 MG Tablet PO (21:10)
[2022-03-19] MEDS: QUEtiapine 25 MG Tablet PO (21:10)
[2022-03-19] MEDS: Donepezil HCl 5 MG Tablet PO (21:10)
[2022-03-19] MEDS: Mirtazapine 15 MG Tablet 7.5 MG PO (21:10)
[2022-03-20] MEDS: Acetaminophen 500 MG Tablet 1000 MG PO ×3 (04:51→21:25)
[2022-03-20] MEDS: Iron Polysaccharide Complex 150 MG CAPSULE PO (04:52)
[2022-03-20] MEDS: Pantoprazole Sodium 40 MG Tablet PO ×2 (04:52→18:08)
[2022-03-20 06:51] LABS: Bedside Glucose 79 mg/dL (74-106)
[2022-03-20] MEDS: metFORMIN HCl 500 MG Tablet PO (09:17)
[2022-03-20] MEDS: Menthol/Lanolin/Calamine/Znox 113 GM Tube 1 APPLIC TOPICAL (09:18)
[2022-03-20] MEDS: Amiodarone 200 MG Tablet PO (09:18)
[2022-03-20] MEDS: LINAGLIPTIN 5 MG TABLET PO (09:18)
[2022-03-20] MEDS: Nystatin Powder 15gm Bottle 1 APPLIC TOPICAL ×2 (09:18→21:26)
[2022-03-20] MEDS: Glucerna Shake 120 ML LIQUID PO ×2 (09:19→15:11)
--- NOTE | 2022-03-20 09:45 | CASEMGMT ---
Social Work Received call from son stating family decided not to appeal insurance decision, and move forward with DC home with hospice. SW scheduled cot transport through [facility] for [facility]. Plan: DC 03/22 [facility]
[2022-03-20 14:02] VITALS: BP 131/57; PULSE 67; RESP 16; TEMP 36.4; O2SAT 98
[2022-03-20] MEDS: QUEtiapine 25 MG Tablet PO (21:25)
[2022-03-21] MEDS: Pantoprazole Sodium 40 MG Tablet PO ×2 (06:30→17:15)
[2022-03-21] MEDS: Acetaminophen 500 MG Tablet 1000 MG PO ×3 (06:30→22:01)
[2022-03-21 06:55] LABS: Bedside Glucose 78 mg/dL (74-106)
[2022-03-21] MEDS: Amiodarone 200 MG Tablet PO (07:35)
[2022-03-21] MEDS: Nystatin Powder 15gm Bottle 1 APPLIC TOPICAL ×2 (09:00→22:01)
[2022-03-21 09:08] VITALS: PULSE 56
--- NOTE | 2022-03-21 09:34 | NURSING ---
Supervisor Cloth Winding Note; MDS Complete
--- NOTE | 2022-03-21 12:19 | NURSING ---
Addendum entered by Sally Michelle 03/21/22 14:13: R' SON CALLED, STATED FAMILY DOES NOT WANT R' TO RECEIVE MODERNA BOOSTER AT THIS TIME. Original Note: SPOKE WITH SON ABOUT MODERNA BOOSTER. HE STATES I'M STILL ON THE FENCE ABOUT IT AND I WILL LET YOU KNOW IF WE WANT DAD TO GET IT.
--- NOTE | 2022-03-21 13:42 | CASEMGMT ---
Social Work Staff assessment completed for MDS assessment. Yenni Shaffer, INSTRUMENTATION TECHNOLOGIST JUDICIAL ADMINISTRATIVE ASSISTANT
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
[2022-03-21 15:06] VITALS: BP 132/62; PULSE 61; RESP 16; TEMP 36.2; O2SAT 98
[2022-03-21] MEDS: QUEtiapine 25 MG Tablet PO (22:01)
[2022-03-22 06:30] LABS: Bedside Glucose 99 mg/dL (74-106)
[2022-03-22] MEDS: Pantoprazole Sodium 40 MG Tablet PO (06:33)
[2022-03-22] MEDS: Acetaminophen 500 MG Tablet 1000 MG PO (06:33)
[2022-03-22 07:21] LABS: Absolute Lymphocyte Count 0.96 X10^3/uL (0.83-4.51); Absolute Neutrophil Count 4.4 X10^3/uL (2.0-7.7); Basophil# 0.03 X10^3/uL; Basophil% 0.5 % (0-1); Eosinophil# 0.04 X10^3/uL; Eosinophils% 0.7 % (0-5); Hematocrit 36.9 % (40-54); Hemoglobin 11.2 g/dL (13.0-16.5); Lymphocyte # 0.96 X10^3/ul (0.83-4.51); Lymphocyte % 16.3 % (19-41); Mean Corp Hgb Conc 30.4 g/dL (32-36); Mean Corpuscular Hgb 28.1 pg (27.0-32.0); Mean Corpuscular Volume 92.7 fL (80-94); Mean Platelet Vol. 10.7 fl (6.2-12.0); Monocyte# 0.48 X10^3/uL; Monocyte% 8.1 % (0-10); NRBC Flagged by Analyzer 0 % (0-5); Neutrophil # 4.37 X10^3/uL (2.7-7.7); Neutrophil % 74.1 % (47-70); Platelet Count 182 K/mm3 (150-450); RBC Distribution Width CV 18.6 % (11.6-14.6); RBC Distribution Width SD 64.7 fl (35.1-43.9); Red Blood Count 3.98 M/mm3 (4.6-6.2); White Blood Count 5.9 K/mm3 (4.4-11.0)
[2022-03-22 07:47] LABS: Anion Gap 5 (5-15); BUN 18 mg/dL (7-18); BUN/Creat Ratio 24.7 RATIO (10-20); Calcium,Total 8.5 mg/dL (8.5-10.1); Chloride 110 mmol/L (98-107); Creatinine, Serum 0.73 mg/dL (0.70-1.30); EST Glomerular Filtration Rate 109 mL/min (>60); Est Glom Filt Rate - Afr Amer 132 mL/min (>60); Estimated Creatinine Clearance 56.95 ml/min; Glucose 102 mg/dL (74-106); Potassium 4.1 mmol/L (3.5-5.1); Sodium Level 142 mmol/L (136-145)
[2022-03-22] MEDS: Amiodarone 200 MG Tablet PO (08:12)
[2022-03-22] MEDS: Nystatin Powder 15gm Bottle 1 APPLIC TOPICAL (08:13)
[2022-03-22 10:38] VITALS: PULSE 64; RESP 18; TEMP 36.4; O2SAT 98
--- NOTE | 2022-03-26 08:57 | MDS.RN ---
Information for the mds was obtained from review of the clinical record, interview of resident, staff, and direct observation of resident's care.
== END 2022-03-22 11:38 | disposition hospice, home (50) | DRG 194 ==
PROVIDERS: Admitting Provider Family Medicine Geriatric Medicine; PCP Family Medicine; Visit Provider Family Medicine Geriatric Medicine
DX: J18.9 Pneumonia, unspecified organism (principal); G93.40 Encephalopathy, unspecified; I50.32 Chronic diastolic (congestive) heart failure; L97.512 Non-pressure chronic ulcer of other part of right foot with fat layer exposed; E11.51 Type 2 diabetes mellitus with diabetic peripheral angiopathy without gangrene; D50.9 Iron deficiency anemia, unspecified; B35.1 Tinea unguium; E11.621 Type 2 diabetes mellitus with foot ulcer; I48.91 Unspecified atrial fibrillation; E11.9 Type 2 diabetes mellitus without complications; F02.80 Dementia in other diseases classified elsewhere, unspecified severity, without behavioral disturbance, psychotic disturbance, mood disturbance, and anxiety; I11.0 Hypertensive heart disease with heart failure; G30.9 Alzheimer's disease, unspecified; J43.9 Emphysema, unspecified; L97.522 Non-pressure chronic ulcer of other part of left foot with fat layer exposed; E78.5 Hyperlipidemia, unspecified; K21.9 Gastro-esophageal reflux disease without esophagitis; Z79.01 Long term (current) use of anticoagulants; Z87.891 Personal history of nicotine dependence; Z79.84 Long term (current) use of oral hypoglycemic drugs; Z79.899 Other long term (current) drug therapy; N40.0 Benign prostatic hyperplasia without lower urinary tract symptoms
CPT/HCPCS: 36415; 80048; 82962; 85025; 87426; 87811; 92526; 92610; 97162; 97166; 97530; 97535